=== PATIENT | female | born 1980 | race Caucasian/White ===

== ENCOUNTER 2018-08-22 18:59 | Outpatient (REF) | payer MEDICAID, SELFPAY ==
[2018-08-25 05:43] LABS: Codeine Negative ng/mL (Cutoff: 25); Dihydrocodeine Negative ng/mL (Cutoff: 25); Hydrocodone Negative ng/mL (Cutoff: 25); Hydromorphone Negative ng/mL (Cutoff: 25); Morphine Negative ng/mL (Cutoff: 25); Naloxone Negative ng/mL (Cutoff: 25); Norhydrocodone Negative ng/mL (Cutoff: 25); Noroxycodone Negative ng/mL (Cutoff: 25); Noroxymorphone Negative ng/mL (Cutoff: 25); Opiates Interpretation Negative.
[2018-08-27 01:23] LABS: 2-OH-Ethyl-Flurazepam Negative ng/mL (Cutoff: 100); 7-NH-Clonazepam Negative ng/mL (Cutoff: 100); 7-NH-Flunitrazepam Negative ng/mL (Cutoff: 50); Alpha OH-Alprazolam Negative ng/mL (Cutoff: 100); Alpha-OH-Triazolam Negative ng/mL (Cutoff: 100); Benzodiazepines Interpretation Negative.; Lorazepam Negative ng/mL (Cutoff: 100); Temazepam Negative ng/mL (Cutoff: 100)
== END 2018-08-22 19:19 ==
LOC: NCHCN 18:59
PROVIDERS: PCP Family Medicine; Visit Provider Family Medicine
DX: G89.29 Other chronic pain (principal); F11.20 Opioid dependence, uncomplicated
CPT/HCPCS: 80361; 80346

== ENCOUNTER 2018-10-31 17:28 | Emergency (ER) | payer MEDICAID, SELFPAY ==
[2018-10-31 17:33] VITALS: BP 138/92; PULSE 100; RESP 16; TEMP 36.5; O2SAT 99
--- NOTE | 2018-10-31 18:03 | DI.CT_ITS ---
SYMPTOM/DIAGNOSIS: TRAUMA NONCONTRAST HEAD CT: No priors. There is a normal castillo white matter differentiation. No intracranial hemorrhage, infarct, midline shift or mass effect is identified. The ventricles are intact. The basilar cisterns are patent. The calvarium is intact. The visualized paranasal sinuses are clear. The mastoid air cells are well pneumatized. IMPRESSION: No acute intracranial process. CERVICAL SPINE CT: Multiple contiguous axial images of the cervical spine were obtained. Sagittal and coronal reformatted images were evaluated on the [employer] work station. There is normal alignment of the cervical spine. No acute fractures or subluxations are seen. The odontoid is intact. The lateral masses are well aligned. There is no significant prevertebral soft tissue swelling. The lung apices are clear. IMPRESSION: No acute fracture or subluxation in the cervical spine.
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
--- NOTE | 2018-10-31 18:27 | NUR.NOTE ---
Nursing Note: This functional tester typewriters did not come in contact with patient until she was being wheeled over for xray into a wheelchair that stood and pivoted into. Patient was extremely uncooperative once over in xray requesting her c-collar be taken off threatening to throw it. Patient was not compliant, picking up her neck and twisting in while on the table. This functional tester typewriters fixed her c collar as it appeared to be partially taken off. Patient was uncooperative with the plan for trying to maintain c spine precautions during the process of moving patient off the ct table as well.
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
[2018-10-31 19:21] VITALS: BP 138/92; PULSE 100; RESP 16; TEMP 36.5; O2SAT 99
--- NOTE | 2018-11-01 09:13 | CMPROGNOTE_ITS ---
Care Management Progress Note 11/01-Nataliia GARCIA requested assistance with a PCP (Dr. Vicente) f/u as soon as possible for clearance of c-spine. Referral faxed to [facility] this am.
== END 2018-10-31 19:25 | disposition home or self-care (01) ==
LOC: ER 19:13
PROVIDERS: Emergency Provider Physician Assistant; PCP Family Medicine
DX: S00.83XA Contusion of other part of head, initial encounter (principal); S00.531A Contusion of lip, initial encounter; X58.XXXA Exposure to other specified factors, initial encounter; M54.2 Cervicalgia; R51 Headache; Z04.71 Encounter for examination and observation following alleged adult physical abuse
CPT/HCPCS: 99284; 70450; 72125

== ENCOUNTER 2019-02-19 19:59 | Outpatient (REF) | payer MEDICAID, SELFPAY ==
[2019-02-19 20:23] LABS: Abs Immature Grans 0.04 k/cumm (0.0-0.09); Absolute Basophil Count 0.04 k/cumm (0.0-0.2); Absolute Eosinophil Count 0.15 k/cumm (0.0-0.7); Absolute Lymphocyte Count 3.04 k/cumm (1.2-3.4); Absolute Monocyte Count 0.87 k/cumm (0.11-0.7); Absolute Neutrophil Count 5.65 k/cumm (1.2-6.7); Basophils % 0.4; Eosinophils % 1.5; HCT 40.5 % (36.0-46.0); HGB 13.3 g/dL (12.0-15.5); Immature Grans % 0.4; Lymphocytes % 31.1; Mean Corp. HGB Concentration 32.8 g/dL (32.0-36.0); Mean Corpuscular Hemoglobin 28.4 pg (27.0-33.0); Mean Corpuscular Volume 86.4 fL (80-95); Mean Platelet Volume 9.3 fL (8.0-11.0); Monocytes % 8.9; Neutrophils % 57.7; Platelet Count 344 x1000/uL (130-400); RBC 4.69 m/cumm (4.00-5.20); RBC Distribution Width 12.7 % (11.7-14.6); White Blood Cell Count 9.79 k/cumm (4.4-10.8)
[2019-02-19 20:32] LABS: ALT 34 U/L (12-78); AST 17 U/L (15-37); Albumin 3.7 g/dL (3.4-5.0); Alkaline Phosphatase 44 U/L (46-116); Anion Gap 13.1 mmol/L (3-11); BUN 13 mg/dL (7-18); Bilirubin, Total 0.2 mg/dL (0.2-1.0); CO2 20.9 mmol/L (21.0-32.0); CREATININE 0.99 mg/dL (0.55-1.02); Chloride 104 mmol/L (98-107); Glucose 109 mg/dL (70-100); Sodium 138 mmol/L (136-145); TSH 1.25 uIU/mL (0.358-3.74)
== END 2019-02-19 20:19 ==
LOC: NCHCN 19:59
PROVIDERS: PCP Family Medicine; Visit Provider Nurse Practitioner Psychiatric/Mental Health
DX: R30.0 Dysuria (principal); G93.2 Benign intracranial hypertension
CPT/HCPCS: 80053; 84443; 85025; 87086

== ENCOUNTER 2019-03-11 14:12 | Observation (INO) | payer MEDICAID, SELFPAY ==
[2019-03-11] VITALS (52 sets, daily range): BP systolic 116–185; BP diastolic 65–165; PULSE 106–149; RESP 13–49; TEMP 36.5–37.6; O2SAT 86–99
--- NOTE | 2019-03-11 14:23 | NUR.NOTE ---
Nursing Note:Patient currently being served the warrant, VSP is currently being patient as she takes the needed time to read threw the paperwork. ED director and caremanager are present in the lobby as well as the risk developer.
--- NOTE | 2019-03-11 14:43 | NUR.NOTE ---
Nursing Note: This literary writer has been present in patients room since intake into the ER she currently is not allowing vital signs to be taken. She is refusing the medical side of the exam, she keeps reading through the warrant paper work stating it is an emergency mental health exam. Patient is currently still dressed in her own clothing and still has her belongings.
--- NOTE | 2019-03-11 14:53 | PDOC.ERCMPRO ---
Care Management Progress Note Mirela has reportedly spent the day in the lobby of the [facility] Emergency Room while [facility] office support assistant awaited a warrant to treat as Mirela is presenting as delusional and is not voluntary at this time. Anticipate if treatment is recommended she will be involuntary. Recent pertinent PMH unavailable at this time. CM will respond to ED to assess Mirela in the event Mirela is medically cleared and [facility] screener deems she meets criteria for psychiatric stabilization CM will facilitate interdepartmental huddle with [facility] screener for safety planning considerations and meet with patient to review [facility] policy and safety plan, establish individual wishes for treatment and maintain patient rights. In the interim; please note safety plan below to guide patient care while awaiting further assessment in the ED. Safety plan has been established with patient, and care team, to adhere to patient goals, identify restrictions based on behavioral status, address nutrition, and determine allowed personal belongings, tools for hygiene and personal care. Determine level of activity including ambulation, level of supervision, visitors, and determine privileges based on behaviors and level of engagement by patient. SAFETY PLAN: 1. Will remain on suicide precautions. In Paper Clothes 2. Will remain in room under direct supervision of one-on-one staff at all times provided by [employer]; JAGDISH, HORSE IDENT[employer] mission worker. 3. May have paper cups, plates, finger foods as well as a metal spoon with which to eat meals. [facility] staff will be responsible for accounting of utensils after meals. 4. Follow [facility] Management of the Admitted Behavioral Health Patient policy. 5. Comfort bath system only. 6. No personal belongings 7. Visitors-No visitors at this time 8. Activities: Further observation required prior to introduction of manipulatives. 9. Escort to bathroom at RN discretion. 10. Phone: No phone contact at this time. 11. Due to assumed INVOLUNTARY status, patient will likely be unable to leave [facility], and will remain under the care of [facility] at [facility] while awaiting bed availability. [facility] and begin seeking placement. Please contact the Forensic Examiner Tree Killer ([phone]) and [facility] Barrel Line Operator ([phone]) for any needed changes in the Safety Plan. Safety plan has been provided to interdepartmental care team.
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
[2019-03-11 15:16] LABS: Abs Immature Grans 0.04 k/cumm (0.0-0.09); Absolute Basophil Count 0.04 k/cumm (0.0-0.2); Absolute Eosinophil Count 0.07 k/cumm (0.0-0.7); Absolute Lymphocyte Count 2.85 k/cumm (1.2-3.4); Basophils % 0.3; Eosinophils % 0.5; HCT 41.3 % (36.0-46.0); HGB 13.8 g/dL (12.0-15.5); Immature Grans % 0.3; Lymphocytes % 21.5; Mean Corp. HGB Concentration 33.4 g/dL (32.0-36.0); Mean Corpuscular Hemoglobin 28.6 pg (27.0-33.0); Mean Corpuscular Volume 85.7 fL (80-95); Neutrophils % 67.4; Platelet Count 353 x1000/uL (130-400); RBC 4.82 m/cumm (4.00-5.20); RBC Distribution Width 12.7 % (11.7-14.6); White Blood Cell Count 13.24 k/cumm (4.4-10.8)
[2019-03-11 15:20] LABS: Absolute Monocyte Count 1.32 k/cumm (0.11-0.7); Absolute Neutrophil Count 8.92 k/cumm (1.2-6.7)
[2019-03-11 15:34] LABS: ALT 40 U/L (12-78); AST 18 U/L (15-37); Albumin 3.8 g/dL (3.4-5.0); Alkaline Phosphatase 55 U/L (46-116); Anion Gap 15.1 mmol/L (3-11); BUN 9 mg/dL (7-18); Bilirubin, Total 0.4 mg/dL (0.2-1.0); CO2 23.9 mmol/L (21.0-32.0); CREATININE 0.72 mg/dL (0.55-1.02); Calcium 9.1 mg/dL (8.5-10.1); Chloride 102 mmol/L (98-107); Glucose 123 mg/dL (70-100); Sodium 141 mmol/L (136-145); TSH (W/Ref FT4) 1.08 uIU/mL (0.358-3.74); Total Protein 7.6 g/dL (6.4-8.2)
--- NOTE | 2019-03-11 15:39 | NUR.NOTE ---
Nursing Note: Patient reported to this film writer that she went for walk this afternoon which is causing her stuffy nose and productive cough due to the pollen. Patient reported to this film writer that her cough is producing greenish colored sputum and her nasal discharge is clear in color at this time. It has been noted that the patient has not left the ER waiting room all day today so her afternoon walk is a delusion.
[2019-03-11 15:42] LABS: Potassium 2.9 mmol/L (3.5-5.1)
--- NOTE | 2019-03-11 15:50 | NUR.NOTE ---
Nursing Note: EKG performed on patient, MD required to be present in the room as patient only follows the rules when provider is present. Patient initially refused to sit in a semi fowlers. She gets very defensive about any information this tag writer discloses to the provider.
[2019-03-11 15:54] LABS: Magnesium 1.5 mg/dL (1.8-2.4)
--- NOTE | 2019-03-11 16:01 | CMPROGNOTE_ITS ---
Care Management Progress Note Mirela has reportedly spent the day in the lobby of the [facility] Emergency Room while [facility] supportive employment case manager awaited a warrant to treat as Mirela is presenting as delusional and is not voluntary at this time. Anticipate if treatment is recommended she will be involuntary. Recent pertinent PMH unavailable at this time. CM will respond to ED to assess Mirela in the event Mirela is medically cleared and [facility] screener deems she meets criteria for psychiatric stabilization CM will facilitate interdepartmental huddle with [facility] screener for safety planning considerations and meet with patient to review [facility] policy and safety plan, establish individual wishes for treatment and maintain patient rights. In the interim; please note safety plan below to guide patient care while awaiting further assessment in the ED. Safety plan has been established with patient, and care team, to adhere to patient goals, identify restrictions based on behavioral status, address nutrition, and determine allowed personal belongings, tools for hygiene and personal care. Determine level of activity including ambulation, level of supervision, visitors, and determine privileges based on behaviors and level of engagement by patient. SAFETY PLAN: 1. Will remain on suicide precautions. In Paper Clothes 2. Will remain in room under direct supervision of one-on-one staff at all times provided by [employer]; JAGDISH, MANAGER VAN mortgage loan specialist. 3. May have paper cups, plates, finger foods as well as a metal spoon with which to eat meals. [facility] staff will be responsible for accounting of utensils after meals. 4. Follow [facility] Management of the Admitted Behavioral Health Patient policy. 5. Comfort bath system only. 6. No personal belongings 7. Visitors-No visitors at this time 8. Activities: Further observation required prior to introduction of manipulatives. 9. Escort to bathroom at RN discretion. 10. Phone: No phone contact at this time. 11. Due to assumed INVOLUNTARY status, patient will likely be unable to leave [facility], and will remain under the care of [facility] at [facility] while awaiting bed availability. [facility] and begin seeking placement. Please contact the Bread Racker Poly Operator ([phone]) and [facility] Crater And Packer ([phone]) for any needed changes in the Safety Plan. Safety plan has been provided to interdepartmental care team.
[2019-03-11 16:02] LABS: ETHANOL BLOOD < 3.0 mg/dL (<3); Salicylate < 2.8 mg/dL (2.8-20.0)
[2019-03-11 16:05] LABS: Acetaminophen < 2 ug/mL (10-30)
--- NOTE | 2019-03-11 16:16 | NUR.NOTE ---
Addendum entered by Kacie Uribe 03/11/19 17:27: Late entry due to being busy with caring for patient. Multiple deescalation techniques were used to help the ER staff avoid the need for restraints. Patient was initially sitting with legs over the side of the bed with arms crossed refusing all medical care. She kept shaking her head with her eyes closed. With lots of calm voices and encouragement patient agreed to cooperate. Original Note: Nursing Note: Patient moved from room 9 to room 1 for the ability to use a security monitor and medically clear a patient. Patient is currently refusing medical treatment. Multiple different faces including the facilities director credit risk, the provider caring for the patient.
[2019-03-11] MEDS: Normal Saline 1,000 ML 1000 ML IV (16:46)
[2019-03-11] MEDS: MAGNESIUM SULFATE 2 GM/50 ML BAG IVPB (16:46)
--- NOTE | 2019-03-11 17:13 | PDOC.MHCN ---
Date of service: 03/11/19 Time of Service: 17:13 Mental Health Crisis Note Presenting Issue How did you arrive at the ED and why did you come: Mirela was dropped off at the hospital at 7:15 am by an unknown male. She remained in the waiting area for several hours as she refused to come into the ER. [facility] contacts [facility] emergency services to request an evaluation. A warrant is subsequently obtained and [facility] Police escort Mirela into the ER. Precipitating Factors Mirela is delusional, believing that a man named Jaiden will be coming to pick her up in a helicopter. She also appears to be experiencing hallucinations, as evidenced by her carrying on a one-sided conversation. Suicidal ideation cannot be assessed as she refuses to answer questions asked of her. Disposition BEHAVIOR: Uncooperative. EYE CONTACT: Good. MOOD: Irritable. AFFECT: Guarded. APPETITE: Unknown. SLEEP(trouble falling/staying asleep: Unknown. Plan Once Mirela is medically stable, she will be reassessed by [facility]. For the time being, she is being held at [facility] on involuntary status. Signature Clinician's Name/Title: Yusra Lind BA, [facility] Manager Star
--- NOTE | 2019-03-11 17:20 | PDOC.MHCN_ITS ---
Date of service: 03/11/19 Time of Service: 17:13 Mental Health Crisis Note Presenting Issue How did you arrive at the ED and why did you come: Mirela was dropped off at the hospital at 7:15 am by an unknown male. She remained in the waiting area for several hours as she refused to come into the ER. [facility] contacts [facility] emergency services to request an evaluation. A warrant is subsequently obtained and [facility] Police escort Mirela into the ER. Precipitating Factors Mirela is delusional, believing that a man named Jaiden will be coming to pick her up in a helicopter. She also appears to be experiencing hallucinations, as evidenced by her carrying on a one-sided conversation. Suicidal ideation cannot be assessed as she refuses to answer questions asked of her. Disposition BEHAVIOR: Uncooperative. EYE CONTACT: Good. MOOD: Irritable. AFFECT: Guarded. APPETITE: Unknown. SLEEP(trouble falling/staying asleep: Unknown. Plan Once Mirela is medically stable, she will be reassessed by [facility]. For the time being, she is being held at [facility] on involuntary status. Signature Clinician's Name/Title: Yusra Lind BA, [facility] Vermin Exterminator
--- NOTE | 2019-03-11 18:13 | NUR.NOTE ---
Nursing Note: Patient provided with a meal tray of a meal that she ordered to her liking. While setting her up to eat she requested her Blood pressure cuff be removed and her SPO2 monitor be removed. was notified.
--- NOTE | 2019-03-11 18:53 | PDOC.ERCMPRO ---
Care Management Progress Note S/O: Mirela spent the day in the lobby of the [facility] Emergency Room while [facility] learning support assistant awaited a warrant to treat as Mirela is presenting as delusional and is not voluntary at this time. Warrant was served and the [facility] Troopers escorted her to the ED for medical evaluation and clearance. She has been talking to people who are not there and waiting for Jaiden to come pick her up. She has been a client of [facility] in the past but has not had any recent contact. She does know all of the medications she is on but has not been taking them as ordered. There is no one named Jaiden coming to pick her up. She did agree to medical management and allowed labs to be drawn and agreed to receive IV fluids. Does have a history of PTSD and, according to her, TBI. INVOLUNTARY FOR MEDICAL CLEARANCE AND PSYCHIATRIC EVALUATION [facility] 03/11/19 17:45 Sho Bellamy, RN; Uriel StaffordTape Stringer, Yusra [facility]; Ritu MATTHEWS- Safety plan has been established with patient, and care team, to adhere to patient goals, identify restrictions based on behavioral status, address nutrition, and determine allowed personal belongings, tools for hygiene and personal care. Determine level of activity including ambulation, level of supervision, visitors, and determine privileges based on behaviors and level of engagement by pt. 03/11/19 @ 1800 SAFETY PLAN: ED Room #1 JL 1. Will remain on suicide precautions and in paper clothes. May keep her leggings on. 2. Will remain in room under direct supervision of one-on-one staff at all times provided by [employer], JAGDISH, WIG SALES CONSULTANT recreation activities coordinator. 3. May have paper cups, plates, finger foods as well as a metal spoon with which to eat meals. [facility] staff will be responsible for accounting of utensils after meals. May have additional utensils at the direction of the RN. 4. Follow [facility] Management of the Admitted Behavioral Health Patient policy. 5. Comfort bath system only. 6. No personal belongings in the room 7. Visitors: No visitors at this time. 8. Activities: Further observation is required prior to introduction of manipulatives (books, coloring books, crayons) 9. No phone at this time. 10. Nursing Biomedical Manager to coordinate any decision for change in location to the M/S Unit based on staffing and bed availability. TV Privileges/Remote privileges if moved to the Unit 11. Due to INVOLUNTARY status, the patient may not leave the hospital and will remain under the care of [facility] and the Commissioner of Mental health at [facility] while awaiting bed availability. The [facility] livestock farmworker must be contacted to re-evaluate patient. Patient is currently involuntarily at [facility] and [facility] is seeking inpatient psychiatric admission when a bed becomes available. [facility] Frontline Computer System Validation Specialist will seek placement options when medically cleared. Please contact the Storage Battery Inspector And Tester Coal Trammer ([phone]) and [facility] Computer System Validation Specialist ([phone]) for any needed changes in the Safety Plan. Safety plan has been provided to interdepartmental care team including Clinical Coordinator, Nursing Biomedical Manager.
[2019-03-11] MEDS: POTASSIUM CHLORIDE 20 MEQ/100 ML BAG 50 MEQ IVPB (19:12)
[2019-03-11] MEDS: LORazepam 2 MG/ML VIAL IVP (19:15)
--- NOTE | 2019-03-11 19:22 | CMPROGNOTE_ITS ---
Care Management Progress Note S/O: Mirela spent the day in the lobby of the [facility] Emergency Room while [facility] application support developer awaited a warrant to treat as Mirela is presenting as delusional and is not voluntary at this time. Warrant was served and the [facility] Troopers escorted her to the ED for medical evaluation and clearance. She has been talki ng to people who are not there and waiting for Jaiden to come pick her up. She has been a client of [facility] in the past but has not had any recent contact. She does know all of the medications she is on but has not been taking them as ordered. There is no one named Jaiden coming to pick her up. She did agree to medical management and allowed labs to be drawn and agreed to receive IV fluids. Does have a history of PTSD and, according to her, TBI. INVOLUNTARY FOR MEDICAL CLEARANCE AND PSYCHIATRIC EVALUATION Huddle 03/11/19 17:45 Sho Bellamy, BYRON; Uriel StaffordPaleontological Helper, Yusra [facility]; Ritu MATTHEWS- Safety plan has been established with patient, and care team, to adhere to patient goals, identify restrictions based on behavioral status, address nutrition, and determine allowed personal belongings, tools for hygiene and personal care. Determine level of activity including ambulation, level of supervision, visitors, and determine privileges based on behaviors and level of engagement by pt. 03/11/19 @ 1800 SAFETY PLAN: ED Room #1 JL 1. Will remain on suicide precautions and in paper clothes. May keep her leggings on. 2. Will remain in room under direct supervision of one-on-one staff at all times provided by CPSO, JAGDISH, [employer] field education director. 3. May have paper cups, plates, finger foods as well as a metal spoon with which to eat meals. [facility] staff will be responsible for accounting of utensils after meals. May have additional utensils at the direction of the RN. 4. Follow [facility] Management of the Admitted Behavioral Health Patient policy. 5. Comfort bath system only. 6. No personal belongings in the room 7. Visitors: No visitors at this time. 8. Activities: Further observation is required prior to introduction of manipulatives (books, coloring books, crayons) 9. No phone at this time. 10. Nursing Washer Repairman to coordinate any decision for change in location to the M/S Unit based on staffing and bed availability. TV Privileges/Remote privileges if moved to the Unit 11. Due to INVOLUNTARY status, the patient may not leave the hospital and will remain under the care of [facility] and the Commissioner of Mental health at [facility] while awaiting bed availability. The [facility] bench worker binding must be contacted to re- evaluate patient. Patient is currently involuntarily at [facility] and [facility] is seeking inpatient p sychiatric admission when a bed becomes available. [facility] Frontline Fur Dyer will seek placement options when medically cleared. Please contact the Instrumentation And Controls Technician Diesel Bus Mechanic ([phone]) and [facility] Fur Dyer ([phone]) for any needed changes in the Safety Plan. Safety plan has been provided to interdepartmental care team including Clinical Coordinator, Nursing Washer Repairman.
[2019-03-11 19:30] LABS: Bilirubin Negative (Negative); Blood Negative (Negative); Clarity Clear; Glucose Negative (Negative); Ketones 40 mg/dL (Negative); Leukocyte Esterase Negative (Negative); Nitrite Negative (Negative); Specific Gravity 1.015 (1.005-1.025)
--- NOTE | 2019-03-11 19:40 | DI.COMBO_ITS ---
SYMPTOM/DIAGNOSIS: COUGH, CONFUSION PORTABLE AP CHEST: The image was obtained in a poor inspiratory effort. There is no definite infiltrate. There is no pleural effusion. The cardiovascular structures appear intact. SUMMARY: No evidence of acute cardiopulmonary disease. If there is other strong specific clinical question regarding the status of this patient, then a follow up PA and lateral examination is recommended. NONCONTRAST HEAD CT: A noncontrast enhanced examination was performed. There is no evidence of an intra/extra-axial hemorrhage. There is no evidence of a mass. The castillo white matter differentiation is maintained. The ventricles are normal. There is no skull fracture. The sinuses are unremarkable. There is no evidence of a mastoid effusion. The bony orbits are well maintained. The soft tissues are unremarkable. SUMMARY: No acute intracranial abnormality is demonstrated.
[2019-03-11 19:47] LABS: *AMPHETAMINES SCREEN URINE Negative (Negative); *BARBITURATES SCREEN URINE Negative (Negative); *BENZODIAZEPINES SCREEN URINE Negative (Negative); Cannabinoids THC Negative (Negative); Cocaine Screen,Urine Negative (Negative); METHADONE URINE SCREEN Negative (Negative); OPIATES URINE SCREEN Negative (Negative)
[2019-03-11 20:07] LABS: Tricyclic Antidepressants Negative (Negative)
--- NOTE | 2019-03-11 20:10 | DI.VRAD_ITS ---
EXAM: XR Chest, 1 View EXAM DATE/TIME: 03/11/2019 7:40 PM CLINICAL HISTORY: 38 years old, female; Signs and symptoms; Other: Cough TECHNIQUE: Imaging protocol: XR of the chest, 1 view. COMPARISON: CR CHEST 2 VIEWS PA,LAT 03/16/2016 11:07 AM FINDINGS: Lungs: Low lung volumes causes mild crowding of the bronchovascular structures, nevertheless there is mild bilateral hilar haziness and subtle bilateral perihilar streak-like opacities noted. Mild segmental bronchial wall thickening is appreciated as well. Slightly more pronounced air space opacification suggested in the left retrocardiac region. Pleural space: Unremarkable. No pleural effusion. No pneumothorax. Heart/Mediastinum: Cardiomediastinal silhouette is magnified due to technique. Bones/joints: No acute skeletal abnormality IMPRESSION: Findings predominantly suggest an acute viral illness versus reactive airways disease, however there is concern for possible developing airspace disease in the left retrocardiac region in which developing infectious (bacterial) pneumonia should be entertained in the appropriate clinical setting. Dictated and Authenticated by: Donovan Kirby MD. Ordering:CHRISTIANO Dillard MD
[2019-03-11] MEDS: DOXYCYCLINE 100 MG in Normal Saline 100 ML IVPB (20:32)
[2019-03-11] MEDS: cefTRIAXone 1 GM/50 ML BAG IVPB (20:32)
--- NOTE | 2019-03-11 20:51 | DI.VRAD_ITS ---
EXAM: CT Head Without Contrast EXAM DATE/TIME: 03/11/2019 8:01 PM CLINICAL HISTORY: 38 years old, female; Signs and symptoms; Altered mental status/memory loss; Confusion or disorientation TECHNIQUE: Imaging protocol: Axial computed tomography images of the head without contrast. Coronal and sagittal reformatted images were created and reviewed. Radiation optimization: All CT scans at this facility use at least one of these dose optimization techniques: automated exposure control; mA and/or kV adjustment per patient size (includes targeted exams where dose is matched to clinical indication); or iterative reconstruction. COMPARISON: No relevant prior studies available. FINDINGS: Brain: Normal. No hemorrhage. Unremarkable white matter. No mass effect. Ventricles: Normal. No ventriculomegaly. Bones/joints: Unremarkable. No acute fracture. Sinuses: Visualized sinuses are unremarkable. No fluid levels. Mastoid air cells: Visualized mastoid air cells are well aerated. No mastoid effusion. Orbits: Unremarkable. Soft tissues: Unremarkable. IMPRESSION: No acute intracranial abnormality. Dictated and Authenticated by: Donovan Kirby MD. Ordering:CHRISTIANO Dillard MD
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
[2019-03-11] MEDS: POTASSIUM CHLORIDE/0.9% NACL 1,000 ML 200 MEQ IV (23:01)
[2019-03-11 23:29] LABS: Lactate-non-spesis 0.7 mmol/l (0.6-1.4)
[2019-03-12 00:12] VITALS: BP 126/78; PULSE 99; RESP 16; TEMP 37; O2SAT 96
--- NOTE | 2019-03-12 01:20 | NUR.NOTE ---
At about 0000 this nurse went into the pt's room to give her Lamictal 100mg, Trazodone 100mg, Prazosin 2mg per MD order. Pt was awakened upon this nurses arrival. pt's VS were taken. pt fell back asleep after VS equipment was removed. this freelance writer awaken pt again and opened above medications in front of pt and explained what meds the MD prescribed and what they were for. pt stated that she could not take medications on an empty stomach and wanted a PB&J sandwhich, one was made. pt was sleeping upon arrival back into room. pt stated that she could not eat this sandwich because it was not made in front of her and she only ate white bread. this nurse brought the supplies to make the pt a new sandwich in pt's room. pt was awakened to see that a new sandwich as being made. pt fell asleep while sandwich was being made, even with this freelance writer announcing what I was doing. once more this nurse explained to the pt why the MD ordered these medication and the pt still refused to take them. an hour later another nurse tried again to administer the above medications to the pt. after awakening pt and opening the meds in front of her and explaining them she still refused. pt sleeping at this time with CPSO in the room. will continue to monitor.
[2019-03-12] MEDS: POTASSIUM CHLORIDE/0.9% NACL 1,000 ML 200 MEQ IV (04:00)
[2019-03-12 07:50] VITALS: BP 134/79; PULSE 125; RESP 18; TEMP 37.2; O2SAT 97
[2019-03-12] MEDS: acetaZOLAMIDE 250 MG TAB 500 MG PO ×2 (08:25→20:18)
[2019-03-12] MEDS: Omeprazole 20 MG CAPCR 40 MG PO (08:25)
[2019-03-12] MEDS: Celecoxib 200 MG CAP PO ×2 (08:26→20:17)
[2019-03-12] MEDS: buPROPion-CR 150 MG TABCR PO ×2 (08:26→20:17)
[2019-03-12] MEDS: lamoTRIgine 100 MG TAB 150 MG PO (08:28)
[2019-03-12] MEDS: Montelukast 10 MG TAB PO (08:31)
[2019-03-12] MEDS: Propranolol 40 MG TAB PO ×2 (08:31→20:18)
[2019-03-12] MEDS: Venlafaxine 150 MG CAPCR 300 MG PO (08:32)
[2019-03-12 10:15] VITALS: O2SAT 97
--- NOTE | 2019-03-12 13:40 | PDOC.MHCN ---
Date of service: 03/12/19 Time of Service: 13:40 Mental Health Crisis Note Presenting Issue How did you arrive at the ED and why did you come: Mirela remains at [facility] on involuntary status. She first came to the hospital yesterday after being dropped off by some unknown male in the waiting area. Precipitating Factors Mirela continues to be irritable. She refuses to engage in conversation but she does agree to go to [facility] voluntarily if they have a bed available. She continues to experience hallucinations and paranoia. Disposition BEHAVIOR: Uncooperative. EYE CONTACT: Good. MOOD: Irritable. AFFECT: Guarded and paranoid. APPETITE: Reported as good. SLEEP(trouble falling/staying asleep: Unknown. Plan [facility] accepts a referral. If they accept Mirela for admission, she will be walked off of the and will be transported to [facility]. A referral is also faxed to [facility] for review. Signature Clinician's Name/Title: Yusra Lind BA, [facility] Extension Edger
--- NOTE | 2019-03-12 13:46 | PDOC.MHCN_ITS ---
Date of service: 03/12/19 Time of Service: 13:40 Mental Health Crisis Note Presenting Issue How did you arrive at the ED and why did you come: Mirela remains at [facility] on involuntary status. She first came to the hospital yesterday after being dropped off by some unknown male in the waiting area. Precipitating Factors Mirela continues to be irritable. She refuses to engage in conversation but she does agree to go to [facility] voluntarily if they have a bed available. She continues to experience hallucinations and paranoia. Disposition BEHAVIOR: Uncooperative. EYE CONTACT: Good. MOOD: Irritable. AFFECT: Guarded and paranoid. APPETITE: Reported as good. SLEEP(trouble falling/staying asleep: Unknown. Plan [facility] accepts a referral. If they accept Mirela for admission, she will be walked off of the and will be transported to [facility]. A referral is also faxed to [facility] for review. Signature Clinician's Name/Title: Yusra Lind BA, [facility] Dimensional Engineer
--- NOTE | 2019-03-12 15:01 | W.PM.PROGNOT ---
Date of Service Date of service: 03/12/19 Time of Service: 15:02 Assessment and Plan (1) Acute psychosis: Current visit: Yes Status: Acute Per review of admission H&P it appears that patient's psychosis has been developing over the last 2 months, and has included paranoia, hallucinations, and potentially wayne as well - all exhibited currently. Primary issue appears very likely psychiatric in origin. Patient is not intoxicated, and UDS appears negative. She is not hypoxic, hypotensive, or experiencing any arrhythmia (sinus tachycardia in setting of agitation). CT of the Head has ruled out space occupying lesion or acute changes. EKG without ischemic changes. Sodium, Calcium, and TSH all appear normal. There is potential for infection (Pulmonary infiltrate), with read not confirmed by local radiology) and currently under treatment. There is also possibility for medication noncompliance as well, and according to admitting attending who has access to her records, patient has documentation of stimulant use over the last year, which would likely not show up on her Urine Drug Screen). Will continue with involuntary admission, 2nd certification being performed currently. Patient is awaiting placement into a psychiatric facility. Will continue with supportive care - she is also refusing new medications at this time to try to treat her symptoms. (2) Pneumonia: Current visit: Yes Status: Acute Potential infiltrate by Virtual Radiology read, as well as subjective cough and presence of mild leukocytosis. Repeat CBC and Procalcitonin ordered, but unfortunately the patient has refused further labwork. Will attempt empiric treatment - Ms. Lara has refused Azithromycin, Cefpodoxime, Doxycycline, and a number of other antibiotic options. Agreeing to Levofloxacin and also requesting prednisone. Check sputum culture. (3) Diabetes mellitus: Current visit: Yes Status: Chronic Continue to hold Metformin, and continue sliding scale coverage. (4) Elevated intracranial pressure: Current visit: Yes Status: Acute Continue Acetazolamide. Followed by Neurology chronically. Currently with evidence of hypokalemia and hypomagnesemia on Acetazolamide. Replete and recheck K+ if patient is amenable. (5) Chronic pain disorder: Current visit: Yes Status: Chronic Opiates reportedly weaned off, but patient is currently demanding he 'oxycodone'. Will continue with her home regimen of Celebrex. (6) Tachycardia: Current visit: Yes Status: Acute Potential pneumonia, but no evidence of hypoxia, fever, hypotension, Sepsis, or significant volume depletion. Patient is not anemic or hyperthyroid (normal TSH). She also does not have a history of underlying pulmonary disease. Unsure if patient has been exposed to stimulants as outpatient, other illicit drugs not seen on her UDS, or if this is related to her underlying agitation and anxiety. She may have been noncompliant with her BB therapy, but now resumed. EKG non-ischemic, and very low suspicion for PE. Will monitor, but doubt significant pathology. (7) Bipolar 1 disorder: Current visit: Yes Status: Acute Continue current home regiemn. (8) DVT prophylaxis: Current visit: Yes Status: Acute Currently ambulating and low risk for Venous Thromboembolism. Ensure SCDs. (9) Discharge planning issues: Current visit: Yes Status: Acute Currently being held nonvoluntary, with plans for transfer to inpatient psychiatric center. Subjective Interval history since last seen: 38 year old woman with history of bipolar disorder as well as PTSD, admitted from [facility] Emergency Department with a diagnosis of Acute Psychosis. Ms. Lara has a past medical history significant for Bipolar Disorder, PTSD, and prior TBI. She also suffers from chronic migraines and intracranial pressure elevation related to her Traumatic Brain Injury. She has been noted to have developed some paranoia and hallucinations over the past 2 months, per review of admission H&P and ED Records. She was essentially dropped off at the ED earlier on the day of admission by an unknown individual, with claims that the patient was 'psychotic'. She was assessed by mental health, and during routine work-up was noted to have a mild leukocytosis, mild tachycardia, hypokalemia, and potential presence of an infiltrate by CXR. Her urinalysis was negative for infection, Urine Drug screen negative, and with a normal CT of the head. She was also noted to be speaking to herself and to people or things that were not there. She was admitted under involuntary status with hopes of placement to a psychiatric facility. This morning the patient is agitated, uncooperative, and verbally abusive to staff, although cooperating with this physician. She has refused some medications, refused morning labs, is demanding that her IV be removed, and claiming that the bed linens and bath towels have given her an allergic reaction. She appears demanding and acutely manic and psychotic. Of note, she is also demanding her oral oxycodone, which was noted to be weaned off during this past winter. No other events reported. She remains afebrile. Exam Narrative Exam Narrative: General: Patient appears agitated, acutely , AAOX3, NAD Neck: Supple CV: Regular, nontachycardic, S1S2, No rubs, murmurs, or gallops. Pulmonary: Clear to auscultation bilaterally, no crackles, wheezing, or rhonchi Abdomen: + Bowel Sounds, soft, nontender, nondistended Vascular: No lower extremity Psych: Normal mood and affect. Objective Objective Clinical Data: Abnormal lab results 03/11/19 03/11/19 03/11/19 Range/Units 15:05 15:05 15:05 WBC 13.24 H (4.4-10.8) k/cumm Absolute Neutrophils 8.92 H (1.2-6.7) k/cumm Absolute Monocytes 1.32 H (0.11-0.7) k/cumm Potassium 2.9 L* (3.5-5.1) mmol/L Anion Gap 15.1 H (3-11) mmol/L Glucose 123 H (70-100) mg/dL Magnesium (1.8-2.4) mg/dL Urine Ketones (Negative) mg/dL Urine Urobilinogen (Up TO 0.2) EU/dL Salicylates < 2.8 L (2.8-20.0) mg/dL Acetaminophen < 2 L (10-30) ug/mL 03/11/19 03/11/19 Range/Units 15:30 19:25 WBC (4.4-10.8) k/cumm Absolute Neutrophils (1.2-6.7) k/cumm Absolute Monocytes (0.11-0.7) k/cumm Potassium (3.5-5.1) mmol/L Anion Gap (3-11) mmol/L Glucose (70-100) mg/dL Magnesium 1.5 L (1.8-2.4) mg/dL Urine Ketones 40 H (Negative) mg/dL Urine Urobilinogen 1.0 H (Up TO 0.2) EU/dL Salicylates (2.8-20.0) mg/dL Acetaminophen (10-30) ug/mL Vital Signs Temperature 37.2 C 03/12/19 07:50 Temperature Source Tympanic 03/12/19 07:50 Pulse 125 H 03/12/19 07:50 Pulse Rhythm Regular 03/12/19 00:12 Pulse 126 H 03/11/19 21:30 Respiratory Rate 18 03/12/19 07:50 Respiratory Effort Non-Labored 03/12/19 00:12 Respiratory Depth Normal 03/12/19 00:12 Respiratory Pattern Normal 03/12/19 00:12 Blood Pressure 134/79 03/12/19 07:50 Blood Pressure Mean 77 03/11/19 22:16 Blood Pressure Position Supine 03/11/19 22:05 Pulse Oximetry 97 03/12/19 10:15 Oxygen Delivery Method Room Air 03/12/19 10:15 Oxygen Flow Rate 0 03/12/19 10:15 Pain Level 0 03/12/19 00:12 Intake & Output 03/11/19 03/12/19 03/12/19 23:59 11:59 23:59 Intake Total 1300 / 1300 2030.000 / 2480.000 450 / 2480.000 Balance 1300 / 1300 2030.000 / 2480.000 450 / 2480.000 Weight 86.8 kg 89.1 kg Intake: IV 1300 / 1300 1910.000 / 1910.000 Oral 120 / 570 450 / 570 Other: Comment straight cath for urine specimen. pt got up to void. pt removed hat. pt removed hat from the toilet Voiding Methods Toilet Toilet Laboratory Results WBC 13.24 k/cumm (4.4-10.8) H 03/11/19 15:05 RBC 4.82 m/cumm (4.00-5.20) 03/11/19 15:05 Hgb 13.8 g/dL (12.0-15.5) 03/11/19 15:05 Hct 41.3 % (36.0-46.0) 03/11/19 15:05 MCV 85.7 fL (80-95) 03/11/19 15:05 MCH 28.6 pg (27.0-33.0) 03/11/19 15:05 MCHC 33.4 g/dL (32.0-36.0) 03/11/19 15:05 RDW 12.7 % (11.7-14.6) 03/11/19 15:05 Plt Count 353 x1000/uL (130-400) 03/11/19 15:05 MPV 10.0 fL (8.0-11.0) 03/11/19 15:05 Immature Gran % 0.3 03/11/19 15:05 Neutrophils % 67.4 03/11/19 15:05 Lymphocytes % 21.5 03/11/19 15:05 Monocytes % 10.0 03/11/19 15:05 Eosinophils % 0.5 03/11/19 15:05 Basophils % 0.3 03/11/19 15:05 Absolute Neutrophils 8.92 k/cumm (1.2-6.7) H 03/11/19 15:05 Absolute Lymphocytes 2.85 k/cumm (1.2-3.4) 03/11/19 15:05 Absolute Monocytes 1.32 k/cumm (0.11-0.7) H 03/11/19 15:05 Absolute Eosinophils 0.07 k/cumm (0.0-0.7) 03/11/19 15:05 Absolute Basophils 0.04 k/cumm (0.0-0.2) 03/11/19 15:05 Sodium 141 mmol/L (136-145) 03/11/19 15:05 Potassium 2.9 mmol/L (3.5-5.1) L* 03/11/19 15:05 Chloride 102 mmol/L (98-107) 03/11/19 15:05 Carbon Dioxide 23.9 mmol/L (21.0-32.0) 03/11/19 15:05 Anion Gap 15.1 mmol/L (3-11) H 03/11/19 15:05 BUN 9 mg/dL (7-18) 03/11/19 15:05 Creatinine 0.72 mg/dL (0.55-1.02) 03/11/19 15:05 Estimated GFR/1.73 m2 >= 60.00 (mL/min/1.73m2) 03/11/19 15:05 Glucose 123 mg/dL (70-100) H 03/11/19 15:05 Lactate 0.7 mmol/l (0.6-1.4) 03/11/19 23:25 Calcium 9.1 mg/dL (8.5-10.1) 03/11/19 15:05 Magnesium 1.5 mg/dL (1.8-2.4) L 03/11/19 15:30 Total Bilirubin 0.4 mg/dL (0.2-1.0) 03/11/19 15:05 AST 18 U/L (15-37) 03/11/19 15:05 ALT 40 U/L (12-78) 03/11/19 15:05 Alkaline Phosphatase 55 U/L (46-116) 03/11/19 15:05 Total Protein 7.6 g/dL (6.4-8.2) 03/11/19 15:05 Albumin 3.8 g/dL (3.4-5.0) 03/11/19 15:05 TSH 1.08 uIU/mL (0.358-3.74) 03/11/19 15:05 Beta HCG, Quant Cancelled 03/11/19 16:17 Urine Color Yellow (Yellow) 03/11/19 19:25 Urine Clarity Clear 03/11/19 19:25 Urine pH 6.0 (5-8) 03/11/19 19:25 Ur Specific [place] 1.015 (1.005-1.025) 03/11/19 19:25 Urine Protein Negative mg/dL (Negative) 03/11/19 19:25 Urine Ketones 40 mg/dL (Negative) H 03/11/19 19:25 Urine Blood Negative (Negative) 03/11/19 19:25 Urine Nitrite Negative (Negative) 03/11/19 19:25 Urine Bilirubin Negative (Negative) 03/11/19 19:25 Urine Urobilinogen 1.0 EU/dL (Up TO 0.2) H 03/11/19 19:25 Ur Leukocyte Esterase Negative (Negative) 03/11/19 19:25 Urine Glucose Negative mg/dL (Negative) 03/11/19 19:25 Salicylates < 2.8 mg/dL (2.8-20.0) L 03/11/19 15:05 Urine Opiates Screen Negative (Negative) 03/11/19 19:25 Urine Methadone Screen Negative (Negative) 03/11/19 19:25 Acetaminophen < 2 ug/mL (10-30) L 03/11/19 15:05 Ur Barbiturates Screen Negative (Negative) 03/11/19 19:25 Ur Tricyclics Screen Negative (Negative) 03/11/19 19:25 Ur Amphetamines Screen Negative (Negative) 03/11/19 19:25 U Benzodiazepines Scrn Negative (Negative) 03/11/19 19:25 Urine Cocaine Screen Negative (Negative) 03/11/19 19:25 Ur THC Screen Negative (Negative) 03/11/19 19:25 Ethyl Alcohol < 3.0 mg/dL (<3) 03/11/19 15:05
[2019-03-12] MEDS: predniSONE 20 MG TAB 40 MG PO (15:17)
--- NOTE | 2019-03-12 16:17 | PHARADMIT ---
Admission Pharmacy Clinical Review PNEUMONIA, PSYCHOTIC BEHAVIOR Code Status Full Code Current Weight 89.1 kg Renally Cleared and Narrow Therapeutic Index Meds CRCL ~71ML/MIN QTc Value / Action Taken 445 BP Control, Fever 134/79 AFEBRILE Electrolytes reviewed k AND MAG LOW REPLETED YESTERDAY BUT PT REFUSED LAB DRAW TODAY DVT Prophylaxis NO Opiate Usage / Scheduled Bowel Regimen Ordered Plt/SCr for Heparin / Enoxaparin 353 INR for Warfarin NA H/H stable, WBC/Bands 13.8/41.3 WBC 13.24 Antibiotic appropriateness ONE DOSE AZITHROMYCIN ORDERED PT REFUSED THEN STOPPED .LEVOFLOXACIN ORDERED Cultures and Sensitivities NA Surgical ABX d/c within 24 hr NA DM control / Insulin Dosing INSULIN ASPART Heart Failure (Check EF%) (FERNANDA's, B-Block, Diuretics) NA IV to PO Switch PO ABX Home Meds Reviewed Home Meds Not Ordered metformin 1,000 mg PO BID propranolol 40 mg PO BID ropinirole [Requip] 0.25 mg PO .QHS 10/31/18 trazodone 100 mg PO .QHS Comments
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
--- NOTE | 2019-03-12 18:05 | NUR.NOTE ---
Nursing Note: Pt received fully awake on stretcher on sitting position, refused to be touched. took morning prednisone with 2 leslee crackers and peanut butter, everything should be sealed. Unable to do physical assessments. complained of shoulder and headaches but no PRN pain med.When MD seen pt and made aware but no voiced complaints when MD was around. Pt did her own fingerstick was supervised by JAGDISH. Then complained of IID on Rt Ac drsg to be changed but when approached , pt stated not to touch it, Pt is very suspicious and paranoid of things she is getting if not sealed and be readable by her. sitter on the sight.
--- NOTE | 2019-03-12 19:05 | PDOC.CMPRO ---
- If Service Date Differs Date of service: 03/12/19 Time of Service: 19:05 Care Management Progress Note Mirela was evaluated by [facility]. Second certification was not approved per provider the patient does not meet requirements. Patient should work with [facility] for a safe discharge plan and follow up. Patient denies suicidal or homicidal ideation and states if she were to leave she would go to a friends home. CM contacted [facility] to meet with the patient. CM will fax referral to primary care and request T contact patient. Pt reports she has several appointments scheduled with her providers at [facility] over the next two weeks. She shares that her medications where recently adjusted as she had not been sleeping well. She states her provider increased her Prazosin to 4 mg to help her sleep. She states she has been more irritable and has been meeting with her provider regular to adjust her medications. P: [facility] will meet with Mirela and determine a safety plan with the patient and follow mental health services. Mirela would like her phone returned to her and her belongings. She wants to leave the hospital once she can contact a friend to pick her up. ARTEM reviewed the process with her including meeting with mental health and creating a safety plan with follow up prior to discharge.
--- NOTE | 2019-03-12 19:12 | CMPROGNOTE_ITS ---
- If Service Date Differs Date of service: 03/12/19 Time of Service: 19:05 Care Management Progress Note Mirela was evaluated by [facility]. Second certification was not approved per provider the patient does not meet requirements. Patient should work with [facility] for a safe discharge plan and follow up. Patient denies suicidal or homicidal ideation and states if she were to leave she would go to a friends home. CM contacted [facility] to meet with the patient. CM will fax referral to primary care and request T contact patient. Pt reports she has several appointments scheduled with her providers at [facility] over the next two weeks. She shares that her medications where recently adjusted as she had not been sleeping well. She states her provider increased her Prazosin to 4 mg to help her sleep. She states she has been more irritable and has been meeting with her provider regular to adjust her medications. P: [facility] will meet with Mirela and determine a safety plan with the patient and follow mental health services. Mirela would like her phone returned to her and her belongings. She wants to leave the hospital once she can contact a friend to pick her up. ARTEM reviewed the process with her including meeting with mental health and creating a safety plan with follow up prior to discharge.
[2019-03-12 19:55] VITALS: BP 155/77; PULSE 111; RESP 20; TEMP 36.4; O2SAT 96
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
[2019-03-12] MEDS: lamoTRIgine 100 MG TAB PO (21:39)
[2019-03-12 22:44] LABS: Procalcitonin < 0.1 ng/mL
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
== END 2019-03-12 22:45 | disposition home or self-care (01) ==
LOC: ER 21:19 → ICU 21:57 → MS 23:02
PROVIDERS: Student in an Organized Health Care Education/Training Program; Admitting Provider Family Medicine; Emergency Provider Emergency Medicine; PCP Family Medicine; Visit Provider Internal Medicine
DX: F23 Brief psychotic disorder (principal); Z75.1 Person awaiting admission to adequate facility elsewhere; J18.9 Pneumonia, unspecified organism; E11.9 Type 2 diabetes mellitus without complications; Z79.84 Long term (current) use of oral hypoglycemic drugs; G93.2 Benign intracranial hypertension; E87.6 Hypokalemia; E83.42 Hypomagnesemia; G89.29 Other chronic pain; R00.0 Tachycardia, unspecified; F31.9 Bipolar disorder, unspecified; Z91.120 Patient's intentional underdosing of medication regimen due to financial hardship; Z87.820 Personal history of traumatic brain injury; F43.10 Post-traumatic stress disorder, unspecified; G43.809 Other migraine, not intractable, without status migrainosus; E87.2 Acidosis; K21.9 Gastro-esophageal reflux disease without esophagitis; Z78.1 Physical restraint status
CPT/HCPCS: 36415; 51702; 80048; 80053; 80307; 84145; 93005; 96361; 96365; 96366; 96367; 96368; 96375; 99222; 99233; 99238; 99285; 70450; 71045; 80320; 80329; 81003; 83036; 83605; 83735; 84443; 84702; 85025; 93010; 99217; G0378; J0696; J2060; J3480; J7512

== ENCOUNTER 2020-12-21 19:29 | Outpatient (REF) | payer MEDICAID, SELFPAY ==
[2020-12-21 22:11] LABS: HCT 40.1 % (36.0-46.0); HGB 13.1 g/dL (11.2-15.7); MCHC 32.7 % (32.0-36.0); MCV 88.7 fL (80-95); MPV 10.2 fL (8.0-11.0); Platelet Count 416 10^3/uL (130-400); RBC 4.52 10^6/uL (3.93-5.22); RDW 12.3 % (11.7-14.6); RDW-SD 40.1 fL; WBC 14.19 10^3/uL (4.4-10.8)
[2020-12-21 22:16] LABS: ALT 49 U/L (14-59); AST 23 U/L (15-37); Albumin 3.7 g/dL (3.4-5.0); Alkaline Phosphatase 50 U/L (46-116); Anion Gap 11.3 mmol/L (3-11); BUN 21 mg/dL (7-18); Bilirubin, Total 0.3 mg/dL (0.2-1.0); CO2 25.7 mmol/L (21.0-32.0); CREATININE 0.8 mg/dL (0.55-1.02); Calcium 9.8 mg/dL (8.5-10.1); Chloride 103 mmol/L (98-107); Glucose 96 mg/dL (74-106); Magnesium 1.7 mg/dL (1.8-2.4); Sodium 140 mmol/L (136-145); TSH (W/Ref FT4) 1.43 uIU/mL (0.36-3.74); Total Protein 7.3 g/dL (6.4-8.2)
[2020-12-23 04:50] LABS: Vitamin D 25 Total 68.1 ng/ml (30-100)
== END 2020-12-21 19:30 | disposition home or self-care (01) ==
LOC: NCHCN 19:29
PROVIDERS: PCP Family Medicine; Visit Provider Family Medicine
DX: E11.9 Type 2 diabetes mellitus without complications (principal); Z86.2 Personal history of diseases of the blood and blood-forming organs and certain disorders involving the immune mechanism; E55.9 Vitamin D deficiency, unspecified; E83.42 Hypomagnesemia; I10 Essential (primary) hypertension
CPT/HCPCS: 80053; 82306; 85027; 83735; 84443

== ENCOUNTER 2022-02-03 19:06 | Outpatient (REF) | payer MEDICAID, SELFPAY ==
[2022-02-03 19:43] LABS: Anion Gap 9.5 mmol/L (3-11); BUN 15 mg/dL (7-18); CO2 24.5 mmol/L (21.0-32.0); Calcium 8.9 mg/dL (8.5-10.1); Chloride 107 mmol/L (98-107); Ferritin 99 ng/mL (8-252); Glucose 127 mg/dL (74-106); Magnesium 1.8 mg/dL (1.8-2.4); Potassium 4.6 mmol/L (3.5-5.1); Sodium 141 mmol/L (136-145)
[2022-02-03 19:59] LABS: Iron 76 ug/dL (50-170); Total Iron Binding Capacity 340 ug/dL (250-450); Transferrin Sat 22 % (15-50)
== END 2022-02-03 19:07 | disposition home or self-care (01) ==
LOC: NCHCN 19:06
PROVIDERS: PCP Family Medicine; Visit Provider Family Medicine
DX: E83.42 Hypomagnesemia (principal); Z86.2 Personal history of diseases of the blood and blood-forming organs and certain disorders involving the immune mechanism; I10 Essential (primary) hypertension; E11.9 Type 2 diabetes mellitus without complications
CPT/HCPCS: 80048; 82728; 83540; 83550; 83735

== ENCOUNTER → 2022-05-03 14:24 | Outpatient (CLI) | payer MEDICAID, SELFPAY ==
--- NOTE | 2022-05-03 | DI.RAD_ITS ---
Exam(s) XR LUMBAR SPINE COMPLETE EXAM: XR LUMBAR SPINE COMPLETE CLINICAL HISTORY: SPONDYLOSIS,LUMBAR WITH RADICULOPATHY-M47.26. TECHNIQUE: 2D digital imaging was performed. Five views. COMPARISON: CR LUMBAR SPINE COMPLETE from 04/21/2011 FINDINGS: There are 4 lumbar type vertebral bodies with sacralization of L5. Vertebral body heights are well m aintained. There are minimal endplate osteophytes. There are mild facet degenerative changes. No s coliosis, spondylolysis or spondylolisthesis. SI joints are unremarkable. The hip joints are well m aintained. IMPRESSION: Mild degenerative changes. DATA REPOSITORY: RADIATION DOSE DELIVERED:
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
--- OUTSIDE RECORDS SUMMARY | 2022-05-03 15:01 | XMS_ITS | Encounter Summary ---
:1980 Author Organization [facility] [place] [address] Care Team Providers Name Role Phone Harper Andrade CASSIA Primary Care Provider Reason for Visit High Dollar Medication (Routine) - Specialty Diagnoses / Procedures Referred By Contact Refer red To Contact Neurology Diagnoses Chronic migraine without aura without status migrainosus, not intractable Jill French, [facility] Neurology 3c Procedures Auth Request for Medication TC ONABOTULINUMTOXINA, 1 UNIT, INJECTION FINISH PHOTOGRAPHER [facility] [place] [address] [place] [address] Referral ID Status Reason Start Date Expiration Date Visits V isits Requested Authorized [id number] Consult, 07/20/2016 07/04/2019 13 13 Test & Treat Encounter Details Date Type Department Care Team Description 03/24/2019 Office Visit Neurology at [facility] Jair Perez, Chronic migraine [facility] without aura, with [facility] intractable migraine, [place], [place] Dr holley stated, with status [id number] [place] [address] migrainosus [phone] Social History Tobacco Use Types Packs/Day Years Used Date Never Smoker Smokeless Tobacco: Never Used Alcohol Use Standard Drinks/Week Comments No 0 (1 standard drink = 0.6 oz pure alcoho l) Sex Assigned at Date Recorded Not on file documented as of this encounter Last Filed Vital Signs Vital Sign Reading Time Taken Comments Blood Pressure 155/104 03/24/2019 10:35 AM EDT Pulse 120 03/24/2019 10:35 AM EDT Temperature - - Respiratory Rate - - Oxygen Saturation - - Inhaled Oxygen Concentration - - Weight - - Height - - Body Mass Index - - documented in this encounter Progress Notes Jair Perez MD - 03/24/2019 10:20 AM EDT BOTOX PREEMPT PROTOCOL AND FOLLOW THE PAIN PROTOCOL 03-24-19 Total headache days per month: 31 Total days headache free per month: 0 Severity of headaches: 2 Botox effective: Yes, dramatically reduced intensity and migraine associated sx MIDAS today: cold not fill this out due to the fact that she had an eye exam today and cannot see The risks, benefits and anticipated outcomes of the procedure, the risks and benefits of the alternatives to the procedure, and the roles and tasks of the personnel to be involved, were discussed with the patient. The patient has given written informed consent to the procedure and agrees to proceed. Yes, Informed consent in chart and reaffirmed verbally today. Jair Perez MD The reason follow the pain was used in this specific patient was to extend areas of injection to those locations most commonly associated with peak migraine pain in this particular patient (bilateral temporalis and occipitalis) This patient received both the PREEMPT protocol and the follow the pain protocol used in the regulatory trials and described by Dougie Thakkar, et al. Method of Injection of OnabotulinumtoxinA for Chronic Migraine: A Safe,Well-Tolerated, and Effective Treatment Paradigm Based on the PREEMPT Clinical Program. Headache 2010;50:4637-7673. A total of 195 units was used for this combination of PREEMPT plus Follow the Pain. UNIVERSAL PROTOCOL / SAFETY CHECKLIST Sign in Communication: 10.35 AM Time Out: Team Confirms the Correct Patient, Correct Procedure, Correct Site and Site Marking, Correct Position (if applicable), Prep and Dry Time (if applicable). Time: 10.40 AM Affirmation of Time Out: 10.45 AM Jair Perez MD Treatment # 14 Lot #:[id number] Exp: Jul 2021 Injection SItes Muscle Fixed Site/Fixed Dose L R Follow the pain # units Manager Staffing 10 Units divided in 2 sites Procerus 5 Units in 1 site Frontalis 20 Units divided in 4 sites Temporalis 40 Units divided in 8 sites 5 10 10U or <, @2 sites or < Occipitalis 30 Units divided in 6 sites 10 5 10U or <, @2 sites or < Cervical PSPs 20 Units divided in 4 sites Trapezius 30 Units divided in 6 sites Subtotals 155 Units plus 15 15 Total Units used:185 Total Units wasted:15 Patient did tolerate procedure. Jair Perez MD documented in this encounter Plan of Treatment Not on filedocumented as of this encounter Visit Diagnoses Diagnosis Chronic migraine without aura, with intr actable migraine, so stated, with status migrainosus documented in this encounter Care Teams Mobile Equipment Operator Relationship Specialty Start Date End Date Harper Andrade APRN PCP - General Family Medicine 12/17/18 12/22/20 [address] [place] [address] documented as of this encounter
--- OUTSIDE RECORDS SUMMARY | 2022-05-03 15:01 | XMS_ITS | Encounter Summary ---
:1980 Author Organization [facility] [place] [address] Care Team Providers Name Role Phone Harper Andrade Solange ANTONY Primary Care Provider Encounter Details Date Type Department Care Team Description 03/25/2019 Telephone Neurology at [facility] [place] [facility] [place] [address] Social History Tobacco Use Types Packs/Day Years Used Date Never Smoker Smokeless Tobacco: Never Used Alcohol Use Standard Drinks/Week Comments No 0 (1 standard drink = 0.6 oz pure alcoho l) Sex Assigned at Date Recorded Not on file documented as of this encounter Miscellaneous Notes Telephone Encounter - Qiana Bowens RN - 03/25/2019 3:06 PM EDT Primary H/A Provider: NONE Behavior contract sent to pt 03/25/19 - no procedure visits until establish care visit completed and behavior contract signed. 03/21/19 no show - establish care visit 12/16/18 same day cancellation (pt in court) 07/16/18 no show 04/16/18 same day cancellation (pt ill) 12/27/17 same day cancellation (transportation) 06/26/17 cancelled 06/25/17 less than 24 hour notice (transportation) 07/20/16 same day cancellation (ill) 06/15/16 no show 05/16/16 cancelled 05/15/16 less than 24 hours (patient overscheduled) 05/05/16 no show 04/20/16 same day cancellation (no reason given) 03/21/16 no show 10/12/15 same day cancellation (weather) 09/10/15 no show 01/05/15 no show documented in this encounter Plan of Treatment Not on filedocumented as of this encounter Visit Diagnoses Not on filedocumented in this encounter Care Teams Jumpbasting Collar Baster Relationship Specialty Start Date End Date Harper Andrade APRN PCP - General Family Medicine 12/17/18 12/22/20 [address] [place] [address] documented as of this encounter
--- OUTSIDE RECORDS SUMMARY | 2022-05-03 15:01 | XMS_ITS | Encounter Summary ---
:1980 Author Organization [facility] [place] [address] Care Team Providers Name Role Phone Harper Andrade CASSIA Primary Care Provider Reason for Visit Reason Onset Date Comments Other 10/17/2018 Encounter Details Date Type Department Care Team Description 10/17/2018 Telephone Neurology at [facility] Jeaneth Ozuna APRN [place] [address] [place] [address] [phone] (Wo rk) Social History Tobacco Use Types Packs/Day Years Used Date Never Smoker Smokeless Tobacco: Never Used Alcohol Use Standard Drinks/Week Comments No 0 (1 standard drink = 0.6 oz pure alcoho l) Sex Assigned at Date Recorded Not on file documented as of this encounter Miscellaneous Notes Telephone Encounter - Ying Bain RN - 10/31/2018 11:34 AM EST I called Mirela at a new phone number -[phone]. Voice mailbox has not been set up yet. I was unable to leave a message. Telephone Encounter - Lakshmi Liu RN - 10/17/2018 11:37 AM EST Reason for Call: Increase in pressure Patient Report: Patient states she has been feeling dizzy, lightheaded for the past 2 weeks. She hasalso had vomiting for the past 3 days. Patient is also complaining of increased pressure in her headfor the past 2 weeks. Patient states this feels similar to when her pressure was high in the past. Patient denies any visual changes. Any Additional Information to Relay: Recommended that patient schedule a follow up visit as she has not been seen in follow up for 2 years, she has had Botox only appointments. Will also check with for any further recommendations. Patient agreeable. Plan/Intervention/Follow Up - Report forwarded to for review and comment. Pt/caller aware they will be called back with input when available and to call back in the interim if additional questions or change arise before they hear back from this office. Pt/caller agreeable to this plan. Telephone Encounter - Zakia Saleh - 10/17/2018 11:19 AM EST Clinical [place] Message Caller: self If not Pt / Relation to pt: Call back Number:[phone] Best time to reach caller: any Reason for call: Medication Side effect/reaction, Medication side effect/reaction Name of Medication: botox When was medication started: has been taking for a long time, last dose was on 09/23 What are the side effects/reactions pt is calling to discuss: increased pressure in her head, especially behind her eyes Additional information or questions for the nurse: pt notes this started about a week and a half ago, and has been getting progressively worse Disposition of Call ?? Routine message sent to nurse documented in this encounter Plan of Treatment Not on filedocumented as of this encounter Visit Diagnoses Not on filedocumented in this encounter Care Teams Cell Reliner Relationship Specialty Start Date End Date Harper Andrade APRN PCP - General Family Medicine 12/17/18 12/22/20 [address] [place] [address] documented as of this encounter
--- OUTSIDE RECORDS SUMMARY | 2022-05-03 15:01 | XMS_ITS | Encounter Summary ---
:1980 Author Organization [facility] [place] [address] Care Team Providers Name Role Phone Harper Andrade VALVE FITTER Primary Care Provider Reason for Visit Reason Onset Date Comments Prior Authorization 02/11/2019 Zomig spray Encounter Details Date Type Department Care Team Description 02/11/2019 Telephone Neurology at [facility] Silke Pollack MD Prior Authorization [facility] (Zo colleen spray) [place] [address] NEUROLOGY DEPT [phone] [place] [id number] Social History Tobacco Use Types Packs/Day Years Used Date Never Smoker Smokeless Tobacco: Never Used Alcohol Use Standard Drinks/Week Comments No 0 (1 standard drink = 0.6 oz pure alcoho l) Sex Assigned at Date Recorded Not on file documented as of this encounter Miscellaneous Notes Telephone Encounter - Husam Alston MA - 02/11/2019 1:41 PM EDT Images from the original note were not included. Telephone Encounter - Husam Alston MA - 02/11/2019 10:53 AM EDT Images from the original note were not included. documented in this encounter Plan of Treatment Not on filedocumented as of this encounter Visit Diagnoses Not on filedocumented in this encounter Care Teams Unhairing Inspector Relationship Specialty Start Date End Date Harper Andrade APRN PCP - General Family Medicine 12/17/18 12/22/20 [address] [place] [address] documented as of this encounter
--- OUTSIDE RECORDS SUMMARY | 2022-05-03 15:01 | XMS_ITS | Encounter Summary ---
:1980 [place] [address] Care Team Providers Name Role Phone Harper Andrade APRN Primary Care Provider Reason for Visit Reason Comments Other diverse complaints see note Encounter Details Date Type Department Care Team Description 03/23/2019 - Emergency Emergency Department Uday Ryder MD [facility] [place] [address] Fatigue, unspecified type; 03/24/2019 Cecilio Mederos MD [facility] [place] [address] [place] [address] Social History Tobacco Use Types Packs/Day Years Used Date Never Smoker Smokeless Tobacco: Never Used Alcohol Use Standard Drinks/Week Comments No 0 (1 standard drink = 0.6 oz pure alcoho l) Sex Assigned at Date Recorded Not on file documented as of this encounter Last Filed Vital Signs Vital Sign Reading Time Taken Comments Blood Pressure 113/63 03/24/2019 4:30 AM EDT Pulse 112 03/24/2019 7:01 AM EDT Temperature 36.6 ??C (97.9 ??F) 03/24/2019 7:01 AM EDT Respiratory Rate 16 03/24/2019 7:01 AM EDT Oxygen Saturation 96% 03/24/2019 7:01 AM EDT Inhaled Oxygen Concentration - - Weight - - Height - - Body Mass Index - - documented in this encounter Discharge Instructions Discharge InstructionsEugene Zhu - 03/24/2019 5:39 AM EDT You were seen in the emergency department for feeling generally unwell. At this time, your evaluation is been grossly reassuring. Please follow-up with your PCP concerning today's visit to monitor yoursymptoms and update medical records. AttachmentsThe following attachments cannot be sent through Care Everywhere. Fatigue (Greenlandic)documented in this encounter Medications at Time of Discharge Medication Sig Dispensed Refills Start Date End Date acetaZOLAMIDE (DIAMOX) 500 Take 1 capsule by 60 capsule 1 mg Capsule, Sustained mouth 2 times ReleaseIndications: IIH daily. (idiopathic intracranial hypertension) ZOLMitriptan (ZOMIG) 5 mg With head between 12 each 3 12/2018 [place], knees, administer 1 Non-AerosolIndications: spray in 1 nostril. Migraine with aura and May repeat x1 after without status migrainosus, 2 hours if needed. not intractable NTE 10mg per day or 2 days per week. oxyCODONE (ROXICODONE) 10 Take 1 tablet by 0 /1 mg Tablet mouth every 6 hours as needed for Pain. For chronic knee pain. 112 tabs every 28 days. buPROPion (WELLBUTRIN SR OR Take 150 mg by 0 04/0 01/2018 ZYBAN) 150 mg Tablet mouth 2 times Sustained Release 12 hr daily. hydrOXYzine (VISTARIL) 25 Take 1 capsule by 60 capsule 11 mg CapsuleIndications: mouth 2 times Migraine with aura and daily. without status migrainosus, not intractable OnabotulinumtoxinA (BOTOX) Inject 155 Units as 0 200 unit Recon Soln directed Every 12 weeks. rOPINIRole (REQUIP) 0.25 mg Take 0.25 mg by 0 Tablet mouth nightly. propranolol (INDERAL) 60 mg Take 60 mg by mouth 0 Tablet 2 times daily. Naproxen Sodium 750 mg Tab, Take 1,500 mg by 0 Multiphasic Release 24 hr mouth as needed. traZODone (DESYREL) 100 mg Take 200 mg by 0 Tablet mouth nightly. lamoTRIgine (LAMICTAL) 100 Take 100 mg by 0 mg Tablet mouth every evening. lamoTRIgine (LAMICTAL) 150 Take 150 mg by 0 mg Tablet mouth every morning. prazosin (MINIPRESS) 2 mg Take 2 mg by mouth 0 Capsule nightly. celecoxib (CELEBREX) 200 mg Take 200 mg by 0 Capsule mouth 2 times daily. omeprazole (PRILOSEC) 40 mg Take 40 mg by mouth 0 Capsule, Delayed 2 times daily. Release(E.C.) Cholecalciferol, Vitamin Take 1 tablet by 0 D3, (VITAMIN D-3) 5,000 mouth daily. unit Tablet venlafaxine (EFFEXOR-XR) Take 300 mg by 0 150 mg Capsule, Sust. mouth daily. Release 24 hr metFORMIN (GLUCOPHAGE) 850 Take 850 mg by 0 mg Tablet mouth 2 times daily (with meals). montelukast (SINGULAIR) 10 Take 10 mg by mouth 0 mg tablet nightly. Echinacea 400 mg Cap Take 400 mg by 0 mouth 2 times daily. MULTIVITAMIN (DAILY VITAMIN Take 1 tablet by 0 ORAL) mouth daily. albuterol (PROVENTIL Inhale 2 puffs into 0 HFA;VENTOLIN HFA) 90 the lungs every 4 mcg/Actuation inhaler hours as needed. Use with spacer documented as of this encounter ED Notes Augustina Tan RN - 03/24/2019 6:59 AM EDT Pt refuses to sign for discharge, states can't read instructions. Gave pts glasses to her and offered to turn on lights, offered to read them to her but pt refused. Pt refuses to leave. Dr. Ryder aware. Augustina Tan RN - 03/24/2019 12:20 AM EDT Pt whispering to self repeatedly. Eugene Zhu - 03/23/2019 11:42 PM EDT Mirela Lara is an 38 y.o. female who presents to the ED with: Chief Complaint Patient presents with ??? Other diverse complaints see note HPI Mirela Lara is a 38 y.o. female with a PMH significant for chronically elevated intracranial pressure, chronic migraine, extensive history of head trauma, diabetes, Ulcerative colitis disease, who presents to the Emergency Department with multiple complaints. Patient states that she has chronic m igraine and her headache is worse than usual she is currently out of her Zomig nasal spray that she utilizes to treat her migraines. She also endorses some vision changes described as a milky vision across her field of view that she states is related to her diabetes. She has been fatigued, chilled over the last several days and feels that my metabolic markers are off. She denies any nausea, vomiting, abnormal numbness or tingling, difficulty breathing, shortness of breath, chest pain, palpitations. She states that she has not been eating well, has had sleep irregularities. She states that she feels generally unwell and has diffuse, unclear complaints. Review of Systems: 10 point review of systems negative except as noted in HPI. Patient Vitals for the past 8 hrs: BP Temp Temp src Pulse Resp SpO2 03/24/19 0701 -- 36.6 ??C (97.9 ??F) Oral (!) 112 16 96 % 03/24/19 0430 113/63 -- -- (!) 103 19 100 % 03/24/19 0400 122/74 -- -- (!) 103 20 97 % 03/24/19 0300 119/56 -- -- (!) 110 20 97 % 03/24/19 0200 (!) 144/92 -- -- (!) 109 11 98 % 03/24/19 0100 (!) 148/91 -- -- (!) 113 -- 96 % I have reviewed the vital signs, which demonstrates patient is hypertensive, tachycardic, afebrile, saturating well on room air. Physical Exam: Physical Exam Constitutional: She is oriented to person, place, and time. She appears well- developed and well-nourished. No distress. HENT: Head: Normocephalic and atraumatic. Right Ear: External ear normal. Left Ear: Tympanic membrane and external ear normal. Mouth/Throat: Oropharynx is clear and moist. Scar tissue and erythema noted on right tympanic membrane. Eyes: Pupils are equal, round, and reactive to light. Conjunctivae and EOM are normal. Right eye exhibits no discharge. Left eye exhibits no discharge. No scleral icterus. Mild ptosis of left eye noted, at baseline per patient. Extraocular movements to right decreased secondary to a visual field cuts on right side, at baseline per patient. Neck: Normal range of motion. Neck supple. No JVD present. No tracheal deviation present. No thyromegaly present. Cardiovascular: Normal rate, regular rhythm and normal heart sounds. Exam reveals no gallop and no friction rub. No murmur heard. Pulmonary/Chest: Effort normal and breath sounds normal. No respiratory distress. She has no wheezes. She has no rales. Poor air movement throughout. Abdominal: Soft. Bowel sounds are normal. She exhibits no distension. There is no tenderness. There is no guarding. Genitourinary: Genitourinary Comments: Negative CVA tenderness bilaterally. Musculoskeletal: She exhibits no edema or deformity. Neurological: She is alert and oriented to person, place, and time. No cranial nerve deficit. Cranial nerves II through XII intact, face symmetrical, tongue midline. Sensation light touch intactand symmetrical in upper and lower extremities bilaterally. 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 Skin: Skin is warm and dry. Capillary refill takes less than 2 seconds. She is not diaphoretic. Psychiatric: She has a normal mood and affect. ED Course: - Patient was evaluated and discussed with Dr. Ryder. - Medications, allergies and past medical history reviewed ED Course as of Mar 24 849 Mon Mar 24, 2019 0845 Within normal limits Glucose Lvl: 95 0845 mild hypokalemia Potassium: (!) 3.0 0845 Within normal limits TSH: 0.88 0845 Reassuring against pancreatitis Lipase: 50 0845 Mild transaminitis AST: (!) 45 0845 Within normal limits Total Bilirubin: 0.5 0845 Mild leukocytosis WBC: (!) 12.8 0845 Consistent with starvation ketosis BOHB: (!) 2.14 Medications sodium chloride 0.9% 1,000 mL IV bolus ( Intravenous Stopped 03/24/19 0500) potassium chloride (K-DUR/KLOR-CON) extended release tablet 40 mEq (40 mEq Oral Given 03/24/19 0540) lactated Ringers 1,000 mL IV bolus ( Intravenous Stopped 03/24/19 0646) . Assessment and Plan: MDM: 38 y.o. female who presents for feeling generally unwell. Physical examination was unremarkable. The patient did not have any new neurologic findings. She was noted to be consistently tachycardic however review of the patient's outpatient medical record indicates multiple office visits with heart rate consistently between 95 and 105. The patient was hemodynamically stable, afebrile, with no cough, congestion, difficulty breathing, oxygen requirement. As result, findings on chest x-ray were felt not to be consistent with no pneumonia as the patient does not have any clinical correlation with these findings. Additionally, no previous chest x-ray is available at this time for evaluation of baseline. The patient states that she has not been eating well, has not been sleeping well, and she does not have significant hyperglycemia acidosis, elevated lactate consistent with sepsis, diabetic ketoacidosis. Remainder of laboratory investigation was grossly reassuring. As result, after resting in the emergency department the patient was reevaluated. She was deemed stable for discharge home and will continue to follow-up both with neurology as well as her PCP. She does have a scheduled appointment with ophthalmology in clinic today and was discharged directly to ophthalmology clinic. Assessment:38 y.o. female with multiple complaints Return precautions were verbally discussed with the patient. The patient expressed understanding that they could come back to the ED at any time and agreed to the follow-up plan. Plan: - Discharge home - Follow up with PCP - Return precautions were discussed with the pt Eugene Zhu MD Resident 03/24/19 0851 Associated attestation - Prem Ryder MD - 03/24/2019 3:12 PM EDT ED ATTENDING ATTESTATION NOTE The patient was seen in conjunction with the resident physician. I have independently performed the guevara portions of the history and physical exam. I have personally reviewed nursing notes, vital signs,and diagnostic studies including labs, imaging studies and EKGs. I have discussed the details of the case with the resident and agree with the assessment and plan as described in the resident's note. Briefly, 38 y.o. female who presents with generally feeling unwell with not eating or drinking well.She has a reassuring physical exam. Labs notable for hypokalemia and an elevated BOHB likely from decreased PO intake. She was treated with IVF and supplemental potassium. Stable for discharge. documented in this encounter Miscellaneous Notes ED Triage - Isabela Rojas RN - 03/23/2019 10:59 PM EDT I'm dehydrated, malnourished, I think my metabloic panal is wrong and my chemicals are off, I've got a wicked headache and my intercranial pressure is increased, I've had an lot of head injuries. Arrives AA&OX4, no acute distress, tachycardic and hypertensive. documented in this encounter Plan of Treatment Not on filedocumented as of this encounter Procedures Procedure Name Priority Date/Time Associated Comments Diagnosis POCT GLUCOSE Routine 03/24/2019 2:25 Results for this AM EDT procedure are i n the results section. POCT GLUCOSE Routine 03/24/2019 1:01 Results for this AM EDT procedure are i n the results section. BLOOD GAS 2 VENOUS Routine 03/24/2019 12:40 Resul ts for this AM EDT procedure are i n the results section. EKG 12-LEAD STAT 03/24/2019 12:29 Results for this AM EDT procedure are i n the results section. XR CHEST PA AND LATERAL STAT 03/24/2019 12:11 Results for this AM EDT procedure are i n the results section. STOUT TUBE HOLD STAT 03/23/2019 11:59 Results f or this PM EDT procedure are i n the results section. HEMOGRAM STAT 03/23/2019 11:59 Results for this PM EDT procedure are i n the results section. DIFFERENTIAL, AUTOMATED STAT 03/23/2019 11:59 Results for this PM EDT procedure are i n the results section. GOLD TUBE HOLD STAT 03/23/2019 11:59 Results f or this PM EDT procedure are i n the results section. BETA HYDROXYBUTYRATE STAT 03/23/2019 11:59 Res ults for this PM EDT procedure are i n the results section. APTT STAT 03/23/2019 11:59 Results for this PM EDT procedure are i n the results section. PROTHROMBIN TIME STAT 03/23/2019 11:59 Results for this PM EDT procedure are i n the results section. CBC (WITH DIFF) STAT 03/23/2019 11:59 PM EDT TSH STAT 03/23/2019 11:59 Results for this PM EDT procedure are i n the results section. LIPASE STAT 03/23/2019 11:59 Results for this PM EDT procedure are i n the results section. HEPATIC FUNCTION PANEL STAT 03/23/2019 11:59 R esults for this PM EDT procedure are i n the results section. BASIC METABOLIC PANEL STAT 03/23/2019 11:59 Re sults for this (NON-FASTING) PM EDT procedure are in the results section. documented in this encounter Results POCT Glucose (03/24/2019 2:25 AM EDT) athologist Signature POC Glucose 87 65 - 199 [facility] Comment: Supplemental ranges: <140 mg/dL before meals <180 mg/dL all other times of the day Specimen Anatomical Collection Method Collection Time Receive d Time (Source) Location / / Volume Laterality Blood specimen 03/24/2019 2:25 AM 019 2:25 (specimen) EDT AM EDT Prem Ryder MD POINT OF CARE TEST ORDERABLE S Performing Organization Address City/Special Care Hospital/[place] [address] POCT Glucose (03/24/2019 1:01 AM EDT) P athologist Signature POC Glucose 81 65 - 199 [facility]dL [facility] Comment: Supplemental ranges: <140 mg/dL before meals <180 mg/dL all other times of the day Specimen Anatomical Collection Method Collection Time Receive d Time (Source) Location / / Volume Laterality Blood specimen 03/24/2019 1:01 AM 019 1:01 (specimen) EDT AM EDT Prem Ryder MD POINT OF CARE TEST ORDERABLE S Performing Organization Address City/State/[place] [address] (ABNORMAL) BLOOD GAS 2 VENOUS (03/24/2019 12:40 AM EDT) P athologist Signature pH Ottoniel 7.39 7.32 - [facility] 7.42 [facility] pCO2 [place] 41 41 - 51 [facility] pO2 [place] 40 25 - 40 [facility] HCO3 [place] 24.0 mmol/L [facility] BE Ottoniel -1.0 mmol/L [facility] Hgb Blood Gas 13.8 11.7 - [facility] 15.5 gm/dL [facility] O2HB [place] 72.9 % [facility] COHB [place]iel 0.4 % [facility] Comment: Nonsmokers: 0.5-1.5% COHB Smokers: Variable, but usually less than 10% Toxic: 20-30% COHB Lethal: Greater than 60% COHB METHB [place]toniel 0.3 <=1.5 % [facility] Na Whole Blood 140 135 - 145 mmol/L [facility] K Whole Blood 2.8 (Critical) 3.5 - 5.0 mmol/L [facility] Comment: Noted by survey instrument operator. Please note: Patients with WBC >100,000 may have falsely elevated Potassium levels. Contact the Clinical Chemistry L aboratory if there are any questions. ICa Whole Blood 1.23 1.15 - 1.33 mmol/L [facility] Comment: Note: ??Total bilirubin higher than 20 m g/dL may lead to falsely low ionized calcium. CL Whole Blood 99 98 - 107 mmol/L [facility] Gluc Whole Bld 91 65 - 199 mg/dL [facility] Comment: Diabetes: >=200 mg/dL plus symp toms Lactate WB 1.2 0.5 - 2.2 mmol/L [facility] BGas Source Venous [facility] Specimen Anatomical Collection Method Collection Time Receive d Time (Source) Location / / Volume Laterality Blood specimen 03/24/2019 12:40 9 (specimen) AM EDT 12:40 AM EDT Prem Ryder MD CHEMISTRY ORDERABLES Performing Organization Address City/State/[place] [address] EKG 12 Lead (03/24/2019 12:29 AM EDT) Component Value Ref Range Test Analysis Performed Pathologis t Method Time At Signature Ventricular rate 115 BPM MUSE SYSTEM Atrial Rate 115 BPM MUSE SYSTEM P-R Interval 142 ms MUSE SYSTEM QRS Duration 88 ms MUSE SYSTEM Q-T Interval 360 ms MUSE SYSTEM QTC Calculated 498 ms MUSE SYSTEM (Bezet) Calculated P Mcgrady 46 degrees MUSE SYSTEM Calculated R Mcgrady 18 degrees MUSE SYSTEM Calculated T Mcgrady 15 degrees MUSE SYSTEM INTERPRETATION Sinus tachycardia MUSE SY STEM Abnormal ECG No previous ECGs available Confirmed by MD Neyda, Antonio Kirkpatrick ([id number]) on 03/24/2019 8:08:2 1 AM Specimen Anatomical Collection Method Collection Time Receive d Time (Source) Location / / Volume Laterality 03/24/2019 12:29 03/24/2019 8:08 AM EDT AM EDT Prem Ryder MD ECG ORDERABLES Performing Organization Address City/State/ZIP Code Phon e Number MUSE SYSTEM XR Chest PA & Lateral (Generic) (03/24/2019 12:11 AM EDT) Anatomical Region Laterality Modality Chest N/A Digital Radiography Specimen (Source) Anatomical Location Collection Method / Collectio n Time Received Time / Laterality Volume Impressions 03/24/2019 1:25 AM EDT FINDINGS/IMPRESSION: Perihilar fullness and peribronchial thi ckening at the RIGHT hilar/infrahilar region may be infectious/inflammatory; a dditionally, there may be also a patchy opacity the medial RIGHT middle lobe med ially (as the RIGHT heart border not well delineated) concerning for pneumoni a which should be followed to resolution. No pneumothorax or pleural e ffusion seen. Nonenlarged cardiopericardial silhouette. Preliminary report signed by: Dheeraj stark at 03/24/2019 1:23 AM I have personally reviewed the image(s) and the residents interpretation and agree with the findings, Jose David Faye at 03/24/2019 1:25 AM Thank you for letting us participate in the care of this patient. For questions regarding this report, please contact e number below. ? Narrative 03/24/2019 1:25 AM EDT EXAMINATION: XR CHEST PA AND LATERAL (GENERIC) CLINICAL HISTORY: Fatigue, chills, poor air movement, concern for pneumonia. TECHNIQUE: Frontal and lateral views of the chest COMPARISON: None Procedure Note Jose David Faye MD - 03/24/2019 EXAMINATION: XR CHEST PA AND LATERAL (GE NERIC) CLINICAL HISTORY: Fatigue, chills, poor air movement, concern for pneumonia. TECHNIQUE: Frontal and lateral views of the chest COMPARISON: None IMPRESSION FINDINGS/IMPRESSION: Perihilar fullness and peribronchial thi ckening at the RIGHT hilar/infrahilar region may be infectious/inflammatory; a dditionally, there may be also a patchy opacity the medial RIGHT middle lobe med ially (as the RIGHT heart border not well delineated) concerning for pneumoni a which should be followed to resolution. No pneumothorax or pleural e ffusion seen. Nonenlarged cardiopericardial silhouette. Preliminary report signed by: Dheeraj stark at 03/24/2019 1:23 AM I have personally reviewed the image(s) and the residents interpretation and agree with the findings, Jose David Faye at 03/24/2019 1:25 AM Thank you for letting us participate in the care of this patient. For questions regarding this report, please contact e number below. Prem Ryder MD IMG DX ORDERABLES Stout Tube Hold (03/23/2019 11:59 PM EDT) P athologist Signature Stout Hold Sample in [facility] Specimen Anatomical Collection Method Collection Time Receive d Time (Source) Location / / Volume Laterality Blood specimen Venous Draw / 03/23/2019 11:59 03/24/20 19 (specimen) Unknown PM EDT 12:19 AM EDT Eugene Zhu MD CHEMISTRY ORDERABLES Performing Organization Address City/State/[place] [address] Gold Tube HOLD (03/23/2019 11:59 PM EDT) athologist Signature Gold Hold Sample in [facility] Specimen Anatomical Collection Method Collection Time Receive d Time (Source) Location / / Volume Laterality Blood specimen Venous Draw / 03/23/2019 11:59 03/24/20 19 (specimen) Unknown PM EDT 12:19 AM EDT Eugene Zhu MD CHEMISTRY ORDERABLES Performing Organization Address City/Special Care [facility]/[place] [address] (ABNORMAL) Differential, Automated (03/23/2019 11:59 PM EDT) [facility] gist Method Time Signature Neutrophils % 60.5 % [facility] Neutr Abs (ANC) 7.76 (H) 1.70 - [facility] 6.10 [facility] x10(3)/[facility]ORY Lymphocytes % 27.6 % [facility] Lymphocytes Abs 3.5 (H) 0.9 - 3.[address] [facility] x10(3)/[facility] LABORATORY Monocytes % 10.1 % [facility] Monocyte Abs 1.3 (H) 0.3 - 0.[address] [facility] x10(3)/[facility]ORY Eosinophils % 0.6 % [facility] Eosinophils Abs 0.1 0.0 - 0.[address] [facility] x10(3)/[facility]ORY Basophils % 0.6 % [facility] Basophils Abs 0.1 0.0 - 0.[address] [facility] x10(3)/[facility]ORY Immature Gran % 0.60 % [facility] Comment: Immature granulocytes(IG's)percentage an d absolute count will include metamyelocytes, myelocytes, and promyelo cytes. Blood smears from CBCs yielding IG's will be scanned manually for concor dance. If this scan disagrees with the automated IG or if promyelocytes are not ed, a manual differential will be performed. [place] Gran Abs 0.08 (H) 0.00 - 0.04 x10(3)/[facility] LABORATORY Specimen Anatomical Collection Method Collection Time Receive d Time (Source) Location / / Volume Laterality Blood specimen 03/23/2019 11:59 9 (specimen) PM EDT 12:18 AM EDT Resulting Agency Comment Spec In Lab Eugene Zhu MD HEMATOLOGY ORDERABLES Performing Organization Address City/State/[place] [address] (ABNORMAL) Hemogram (03/23/2019 11:59 PM EDT) Analysis Performed At Patho logist Time Signature WBC 12.8 (H) 4.0 - 9.[address] [facility] x10(3)/[facility]ATORY RBC 4.77 4.00 - [facility] 5.21 [facility] x10(6)/[facility]ATORY Hemoglobin 13.5 11.7 - [facility] 15.5 gm/dL [facility] Hematocrit 41.5 35.7 - [facility] 45.8 % [facility] MCV 87.0 82.6 - [facility] 94.4 [facility] MCH 28.3 27.1 - [facility] 32.0 pg [facility] MCHC 32.5 31.7 - [facility] 35.0 gm/dL [facility] Platelets 397 (H) 145 - [address] [facility] x10(3)/[facility] LABORATORY RDWSD 39.0 37.0 - [facility] ROB 46.0 [facility] RDWCV 12.4 11.5 - [facility] 14.1 % [facility] MPV 10.3 7.6 - 12.9 [facility] nRBC % Auto 0.0 % [facility] nRBC Abs Auto 0.000 0.000 - [facility] 0.000 [facility] x10(3)/[facility] LABORATORY Specimen Anatomical Collection Method Collection Time Receive d Time (Source) Location / / Volume Laterality Blood specimen 03/23/2019 11:59 9 (specimen) PM EDT 12:18 AM EDT Resulting Agency Comment Spec In Lab Eugene Zhu MD HEMATOLOGY ORDERABLES Performing Organization Address City/[facility]/ZIP Code Phon e Number [address] (ABNORMAL) Beta Hydroxybutyrate (03/23/2019 11:59 PM EDT) P athologist Signature BOHB 2.14 (H) 0.00 - 0.30 [facility] ROB mmol/L [facility] Comment: Reference range: ??0.00-0.30 mmo1/L, bas ed on an overnight fast. ??Children may be higher. Specimen Anatomical Collection Method Collection Time Receive d Time (Source) Location / / Volume Laterality Blood specimen 03/23/2019 11:59 9 (specimen) PM EDT 12:18 AM EDT Resulting Agency Comment Spec In Lab Prem Ryder MD CHEMISTRY ORDERABLES Performing Organization Address City/[facility]/[place] [address] TSH (03/23/2019 11:59 PM EDT) P athologist Signature TSH 0.88 0.27 - 4.20 HODA RIVAS mcIU/mL [facility] Specimen Anatomical Collection Method Collection Time Receive d Time (Source) Location / / Volume Laterality Blood specimen 03/23/2019 11:59 9 (specimen) PM EDT 12:18 AM EDT Resulting Agency Comment Spec In Lab rPem Ryder MD CHEMISTRY ORDERABLES Performing Organization Address City/State/[place] [address] APTT (03/23/2019 11:59 PM EDT) athologist Signature PTT 37 25 - 37 sec [facility] Comment: The PTT is NOT appropriate for heparin m onitoring. Use the Anti-Xa level for heparin monitoring (HEP UFH) or LMWH mon itoring (HEP LMW). A PTT less than 37 seconds generally indicates adequate hem ostasis. Specimen Anatomical Collection Method Collection Time Receive d Time (Source) Location / / Volume Laterality Blood specimen 03/23/2019 11:59 9 (specimen) PM EDT 12:18 AM EDT Resulting Agency Comment Spec In Lab Prem Ryder MD HEMATOLOGY ORDERABLES Performing Organization Address City/[facility] [place] [address] (ABNORMAL) Prothrombin Time (03/23/2019 11:59 PM EDT) athologist Signature PT 13.5 (H) 9.4 - 12.5 [facility] LABORATORY INR 1.2 [facility] Comment: An INR <2.0 indicates adequate procoagul ant activity for hemostasis in most patients without underlying bleeding dis orders, though the INR may not adequately reflect hemostatic capacity i n patients with liver disease and synthetic impairment. The recommended ta rget INR range for therapeutic anticoagulation is 2.0 ? 3.0 for most applications, though lower and higher ranges may be appropriate depending on c linical circumstances. Specimen Anatomical Collection Method Collection Time Receive d Time (Source) Location / / Volume Laterality Blood specimen 03/23/2019 11:59 9 (specimen) PM EDT 12:18 AM EDT Resulting Agency Comment Spec In Lab Prem Ryder MD HEMATOLOGY ORDERABLES Performing Organization Address City/[facility]/[place] [address] Lipase (03/23/2019 11:59 PM EDT) athologist Signature Lipase 50 0 - [address] [facility] unit/L [facility] Specimen Anatomical Collection Method Collection Time Receive d Time (Source) Location / / Volume Laterality Blood specimen 03/23/2019 11:59 9 (specimen) PM EDT 12:18 AM EDT Resulting Agency Comment Spec In Lab Prem Ryder MD CHEMISTRY ORDERABLES Performing Organization Address City/[facility]/[place]IP [place] [address] (ABNORMAL) Hepatic Function Panel (03/23/2019 11:59 PM EDT) athologist Signature Total Protein 7.1 6.1 - 8.0 [facility] ROB gm/dL [facility] Albumin 4.5 3.2 - 5.2 [facility] gm/dL [facility] AST 45 (H) 0 - 30 [facility] unit/L [facility] ALT 59 (H) 0 - 30 [facility] unit/L [facility] Alk Phos 54 40 - [address] [facility] unit/[facility] Total 0.5 0.2 - 1.3 [facility] Bilirubin mg/dL [facility] Bili, Direct 0.1 0.0 - 0.3 [facility] ROB mg/dL [facility] Specimen Anatomical Collection Method Collection Time Receive d Time (Source) Location / / Volume Laterality Blood specimen 03/23/2019 11:59 9 (specimen) PM EDT 12:18 AM EDT Resulting Agency Comment Spec In Lab Prem Ryder MD CHEMISTRY ORDERABLES Performing Organization Address City/[facility]/[place]IP [place] [address] (ABNORMAL) Basic Metabolic Panel (non-fasting) (03/23/2019 11:59 PM EDT) athologist Signature Glucose Lvl 95 65 - 199 [facility] Comment: Diabetes: >=200 mg/dL plus symp toms BUN 5 (L) 8 - 18 mg/dL [facility] Creatinine 0.96 0.70 - 1.20 mg/dL [facility] Sodium 138 135 - 145 mmol/L [facility] Potassium 3.0 (Critical) 3.5 - 5.0 mmol/L [facility] Comment: Results rechecked. Called by: DIANA, Read back by: Augustina tan, Date/Time:03/24/19 00:57. Please note: ??Patients with WBC >100,00 0 may have falsely elevated Potassium levels. ??For accurate Potassium quantif ication in these patients send serum separator tube (gold top) for subsequent determinations. ??Contact the Clinical Chemistry Laboratory if there are any qu estions. Chloride 101 98 - 107 mmol/L [facility] CO2 24 22 - 31 mmol/L [facility] Anion Gap 13 5 - 15 mmol/L [facility] Calcium 9.7 8.5 - 10.5 mg/dL [facility] Estimated GFR 74 >=60 mL/min/1.73 m?? [facility] Comment: The eGFR was calculated using the CKD-EP I equation. As with all creatinine based estimates of kidney function, eGFR values calculated with the CKD-EPI equation are not accurate in patients wi th acute kidney failure, extremes of body mass or the acutely ill. http://[employer]/Ingenynkf eGFR 86 >=60 mL/min/1.73 m?? [facility] Comment: The eGFR was calculated using the CKD-EP I equation. As with all creatinine based estimates of kidney function, eGFR values calculated with the CKD-EPI equation are not accurate in patients wi th acute kidney failure, extremes of body mass or the acutely ill. http://[employer]/DHnkf Specimen Anatomical Collection Method Collection Time Receive d Time (Source) Location / / Volume Laterality Blood specimen 03/23/2019 11:59 9 (specimen) PM EDT 12:18 AM EDT Resulting Agency Comment Spec In Lab Prem Ryder MD CHEMISTRY ORDERABLES Performing Organization Address City/State/[place] [address] documented in this encounter Visit Diagnoses Diagnosis Fatigue, unspecified type Malaise Other malaise and fatigue documented in this encounter Administered Medications Inactive Administered Medications - up to 3 most recent administrations Medication Order MAR Action Action Date Dose Rate Site lactated Ringers 1,000 mL IV bolus New Bag 03/24/2019 5:41 AM EDT Intravenous, ONCE, 1 dose, On Sun03/24/19 at 0456 potassium chloride (K-DUR/KLOR-CON) extended Given 07/2019 5:40 AM EDT 40 mEq release tablet 40 mEq 40 mEq, Oral, ONCE, 1 dose, On Sun03/24/19 at 0456, STAT sodium chloride 0.9% 1,000 mL IV bolus New Bag 03/24/2019 12:19 AM EDT 2000 mL/hr at 2,000 mL/hr, Intravenous, ONCE, 1 dose, On 03/23/19 at 2359 documented in this encounter Active and Recently Administered Medications Times are shown in EDT. Scheduled Medication Order 03/22/2019 03/23/2019 03/24/2019 lactated Ringers 1,000 mL IV bolus (COMPLETED) 0541 (New Bag - Provider: Augustina Tan RN)0646 (Stopped - Provider: Augustina Tan, RN) Intravenous, ONCE, 1 dose, Sun03/24/19 at 0456 potassium chloride (K-DUR/KLOR-CON) extended release tablet 40 mEq (COMPLETED) 0540 (Given - Provider: Augustina Tan, RN ) 40 mEq, Oral, ONCE, 1 dose, Sun03/24/19 at 0456, STAT sodium chloride 0.9% 1,000 mL IV bolus (COMPLETED) 0019 (New Bag - Provider: Augustina Tan RN)0500 (Stopped - Provider: Augustina Tan, RN) at 2,000 mL/hr, Intravenous, ONCE, 1 dose, 03/23/19 at 2359 documented in this encounter Care Teams Carpenter And Joiner Relationship Specialty Start Date End Date Harper Andrade APRN PCP - General Family Medicine 12/17/18 12/22/20 [address] [place], [place] [address] documented as of this encounter
--- OUTSIDE RECORDS SUMMARY | 2022-05-03 15:01 | XMS_ITS | Encounter Summary ---
:1980 Author Organization [facility] [place] [address] Care Team Providers Name Role Phone Neda Manzanares Primary Care Provider [phone] Reason for Visit Reason Onset Date Comments Other 07/18/2018 Encounter Details Date Type Department Care Team Description 07/18/2018 Telephone Neurology at [facility] Silke Pollack MD [facility] [place] [address] NEUROLOGY DEPT [phone] [place], [place] [address] Social History Tobacco Use Types Packs/Day Years Used Date Never Smoker Smokeless Tobacco: Never Used Alcohol Use Standard Drinks/Week Comments No 0 (1 standard drink = 0.6 oz pure alcoho l) Sex Assigned at Date Recorded Not on file documented as of this encounter Miscellaneous Notes Telephone Encounter - Qiana Bowens RN - 07/18/2018 11:37 AM EDT Patient seen in clinic for same day ONB Telephone Encounter - Qiana Bowens RN - 07/18/2018 8:23 AM EDT Met with patient and verified that she does not have any new or concerning symptoms. Migraine presenting as facial pressure. Patient it tender in the occipital region. Informed her that we did receive her message about the PA needed and Melaine, MA will work on that today. Explained to patient that we are not informed by the insurance company when PAs are expiring and find out by patient contact. Informed patient that Jeaneth Ozuna APRN will likely be able to see her to perform and ONB and that she should wait in the lobby until I have confirmation. Telephone Encounter - Erica Vanessa - 07/18/2018 8:06 AM EDT Clinical [place] Message Caller: Patient If not Pt / Relation to pt: Caller callback number: Patient is at the 3C waiting area and does not have a phone Best time to reach caller: anytime Reason for call:Headache/Migraine Is VIEIRA still present: YES Is this the worst headache of the pt life: Yes Did the headache start suddenly meaning was there something like a thunderclap followed immediatelyby intolerable pain: Yes When did the headache start: Is this the worst headache of the pt life: Yes Did the headache start suddenly meaning was there something like a thunderclap followed immediatelyby intolerable pain: No When did the headache start: Message/Additional information for the nurse: Is this the worst headache of the pt life: No Is the VIEIRA still present: Yes When did the headache start: A week and a half ago Message/Additional information for the nurse: Patient is waiting on Zomig P.A. She would like to have an ONB done today. Disposition of Call ?? [place] Message to nurse as VIEIRA is still present documented in this encounter Plan of Treatment Not on filedocumented as of this encounter Visit Diagnoses Not on filedocumented in this encounter Care Teams Cardroom Supervisor Relationship Specialty Start Date End Date Neda Manzanares PA PCP - General Orthopaedic Surgery 04/19/18 09/14/18 [address] [place] [address] documented as of this encounter
--- OUTSIDE RECORDS SUMMARY | 2022-05-03 15:01 | XMS_ITS | Encounter Summary ---
:1980 Author Organization [place] [address] Care Team Providers Name Role Phone Harper Andrade CASSIA Primary Care Provider Encounter Details Date Type Department Care Team Description 03/24/2019 Notes Only Care Management [facility] [place] [address] Social History Tobacco Use Types Packs/Day Years Used Date Never Smoker Smokeless Tobacco: Never Used Alcohol Use Standard Drinks/Week Comments No 0 (1 standard drink = 0.6 oz pure alcoho l) Sex Assigned at Date Recorded Not on file documented as of this encounter Progress Notes Anna Parker - 03/24/2019 3:40 PM EDT On Duty Emergency Fund (Transportation) Assessment Referral source to Care Management: Walk IN Scheduled or Unscheduled Appt: ER and scheduled appointments How did patient get to [facility] today: Friends brought her to ED last evening. Plan for return home: Pt stated she has tried to get rides from friends and has not been able to secure a ride. Insurance: [place] Medicaid. Assessment: Reviewed pt situation-pt stated she has no funds or options to get to [facility]. Plan: We called [facility] [phone]. They will call us back to provide the time they will be able to provide a ride. 5:00pm Main Entrance Private small car. Will pick her up-she will be sharing a ride. I advised the pt-she expressed understanding and appreciation. Staff: Estefani Parker [id number] documented in this encounter Plan of Treatment Not on filedocumented as of this encounter Visit Diagnoses Not on filedocumented in this encounter Care Teams Line Builder Relationship Specialty Start Date End Date Harper Andrade APRN PCP - General Family Medicine 12/17/18 12/22/20 [address] [place] [address] documented as of this encounter
--- OUTSIDE RECORDS SUMMARY | 2022-05-03 15:01 | XMS_ITS | Encounter Summary ---
:1980 Author Organization [facility] [place] [address] Care Team Providers Name Role Phone Harper Andrade APRN Primary Care Provider Reason for Visit Reason Onset Date Comments Medication Refill 01/22/2019 Encounter Details Date Type Department Care Team Description 01/22/2019 Refill Neurology at [facility] Jair Perez, IIH (idiopathic [facility] MD intracranial Drive [facility] hypertension) [place] [address] [place], [place] [address] (Wo rk) Social History Tobacco Use Types Packs/Day Years Used Date Never Smoker Smokeless Tobacco: Never Used Alcohol Use Standard Drinks/Week Comments No 0 (1 standard drink = 0.6 oz pure alcoho l) Sex Assigned at Date Recorded Not on file documented as of this encounter Plan of Treatment Not on filedocumented as of this encounter Visit Diagnoses Diagnosis IIH (idiopathic intracranial hypertensio n) Benign intracranial hypertension documented in this encounter Care Teams Water Resources Engineer Relationship Specialty Start Date End Date Harper Andrade, CASSIA PCP - General Family Medicine 12/17/18 12/22/20 [address] [place] [address] documented as of this encounter
--- OUTSIDE RECORDS SUMMARY | 2022-05-03 15:01 | XMS_ITS | Encounter Summary ---
:1980 Author Organization [facility] Address [facility] [place] [address] Care Team Providers Name Role Phone Unavailable Primary Care Provider Unavailable Reason for Visit Reason Onset Date Comments Medication Refill 10/17/2018 Encounter Details Date Type Department Care Team Description 10/17/2018 Refill Neurology at [facility] Silke Pollack MD Migraine with aura and [facility] status Drive DR migrainosus, [place] [address] NEUROLOGY DEPT intractable [phone] [place] [address] (Wo rk) Social History Tobacco Use Types Packs/Day Years Used Date Never Smoker Smokeless Tobacco: Never Used Alcohol Use Standard Drinks/Week Comments No 0 (1 standard drink = 0.6 oz pure alcoho l) Sex Assigned at Date Recorded Not on file documented as of this encounter Plan of Treatment Not on filedocumented as of this encounter Visit Diagnoses Diagnosis Migraine with aura and without status mi grainosus, not intractable Migraine with aura, without mention of i ntractable migraine without mention of status migrainosus documented in this encounter
--- OUTSIDE RECORDS SUMMARY | 2022-05-03 15:01 | XMS_ITS | Encounter Summary ---
:1980 Author Organization [facility] [place] [address] Care Team Providers Name Role Phone Neda Manzanares Primary Care Provider [phone] Reason for Visit Reason Onset Date Comments Prior Authorization 07/15/2018 Encounter Details Date Type Department Care Team Description 07/15/2018 Telephone [place] [facility] [place] Poll[place] [address] NEUROLOGY DEPT [place], [place] [address] (Wo rk) Social History Tobacco Use Types Packs/Day Years Used Date Never Smoker Smokeless Tobacco: Never Used Alcohol Use Standard Drinks/Week Comments No 0 (1 standard drink = 0.6 oz pure alcoho l) Sex Assigned at Date Recorded Not on file documented as of this encounter Miscellaneous Notes Telephone Encounter - Husam Alston MA - 07/29/2018 12:05 PM EDT Images from the original note were not included. Telephone Encounter - Husam Alston MA - 07/29/2018 9:36 AM EDT JOSE request sent to [place] Medicaid through [employer] Do: [id number] Telephone Encounter - Rosemarie Lock - 07/15/2018 3:09 PM EDT Caller: Mirela If not Pt / Relation to pt: Best time to reach caller: Anytime After 230 pm (if not red arrow message) - Informed caller that if the nurse does not call back by the end of the day they will be called tomorrow AM Best number to reach caller: [phone] Reason for call: Patient states that her Zolmitriptan (zomig) needs a prior authorization. documented in this encounter Plan of Treatment Not on filedocumented as of this encounter Visit Diagnoses Not on filedocumented in this encounter Care Teams Reed Polisher Relationship Specialty Start Date End Date Neda Manzanares PA PCP - General Orthopaedic Surgery 04/19/18 09/14/[address] [place] [address] documented as of this encounter
--- OUTSIDE RECORDS SUMMARY | 2022-05-03 15:01 | XMS_ITS | Encounter Summary ---
:1980 Author Organization [facility] [place] [address] Care Team Providers Name Role Phone Olivia Best MD Primary Care Provider Encounter Details Date Type Department Care Team Description 05/12/2021 Telephone Ophthalmology at [facility] C Tamiko Lozoya, [facility] [place] [address] [place] [address] [phone] (Wo rk) Social History Tobacco Use Types Packs/Day Years Used Date Never Smoker Smokeless Tobacco: Never Used Alcohol Use Standard Drinks/Week Comments No 0 (1 standard drink = 0.6 oz pure alcoho l) Sex Assigned at Date Recorded Not on file documented as of this encounter Miscellaneous Notes Telephone Encounter - Laverne Linares - 05/12/2021 11:04 AM EDT Called patient and explained again that we cannot give out glasses Rx. I asked if she went back to the place she had them made. She stated that [facility] bought out the optical shop. Ioffered to call [facility] to see if they would accept an Rx. She wanted to hold while I called. I placed patient on hold, called [facility], they put me on hold to find out. When they came back, they said they could not accept it. They did say she has an appt next week for her to come in. I thankedthem and went back to pt. I explained that they will not accept an Rx. She said Fine. I will just ask Duane to print it from his computer. I apologized and she hung up. Telephone Encounter - Dottie Childs - 05/12/2021 10:12 AM EDT Pt called asking for glasses RX, told her I can not give her an RX Pt was upset stating she broke her glasses & has no way to get to [facility] Told pt it is illegal for us to give out RX, offered to make appt, pt did not like the time I was trying to get her in for Sept with [facility], I asked if there was someone local that she could see, pt was upset & asked to speak with my boss, transferred to Laverne Helm voice mail. documented in this encounter Plan of Treatment Not on filedocumented as of this encounter Visit Diagnoses Not on filedocumented in this encounter Care Teams Assistant To The Vice President Relationship Specialty Start Date End Date Olivia Best MD PCP - General Family Medicine 12/23/20 [address] [place] [address] documented as of this encounter
--- OUTSIDE RECORDS SUMMARY | 2022-05-03 15:01 | XMS_ITS | Encounter Summary ---
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
--- OUTSIDE RECORDS SUMMARY | 2022-05-03 15:02 | XMS_ITS | Encounter Summary ---
:1980 Author Organization [facility] [place] [address] Care Team Providers Name Role Phone Lakshmi Vicente MD Primary Care Provider Encounter Details Date Type Department Care Team Description 02/11/2015 Hospital Encounter MRI at [facility] DR RADER Neck pain on right side; [facility], Harpal Helm MD [facility] [place] [address] Numbness and [place] [address] Social History Tobacco Use Types Packs/Day Years Used Date Never Smoker Smokeless Tobacco: Never Used Alcohol Use Standard Drinks/Week Comments No 0 (1 standard drink = 0.6 oz pure alcoho l) Sex Assigned at Date Recorded Not on file documented as of this encounter Medications at Time of Discharge Medication Sig Dispensed Refills Start Date End Date Cholecalciferol, Vitamin Take 1 tablet by 0 [...] 0 mouth 2 times daily. MULTIVITAMIN (DAILY Take 1 tablet by 0 VITAMIN ORAL) mouth daily. albuterol (PROVENTIL Inhale 2 puffs into 0 HFA;VENTOLIN HFA) 90 the lungs every 4 mcg/Actuation inhaler hours as needed. Use with spacer hydrOXYzine (ATARAX) 10 mg Take 1 tablet by 90 tablet 3 05/13/2015 TabletIndications: Chronic mouth 3 times daily migraine without aura as needed (for without status headaches). migrainosus, not intractable rizatriptan (MAXALT-GLASSWORKER) Take 10 mg by mouth 0 05/13/2015 10 mg Tablet, Rapid as needed for Dissolve Migraine. May repeat in 2 hours if needed documented as of this encounter Progress Notes Sylwia Adam RN - 02/08/2015 2:46 PM EDT VIR MRI PRE-SEDATION ASSESSMENT NOTE NAME: Mirela Lara AGE: 34 y.o. : 1980 Female [phone] (home) No relevant phone numbers on file. LAKSHMI VICENTE MD None Allergies Allergen Reactions ??? Latex Rash ??? Acetaminophen Other (See Comments) Vomit, rash, SOB ??? Gloves, Latex ??? Tessalon [Benzonatate] Other (See Comments) 'Impairs cognitive function and messes with my heart rate' ??? Topamax [Topiramate] cognitive dysfuntion ??? Tylenol [Benzocaine] Rash, vommitting Date/Time of call: February 08, 2015/2:46 PM/ PREVIOUS MRI SCAN? yes HEIGHT: 62 WEIGHT:249# SCHEDULED SCAN:MRI C Spinewo SUBJECTIVE:I am claustrophobic. I had IV sedation last time but I am willing to try the valium thistime. It worked for my knee. CAN YOU LAY FLAT?yes ASSESSMENT:Patient candidate for po sedation PLAN:Valium 5-10 mg per protocol. Guidelines for MRI Pre-Procedures Laboratory Studies:n/a 1. Creatinine studies (GFR level needed) within 90 days of scan ??? 70 yo or older if they are getting contrast ??? 50 years and older if they are diabetic and getting contrast ??? GFR Date of lab draw ( x ) You must have a drivers license examiner present when you check in. This patient has been informed that they require a drivers license examiner to drive them home after this procedure. In the absence of a drivers license examiner, IR will not be able to sedate for your scan. Pt verbalized understanding of these instructions during the pre-procedureeducation via phone. Yes Name of drivers license examiner:_Adam Phone uieyfg___[phone] Date/Procedure Med's given comments 12/29/14 MRI IV sedate Fentanyl 50 mcg IV, Versed 1 mg IV yes 02/04/15 MRI C Spine wo Cancelled per edh 02/11/15 MRI c-spine w/o Valium 10 m g po yes PT STATED TO AIRPORT CONTROL OPERATOR THAT THE SEDATION WAS EFFECTIVE FOR SCAN: Y N COMMENTS: documented in this encounter Plan of Treatment Not on filedocumented as of this encounter Procedures Procedure Name Priority Date/Time Associated Diagnosis Comme nts MRI CERVICAL SPINE Routine 02/11/2015 10:00 AM Neck pain on ri ght Results for this WO CONTRAST EDT side procedure are in Numbness and the results tingling of right section. thumb documented in this encounter Results MRI cervical spine WO contrast (02/11/2015 10:00 AM EDT) Anatomical Region Laterality Modality C-spine Magnetic Resonance Specimen (Source) Anatomical Collection Method Collection Time Re ceived Time Location / / Volume Laterality 02/11/2015 10:00 AM EDT Impressions 02/11/2015 12:06 PM EDT IMPRESSION: No significant abnormalities. Narrative 02/11/2015 12:06 PM EDT EXAMINATION: MR Cspine WO Jose CLINICAL HISTORY: neck pain with right u pper extremity numbness TECHNIQUE: Cervical spine MRI without co ntrast. Routine radiculopathy protocol. COMPARISON: MRI brain 12/29/2014. FINDINGS: Alignment is normal. The disc spaces and vertebral body heights are well-maintained. The cervical cord is of normal size and signal intensity. No significant neural foraminal narrowing. No aggressive marrow lesions. Procedure Note Brien Villanueva MD - 02/11/2015Formatti ng of this note might be different from the original. EXAMINATION: MR Cspine WO Jose CLINICAL HISTORY: neck pain with right u pper extremity numbness TECHNIQUE: Cervical spine MRI without co ntrast. Routine radiculopathy protocol. COMPARISON: MRI brain 12/29/2014. FINDINGS: Alignment is normal. The disc spaces and vertebral body heights are well-maintained. The cervical cord is of normal size and signal intensity. No significant neural foraminal narrowing. No aggressive marrow lesions. IMPRESSION IMPRESSION: No significant abnormalities. Harpal [place] MD IMG MRI ORDERABLES documented in this encounter Visit Diagnoses Diagnosis Neck pain on right side Cervicalgia Numbness and tingling of right thumb Disturbance of skin sensation documented in this encounter Administered Medications Inactive Administered Medications - up to 3 most recent administrations Medication Order MAR Action Action Date Dose Rate Site diaZEPam (VALIUM) tablet 5 mg Given 02/11/2015 9:27 AM EDT 5 mg 5 mg, Oral, EVERY 30 MIN PRN, 2 doses, Starting on Lena 02/11/15 at 0805, Until Lena 02/11/15 at 0927, Anxiety, Angio/IR (Day of Procedure), Routine Given 02/11/2015 8:55 AM EDT 5 mg documented in this encounter Care Teams Senior Storage Administrator Relationship Specialty Start Date End Date Lakshmi Vicente MD PCP - General 07/27/11 04/18/18 [address] [place] [address] documented as of this encounter
--- OUTSIDE RECORDS SUMMARY | 2022-05-03 15:02 | XMS_ITS | Encounter Summary ---
:1980 Author Organization [facility] [place] [address] Care Team Providers Name Role Phone Lakshmi Vicente MD Primary Care Provider Encounter Details Date Type Department Care Team Description 02/22/2016 Office Visit Neurology at [facility] Jill French Migraine with aura and witho ut status migrainosus, not intractable; [facility] CASSIA Bower Chronic migraine without aura without st atus migrainosus, [place] [address] [place] [address] [phone] (Wo rk) Social History Tobacco Use Types Packs/Day Years Used Date Never Smoker Smokeless Tobacco: Never Used Alcohol Use Standard Drinks/Week Comments No 0 (1 standard drink = 0.6 oz pure alcoho l) Sex Assigned at Date Recorded Not on file documented as of this encounter Last Filed Vital Signs Vital Sign Reading Time Taken Comments Blood Pressure 145/83 02/22/2016 10:20 AM EDT Pulse 100 02/22/2016 10:20 AM EDT Temperature - - Respiratory Rate - - Oxygen Saturation - - Inhaled Oxygen Concentration - - Weight 108.9 kg (240 lb) 02/22/2016 10:20 AM EDT Height 156.8 cm (5' 1.75) 02/22/2016 10:20 AM EDT Body Mass Index 44.25 02/22/2016 10:20 AM EDT documented in this encounter Procedure Notes Jill French APRN - 02/22/2016 10:21 AM EDTAssociated Order(s): NERVE BLOCK - OCCIPITAL Procedure(s): PRO INJECT TRIGGER POINT, 1 OR 2 Pre-Procedure Diagnose(s): Cervicogenic headache Procedure Note Procedure: Bilateral Greater Occipital Nerve Blocks and cervical trigger point injections Indication: Headache with occipital/cervical tenderness Consent: Indication, risks, benefits, and alternatives discussed with patient, including risk of bleeding, infection, permanent numbness, and medication reaction. Written consent signed by patient. Location: The greater occipital nerve was located by first palpating the mastoid and midline occipital ridge. The nerve was palpated at 2/3 the distance to the occipital ridge. It was coincident with maximal tenderness. Six tender trigger points were also palpated in the right cervical paraspinal muscle and trapezius. Medication: 50/50 mixture of 1% lidocaine and 0.25% bupivacaine Technique: The area was cleansed with 2 alcohol swabs while using clear gloves. Using a 3 cc syringeand a 25 guage 5/8 inch needle, 3 cc of the medication mixture was injected into multiple tissue planes in the area around each greater occipital nerve. An additional 3 cc of the medication mixture wasdivided between six trigger points and 0.5 cc injected into each site. Prior to each injection the plunger was drawn back to ensure that the needle was not in a blood vessel. The patient tolerated the procedure well. Complications: None Blood loss: <1 cc documented in this encounter Plan of Treatment Not on filedocumented as of this encounter Procedures Procedure Name Priority Date/Time Associated Diagnosis Comme nts NERVE BLOCK - Routine 02/22/2016 10:32 AM Chronic migraine Res ults for this OCCIPITAL EDT without aura without procedu re are in status migrainosus, the resu lts not intractable section. documented in this encounter Visit Diagnoses Diagnosis Migraine with aura and without status mi grainosus, not intractable Migraine with aura, without mention of i ntractable migraine without mention of status migrainosus Chronic migraine without aura without st atus migrainosus, not intractable Chronic migraine without aura, without m ention of intractable migraine without mention of status migrainosus documented in this encounter Administered Medications Inactive Administered Medications - up to 3 most recent administrations Medication Order MAR Action Action Date Dose Rate Site BUpivacaine (PF) (MARCAINE) 0.25 Given 02/22/2016 10:32 AM EDT 1 1.2 mg % (2.5 mg/mL) injection 11.2 mg 11.2 mg, Subcutaneous, ONCE, 1 dose, On Sun02/22/16 at 1100, Routine lidocaine (XYLOCAINE) 10 mg/mL (1 %) Given 02/22/2016 10:32 AM E DT 45 mg injection 45 mg 45 mg (4.5 mL), Subcutaneous, ONCE, 1 dose, On Sun02/22/16 at 1100, Routine documented in this encounter Care Teams Irrigation Technician Relationship Specialty Start Date End Date Lakshmi Vicente MD PCP - General 07/27/11 04/18/18 [address] [place] [address] documented as of this encounter
--- OUTSIDE RECORDS SUMMARY | 2022-05-03 15:02 | XMS_ITS | Encounter Summary ---
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 without status Drive [facility] [address], [place] [address] [place] [address] [phone] (Wo rk) Social History Tobacco Use Types Packs/Day Years Used Date Never Smoker Smokeless Tobacco: Never Used Alcohol Use Standard Drinks/Week Comments No 0 (1 standard drink = 0.6 oz pure alcoho l) Sex Assigned at Date Recorded Not on file documented as of this encounter Miscellaneous Notes Telephone Encounter - Qiana Bowens RN - 04/22/2018 4:46 PM EDT ----- Message from Lina Gallo CMA sent at 04/22/2018 3:53 PM EDT ----- Regarding: med refill Medication ZOLMitriptan (ZOMIG) 5 mg [place], Non-Aerosol [[id number]] ??ZOLMitriptan (ZOMIG) 5 mg [place], Non-Aerosol [[id number]] Order Details? Dose, Route, Frequency: As Directed Note to Pharmacy:?? 12 nasal sprays are a one month supply? Dispense Quantity: 12 eachRefills: 1Fills Remaining: --? Sig: With head between knees, administer 1 spray in 1 nostril. May repeat x1 after 2 hours if needed. NTE 10mg per day or 2 days per week.? Written Date: 02/11/18Expiration Date: --?? Start Date: 02/11/18End Date: --? Ordering Provider: Jill French APRNDEA #: [id number]: [id number]?? Authorizing Provider: Jill French APRNDEA #: [id number]: [id number]?? Ordering User: Jill French APRN? Diagnosis Association: Migraine with aura and without status migrainosus, not intractable (G43.109)?Original Order: ZOLMitriptan (ZOMIG) 5 mg [place], Non-Aerosol [[id number]]? Pharmacy: [facility] - [address] #: --?? Pharmacy Comments: --? Quantity Remaining: -- documented in this encounter Plan of Treatment Not on filedocumented as of this encounter Visit Diagnoses Diagnosis Migraine with aura and without status mi grainosus, not intractable Migraine with aura, without mention of i ntractable migraine without mention of status migrainosus documented in this encounter Care Teams Lead Loader Relationship Specialty Start Date End Date Neda Manzanares PA PCP - General Orthopaedic Surgery 04/19/18 09/14/18 [address] [place] [address] documented as of this encounter
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
--- OUTSIDE RECORDS SUMMARY | 2022-05-03 15:02 | XMS_ITS | Encounter Summary ---
:1980 Author Organization [facility] [place] [address] Care Team Providers Name Role Phone Laskhmi Vicente MD Primary Care Provider Encounter Details Date Type Department Care Team Description 10/13/2015 Office Visit Neurology at [facility] Ludmila Cornejo MD [facility] [place] [address] Chronic migraine [facility] Silke Pollack MD [facility] [place] [address] status migrainosus, [place], [place] not intractable [phone] Social History Tobacco Use Types Packs/Day Years Used Date Never Smoker Smokeless Tobacco: Never Used Alcohol Use Standard Drinks/Week Comments No 0 (1 standard drink = 0.6 oz pure alcoho l) Sex Assigned at Date Recorded Not on file documented as of this encounter Last Filed Vital Signs Vital Sign Reading Time Taken Comments Blood Pressure 126/82 10/13/2015 9:51 AM EST Pulse 89 10/13/2015 9:51 AM EST Temperature - - Respiratory Rate - - Oxygen Saturation - - Inhaled Oxygen Concentration - - Weight 109.3 kg (241 lb) 10/13/2015 9:51 AM EST Height 157.5 cm (5' 2) 10/13/2015 9:51 AM EST Body Mass Index 44.08 10/13/2015 9:51 AM EST documented in this encounter Procedure Notes Ludmila Cornejo MD - 10/13/2015 9:53 AM ESTProcedure(s): OCCIPITAL NERVE BLOCK, BILATERAL Pre-Procedure Diagnose(s): Chronic migraine without aura without [...] each side. Ludmila Cornejo MD Headache Fellow [facility] Neurology documented in this encounter Plan of [...] Dose Rate Site BUpivacaine (PF) (MARCAINE) 0.25 % Given 10/13/2015 9:54 AM EST 7.5 mg (2.5 mg/mL) injection 7.5 mg 7.5 mg, Subcutaneous, ONCE, 1 dose, On Sun10/13/15 at 1015, Routine lidocaine (XYLOCAINE) 10 mg/mL (1 %) injection Given 1 9:54 AM EST 30 mg 30 mg 30 mg, Subcutaneous, ONCE, 1 dose, On Sun10/13/15 at 1015, Routine documented in this encounter Care Teams [facility] Relationship Specialty Start Date End Date Lakshmi Vicente MD PCP - General 07/27/11 04/18/18 [address] [place] [address] documented as of this encounter
--- OUTSIDE RECORDS SUMMARY | 2022-05-03 15:02 | XMS_ITS | Encounter Summary ---
:1980 Author Organization [facility] [place] [address] Care Team Providers Name Role Phone Lakshmi Vicente MD Primary Care Provider Reason for Visit High Dollar Medication (Routine) - Specialty Diagnoses / Procedures Referred By Contact Refer red To Contact Neurology Diagnoses Chronic migraine without aura without status migrainosus, not intractable [facility] Procedures Auth Request for Medication TC ONABOTULINUMTOXINA, 1 UNIT, [place] [address] [place] [address] Referral ID Status Reason Start Date Expiration Date Visits V isits Requested Authorized [id number] Consult, 07/20/2016 07/04/2019 13 13 Test & Treat Encounter Details Date Type Department Care Team Description 01/18/2018 Office Visit Neurology at [facility] Jill French PATIENT NOT SEEN [facility], [place] [address] [place], [place] [address] (Wo rk) Social History Tobacco Use Types Packs/Day Years Used Date Never Smoker Smokeless Tobacco: Never Used Alcohol Use Standard Drinks/Week Comments No 0 (1 standard drink = 0.6 oz pure alcoho l) Sex Assigned at Date Recorded Not on file documented as of this encounter Progress Notes Jill French APRN - 01/18/2018 4:27 PM EDT This patient was not seen in this encounter. Mirela was 66 minutes late arriving to a 30 minute appt and was asked to reschedule. documented in this encounter Plan of Treatment Not on filedocumented as of this encounter Visit Diagnoses Diagnosis DH PATIENT NOT SEEN documented in this encounter Care Teams Sand Technician Relationship Specialty Start Date End Date Lakshmi Vicente MD PCP - General 07/27/11 04/18/18 [address] [place] [address] documented as of this encounter
--- OUTSIDE RECORDS SUMMARY | 2022-05-03 15:02 | XMS_ITS | Encounter Summary ---
:1980 Author Organization [facility] [address] Care Team Providers Name Role Phone Lakshmi Vicente MD Primary Care Provider Reason for Visit Reason Onset Date Comments Prior Authorization 10/18/2016 Zomig 5 mg NS Encounter Details Date Type Department Care Team Description 10/18/2016 Telephone Neurology at [facility] Jill French Prior Authorization [facility] G, DIRECTOR OF RETAIL ANALYTICS (Zomig 5 mg NS) [place] [address] [place] [address] [phone] (Wo rk) Social History Tobacco Use Types Packs/Day Years Used Date Never Smoker Smokeless Tobacco: Never Used Alcohol Use Standard Drinks/Week Comments No 0 (1 standard drink = 0.6 oz pure alcoho l) Sex Assigned at Date Recorded Not on file documented as of this encounter Miscellaneous Notes Telephone Encounter - Gladys Giraldo CMA - 10/30/2016 9:00 AM EST Called in the med record but phone # that I called the name that was left to leave a message was anthony Avalos Left my name and our phone number to call.this is my second attempt to call this patient Called the pharmacy to see if the patient picked up her medication and it was picked up on Oct 19. Telephone Encounter - Gladys Giraldo CMA - 10/19/2016 9:54 AM EST Images from the original note were not included. Called patient JUAN to call me back, the name on the message was not the patient, I left my name contact # and Dept and to call our office. Telephone Encounter - Gladys Giraldo CMA - 10/18/2016 1:16 PM EST Sent a fax to [place] Medicaid for PA Telephone Encounter - Gladys Giraldo CMA - 10/18/2016 8:46 AM EST Sent PA through cover my Med's for Zomig 5 mg NS documented in this encounter Plan of Treatment Not on filedocumented as of this encounter Visit Diagnoses Not on filedocumented in this encounter Care Teams Automotive Refinisher Relationship Specialty Start Date End Date Lakshmi Vicente MD PCP - General 07/27/11 04/18/18 [address] [place] [address] documented as of this encounter
--- OUTSIDE RECORDS SUMMARY | 2022-05-03 15:02 | XMS_ITS | Encounter Summary ---
:1980 Author Organization [facility] [place] [address] Care Team Providers Name Role Phone Lakshmi Vicente MD Primary Care Provider Reason for Visit Reason Comments Headache Consultation (Routine) - Closed Specialty Diagnoses / Procedures Referred By Contact Refer red To Contact Ophthalmology Diagnoses Chronic migraine without aura without status migrainosus, not intractable Elevated intracranial pressure Jill French [place], APRN Sivashakthi, MD [facility] D r [facility] [place] [address] OPHTHALMOLOGY DEPT [place] [phone] Phone: Fax: Referral ID Status Reason Start Date Expiration Date Visits V isits Requested Authorized [id number] Closed Consult, 05/05/2016 05/05/2017 1 1 Test & Treat Encounter Details Date Type Department Care Team Description 06/02/2016 Office Visit Ophthalmology at [facility] Sharan Sewell, Unspecified visual disturban ce (Primary Dx); [facility] MD [place] [address] CENTER [phone] OPHTHALMOLOGY DEPT [place], [place] [address] Social History Tobacco Use Types Packs/Day Years Used Date Never Smoker Smokeless Tobacco: Never Used Alcohol Use Standard Drinks/Week Comments No 0 (1 standard drink = 0.6 oz pure alcoho l) Sex Assigned at Date Recorded Not on file documented as of this encounter Progress Notes Peyton Sewell MD - 06/02/2016 3:00 PM EDT On examination today, Mirela Lara exhibited poor vision in the right eye from amblyopia, normal vision in the left. Normal color vision, with no evidence of a relative afferent pupillary defect that would suggest an underlying optic nerve dysfunction. Static visual tellez were unreliable but overall full with scattered dep pts. The optic nerves are healthy and pink with no edema. OCT normal documented in this encounter Plan of Treatment Not on filedocumented as of this encounter Procedures Procedure Name Priority Date/Time Associated Diagnosis Comme nts OCT OPTIC NERVE - Routine 06/02/2016 5:13 PM Visual field defe cts Results for this OU - BOTH EYES EDT procedure are in the results section. AUTOMATED VISUAL Routine 06/02/2016 5:13 PM Unspecified visual Results for this FIELD - EXTENDED - EDT disturbance procedure are in OU- BOTH EYES the results section. documented in this encounter Results OCT OPTIC [id number] EYES (06/02/2016 5:13 PM EDT) Anatomical Region Laterality Modality Other Specimen (Source) Anatomical Location Collection Method / Collectio n Time Received Time / Laterality Volume Narrative 06/02/2016 5:13 PM EDT Right Eye Quality was good. Findings include khushbu l observations. Temporal thickness was normal. Superior thickness was khushbu l. Nasal thickness was normal. Inferior thickness was normal. Left Eye Quality was good. Findings include khushbu l observations. Temporal thickness was normal. Superior thickness was khushbu l. Nasal thickness was normal. Inferior thickness was normal. Notes Normal RNFL OU Peyton Sewell MD OPHTHALMOLOGY SERVICES ORD ERABLES AUTOMATED VISUAL FIELD - EXTENDED - OU- BOTH EYES (06/02/2016 5:13 PM EDT) Anatomical Region Laterality Modality Other Specimen (Source) Anatomical Location Collection Method / Collectio n Time Received Time / Laterality Volume Narrative 06/02/2016 5:13 PM EDT Right Eye Threshold was 24-2. Strategy was MEGHANN. R eliability was poor. Findings include normal observations, non-specifi c defects. Left Eye Threshold was 24-2. Strategy was MEGHANN. R eliability was poor. Findings include normal observations, non-specifi c defects. Peyton Sewell MD OPHTHALMOLOGY SERVICES ORD ERABLES documented in this encounter Visit Diagnoses Diagnosis Unspecified visual disturbance - Primary Visual field defects Visual field defect, unspecified documented in this encounter Care Teams Manager Financial Systems Relationship Specialty Start Date End Date Lakshmi Vicente MD PCP - General 07/27/11 04/18/18 [address] [place] [address] documented as of this encounter
--- OUTSIDE RECORDS SUMMARY | 2022-05-03 15:02 | XMS_ITS | Encounter Summary ---
:1980 Author Organization [facility] [place] [address] Care Team Providers Name Role Phone Lakshmi Vicente MD Primary Care Provider Reason for Visit Reason Onset Date Comments Other 04/02/2015 Encounter Details Date Type Department Care Team Description 04/02/2015 Telephone Neurology at [facility] Soo Titus APRN Other [facility] [place] [address] NEUROLOGY DEPT. [phone] [place], [place] [address] (Wo rk) Social History Tobacco Use Types Packs/Day Years Used Date Never Smoker Smokeless Tobacco: Never Used Alcohol Use Standard Drinks/Week Comments No 0 (1 standard drink = 0.6 oz pure alcoho l) Sex Assigned at Date Recorded Not on file documented as of this encounter Miscellaneous Notes Telephone Encounter - Ranjana Wilkinson RN - 04/14/2015 3:45 PM EDT Left message on patient voicemail to inform her of the appointment. Also left my phone number for her to return my call with any questions. Telephone Encounter - Soo Titus APRN - 04/14/2015 3:32 PM EDT Tomorrow at 11a. ONB Telephone Encounter - Ranjana Wilkinson RN - 04/14/2015 2:29 PM EDT Spoke with patient today. She states that she has been having severe headaches, nausea, vomiting, blurry vision, pressure behid right eye and ear, distorted hearing in right ear. Patient states that these symptoms started to return near the end of February as her ONB was wearing off. She last had an ONB on01/26/15. She had an appointment 03/04/15 that she had to reschedule and she thought this had been done for 04/06/15 and realized last week that this was in fact made for 05/06/15. She states that she has been taking all of the medications available to her including Maxalt a couple times a week and Hyrdoxyzine 3 times per day every day and they are not touching the pain. She states that all of these symptoms are usually alleviated by ONB and she would like to be able tocome in for one as soon as possible. I did explain that the schedule is very full at this time, but that I would see if there was anything that could be done. Telephone Encounter - Ranjana Wilkinson RN - 04/05/2015 9:06 AM EDT Return call placed to patient to discuss her concerns. Left message on voicemail, await return call. Telephone Encounter - ConnerMillicent - 04/02/2015 4:43 PM EDT Patient is calling in to state that she is supposed to be scheduled for 04/06 NOT the 05/06 for ONB. Patient is stating that she cannot wait that long. [facility] does not have any openings prior to April so shewould like to speak with a nurse in regards to the headaches she is having and seeing if she can be seen sooner or if there is anything else that can be done Please call and advise. documented in this encounter Plan of Treatment Not on filedocumented as of this encounter Visit Diagnoses Not on filedocumented in this encounter Care Teams Human Factors Specialist Relationship Specialty Start Date End Date Lakshmi Vicente MD PCP - General 07/27/11 04/18/18 [address] [place] [address] documented as of this encounter
--- OUTSIDE RECORDS SUMMARY | 2022-05-03 15:02 | XMS_ITS | Encounter Summary ---
:1980 Author Organization [facility] [address] Care Team Providers Name Role Phone Lakshmi Vicente MD Primary Care Provider Reason for Visit Reason Onset Date Comments Prior Authorization 06/14/2015 Encounter Details Date Type Department Care Team Description 06/14/2015 Telephone Neurology at [facility] Shavon Weber, Prior Authorization [facility] [place] [address] Social History Tobacco Use Types Packs/Day Years Used Date Never Smoker Smokeless Tobacco: Never Used Alcohol Use Standard Drinks/Week Comments No 0 (1 standard drink = 0.6 oz pure alcoho l) Sex Assigned at Date Recorded Not on file documented as of this encounter Miscellaneous Notes Telephone Encounter - Shavon Weber LPN - 07/06/2015 2:19 PM EDT Medication: Zomig nasal spray Prior Authorization: Start Date:07/06/2015 End Date:01/04/2016 Health Plan: [place] Medicaid Phone: Fax: Authorizing Rep: Authorization Number (if applicable):[id number] Notified: Patient ( x ) Pharmacy ( ) Telephone Encounter - Shavon Weber LPN - 07/06/2015 11:25 AM EDT Zomig tablets denied.PA faxed for Zomig spray with office notes faxed to [place] [employer]. Telephone Encounter - Shavon Weber LPN - 06/15/2015 9:06 AM EDT Zomig tablets denied.Written appeal sent to [place] [employer]. Telephone Encounter - Shavon Weber LPN - 06/14/2015 1:59 PM EDT JOSE faxed to [place] medicaid for zomig tablets documented in this encounter Plan of Treatment Not on filedocumented as of this encounter Visit Diagnoses Not on filedocumented in this encounter Care Teams Music Ministries Director Relationship Specialty Start Date End Date Lakshmi Vicente MD PCP - General 07/27/11 04/18/18 [address] [place] [address] documented as of this encounter
--- OUTSIDE RECORDS SUMMARY | 2022-05-03 15:02 | XMS_ITS | Encounter Summary ---
:1980 Author Organization [facility] [place] [address] Care Team Providers Name Role Phone Lakshmi Vicente MD Primary Care Provider Reason for Referral High Dollar Medication (Routine) - Specialty Diagnoses / Procedures Referred By Contact Refer red To Contact Neurology Diagnoses Chronic migraine without aura without status migrainosus, not intractable Jill French [facility] 3c Procedures Auth Request for Medication TC ONABOTULINUMTOXINA, 1 UNIT, INJECTION RESIDENTIAL LIVING ASSISTANT [facility] [place] [address] [place] [address] Referral ID Status Reason Start Date Expiration Date Visits V isits Requested Authorized [id number] Consult, 07/20/2016 07/04/2019 13 13 Test & Treat Encounter Details Date Type Department Care Team Description 09/26/2016 Orders Only Neurology at [facility] Jill French Chronic migraine [facility] Sathish RESIDENTIAL LIVING ASSISTANT without aura without [facility] status migrainosus, [place], [place] Dr not intractable [phone] [place] [address] (Wo rk) Social History Tobacco Use Types [...] migrainosus documented in this encounter Care Teams Lollypop Machine Operator Relationship Specialty Start Date End Date Lakshmi Vicente MD PCP - General 07/27/11 04/18/18 [address] [place] [address] documented as of this encounter
--- OUTSIDE RECORDS SUMMARY | 2022-05-03 15:02 | XMS_ITS | Encounter Summary ---
:1980 Author Organization [facility] [place] [address] Care Team Providers Name Role Phone Lakshmi Vicente MD Primary Care Provider Encounter Details Date Type Department Care Team Description 01/24/2016 Office Visit Neurology at [facility] Ludmila Cornejo MD [facility] [place] [address] Chronic migraine [facility] Harpal Houston MD [facility] [place] [address] status migrainosus, [place], [place] not intractable [id number] Social History Tobacco Use Types Packs/Day Years Used Date Never Smoker Smokeless Tobacco: Never Used Alcohol Use Standard Drinks/Week Comments No 0 (1 standard drink = 0.6 oz pure alcoho l) Sex Assigned at Date Recorded Not on file documented as of this encounter Last Filed Vital Signs Vital Sign Reading Time Taken Comments Blood Pressure 150/97 01/24/2016 1:36 PM EDT Pulse 136 01/24/2016 1:36 PM EDT Temperature - - Respiratory Rate - - Oxygen Saturation - - Inhaled Oxygen Concentration - - Weight 108.9 kg (240 lb) 01/24/2016 1:36 PM EDT reporte d Height 156.8 cm (5' 1.75) 01/24/2016 1:36 PM EDT Body Mass Index 44.25 01/24/2016 1:36 PM EDT documented in this encounter Procedure Notes Ludmila Cornejo MD - 01/24/2016 2:36 PM EDTProcedure(s): NERVE BLOCK - OCCIPITAL; PRO CHEMODENERVATION FACIAL/TRIGEM/CERV MUSC MIGRAINE Pre-Procedure Diagnose(s): Chronic migraine without aura without status migrainosus, not intractable Occipital nerve block note After giving verbal consent, bilateral occipital nerve blocks were performed. The tender regions were identified during a time out. ???A time-out was conducted just before the start of the procedure toverify the correct patient and procedure, procedure location, and all relevant critical information.?? The skin was prepared with 70% isopropyl alcohol and Betadine. 3cc of local anesthetic (1.5 cc of1% lidocaine with 1.5 cc of 0.25% bupivacaine) was infiltrated around the greater occipital nerve on each side. Neurology Procedure note Date: 01/24/2016 Patient: Mirela Lara : 1980 Procedure: Botox [...] 1 injection of 5 U in right rn palliative muscle 1 injection of 5 U in left rn palliative muscle 2 injections of 5 U in [...] left trapezius muscle Total injections - 31; 200 units billed; total injection dose = 155 units; 45 units wasted. Sterile technique was employed. The patient tolerated the procedure well. Potential AE's were discussed at length so the patient knows what to monitor. 01/24/16: MIDAS is 25 with 90/90 headache days and an average pain level of 2/10. 11/08/15: MIDAS is 38 with 90/90 headache days and an average pain level of 2/10. Ludmila Cornejo MD Headache Fellow [facility] Neurology documented in this encounter Plan of [...] Site botulinum toxin type A (BOTOX) Given 01/24/2016 2:35 PM EDT 200 Units injection 200 Units 200 Units, Intramuscular, ONCE, 1 dose, On Sun01/24/16 at 1500, Routine BUpivacaine (PF) (MARCAINE) 0.25 % (2.5 Given 01/24/2016 2:36 PM EDT 7.5 mg mg/mL) injection 7.5 mg 7.5 mg, Subcutaneous, ONCE, 1 dose, On Sun01/24/16 at 1500, Routine lidocaine (XYLOCAINE) 10 mg/mL (1 %) injection Given 0 01/24/2016 2:36 PM EDT 30 mg 30 mg 30 mg, Subcutaneous, ONCE, 1 dose, On Sun01/24/16 at 1500, Routine documented in this encounter Care Teams Production Line Mechanic Relationship Specialty Start Date End Date Lakshmi Vicente MD PCP - General 07/27/11 04/18/18 [address] [place] [address] documented as of this encounter
--- OUTSIDE RECORDS SUMMARY | 2022-05-03 15:02 | XMS_ITS | Encounter Summary ---
:1980 Author Organization [facility] [place] [address] Care Team Providers Name Role Phone Lakshmi Vicente MD Primary Care Provider Reason for Referral Consultation (Routine) - Closed Specialty Diagnoses / Procedures Referred By Contact Refer red To Contact Ophthalmology Diagnoses Chronic migraine without aura without status migrainosus, not intractable Elevated intracranial pressure Jill French Kanag[place]am, APRN Sivashakthi, MD [facility] [place] [address] [place] [address] Phone: Fax: Referral ID Status Reason Start Date Expiration Date Visits V isits Requested Authorized [id number] Closed Consult, 05/05/2016 05/05/2017 1 1 Test & Treat Surgical (Routine) - Specialty Diagnoses / Procedures Referred By Contact Refer red To Contact Diagnoses Migraine with aura and without status migrainosus, not intractable Silke Pollack MD Procedures Lumbar Puncture [facility] [place] [address] Referral ID Status Reason Start Date Expiration Date Visits V isits Requested Authorized [id number] Consult, 05/05/2016 05/05/2017 1 1 Test & Treat Reason for Visit Reason Comments Procedure Encounter Details Date Type Department Care Team Description 05/05/2016 Procedure visit [place]rology at [facility] Silke Pollack, Migraine with aura and witho ut status migrainosus, not intractable; [facility] Chronic migraine without aura without st atus migrainosus, not intractable; [facility] Elevated intracranial pressu [place], [place] [address] NEUROLOGY DEPT [phone] [place], [place] [address] Social History Tobacco Use Types Packs/Day Years Used Date Never Smoker Smokeless Tobacco: Never Used Alcohol Use Standard Drinks/Week Comments No 0 (1 standard drink = 0.6 oz pure alcoho l) Sex Assigned at Date Recorded Not on file documented as of this encounter Last Filed Vital Signs Vital Sign Reading Time Taken Comments Blood Pressure 121/69 05/05/2016 9:32 AM EDT Pulse 88 05/05/2016 9:32 AM EDT Temperature - - Respiratory Rate - - Oxygen Saturation - - Inhaled Oxygen Concentration - - Weight 116.1 kg (256 lb) 05/05/2016 9:32 AM EDT Height 154.9 cm (5' 1) 05/05/2016 9:32 AM EDT Body Mass Index 48.37 05/05/2016 9:32 AM EDT documented in this encounter Progress Notes Jill French, SENIOR PRINCIPAL - 05/05/2016 9:30 AM EDT Cc: Follow up chronic headache Interval History: Mirela had an LP this morning in the headache clinic and was found to have OP of 30. ROS: Intractable daily headache No fever, chills, weakness No vision changes, does have a hx of corneal erosions OD No nasal congestions, sinus pain or pressure No chest pain, SOB, cough No abdominal pain, n/v. EXAM: A & O x 3, comfortable, NAD Not jaundiced, sedated, dysarthric, or ataxic Normal affect, mood, speech ASSESSMENT: Chronic daily headache New dx elevated intracranial pressure PLAN; MRV ordered Referred to Dr. K for ophthalmology exam and eval for papilledema Start Diamox SR 500 mg q a.m x 3 days then increase to BID. Follow up here in 10 days as scheduled. documented in this encounter Procedure Notes Silke Pollack MD - 05/05/2016 9:30 AM EDTAssociated Order(s): LUMBAR PUNCTURE Neurology Procedure Note Date: 05/05/2016 Patient: Mirela Lara : 1980 Procedure: lumbar puncture (diagnostic) Indications: Headache, close opening pressure Risk and benefits were explained to the patient and consent was obtained. Patient consented for the CSF banking study; [facility] # [id number] - 3cc of spinal fluid will be sent to the lab and stored for this purpose. Time out was preformed Past Medical History Diagnosis Date ??? Allergy ??? Anxiety ??? Asthma ??? Corneal erosion OD ??? Diabetes mellitus ??? GERD (gastroesophageal reflux disease) ??? Headache(784.0) ??? Hyperlipidemia ??? Migraine with aura and without status migrainosus, not intractable 05/13/2015 ??? Sacroiliac dysfunction 06/22/2011 ??? Skin disease ??? Trauma Current Outpatient Prescriptions Medication Sig Dispense Refill ??? rOPINIRole (REQUIP) 0.25 mg Tablet Take 0.25 mg by mouth nightly. ??? propranolol (INDERAL) 60 mg Tablet Take 60 mg by mouth 2 times daily. ??? Naproxen Sodium 750 mg Tab, Multiphasic Release 24 hr Take 1,500 mg by mouth as needed. ??? traZODone (DESYREL) 100 mg Tablet Take 200 mg by mouth nightly. ??? lamoTRIgine (LAMICTAL) 100 mg Tablet Take 100 mg by mouth every evening. ??? lamoTRIgine (LAMICTAL) 150 mg Tablet Take 150 mg by mouth every morning. ??? oxyCODONE (OXYCONTIN) 10 mg tablet,oral only,ext.rel.12 hr Take 10 mg by mouth every 6 hours as needed. ??? prazosin (MINIPRESS) 2 mg Capsule Take 2 mg by mouth nightly. ??? hydrOXYzine (VISTARIL) 25 mg Capsule Take 1 capsule by mouth 2 times daily as needed (headache).(Patient taking differently: Take 25 mg by mouth 2 times daily.) 60 capsule 12 ??? ZOLMitriptan (ZOMIG) 5 mg [place], Non-Aerosol 1 spray in one nostril. May repeat in 2 hours x 1 for a maximum of 2 sprays daily. Limit use to twice weekly. Prn migraine 6 mL PRN ??? celecoxib (CELEBREX) 200 mg Capsule Take 200 mg by mouth 2 times daily. ??? omeprazole (PRILOSEC) 40 mg Capsule, Delayed Release(E.C.) Take 40 mg by mouth 2 times daily. ??? Cholecalciferol, Vitamin D3, (VITAMIN D-3) 5,000 unit Tablet Take 1 tablet by mouth daily. ??? venlafaxine (EFFEXOR-XR) 150 mg Capsule, Sust. Release 24 hr Take 300 mg by mouth daily. ??? metFORMIN (GLUCOPHAGE) 850 mg Tablet Take [...] 4 hours as needed. Use with spacer No current facility-administered medications for this visit. Allergies Allergen Reactions ??? Acetaminophen Other (See Comments) Vomit, rash, SOB ??? Tylenol [Benzocaine] Shortness Of Breath Rash, vommitting ??? Gloves, Latex Rash ??? Tessalon [Benzonatate] Other (See Comments) 'Impairs cognitive function and messes with my heart rate' ??? Topamax [Topiramate] cognitive dysfuntion Patient was positioned on her left side in a position. The skin was prepped with ChloraPrep (2% chlorhexidine solution/70% isopropyl alcohol) and draped in sterile fashion. 5 cc lidocaine were used to numb the skin and insertion site. A 22-g 3.5 Sprotte spinal needle was inserted, using an intro ducer into the space between L4 and L5. One attempt was made, but the spinal needle was to short so we converted to a 20 gauge 6 inch Quincke spinal needle. CSF was obtained and the opening pressure was measured with the patient's legs straightened. Dr. Cruz preformed the procedure with my direct supervision and assistance. Opening pressure 30.0 cm H2O was obtained Closing pressure 12.2 cm H2O was obtained Clear CSF was obtained and sent for cell count, protein, glucose Patient was directed to go to 3 to have labs drawn. A total of 32 cc spinal fluid was removed. Patient tolerated the procedure well. There were no immediate complications observed. Patient was advised to avoid strenuous activity x 24 hrs and to advise staff if she developed a headache. Blood Loss <1cc Silke Pollack MD [facility] Neurology The patient was approached by Dr. Silke Pollack about participating in the CSF Biospecimen and Data Bank, a single institution study at [facility] with Drs. Foster Lynn and Tyler Fagan as lead investigators. After meeting inclusion and exclusion criteria, subjects will provide witnessed informed consent. All questions from the patient regarding this study have been answered. The consent form has [facility]-approval date of 05/28/2015. All study-related procedures were completed after signing the ICF. A copy of the ICF has been provided to the patient. The CSF sample was collected by Dr. Silke Pollack and properly stored and sent to the CSF banking Lab. documented in this encounter Plan of Treatment Scheduled Referrals Name Type Priority Associated Diagnoses Order S chedule Referral to Outpatient Routine Chronic migraine Ordered: Ophthalmology Referral without aura without 2015 status migrainosus, not intractable Elevated intracranial pressure documented as of this encounter Procedures Procedure Name Priority Date/Time Associated Diagnosis Comme nts LUMBAR PUNCTURE Routine 05/05/2016 10:42 AM Migraine with aura Results for this EDT and without status procedure are in migrainosus, not the results intractable section. 4 TOTAL TUBES SENT Routine 05/05/2016 10:15 AM Migraine with a ura CSF EDT and without status migrainosus, not intractable Chronic migraine without aura without status migrainosus, not intractable CSF CELL COUNT Routine 05/05/2016 10:15 AM Migraine with aura Results for this EDT and without status procedure are in migrainosus, not the results intractable section. Chronic migraine without aura without status migrainosus, not intractable CSF DESC 3 Routine 05/05/2016 10:15 AM Migraine with aura Re sults for this EDT and without status procedure are in migrainosus, not the results intractable section. Chronic migraine without aura without status migrainosus, not intractable CSF DESC 2 Routine 05/05/2016 10:15 AM Migraine with aura Re sults for this EDT and without status procedure are in migrainosus, not the results intractable section. Chronic migraine without aura without status migrainosus, not intractable CSF DESC 1 Routine 05/05/2016 10:15 AM Migraine with aura Re sults for this EDT and without status procedure are in migrainosus, not the results intractable section. Chronic migraine without aura without status migrainosus, not intractable PROTEIN LEVEL CSF Routine 05/05/2016 10:15 AM Migraine with au ra Results for this EDT and without status procedure are in migrainosus, not the results intractable section. Chronic migraine without aura without status migrainosus, not intractable GLUCOSE LEVEL CSF Routine 05/05/2016 10:15 AM Migraine with au ra Results for this EDT and without status procedure are in migrainosus, not the results intractable section. Chronic migraine without aura without status migrainosus, not intractable documented in this encounter Results Lumbar Puncture (05/05/2016 10:42 AM EDT) Narrative Silke Pollack MD - 05/05/2016 10:42 AM EDT Silke Pollack MD ? 05/05/2016 10:42 AM Neurology Procedure Note Date: 05/05/2016 Patient: Mirela Lara : ??1980 Procedure: lumbar puncture (diagnostic) Indications: Headache, close opening pre ssure Risk and benefits were explained to the patient and consent was obtained. Patient consented for the CSF banking [facility]; [facility] # [id number] - 3cc of spinal fluid will be sent to the lab and stored for this purpose. Time out was preformed Past Medical History Diagnosis Date ? ? Allergy ? Anxiety ? Asthma ? Corneal erosion ?OD ? ? Diabetes mellitus ? GERD (gastroesophageal reflux disease) ? Headache(784.0) ? Hyperlipidemia ? Migraine with aura and without status migrainosus, not intractable 05/13/2015 ? ? Sacroiliac dysfunction 06/22/2011 ? ? Skin disease ? Trauma ?? Current Outpatient Prescriptions Medication Sig Dispense Refill ? ? rOPINIRole (REQUIP) 0.25 mg Tablet Take 0.25 mg by mouth nightly. ? propranolol (INDERAL) 60 mg Tablet Take 60 mg by mouth 2 times daily. ? Naproxen Sodium 750 mg Tab, Multiphasic Release 24 hr Take 1,500 mg by mouth as needed. ? traZODone (DESYREL) 100 mg Tablet Take 200 mg by mouth nightly. ? lamoTRIgine (LAMICTAL) 100 mg Tablet Take 100 mg by mouth every evening. ? lamoTRIgine (LAMICTAL) 150 mg Tablet Take 150 mg by mouth every morning. ? oxyCODONE (OXYCONTIN) 10 mg tablet,oral only,ext.rel.12 hr Take 10 mg by mouth every 6 hours as needed. ? prazosin (MINIPRESS) 2 mg Capsule Take 2 mg by mouth nightly. ? hydrOXYzine (VISTARIL) 25 mg Capsule Take 1 capsule by mouth 2 times daily as needed (headache). (Patie nt taking differently: Take 25 mg by mouth 2 times daily.) 60 c apsule 12 ? ? ZOLMitriptan (ZOMIG) 5 mg [place], Non-Aerosol 1 spray in one nostril. ??May repeat in 2 hours x 1 for a maximum of 2 sprays daily. ??Limit use to twice weekly. Prn migraine 6 mL PRN ? ? celecoxib (CELEBREX) 200 mg Capsule Take 200 mg by mouth 2 times daily. ? omeprazole (PRILOSEC) 40 mg Capsule, Delayed Release(E.C.) Take 40 mg by mouth 2 times daily. ? Cholecalciferol, Vitamin D3, (VITAMIN D-3) 5,000 unit Tablet Take 1 tablet by mouth daily. ? venlafaxine (EFFEXOR-XR) 150 mg Capsule, Sust. Release 24 hr Take 300 mg by mouth daily. ? metFORMIN (GLUCOPHAGE) 850 mg Tablet Take 850 mg by mouth 2 times daily (with meals). ? montelukast (SINGULAIR) 10 mg tablet Take 10 mg by mouth nightly. ? Echinacea 400 mg Cap Take ??by mouth 2 times daily. ? MULTIVITAMIN (DAILY VITAMIN ORAL) Take ??by mouth daily. ? albuterol (PROVENTIL HFA;VENTOLIN HFA) 90 mcg/Actuation inhaler Inhale 2 puffs into the lungs every 4 ho urs as needed. Use with spacer ? No current facility-administered medicat ions for this visit. ?? Allergies Allergen Reactions ? ? Acetaminophen Other (See Comments) ??Vomit, rash, SOB ? ? Tylenol [Benzocaine] Shortness Of Breath ??Rash, vommitting ? ? Gloves, Latex Rash ? ? Tessalon [Benzonatate] Other (See Comments) ??'Impairs cognitive function and messe s with my heart rate' ? ? Topamax [Topiramate] ?cognitive dysfuntion Patient was positioned on her left side in a position. ??The skin was prepped with ChloraPrep (2% chl orhexidine solution/70% isopropyl alcohol) and draped in sterile fashion. ??5 cc lidocaine were used to numb the skin and insertion site. ??A 22-g 3.5 Sprotte spinal needle was inserted, usin g an introducer into the space between L4 and L5. ??One attempt w as made, but the spinal needle was to short so we converted to a 20 gauge 6 inch Quincke spinal needle. CSF was obtained and the opening pressure was measured with the patient's legs straigh maryse. Dr. Cruz preformed the procedure with my direct s upervision and assistance. Opening pressure ??30.0 cm H2O was obtai pam Closing pressure ??12.2 cm H2O was obtai pam Clear CSF was obtained and sent for cell count, protein, glucose Patient was directed to go to 3 to have labs drawn. A total of 32 cc spinal fluid was remove d. ??Patient tolerated the procedure well. ??There were no immediat e complications observed. ?? Patient was advised to avoid strenuous a ctivity x 24 hrs and to advise staff if she developed a headache . Blood Loss <1cc Silke Pollack MD [facility] Neurology The patient was approached by Dr. Nae Pollack about participating in the CSF Biospecimen and Data Bank, a single institution study at [facility] with Drs. Foster Lynn and Leona Fagan as lead investigators. After meeting inclusion and exclusion cr iteria, subjects will provide witnessed informed consent. All questions from the patient regarding this study have been a nswered. The consent form has [facility]-approval date of 05/28/2015. ?? All study-related procedures were comple iqra after signing the ICF. A copy of the ICF has been provided to the patient. The CSF sample was collected by Dr. Perla Pollack and properly stored and sent to the CSF banking Lab. Silke Pollack MD PROCEDURE/MINOR SURGICAL ORD ERABLES CSF Cell Count (05/05/2016 10:15 AM EDT) P athologist Signature Tube # Ct CSF 3 [facility] Nucleated CSF 0 0 - 5 /[facility] LABORATORY Comment: If Nucleated Cell Count equals zero, No Scan or Differential is performed. If Nucleated Cell Count equals 1-5, Smea r is scanned but no results are reported unless abnormalities are seen. If Nucleated Cell Count equals [address], Differential is reported. Nucleated Cell Count results are correla iqra with body fluid type and clinical condition. RBC CSF CT 3 /[facility] LABORATORY Specimen (Source) Anatomical Collection Method Collection Time Re ceived Time Location / / Volume Laterality Cerebrospinal fluid 05/05/2016 10:15 04/15 sample (specimen) AM EDT 10:35 AM E DT Resulting Agency Comment Spec In Lab Silke Pollack MD BODY FLUIDS AND STOOLS ORDER JEANE Performing Organization Address City/State/ZIP [place] [address] CSF DESC 3 (05/05/2016 10:15 AM EDT) Patholo gist Method Time Signature Tube Num CSF 3 [facility] #[address] [facility] Color CSF #3 Colorless Colorless [facility] Appear CSF #3 Clear Clear [facility] Tot Vol CSF #3 4.0 mL [facility] Specimen (Source) Anatomical Collection Method Collection Time Re ceived Time Location / / Volume Laterality Cerebrospinal fluid 05/05/2016 10:15 04/15 sample (specimen) AM EDT 10:35 AM E DT Resulting Agency Comment Spec In Lab Silke Pollack MD BODY FLUIDS AND STOOLS ORDER JEANE Performing Organization Address City/[facility]/ZIP Code Phon e Number [address] CSF DESC 2 (05/05/2016 10:15 AM EDT) [facility] gist Method Time Signature Tube Num CSF 2 [facility] Color CSF #2 Colorless Colorless [facility] Appear CSF #2 Clear Clear [facility] Tot Vol CSF #2 6.8 mL [facility] Specimen (Source) Anatomical Collection Method Collection Time Re ceived Time Location / / Volume Laterality Cerebrospinal fluid 05/05/2016 10:15 04/15 sample (specimen) AM EDT 10:35 AM E DT Resulting Agency Comment Spec In Lab Silke Pollack MD BODY FLUIDS AND STOOLS ORDER JEANE Performing Organization Address City/[facility]/ZIP Code Phon e Number [address] CSF DESC 1 (05/05/2016 10:15 AM EDT) [facility] gist Method Time Signature Tube Num CSF 1 [facility] Color CSF #1 Colorless Colorless [facility] Appear CSF #1 Clear Clear [facility] Tot Vol CSF #1 7.3 mL [facility] Specimen (Source) Anatomical Collection Method Collection Time Re ceived Time Location / / Volume Laterality Cerebrospinal fluid 05/05/2016 10:15 04/15 sample (specimen) AM EDT 10:35 AM E DT Resulting Agency Comment Spec In Lab Silke Pollack MD BODY FLUIDS AND STOOLS ORDER JEANE Performing Organization Address City/[facility]/ZIP Code Phon e Number [address] Protein Level CSF (05/05/2016 10:15 AM EDT) P athologist Signature T Protein, CSF 27 15 - 45 [facility] mg/dL [facility] Xanthochromia Neg [facility] Specimen (Source) Anatomical Collection Method Collection Time Re ceived Time Location / / Volume Laterality Cerebrospinal fluid 05/05/2016 10:15 04/15 sample (specimen) AM EDT 10:35 AM E DT Resulting Agency Comment Spec In Lab Silke Pollack MD BODY FLUIDS AND STOOLS ORDER JEANE Performing Organization Address [facility] Phon e Number [address] Glucose Level CSF (05/05/2016 10:15 AM EDT) P athologist Signature Glucose, CSF 61 mg/dL [facility] Comment: CSF at equilibrium equals appro ximately 60-80% of plasma glucose. Specimen (Source) Anatomical Collection Method Collection Time Re ceived Time Location / / Volume Laterality Cerebrospinal fluid 05/05/2016 10:15 04/15 sample (specimen) AM EDT 10:35 AM E DT Resulting Agency Comment Spec In Lab Silke Pollack MD BODY FLUIDS AND STOOLS ORDER JEANE Performing Organization Address City/[facility] [place] [address] documented in this encounter Visit Diagnoses Diagnosis Migraine with aura and without status mi grainosus, not intractable Migraine with aura, without mention of i ntractable migraine without mention of status migrainosus Chronic migraine without aura without st atus migrainosus, not intractable Chronic migraine without aura, without m ention of intractable migraine without mention of status migrainosus Elevated intracranial pressure Other symptoms involving nervous and mus culoskeletal systems documented in this encounter Care Teams Chemist Pharmaceutical Relationship Specialty Start Date End Date Lakshmi Vicente MD PCP - General 10/13/11 7/5/18 [address] [place] [address] documented as of this encounter
--- OUTSIDE RECORDS SUMMARY | 2022-05-03 15:02 | XMS_ITS | Encounter Summary ---
:1980 Author Organization [facility] [place] [address] Care Team Providers Name Role Phone Lakshmi Vicente MD Primary Care Provider Reason for Visit Reason Onset Date Comments Prior Authorization 02/28/2016 Encounter Details Date Type Department Care Team Description 02/28/2016 Telephone Neurology at [facility] Shavon Weber, Prior Authorization [facility] [place] [address] Social History Tobacco Use Types Packs/Day Years Used Date Never Smoker Smokeless Tobacco: Never Used Alcohol Use Standard Drinks/Week Comments No 0 (1 standard drink = 0.6 oz pure alcoho l) Sex Assigned at Date Recorded Not on file documented as of this encounter Miscellaneous Notes Telephone Encounter - Shavon Weber LPN - 03/03/2016 9:51 AM EDT Medication: Zomig nasal 10/13 Prior Authorization: Start Date:02/28/16 End Date:08/30/2016 Health Plan: [place] medicaid Phone: Fax: Authorizing Rep: Authorization Number (if applicable): [id number] Notified: Patient ( x ) Pharmacy ( ) Telephone Encounter - Shavon Weber LPN - 02/28/2016 4:31 PM EDT Raul faxed to [place] [employer] for mathieu clyde @ [phone] documented in this encounter Plan of Treatment Not on filedocumented as of this encounter Visit Diagnoses Not on filedocumented in this encounter Care Teams Snow Maker Relationship Specialty Start Date End Date Lakshmi Vicente MD PCP - General 07/27/11 04/18/18 [address] [place] [address] documented as of this encounter
--- OUTSIDE RECORDS SUMMARY | 2022-05-03 15:02 | XMS_ITS | Encounter Summary ---
:1980 Author Organization [facility] [place] [address] Care Team Providers Name Role Phone Lakshmi Vicente MD Primary Care Provider Reason for Visit Reason Comments Botox Injection High Dollar Medication (Routine) - Specialty Diagnoses / Procedures Referred By Contact Refer red To Contact Neurology Diagnoses Chronic migraine without aura without status migrainosus, not intractable Jill French, [facility] Procedures Auth Request for Medication TC ONABOTULINUMTOXINA, 1 UNIT, INJECTION DUST COLLECTOR TREATER [facility] [place] [address] [place] [address] Referral ID Status Reason Start Date Expiration Date Visits V isits Requested Authorized [id number] Consult, 07/20/2016 07/04/2019 13 13 Test & Treat Encounter Details Date Type Department Care Team Description 10/04/2017 Office Visit [place] [facility] [place]air Perez MD [facility] JOHNNY Andrade [id number] Chronic migraine [facility] Mikey Villarreal MD [facility] [place] [address] status migrainosus, [place] not intractable [phone] Social History Tobacco Use Types Packs/Day Years Used Date Never Smoker Smokeless Tobacco: Never Used Alcohol Use Standard Drinks/Week Comments No 0 (1 standard drink = 0.6 oz pure alcoho l) Sex Assigned at Date Recorded Not on file documented as of this encounter Last Filed Vital Signs Vital Sign Reading Time Taken Comments Blood Pressure 122/66 10/04/2017 11:37 AM EST Pulse 91 10/04/2017 11:37 AM EST Temperature - - Respiratory Rate - - Oxygen Saturation - - Inhaled Oxygen Concentration - - Weight 110.2 kg (243 lb) 10/04/2017 11:37 AM EST Height 157.5 cm (5' 2) 10/04/2017 11:37 AM EST reporte d Body Mass Index 44.45 10/04/2017 11:37 AM EST documented in this encounter Procedure Notes Mikey Villarreal MD - 10/04/2017 11:30 AM ESTProcedure(s): PRO CHEMODENERVATION FACIAL/TRIGEM/CERV MUSC MIGRAINE Neurology Procedure note Botox injections per PREEMPT protocol Date: 10/04/2017 Patient: Mirela Lara : 1980 Procedure: Botox injections (PREEMPT protocol) Indications: Chronic Intractable Migraine Date Procedure MIDAS 10/17/2016 botox Total 77. Days 90/90. Pain 12/2207/25/2016 botox Total 28. Days 90/90. Pain 11/2405/01/2016 botox Total 36. Days 90/90. Pain 11/2401/09/2017 botox Total 44. ??Days 90/90. ??Pain 310 04/05/2017 botox Total 49. ??Days 60/90. ??Pain 207/12/2017 botox Total 20, Days 20/90. Pain 3-01/2210/04/2017 botox Total 60, Days 80/90, Pain 12/22 Botox effective: Yes, states that headache exacerbations lately have been due to barometric pressurechanges. Lot #:[id number] Exp: 04/2020 The risks, benefits and anticipated outcomes of the procedure, the risks and benefits of the alternatives to the procedure, and the roles and tasks of the personnel to be involved, were discussed with the patient. The patient has given written/verbal informed consent to the procedure and agrees to proceed. The Correct Patient, Correct Procedure, Correct Site and Site Marking confirmed. Diluent: Normal Saline 0.9 % to create a dilution of 5 units per 0.1mL. Injections were administered with a 30 gauge, 1/2 needle. Injections administered as follows: Muscle Fixed Site/Fixed Dose L/R Store Cashier 10 Units divided in 2 sites 5/5 Procerus 5 Units in 1 site Frontalis 20 Units divided in 4 sites 10/10 Temporalis 40 Units divided in 8 sites 20/20 Occipitalis 30 Units divided in 6 sites 15/15 Cervical PSPs 20 Units divided in 4 sites 10/10 Trapezius 30 Units divided in 6 sites 15/15 Subtotals 155 Units Total units used/injected: 155. Total injection sites: 31. Total Units wasted: 45 The patient tolerated the procedure without any immediate complications. F/u in 12 weeks. Mikey Villarreal MD Headache Medicine Fellow [facility] Department of Neurology 10/04/2017 documented in this encounter Plan of Treatment [...] Site botulinum toxin type A (BOTOX) Given 10/04/2017 11:40 AM EST 155 Units injection 200 Units 200 Units, Intramuscular, ONCE, 1 dose, On Lena 10/04/17 at 1200, Routine documented in this encounter Care Teams Meat Cooler Relationship Specialty Start Date End Date Lakshmi Vicente MD PCP - General 07/27/11 04/18/18 [address] [place] [address] documented as of this encounter
--- OUTSIDE RECORDS SUMMARY | 2022-05-03 15:02 | XMS_ITS | Encounter Summary ---
:1980 Author Organization [place] [address] Care Team Providers Name Role Phone Lakshmi Vicente MD Primary Care Provider Reason for Visit High Dollar Medication (Routine) - Specialty Diagnoses / Procedures Referred By Contact Refer red To Contact Neurology Diagnoses Chronic migraine without aura without status migrainosus, not intractable Jill French, [facility] [place] Neurology 3c Procedures Auth Request for Medication TC ONABOTULINUMTOXINA, 1 UNIT, INJECTION PHYSICIAN INTERVENTIONAL CARDIOLOGIST [facility] [place] [address] [place] [address] Referral ID Status Reason Start Date Expiration Date Visits V isits Requested Authorized [id number] Consult, 07/20/2016 07/04/2019 13 13 Test & Treat Encounter Details Date Type Department Care Team Description 07/12/2017 Office Visit [place]rology [place] [facility] [place]air Perez MD [facility] JOHNNY [place]rade [id number] Chronic migraine [facility] Mikey Villarreal MD [facility] JOHNNY [place]rade [address] status migrainosus, [place], [place] not intractable [phone] Social History Tobacco Use Types Packs/Day Years Used Date Never Smoker Smokeless Tobacco: Never Used Alcohol Use Standard Drinks/Week Comments No 0 (1 standard drink = 0.6 oz pure alcoho l) Sex Assigned at Date Recorded Not on file documented as of this encounter Last Filed Vital Signs Vital Sign Reading Time Taken Comments Blood Pressure 111/77 07/12/2017 11:41 AM EDT Pulse 76 07/12/2017 11:41 AM EDT Temperature - - Respiratory Rate - - Oxygen Saturation - - Inhaled Oxygen Concentration - - Weight 113.4 kg (250 lb) 07/12/2017 11:41 AM EDT Height 157.5 cm (5' 2) 07/12/2017 11:41 AM EDT Body Mass Index 45.73 07/12/2017 11:41 AM EDT documented in this encounter Procedure Notes Mikey Villarreal MD - 07/12/2017 11:30 AM EDTProcedure(s): PRO CHEMODENERVATION FACIAL/TRIGEM/CERV MUSC MIGRAINE Neurology Procedure note Botox injections per PREEMPT protocol Date: 07/12/2017 Patient: Mirela Lara : 1980 Procedure: Botox injections (PREEMPT protocol) Indications: Chronic Intractable Migraine Consent: written consent obtained today Migraine Disability Assessment # of days in the past 3 months 1. Missed work / school because of VIEIRA 5 2. Productivity at work / school reduced by > half because of VIEIRA (do not count days from Q.1) 5 3. Did not do housework because of VIEIRA 5 4. Productivity in household work reduced by > half because of VIEIRA (do not count days from Q.3) 5 5. Missed family / social / leisure activities because of VIEIRA 0 Total 20 MIDAS grade (use total of Q1 to 5) I: 0-5, little to no disability II: 6-10, mild disability III: 11-20, moderate disability IV: 21+, severe disability A. # of days in the last 3 months with a VIEIRA (count each day if VIEIRA lasted > 1 day) 20 B. Average VIEIRA intensity (0-10) -01/22 Date Procedure MIDAS 10/17/2016 botox Total 77. Days 90/. Pain 12/2207/25/2016 botox Total 28. Days 90/90. Pain 11/2405/01/2016 botox Total 36. Days 90/90. Pain 11/2401/09/2017 botox Total 44. ??Days 90/90. ??Pain 12/2204/05/2017 botox Total 49. Days 60/90. Pain 11/2407/12/2017 botox Total 20, Days 20. Pain -01/22 Botox effective: Yes (extremely effective) Lot #:[id number] Exp: 01/2020 The risks, benefits and anticipated outcomes of [...] as follows: Muscle Fixed Site/Fixed Dose L/R Application Counselor 10 Units divided in 2 sites 5/5 [...] the procedure without any immediate complications. F/u for botoz already scheduled for 09/20/17 Mikey Villarreal MD Headache Medicine Fellow [facility] [place] of Neurology 07/12/2017 documented in this encounter Plan of Treatment Not on filedocumented as of this encounter Visit Diagnoses Diagnosis Chronic migraine without aura with statu s migrainosus, not intractable Chronic migraine without aura, without m ention of intractable migraine with status migrainosus documented in this encounter Administered Medications Inactive Administered Medications - up to 3 most recent administrations Medication Order MAR Action Action Date Dose Rate Site botulinum toxin type A (BOTOX) Given 07/12/2017 12:10 PM EDT 155 Units injection 200 Units 200 Units, Intramuscular, ONCE, 1 dose, On Lena 07/12/17 at 1230, Routine documented in this encounter Care Teams Assisted Living Home Director Relationship Specialty Start Date End Date Lakshmi Vicente MD PCP - General 07/27/11 04/18/18 [address] [place] [address] documented as of this encounter
--- OUTSIDE RECORDS SUMMARY | 2022-05-03 15:02 | XMS_ITS | Encounter Summary ---
:1980 Author Organization [facility] Address [facility] [place] [address] Care Team Providers Name Role Phone Neda Manzanares Primary Care Provider [phone] Reason for Visit Reason Onset Date Comments Medication Refill 07/12/2018 Encounter Details Date Type Department Care Team Description 07/12/2018 [place] [facility]ke Pollack MD IIH (idiopathic intracranial hypertensio n); [facility] Garett argentina with aura and without status migrainosus, not intractable [place] [address] NEUROLOGY DEPT [phone] [place] [id number] (Wo rk) Social History Tobacco Use Types [...] (idiopathic intracranial hypertensio n) Benign intracranial hypertension Migraine with aura and without status mi grainosus, not intractable Migraine with aura, without mention of i ntractable migraine without mention of status migrainosus documented in this encounter Care Teams Cyber Security Engineer Relationship Specialty Start Date End Date Neda Manzanares PA PCP - General Orthopaedic Surgery 04/19/18 09/14/18 [address] [place] [address] documented as of this encounter
--- OUTSIDE RECORDS SUMMARY | 2022-05-03 15:02 | XMS_ITS | Encounter Summary ---
:1980 Author Organization [facility] Address [facility] [place] [address] Care Team Providers Name Role Phone Lakshmi Vicente MD Primary Care Provider Reason for Visit Reason Onset Date Comments Medication Refill 02/11/2018 Encounter Details Date Type Department Care Team Description 02/11/2018 Refill Neurology at [facility] Jill French, Migraine with aura and [facility] RUNNER OUT without status Drive [facility] [address], [place] [address] [place], [place] [id number] [facility] [phone] (Wo rk) Social History Tobacco Use Types Packs/Day Years Used Date Never Smoker Smokeless Tobacco: Never Used Alcohol Use Standard Drinks/Week Comments No 0 (1 standard drink = 0.6 oz pure alcoho l) Sex Assigned at Date Recorded Not on file documented as of this encounter Miscellaneous Notes Telephone Encounter - Qiana Bowens RN - 02/11/2018 12:59 PM EDT ----- Message from Lina Gallo CMA sent at 02/11/2018 12:36 PM EDT ----- Regarding: med refills Medication ZOLMitriptan (ZOMIG) 5 mg [place], Non-Aerosol [[id number]] ??ZOLMitriptan (ZOMIG) 5 mg [place], Non-Aerosol [[id number]] Order Details? Dose, Route, Frequency: As Directed Note to Pharmacy:?? 12 nasal sprays are a one month supply? Dispense Quantity: 12 eachRefills: 11Fills Remaining: --? Si spray in one nostril. ??May repeat in 2 hours x 1 for a maximum of 2 sprays daily. ??Limit use to twice weekly. Prn migraine? Written Date: 10/17/16Expiration Date: --?? Start Date: 10/17/16End Date: --? Ordering Provider: Jill French APRNDEA #: [id number]: [id number]?? Authorizing Provider: Jill French APRNDEA #: [id number]: [id number]?? Ordering User: Jill French APRN? Diagnosis Association: Migraine with aura and without status migrainosus, not intractable (G43.109)?Original Order: ZOLMitriptan (ZOMIG) 5 mg [place], Non-Aerosol [[id number]]? Pharmacy: [facility] - [address] #: --?? Pharmacy Comments: --? Quantity Remaining: --Quantity Filled: --? documented in this encounter Plan of Treatment Not on filedocumented as of this encounter Visit Diagnoses Diagnosis Migraine with aura and without status mi grainosus, not intractable Migraine with aura, without mention of i ntractable migraine without mention of status migrainosus documented in this encounter Care Teams Tearer Relationship Specialty Start Date End Date Lakshmi Vicente MD PCP - General 07/27/11 04/18/18 [address] [place] [address] documented as of this encounter
--- OUTSIDE RECORDS SUMMARY | 2022-05-03 15:02 | XMS_ITS | Encounter Summary ---
:1980 Author Organization [facility] [place] [address] Care Team Providers Name Role Phone Lakshmi Vicente MD Primary Care Provider Encounter Details Date Type Department Care Team Description 02/04/2015 Hospital Encounter MRI at [facility], [place] [address] Social History Tobacco Use Types Packs/Day [...] without status headaches). migrainosus, not intractable rizatriptan (MAXALT-AUTO ADJUDICATION SPECIALIST) Take 10 mg by mouth 0 05/13/2015 10 mg Tablet, Rapid as needed for Dissolve Migraine. May repeat in 2 hours if needed documented as of this encounter Progress Notes Tita Whitfield RN - 02/02/2015 1:45 PM EDT VIR MRI PRE-SEDATION ASSESSMENT NOTE NAME: Mirela Lara AGE: 34 y.o. : 1980 Female [phone] (home) No relevant phone numbers on file. LAKSHMI VICENTE MD None Allergies Allergen Reactions ??? Latex Rash ??? Acetaminophen Other (See Comments) Vomit, rash, SOB ??? Gloves, Latex ??? Tessalon [Benzonatate] Other (See Comments) 'Impairs cognitive function and messes with my heart rate' ??? Topamax [Topiramate] cognitive dysfuntion ??? Tylenol [Benzocaine] Rash, vommitting Medications: Current Outpatient Prescriptions on File Prior to Encounter Medication Sig Dispense Refill ??? Cholecalciferol, Vitamin D3, (VITAMIN D-3) 5,000 unit Tablet Take 1 tablet by mouth daily. ??? propranolol (INDERAL LA) 120 mg Capsule,Sustained Action 24 hr Take 120 mg by mouth daily. ??? hydrOXYzine (ATARAX) 10 mg Tablet Take 1 tablet by mouth 3 times daily as needed (for headaches). 90 tablet 3 ??? venlafaxine (EFFEXOR-XR) 150 mg Capsule, Sust. Release 24 hr Take 300 mg by mouth daily. ??? lamoTRIgine (LAMICTAL) 150 mg Tablet Take 150 mg by mouth every morning. ??? lamoTRIgine (LAMICTAL) 100 mg Tablet Take 100 mg by mouth every evening. ??? metFORMIN (GLUCOPHAGE) 850 mg Tablet Take 850 mg by mouth 2 times daily (with meals). ??? rizatriptan (MAXALT-AUTO ADJUDICATION SPECIALIST) 10 mg Tablet, Rapid Dissolve Take 10 mg by mouth as needed for Migraine. May repeat in 2 hours if needed ??? montelukast (SINGULAIR) 10 mg tablet Take 10 mg by mouth nightly. ??? Echinacea 400 mg Cap Take by mouth 2 times daily. ??? MULTIVITAMIN (DAILY VITAMIN ORAL) Take by mouth daily. ??? albuterol (PROVENTIL HFA;VENTOLIN HFA) 90 mcg/Actuation inhaler Inhale 2 puffs into the lungs every 4 hours as needed. Use with spacer No current facility-administered medications on file prior to encounter. History: Patient Active Problem List Diagnosis Code ??? Sacroiliac dysfunction 724.6 ??? 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 Yes-IV sedate HEIGHT: 62 WEIGHT:249# SCHEDULED SCAN:MRI C Spinewo SUBJECTIVE: CAN YOU LAY FLAT? ASSESSMENT: PLAN: Guidelines for MRI Pre-Procedures Laboratory Studies: n/a 1. Creatinine studies (GFR level needed) within 90 days of scan ??? 70 yo or older if they are getting contrast ??? 50 years and older if they are diabetic and getting contrast ??? GFR Date of lab draw ( ) You must have a tour driver present when you check in. This patient has been informed that they require a tour driver to drive them home after this procedure. In the absence of a tour driver, IR will not be able to sedate for your scan. Pt verbalized understanding of these instructions during the pre-procedure ed ucation via phone. Yes Ballinger of tour driver: Phone number PRIOR SCAN DATE/S SEDATION TYPE SUCCESSFUL 02/04/15 MRI C Spinewo Cancelled per edh PT STATED TO GAMING HOST THAT THE SEDATION WAS EFFECTIVE FOR SCAN: Y N COMMENTS: documented in this encounter Plan of Treatment Not on filedocumented as of this encounter Visit Diagnoses Not on filedocumented in this encounter Care Teams Operator Catalyst Concentration Relationship Specialty Start Date End Date Lakshmi Vicente MD PCP - General 07/27/11 04/18/18 [address] [place] [address] documented as of this encounter
--- OUTSIDE RECORDS SUMMARY | 2022-05-03 15:02 | XMS_ITS | Encounter Summary ---
:1980 Author Organization [facility] [place] [address] Care Team Providers Name Role Phone Lakshmi Vicente MD Primary Care Provider Reason for Referral Consultation (Routine) - Closed Specialty Diagnoses / Procedures Referred By Contact Refer red To Contact Pain Management Diagnoses Migraine with aura and without status migrainosus, not intractable Chronic migraine without aura without status migrainosus, not intractable Jill French [facility] 3d [employer] [facility] [place] [address] [place] [address] Fax: Referral ID Status Reason Start Date Expiration Date Visits V isits Requested Authorized [id number] Closed Consult, 05/01/2016 05/01/2017 1 1 Test & Treat Reason for Visit High Dollar Medication (Routine) - Closed Specialty Diagnoses / Procedures Referred By Contact Refer red To Contact Neurology Diagnoses Chronic migraine without aura, not intractable, without status migrainosus . Harpal Houston MD Procedures CHEMODENERVATION, MEDICAL botox [facility] NEUROLOGY DEPT. [place], [place] [address] Phone: Fax: Referral ID Status Reason Start Date Expiration Date Visits V isits Requested Authorized [id number] Closed Evaluate and 10/13/2015 10/13/2016 4 4 Treat Encounter Details Date Type Department Care Team Description 05/01/2016 Office Visit Neurology at [facility] [place] [place] Jill French Migraine with aura and witho ut status migrainosus, not intractable; One [facility] CASSIA Bower Chronic migraine without aura without st atus migrainosus, [place] [address] [place] [address] [phone] (Wo rk) Social History Tobacco Use Types Packs/Day Years Used Date Never Smoker Smokeless Tobacco: Never Used Alcohol Use Standard Drinks/Week Comments No 0 (1 standard drink = 0.6 oz pure alcoho l) Sex Assigned at Date Recorded Not on file documented as of this encounter Last Filed Vital Signs Vital Sign Reading Time Taken Comments Blood Pressure 142/83 05/01/2016 10:47 AM EDT Pulse 96 05/01/2016 10:47 AM EDT Temperature - - Respiratory Rate - - Oxygen Saturation - - Inhaled Oxygen Concentration - - Weight 112.5 kg (248 lb) 05/01/2016 10:47 AM EDT Height 157.5 cm (5' 2) 05/01/2016 10:47 AM EDT Body Mass Index 45.36 05/01/2016 10:47 AM EDT documented in this encounter Procedure Notes Jill French APRN - 05/01/2016 10:40 AM EDTAssociated Order(s): CHEMODENERVATION, MEDICAL Pre-Procedure Diagnose(s): Chronic migraine without aura without status migrainosus, not intractable Neurology Procedure note Date: 05/01/2016 Patient: Mirela Lara : 1980 Procedure: Botox injections (PREEMPT and follow the pain protocols) Indications: chronic migraine Date Procedure MIDAS 05/01/2016 botox Total = 36 . Days = 90/90. Pain = 2/10 Risk and benefits were explained to the patient and consent was obtained. Time out was preformed OnabotulinumtoxinA was reconstituted with 0.9% NaCl to create a dilution of 5 units per 0.1mL. Each injection site was sterilized with 70% isopropyl alcohol. Injections were administered with a 30 gauge, 1/2 needle. Injections administered as follows and performed bilaterally with injections split equally except for procerus: 20 units divided between 4 sites in the frontalis muscle, 10 units divided between 2 sites in the flight line service attendant muscles, 5 units into 1 site in the procerus muscle, 40 units divided between 8 sites in the temporalis muscles, 30 units divided between 6 sites in the suboccipital region, 20 units divided between 4 sites in the cervical paraspinal musculature, and 30 units divided between 6 sites in the trapezii. 30 units were also divided between 6 sites in the bilateral trapezii in the follow the pain protocol. Total units used= 185. Total injection sites=37. Patient was injected with 185 units and 15 units were wasted/disgarded The patient tolerated the procedure without any immediate complications. Jill French APRN [facility] [place] [place] Headache Clinic documented in this encounter Plan of Treatment Scheduled Referrals Name Type Priority Associated Diagnoses Order S chedule Referral to Pain Outpatient Referral Routine Migraine with aur a Ordered: Clinic and without status 6 migrainosus, not intractable Chronic migraine without aura without status migrainosus, not intractable documented as of this encounter Procedures Procedure Name Priority Date/Time Associated Diagnosis Comme nts CHEMODENERVATION, Routine 05/01/2016 11:19 AM Res ults for this MEDICAL EDT procedure are i n the results section. documented in this encounter Results Sedimentation rate (05/05/2016 11:10 AM EDT) P athologist Signature Sed Rate 10 0 - 20 [facility] mm/hr [facility] Specimen Anatomical Collection Method Collection Time Receive d Time (Source) Location / / Volume Laterality Blood specimen 05/05/2016 11:10 6 (specimen) AM EDT 11:35 AM EDT Resulting Agency Comment Spec In Lab Silke Pollack MD HEMATOLOGY ORDERABLES Performing Organization Address City/State/Z[place] [address] (ABNORMAL) Comprehensive metabolic panel (non-fasting) (05/05/2016 11:10 AM EDT) P athologist Signature Glucose Lvl 108 65 - 199 [facility] mg/dL [facility] Comment: Diabetes: >=200 mg/dL plus symp toms BUN 12 8 - 18 mg/dL [facility] Creatinine 0.78 0.70 - 1.20 mg/dL [facility] Comment: Please note that the pediatric reference intervals supplied above were not validated at [facility] [place] [place]. Results from pediatri c patients should be interpreted in conjunction to the patient's age, height and muscle mass. Sodium 137 135 - 145 mmol/L [facility] Potassium 4.3 3.5 - 5.0 mmol/L [facility] Comment: Please note: ??Patients with WBC >100,00 0 may have falsely elevated Potassium levels. ??For accurate Potassium quantif ication in these patients send serum separator tube (gold top) for subsequent determinations. ??Contact the Clinical Chemistry Laboratory if there are any qu estions. Chloride 98 98 - 107 mmol/L [facility] CO2 21 (L) 22 - 31 mmol/L [facility] Anion Gap 18 (H) 5 - 15 mmol/L [facility] Calcium 8.7 8.5 - 10.5 mg/dL [facility] Total Protein 6.9 6.1 - 8.0 gm/dL [facility] Albumin 4.2 3.2 - 5.2 gm/dL [facility] AST 15 0 - 30 unit/L [facility] ALT 22 0 - 30 unit/L [facility] Alk Phos 48 40 - 104 unit/L [facility] Total Bilirubin <0.2 (L) 0.2 - 1.3 mg/dL [facility] Bili, Direct <0.1 0.0 - 0.3 mg/dL [facility] Estimated GFR >60 >=60 [facility] Comment: This estimated GFR (eGFR) value was calc ulated using the MDRD equation which has been validated on patients between t he ages of 18 and 70. The MDRD should not be used to assess kidney function in patients < 18 years of age or in patients with extremes of body mass, or in patients with acute kidney failure. This value should be multiplied by 1.2 f or patients. For further information please copy and past e the following links into your internet browser. [email or web address] [email or web address] Specimen Anatomical Collection Method Collection Time Receive d Time (Source) Location / / Volume Laterality Blood specimen 05/05/2016 11:10 6 (specimen) AM EDT 11:35 AM EDT Resulting Agency Comment Spec In Lab Silke Pollack MD CHEMISTRY ORDERABLES Performing Organization Address [facility] Phon e Number [address] Protein Level CSF (05/05/2016 10:15 AM EDT) P athologist Signature T Protein, CSF 27 15 - 45 [facility] mg[facility] Xanthochromia Neg [facility] Specimen (Source) Anatomical Collection Method Collection Time Re ceived Time Location / / Volume Laterality Cerebrospinal fluid 05/05/2016 10:15 04/15 sample (specimen) AM EDT 10:35 AM E DT Resulting Agency Comment Spec In Lab Silke Pollack MD BODY FLUIDS AND STOOLS ORDER JEANE Performing Organization Address [facility] Phon e Number [address] Glucose Level CSF (05/05/2016 10:15 AM EDT) P athologist Signature Glucose, CSF 61 mg/dL [facility] Comment: CSF at equilibrium [...] Organization Address City/State/[place] [address] Chemodenervation, medical (05/01/2016 11:19 AM EDT) Narrative Jill French APRN - 05/01/2016 1 1:19 AM EDT Jill French APRN ? 05/01/2016 11:19 AM Neurology Procedure note Date: 05/01/2016 Patient: Mirela Lara : ??1980 Procedure: Botox injections (PREEMPT and follow the pain protocols) Indications: chronic migraine Date ??Procedure ?? MIDAS 05/01/2016 botox Total = 36 . ??Days = 9 0. ??Pain = 2/10 Risk and benefits were explained to the patient and consent was obtained. Time out was preformed OnabotulinumtoxinA was reconstituted wit h 0.9% NaCl to create a dilution of 5 units per 0.1mL. Each injection site was sterilized with 70% isopropyl alcohol. Injections were administered with a 30 g auge, 1/2 needle. Injections administered as follows and p erformed bilaterally with injections split equally except for proc erus: 20 units divided between 4 sites in the frontalis muscle, 10 units divided between 2 sites in the flight line service attendant muscles, 5 uni ts into 1 site in the procerus muscle, 40 units divided betwee n 8 sites in the temporalis muscles, 30 units divided bet ween 6 sites in the suboccipital region, 20 units divided be tween 4 sites in the cervical paraspinal musculature, and 30 units divided between 6 sites in the trapezii. ??30 units were a lso divided between 6 sites in the bilateral trapezii in the f ollow the pain protocol. Total units used= 185. Total injection sites=37. Patient was injected with 185 units and 15 units were wasted/disgarded The patient tolerated the procedure with out any immediate complications. Jill French APRN [facility] [place] [place] Headache Clinic Silke Pollack MD PROCEDURE/MINOR SURGICAL ORD ERABLES documented in this encounter Visit [...] Site botulinum toxin type A (BOTOX) Given 05/01/2016 11:10 AM EDT 200 Units injection 200 Units 200 Units, Intramuscular, ONCE, 1 dose, On 05/01/16 at 1130, Routine documented in this encounter Care Teams Community Case Manager Relationship Specialty Start Date End Date Lakshmi Vicente MD PCP - General 07/27/11 04/18/18 [address] [place] [address] documented as of this encounter
--- OUTSIDE RECORDS SUMMARY | 2022-05-03 15:02 | XMS_ITS | Encounter Summary ---
:1980 Author Organization [facility] [place] [address] Care Team Providers Name Role Phone Lakshmi Vicente MD Primary Care Provider Reason for Visit High Dollar Medication (Routine) - Specialty Diagnoses / Procedures Referred By Contact Refer red To Contact Neurology Diagnoses Chronic migraine without aura without status migrainosus, not intractable Jill French, [facility] Neurology 3c Procedures Auth Request for Medication TC ONABOTULINUMTOXINA, 1 UNIT, INJECTION OTTER TRAWLER [place] [facility] [place] [address] [place] [address] Referral ID Status Reason Start Date Expiration Date Visits V isits Requested Authorized [id number] Consult, 07/20/2016 07/04/2019 13 13 Test & Treat Encounter Details Date Type Department Care Team Description 01/24/2018 Office Visit Neurology at [facility] [place] Loren Russ, Chronic migraine [facility] without aura without Drive [facility] status migrainosus, [place], [place] not intractable [id number] NEUROLOGY DEPT [phone] [place], [place] [address] Social History Tobacco Use Types Packs/Day Years Used Date Never Smoker Smokeless Tobacco: Never Used Alcohol Use Standard Drinks/Week Comments No 0 (1 standard drink = 0.6 oz pure alcoho l) Sex Assigned at Date Recorded Not on file documented as of this encounter Last Filed Vital Signs Vital Sign Reading Time Taken Comments Blood Pressure 130/86 01/24/2018 10:50 AM EDT Pulse 126 01/24/2018 10:50 AM EDT Temperature - - Respiratory Rate - - Oxygen Saturation - - Inhaled Oxygen Concentration - - Weight - - Height - - Body Mass Index - - documented in this encounter Procedure Notes Loren Russ PA - 01/24/2018 11:00 AM EDTAssociated Order(s): CHEMODENERVATION, MEDICAL Procedure: Botox injections (PREEMPT protocol) Indications: Chronic Migraine MIDAS: 51 VIEIRA days: Avg intensity: 2-1010 Risk and benefits were explained to the patient and verbal consent was obtained (written consent documented on 10/12/17). Time out was preformed OnabotulinumtoxinA was reconstituted with 0.9% NaCl to create a dilution of 5 units per 0.1mL. Each injection site was sterilized with 70% isopropyl alcohol. Injections were administered with a 30 gauge, 1/2 needle. Each injection site was sterilized with 70% isopropyl alcohol. Botox injections on this patient as follows: 1 injection of 5 U in procerus 1 injection of 5 U in right polisher and buffer muscle 1 injection of 5 U in left polisher and buffer muscle 2 injections of 5 U in [...] of 5 U in left trapezius muscle ?? Total injection sites: 31. Total units used: 155 u Total units discarded: 45 u LOT# [id number] EXP: 06/2020 The patient tolerated the procedure without any immediate complications. Loren Russ PA-C Dept. Of Neurology [facility] or [phone](MS nurse contact number) documented in this encounter Plan of Treatment Not on filedocumented as of this encounter Procedures Procedure Name Priority Date/Time Associated Diagnosis Comme nts CHEMODENERVATION, Routine 01/24/2018 11:22 AM Res ults for this MEDICAL EDT procedure are i n the results section. documented in this encounter Results Chemodenervation, medical (01/24/2018 11:22 AM EDT) Narrative Loren Russ PA - 01/24/2018 11:22 A M EDT Loren Russ PA ? 01/24/2018 11:22 AM Procedure: Botox injections (PREEMPT pro tocol) Indications: Chronic Migraine MIDAS: 51 VIEIRA days: 100/90 Avg intensity: 2-10/10 Risk and benefits were explained to the patient and verbal consent was obtained (written consent do cumented on 10/12/17). Time out was preformed OnabotulinumtoxinA was reconstituted wit h 0.9% NaCl to create a dilution of 5 units per 0.1mL. Each injection site was sterilized with 70% isopropyl alcohol. Injections were administered with a 30 g auge, 1/2 needle. Each injection site was sterilized with 70% isopropyl alcohol. Botox injections on this patient as foll ows: 1 injection of 5 U in procerus 1 injection of 5 U in right polisher and buffer m uscle 1 injection of 5 U in left polisher and buffer mu scle 2 injections of 5 U in right frontalis m uscle 2 injections of 5 U in left frontalis mu scle 4 injections of 5 U in right temporalis muscle 4 injections of 5 U in left temporalis m uscle 3 injections of 5 U in right occipitalis muscle 3 injections of 5 U in left occipitalis muscle 2 injections of 5 U in right paraspinal muscles 2 injections of 5 U in left paraspinal m uscles 3 injections of 5 U in right trapeziuss muscle 3 injections of 5 U in left trapezius mu scle ?? Total injection sites: 31. Total units used: 155 u Total units discarded: 45 u LOT# [id number] EXP: 06/2020 The patient tolerated the procedure with out any immediate complications. Loren Russ PA-C Dept. Of Neurology [facility] or [phone](MS zion mcneill contact number) Foster Lynn MD PROCEDURE/MINOR SURGICAL ORD ERABLES documented in this encounter Visit Diagnoses Diagnosis Chronic migraine without aura without st atus migrainosus, not intractable Chronic migraine without aura, without m ention of intractable migraine without mention of status migrainosus documented in this encounter Administered Medications Inactive Administered Medications - up to 3 most recent administrations Medication Order MAR Action Action Date Dose Rate Site botulinum toxin type A (BOTOX) Given 01/24/2018 11:21 AM EDT 155 Units injection 200 Units 200 Units, Intramuscular, ONCE, 1 dose, On Lena 01/24/18 at 1130, Routine documented in this encounter Care Teams Financial Systems Manager Relationship Specialty Start Date End Date Lakshmi Vciente MD PCP - General 07/27/11 04/18/18 [address] [place] [address] documented as of this encounter
--- OUTSIDE RECORDS SUMMARY | 2022-05-03 15:02 | XMS_ITS | Encounter Summary ---
:1980 Author Organization [facility] [place] [address] Care Team Providers Name Role Phone Lakshmi Vicente MD Primary Care Provider Encounter Details Date Type Department Care Team Description 09/14/2015 Office Visit [place] [facility] [place] Harpal [place] MD [facility] [place] [address] Chronic migraine [facility] Ludmila Cornejo MD [facility] [place] [address] status migrainosus, [place], [place] not intractable [phone] Social History Tobacco Use Types Packs/Day Years Used Date Never Smoker Smokeless Tobacco: Never Used Alcohol Use Standard Drinks/Week Comments No 0 (1 standard drink = 0.6 oz pure alcoho l) Sex Assigned at Date Recorded Not on file documented as of this encounter Last Filed Vital Signs Vital Sign Reading Time Taken Comments Blood Pressure 108/81 09/14/2015 11:41 AM EST Pulse 89 09/14/2015 11:41 AM EST Temperature - - Respiratory Rate - - Oxygen Saturation - - Inhaled Oxygen Concentration - - Weight 109.3 kg (241 lb) 09/14/2015 11:41 AM EST Height 157.5 cm (5' 2) 09/14/2015 11:41 AM EST Body Mass Index 44.08 09/14/2015 11:41 AM EST documented in this encounter Procedure Notes Ludmila Cornejo MD - 09/14/2015 11:37 AM ESTProcedure(s): OCCIPITAL NERVE BLOCK, BILATERAL Pre-Procedure [...] each side. Ludmila Cornejo MD Headache Fellow [facility] [place] documented in this encounter Plan of [...] Rate Site BUpivacaine (PF) (MARCAINE) 0.25 Given 09/14/2015 11:40 AM EST 7 .5 mg % (2.5 mg/mL) injection 7.5 mg 7.5 mg, Subcutaneous, ONCE, 1 dose, On Sun09/14/15 at 1200, Routine lidocaine (XYLOCAINE) 10 mg/mL (1 %) Given 09/14/2015 11:[address] 30 mg injection 30 mg 30 mg, Subcutaneous, ONCE, 1 dose, On Sun09/14/15 at 1200, Routine documented in this encounter Care Teams Insulation Helper Relationship Specialty Start Date End Date Lakshmi Vicente MD PCP - General 07/27/11 04/18/18 [address] [place] [address] documented as of this encounter
--- OUTSIDE RECORDS SUMMARY | 2022-05-03 15:02 | XMS_ITS | Encounter Summary ---
:1980 Author Organization [facility] [place] [address] Care Team Providers Name Role Phone Lakshmi Vicente MD Primary Care Provider Reason for Visit High Dollar Medication (Routine) - Specialty Diagnoses / Procedures Referred By Contact Refer red To Contact Neurology Diagnoses Chronic migraine without aura without status migrainosus, not intractable Jill French, [facility] Procedures Auth Request for Medication TC ONABOTULINUMTOXINA, 1 UNIT, INJECTION MIGRATORY GAME BIRD BIOLOGIST [facility] [place] [address] [place] [address] Referral ID Status Reason Start Date Expiration Date Visits V isits Requested Authorized [id number] Consult, 07/20/2016 07/04/2019 13 13 Test & Treat Encounter Details Date Type Department Care Team Description 01/09/2017 Office Visit Neurology at [facility] Jill French Chronic migraine without aur a without status migrainosus, not intractable; [facility] CASSIA Bower Migraine with aura and without status mi grainosus, not intractable; [facility] [place] [address] [place] [address] [phone] (Wo rk) Social History Tobacco Use Types Packs/Day Years Used Date Never Smoker Smokeless Tobacco: Never Used Alcohol Use Standard Drinks/Week Comments No 0 (1 standard drink = 0.6 oz pure alcoho l) Sex Assigned at Date Recorded Not on file documented as of this encounter Last Filed Vital Signs Vital Sign Reading Time Taken Comments Blood Pressure 120/66 01/09/2017 1:42 PM EDT Pulse 90 01/09/2017 1:42 PM EDT Temperature - - Respiratory Rate - - Oxygen Saturation - - Inhaled Oxygen Concentration - - Weight 113.9 kg (251 lb) 01/09/2017 1:42 PM EDT Height 156.2 cm (5' 1.5) 01/09/2017 1:42 PM EDT report ed Body Mass Index 46.66 01/09/2017 1:42 PM EDT documented in this encounter Procedure Notes Jill French APRN - 01/09/2017 2:00 PM EDTAssociated Order(s): CHEMODENERVATION, MEDICAL Pre-Procedure Diagnose(s): Intractable chronic migraine without aura and without status migrainosus;Trapezius muscle spasm Neurology Procedure note ? Date: 01/09/2017 Patient: Mirela Lara : 1980 ? Procedure: Botox injections (PREEMPT and follow the pain protocols) ? Indications: chronic migraine, and trapezius muscle spasm ? Date Procedure MIDAS 10/17/2016 botox Total 77. Days 90/90. Pain 12/2207/25/2016 botox Total 28. Days 90/90. Pain 11/2405/01/2016 botox Total 36. Days 90/90. Pain 11/2401/09/2017 botox Total 44. Days 90/90. Pain 12/22 ?Botox treatments have helped a lot with VIEIRA severity: She is spending only 4-5 days/90 in bed with severe migraine now, as opposed to 40/90 days in bed prior to botox start. ?? Risk and benefits were explained to the patient and consent was obtained. Time out was preformed ? OnabotulinumtoxinA was reconstituted with 0.9% NaCl to create a dilution of 5 units per 0.1mL. ? Each injection site was sterilized with 70% isopropyl alcohol. ? Injections were administered with a 30 gauge, 1/2 needle. Injections administered as follows and performed bilaterally with injections split equally except for procerus: 20 units divided between 4 sites in the frontalis muscle, 10 units divided between 2 sites in the window caser muscles, 5 units into 1 site in the procerus muscle, 40 units divided between 8 sites in the temporalis muscles, 30 units divided between 6 sites in the suboccipital region, 20 units divided between 4 sites in the cervical paraspinal musculature, and 30 units divided between 6 sites in the trapezii. An additional 20 u was divided between four tender sites with palpable muscle spasm in the bilateral trapezii in the follow the pain protocol. Note: follow the pain injections supported by Foster Constantino MD, et al in Method of Injection of OnobotulinumtoxinA for Chronic Migraine: A Safe, Well- tolerated, and Effective Treatment Paradigm Based on PReempt Clinical Program. Headache: The Journal of Head and Face Pain. Vol 50, Issue 9. Pp 3019-3608. Chronic migraine (CM) is a prevalent and disabling neurological disorder. Few prophylactic treatments for CM have been investigated. OnabotulinumtoxinA, which inhibits the release of nociceptive mediators, such as glutamate, substance P, and calcitonin gene-related peptide, has been evaluatedin randomized, placebo- controlled studies for the preventive treatment of a variety of headache disor ders, including CM. These studies have yielded insight into appropriate patient selection, injectionsites, dosages, and technique. Initial approaches used a set of fixed sites for the pericranial injections. However, the treatment approach evolved to include other sites that corresponded to the location of pain and tenderness in the individual patient in addition to the fixed sites. The Phase III REsearch Evaluating Migraine Prophylaxis Therapy (PREEMPT) injection paradigm uses both fixed and azlipb-thn-zmrh sites, with additional specific fmiefy-hjw-dqtj sites considered depending on individual symptoms. The PREEMPT paradigm for injecting onabotulinumtoxinA has been shown to be safe, well-tolerated, and effective in well-designed, controlled clinical trials and is the evidence-based approach recommended to optimize clinical outcomes for patients with CM. ? Total units used= 175. Total injection sites=35. ? Patient was injected with 175 units and 25 units were wasted/disgarded ? The patient tolerated the procedure without any immediate complications. ? Jill French APRN [facility] documented in this encounter Plan of Treatment Not on filedocumented as of this encounter Procedures Procedure Name Priority Date/Time Associated Diagnosis Comme nts CHEMODENERVATION, Routine 01/09/2017 2:46 PM Resu lts for this MEDICAL EDT procedure are i n the results section. documented in this encounter Results Chemodenervation, medical (01/09/2017 2:46 PM EDT) Narrative Jill French APRN - 01/09/2017 2 :46 PM EDT Jill French APRN ? 01/09/2017 ??2:46 PM Neurology Procedure note ? Date: 01/09/2017 Patient: Mirela Lara : 1980 ? Procedure: Botox injections (PREEMPT and follow the pain protocols) ? Indications: chronic migraine, and trape zius muscle spasm ? Date Procedure ??MIDAS 10/17/2016 botox Total 77. Days 90/90. P ain 307/25/2016 botox Total 28. Days 90/90. P ain 11/2405/01/2016 botox Total 36. Days 90/90. P ain 11/2401/09/2017 botox Total 44. ??Days 90/90. ??Pain 12/22 ?Botox treatments have helped a lot wit h VIEIRA severity: ??She is spending only 4-5 days/90 in bed with se jimmy migraine now, as opposed to 40/90 days in bed prior to lorena tox start. ?? Risk and benefits were explained to the patient and consent was obtained. Time out was preformed ? OnabotulinumtoxinA was reconstituted wit h 0.9% NaCl to create a dilution of 5 units per 0.1mL. ? Each injection site was sterilized with 70% isopropyl alcohol. ? Injections were administered with a 30 g auge, 1/2 needle. Injections administered as follows and p erformed bilaterally with injections split equally except for proc erus: 20 units divided between 4 sites in the frontalis muscle, 10 units divided between 2 sites in the window caser muscles, 5 uni ts into 1 site in the procerus muscle, 40 units divided betwee n 8 sites in the temporalis muscles, 30 units divided bet ween 6 sites in the suboccipital region, 20 units divided be tween 4 sites in the cervical paraspinal musculature, and 30 units divided between 6 sites in the trapezii. An additional 20 u was divided between four tender sites with palpable muscle s pasm in the bilateral trapezii in the follow the pain protocol . Note: follow the pain injections suppo rted by Foster Constantino MD, et al in Method of Injection of Onob otulinumtoxinA for Chronic Migraine: A Safe, Well-tolerated , and Effective Treatment Paradigm Based on PReempt Clinical Progr am. Headache: The Journal of Head and Face Pain. Vol 50, Issue 9. Pp 5662-9561. Chronic migraine (CM) is a prevalent and disabli ng neurological disorder. Few prophylactic treatments for CM have been investigated. OnabotulinumtoxinA, which inhibits the r elease of nociceptive mediators, such as glutamate, substance P, and calcitonin gene-related peptide, has been evaluated in randomized, placebo-controlled studies for the preve ntive treatment of a variety of headache disorders, including CM. These studies have yielded insight into appropriate patient selection, injection sites, dosages, and technique. Initial a pproaches used a set of fixed sites for the pericranial injectio ns. However, the treatment approach evolved to include ot her sites that corresponded to the location of pain and tenderness in the individual patient in addition to the fi xed sites. The Phase III REsearch Evaluating Migraine Prophylaxis Therapy (PREEMPT) injection paradigm uses both fixed and f dtjak-ojq-dfhi sites, with additional specific tdjrxb-vhz-zsmc sites considered depending on individual symptoms. The [place] EEMPT paradigm for injecting onabotulinumtoxinA has been sh own to be safe, well-tolerated, and effective in well-de signed, controlled clinical trials and is the evidence-base d approach recommended to optimize clinical outcomes for patients with CM. ? Total units used= 175. Total injection sites=35. ? Patient was injected with 175 units and 25 units were wasted/disgarded ? The patient tolerated the procedure with out any immediate complications. ? Jill French APRN [facility] Head[facility] Silke Pollack MD PROCEDURE/MINOR SURGICAL ORD ERABLES documented in this encounter Visit Diagnoses Diagnosis Chronic migraine without aura without st atus migrainosus, not intractable Chronic migraine without aura, without m ention of intractable migraine without mention of status migrainosus Migraine with aura and without status mi grainosus, not intractable Migraine with aura, without mention of i ntractable migraine without mention of status migrainosus Trapezius muscle spasm Spasm of muscle documented in this encounter Administered Medications Inactive Administered Medications - up to 3 most recent administrations Medication Order MAR Action Action Date Dose Rate Site botulinum toxin type A (BOTOX) Given 01/09/2017 2:41 PM EDT 175 Units injection 175 Units 175 Units, Intramuscular, ONCE, 1 dose, On Sun01/09/17 at 1500, Routine documented in this encounter Care Teams Cop Breaker Relationship Specialty Start Date End Date Lakshmi Vicente MD PCP - General 07/27/11 04/18/18 [address] [place] [address] documented as of this encounter
--- OUTSIDE RECORDS SUMMARY | 2022-05-03 15:02 | XMS_ITS | Encounter Summary ---
:1980 Author Organization [facility] [place] [address] Care Team Providers Name Role Phone Lakshmi Vicente MD Primary Care Provider Reason for Visit Reason Onset Date Comments Other 12/05/2017 Encounter Details Date Type Department Care Team Description 12/05/2017 Telephone [place]rology [place] [facility] [place]ke Pollack MD [facility] [place] [address] NEUROLOGY DEPT [phone] [place], [place] [address] (Wo rk) Social History Tobacco Use Types Packs/Day Years Used Date Never Smoker Smokeless Tobacco: Never Used Alcohol Use Standard Drinks/Week Comments No 0 (1 standard drink = 0.6 oz pure alcoho l) Sex Assigned at Date Recorded Not on file documented as of this encounter Miscellaneous Notes Telephone Encounter - Qiana Bowens RN - 12/05/2017 10:32 AM EST Rx changed and sent to pharmacy with instructions to delete the 30-day supply Rx and refills Telephone Encounter - Bhavana Victor - 12/05/2017 9:48 AM EST Caller: Erick If not Pt / Relation to pt: pharmacist Best time to reach caller: anytime 8-5:30 Before 2:30pm - Informed caller that nurse will call back by the end of the day Best number to reach caller: [phone] Reason for call: Erick called stating that the patient's insurance is requesting a prescription for90 days of the acetazolamide. She is asking for a new prescription with a 90 day supply requested. Please send new prescription to [facility]'s pharmacy documented in this encounter Plan of Treatment Not on filedocumented as of this encounter Visit Diagnoses Diagnosis IIH (idiopathic intracranial hypertensio n) Benign intracranial hypertension documented in this encounter Care Teams Tour Narrator Relationship Specialty Start Date End Date Lakshmi Vicente MD PCP - General 07/27/11 04/18/18 [address] [place] [address] documented as of this encounter
--- OUTSIDE RECORDS SUMMARY | 2022-05-03 15:02 | XMS_ITS | Encounter Summary ---
:1980 Author Organization [facility] [place] [address] Care Team Providers Name Role Phone Lakshmi Vicente MD Primary Care Provider Encounter Details Date Type Department Care Team Description 11/08/2015 Office Visit Neurology at [facility] Ludmila Cornejo MD [facility] [place] [address] Chronic migraine [facility] Harpal Houston MD [facility] [place] [address] status migrainosus, [place], [place] not intractable [address] Social History Tobacco Use Types Packs/Day Years Used Date Never Smoker Smokeless Tobacco: Never Used Alcohol Use Standard Drinks/Week Comments No 0 (1 standard drink = 0.6 oz pure alcoho l) Sex Assigned at Date Recorded Not on file documented as of this encounter Last Filed Vital Signs Vital Sign Reading Time Taken Comments Blood Pressure 126/76 11/08/2015 10:50 AM EST Pulse 81 11/08/2015 10:50 AM EST Temperature - - Respiratory Rate - - Oxygen Saturation - - Inhaled Oxygen Concentration - - Weight 110.7 kg (244 lb) 11/08/2015 10:50 AM EST Height 154.9 cm (5' 1) 11/08/2015 10:50 AM EST Body Mass Index 46.1 11/08/2015 10:50 AM EST documented in this encounter Procedure Notes Ludmila Cornejo MD - 11/08/2015 11:49 AM ESTProcedure(s): PRO CHEMODENERVATION FACIAL/TRIGEM/CERV MUSC MIGRAINE; NERVE BLOCK - OCCIPITAL Pre-Procedure Diagnose(s): Chronic migraine without aura without status migrainosus, not intractable Neurology Procedure note Date: 11/08/2015 Patient: Mirela Lara : 1980 Procedure: Botox [...] 1 injection of 5 U in right uptwist spinner muscle 1 injection of 5 U in left uptwist spinner muscle 2 injections of 5 U in [...] muscle Total injections - 31; 200 units billed: total injection dose = 155 U, 45 units wasted Sterile technique was employed. The patient tolerated the procedure well. Potential AE's were discussed at length so the patient knows what to monitor. MIDAS is 39 with 90/90 headache days and an average pain level of 2/10. BILATERAL OCCIPITAL nerve block procedure note: After giving verbal consent, bilateral occipital nerve [...] each side. Ludmila Cornejo MD Headache Fellow [facility] Neurology documented in this encounter Plan of [...] Site botulinum toxin type A (BOTOX) Given 11/08/2015 11:48 AM EST 200 Units injection 200 Units 200 Units, Intramuscular, ONCE, 1 dose, On Sun11/08/15 at 1215, Routine BUpivacaine (PF) (MARCAINE) 0.25 % (2.5 Given 11/08/2015 11:48 A M EST 7.5 mg mg/mL) injection 7.5 mg 7.5 mg, Subcutaneous, ONCE, 1 dose, On Sun11/08/15 at 1215, Routine lidocaine (XYLOCAINE) 10 mg/mL (1 %) Given 11/08/2015 11:[address] 30 mg injection 30 mg 30 mg, Subcutaneous, ONCE, 1 dose, On Sun11/08/15 at 1215, Routine documented in this encounter Care Teams Director Data Processing Relationship Specialty Start Date End Date Lakshmi Vicente MD PCP - General 07/27/11 04/18/18 [address] [place] [address] documented as of this encounter
--- OUTSIDE RECORDS SUMMARY | 2022-05-03 15:02 | XMS_ITS | Encounter Summary ---
:1980 Author Organization [facility] [place] [address] Care Team Providers Name Role Phone Lakshmi Vicente MD Primary Care Provider Encounter Details Date Type Department Care Team Description 05/30/2016 Telephone General Surgery at [facility] [place] [address] Social History Tobacco Use Types Packs/Day Years Used Date Never Smoker Smokeless Tobacco: Never Used Alcohol Use Standard Drinks/Week Comments No 0 (1 standard drink = 0.6 oz pure alcoho l) Sex Assigned at Date Recorded Not on file documented as of this encounter Miscellaneous Notes Telephone Encounter - Blank Fletcher - 05/30/2016 10:08 AM EDT Spoke with Mirela to see if she is still interested in Bariatric surgery. She said that she is notsure because there is a lot going on health-kir[place] for her. She said she really needs to have bariatric surgery, but her cranial pressure is lee high. Since she is seen here at [facility] [place] I will let the APRNknow to see how this will effect her potential bariatric surgery. I told mirela that I would be intouch. documented in this encounter Plan of Treatment Not on filedocumented as of this encounter Visit Diagnoses Not on filedocumented in this encounter Care Teams Edger Operator Relationship Specialty Start Date End Date Lakshmi Vicente MD PCP - General 07/27/11 04/18/18 [address] [place] [address] documented as of this encounter
--- OUTSIDE RECORDS SUMMARY | 2022-05-03 15:02 | XMS_ITS | Encounter Summary ---
:1980 Author Organization [facility] [place] [address] Care Team Providers Name Role Phone Lakshmi Vicnete MD Primary Care Provider Reason for Visit Reason Onset Date Comments Other 03/21/2016 ? ONB appointment to day Encounter Details Date Type Department Care Team Description 03/21/2016 Telephone [place]rology at [facility] [place] Jill French, Other (? ONB [facility] [employer] GAUGER appointment today ) [place] [address] [place], [place] [address] (Wo rk) Social History Tobacco Use Types Packs/Day Years Used Date Never Smoker Smokeless Tobacco: Never Used Alcohol Use Standard Drinks/Week Comments No 0 (1 standard drink = 0.6 oz pure alcoho l) Sex Assigned at Date Recorded Not on file documented as of this encounter Miscellaneous Notes Telephone Encounter - Qiana Bowens RN - 03/21/2016 1:06 PM EDT Called patient and offered her ONB at 11:40 on 03/30/16. She would like this appointment. Sent message to Luke to add her to schedule. Telephone Encounter - Jill French APRN - 03/21/2016 12:36 PM EDT 11:40 on th03/30/16 Telephone Encounter - Qiana Bowens RN - 03/21/2016 11:07 AM EDT Called patient back and she states she does not have a fever. She is not on antibiotics. She is taking prednisone, Nasonex, and Flovent. She has viral pneumonia and does not feel well. She wonders if she can come in some time next week for ONBs if she stays home from her appointment today. Jill has an appointment available on Sunday but her work schedule is not flexible on Mondays or Wednesdays. She states her schedule is wide-open any other day next week. I let her know I would have to check with Jill to see if she can see her for a procedure only ONB next week. Telephone Encounter - Luke Kyle - 03/21/2016 10:53 AM EDT Patient calling to see if it is still ok for her to come in for ONB's. Patient states that she is just getting over having Pneumonia, and is still taking steroids for this. Please call back within 15 minutes, in order for patient to make it to appointment today. documented in this encounter Plan of Treatment Not on filedocumented as of this encounter Visit Diagnoses Not on filedocumented in this encounter Care Teams Capsule Filling Machine Operator Relationship Specialty Start Date End Date Lakshmi Vicente MD PCP - General 07/27/11 04/18/18 [address] [place] [address] documented as of this encounter
--- OUTSIDE RECORDS SUMMARY | 2022-05-03 15:02 | XMS_ITS | Encounter Summary ---
:1980 Author Organization [facility] [place] [address] Care Team Providers Name Role Phone Lakshmi Vicente MD Primary Care Provider Reason for Visit Reason Comments Left Knee Pain Encounter Details Date Type Department Care Team Description 10/07/2015 Office Visit Orthopaedics at [facility] Jeremy Rosado Primary osteoarthritis [facility] MD Sandhya of left knee ([address] [facility] [place] [address] [facility] [phone] [place] [address] Social History Tobacco Use Types Packs/Day Years Used Date Never Smoker Smokeless Tobacco: Never Used Alcohol Use Standard Drinks/Week Comments No 0 (1 standard drink = 0.6 oz pure alcoho l) Sex Assigned at Date Recorded Not on file documented as of this encounter Last Filed Vital Signs Vital Sign Reading Time Taken Comments Blood Pressure 123/83 10/07/2015 10:41 AM EST Pulse 94 10/07/2015 10:41 AM EST Temperature - - Respiratory Rate - - Oxygen Saturation - - Inhaled Oxygen Concentration - - Weight 112.8 kg (248 lb 11.2 10/07/2015 10:41 AM fully clothed oz) EST Height 157.5 cm (5' 2) 10/07/2015 10:41 AM verbal EST Body Mass Index 45.49 10/07/2015 10:41 AM EST documented in this encounter Progress Notes Jeremy Rosado MD - 10/17/2015 7:57 PM EST I saw and evaluated the patient. I was integral in formulating the plan as outlined. JEREMY ROSADO MD Prem Deutsch MD - 10/07/2015 12:00 PM EST ORTHOPEDIC SURGERY CONSULT NOTE Mirela Lara is a 34-year-old female, who presents to us in consultation today at the request of Dr. Crespo. ATTENDING. Jeremy Rosado MD HISTORY OF PRESENT ILLNESS: Ms. Lara is a 34-year-old female who comes in complaining of left knee pain. She states that in the past she has had x-rays demonstrating osteoarthritis, she has had knee arthroscopy on both her right and left knees reporting that she had excellent pain relief on the right side, but continues to have left knee pain. She has had an MRI demonstrating osteoarthritis, and has been told that she needs to have a total knee replacement. She reports having swelling, popping, and instability in her knee. The pain is mostly aching, throbbing, and burning. She has pain at rest as well as pain that wakes her up from sleeping. The pain is worse while walking and while moving her knee, and she often has to use crutches at the end of a long day. She has tried cortisone injections in the summer and received Orthovisc about three to four weeks ago, which provided a little help. Of note, she states that Dr. Crespo has recommended total knee arthroplasty, but she is not a candidate to undergo this procedure until she loses weight. She has been working with the gastric bypass center here at [facility] and is planning to have a gastric bypass done. She denies fevers, chills, shortness of breath, chest pain, nausea and vomiting. Past medical and surgical history were reviewed and updated in eD-H. ALLERGIES: PER ED-H. SOCIAL HISTORY: She lives in [facility]. She has never smoked and she does not use any drugs. She uses rare alcohol. 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 Her fiancee works with her as well. OBJECTIVE: In general, she is a well-appearing obese female, in no acute distress. She is awake, alert, and appropriately answering question. Cardiovascular: Regular rate and rhythm checked peripherally. Pulmonary: Breathing comfortably on room air. Left lower extremity, she has anterior as well as lateral portal incisions that are well-healed without evidence of dehiscence, erythema, or any drainage. There is no knee effusion. She has pain throughout her left knee on the medial, lateral, and posterior aspects that are all tender to palpation. She has pain with knee flexion and extension. She is able to straight leg to 0 degrees of extension and able to flex her knee up to 110 degrees of flexion. Her knee is stable to anterior and posterior forces as well as varus and valgus forces. Distally, she has full strength with ankle dorsiflexion and plantarflexion, EHL and FHL. Sensation is intact in the superficial peroneal nerve, deep peroneal nerve, tibial nerve, saphenous, and sural nerves. She has 2+ dorsalis pedis pulse and her toes are warm and well perfused. IMAGING: We have plain radiographs from 2014, which do demonstrate mild osteoarthritis, which is worse on the right knee as opposed to the left knee. Most of the disease is on the medial compartment. We also have an MRI demonstrating osteoarthritis in the left knee. ASSESSMENT AND PLAN: Ms. Lraa is a 34-year-old female presenting to us for a second opinion of her left knee pain. She has been working with non-surgical options at this point in time. We agree that she is not a surgical candidate given her BMI of over 40. She does have diabetes and reports that her hemoglobin A1c is 5.2. Given her young age, we would not recommend total knee arthroplasty for her, also because she is severely overweight. We encouraged her to continue working with the weight loss in order to lower her weight, which we ultimately feel would decrease the amount of strain that is on her knee and feel she would get some pain relief from that. We also encouraged her to continue to be as active as possible and continue with conservative measures. We provided her a prescription with a medial offloading brace. She can follow up on a p.r.n. basis and we are happy to see her if any additional issues or questions arise. We also offered joint injections as it would be appropriate for her, however, she can also follow up with Dr. Crespo if she prefers to do that. This patient was seen and plan formulated with Dr. Rosado. PREM DEUTSCH MD PGY2 Orthopaedic Surgery Resident documented in this encounter Plan of Treatment Not on filedocumented as of this encounter Visit Diagnoses Diagnosis Primary osteoarthritis of left knee - Pr imary Primary localized osteoarthrosis, lower leg documented in this encounter Care Teams Financial Services Intern Relationship Specialty Start Date End Date Lakshmi Vicente MD PCP - General 07/27/11 04/18/18 [address] [place] [address] documented as of this encounter
--- OUTSIDE RECORDS SUMMARY | 2022-05-03 15:02 | XMS_ITS | Encounter Summary ---
:1980 Author Organization [facility] [place] [address] Care Team Providers Name Role Phone Lakshmi Vicente MD Primary Care Provider Encounter Details Date Type Department Care Team Description 05/05/2016 Office Visit Neurology at [facility] Jill French Elevated intracranial pressu re; [facility] CASSIA Bower Migraine with aura and without status mi grainosus, not intractable; [facility] Chronic migraine without aur a without status migrainosus, [place] [address] [place] [address] [phone] Social History Tobacco Use Types Packs/Day Years Used Date Never Smoker Smokeless Tobacco: Never Used Alcohol Use Standard Drinks/Week Comments No 0 (1 standard drink = 0.6 oz pure alcoho l) Sex Assigned at Date Recorded Not on file documented as of this encounter Progress Notes Jill French APRN - 05/05/2016 10:40 AM EDT ?? Progress Notes Jill French APRN (Nurse Practitioner) ? Neurology Cc: Follow up chronic headache ?? Interval History: Mirela had an LP this morning in the headache clinic and was found to have OP of 30. ?? ROS: Intractable daily headache No fever, chills, weakness No vision changes, does have a hx of corneal erosions OD No nasal congestions, sinus pain or pressure No chest pain, SOB, cough No abdominal pain, n/v. ?? EXAM: A & O x 3, comfortable, NAD Not jaundiced, sedated, dysarthric, or ataxic Normal affect, mood, speech ?? ASSESSMENT: Chronic daily headache New dx elevated intracranial pressure ?? PLAN; MRV ordered Referred to Dr. Narvaez for ophthalmology exam and eval for papilledema Start Diamox SR 500 mg q a.m x 3 days then increase to BID. Follow up here in 10 days as scheduled. documented in this encounter Miscellaneous Notes Addendum Note - Ramon Park - 05/05/2016 10:58 AM EDT Addended by: RAMON PARK on: 05/05/2016 10:58 AM Modules accepted: Orders documented in this encounter Plan of Treatment Not on filedocumented as of this encounter Procedures Procedure Name Priority Date/Time Associated Comments Diagnosis HEMOGRAM Routine 05/05/2016 11:10 Migraine with aura Resul ts for this AM EDT and without status procedure are in migrainosus, not the results intractable section. Chronic migraine without aura without status migrainosus, not intractable DIFFERENTIAL, Routine 05/05/2016 11:10 Migraine with aura Resu lts for this AUTOMATED AM EDT and without status procedure are in migrainosus, not the results intractable section. Chronic migraine without aura without status migrainosus, not intractable SEDIMENTATION RATE Routine 05/05/2016 11:10 Migraine with aura Results for this AM EDT and without status procedure are in migrainosus, not the results intractable section. Chronic migraine without aura without status migrainosus, not intractable CBC (WITH DIFF) Routine 05/05/2016 11:10 Migraine with aura AM EDT and without status migrainosus, not intractable Chronic migraine without aura without status migrainosus, not intractable COMPREHENSIVE Routine 05/05/2016 11:10 Migraine with aura Resu lts for this METABOLIC PANEL AM EDT and without status proced ure are in (NON-FASTING) migrainosus, not the result s intractable section. Chronic migraine without aura without status migrainosus, not intractable documented in this encounter Results Differential, Automated (05/05/2016 11:10 AM EDT) athologist Signature Neutrophils % 57.4 % [facility] Neutr Abs (ANC) 5.32 1.50 - [facility] 6.30 [facility] x10(3)/[facility] LABORATORY Lymphocytes % 31.8 % [facility] Lymphocytes Abs 3.0 1.0 - 3.6 [facility] x10(3)/[facility] LABORATORY Monocytes % 8.2 % [facility] Monocyte Abs 0.8 0.2 - 1.0 [facility] x10(3)/[facility] LABORATORY Eosinophils % 1.8 % [facility] Eosinophils Abs 0.2 0.0 - 0.5 [facility] x10(3)/[facility] LABORATORY Basophils % 0.5 % [facility] Basophils Abs 0.0 0.0 - 0.2 [facility] x10(3)/[facility] LABORATORY Immature Gran % 0.30 % [facility] Comment: Immature granulocytes(IG's)percentage an d absolute count will include metamyelocytes, myelocytes, and promyelo cytes. Blood smears from CBCs yielding IG's will be scanned manually for concor dance. If this scan disagrees with the automated IG or if promyelocytes are not ed, a manual differential will be performed. [place] Gran Abs 0.03 0.00 - 0.05 x10(3)/[facility] Specimen Anatomical Collection Method Collection Time Receive d Time (Source) Location / / Volume Laterality Blood specimen 05/05/2016 11:10 6 (specimen) AM EDT 11:35 AM EDT Resulting Agency Comment Spec In Lab Silke Pollack MD HEMATOLOGY ORDERABLES Performing Organization Address City/State/[place] [address] Hemogram (05/05/2016 11:10 AM EDT) athologist Signature WBC 9.3 4.0 - 10.0 [facility] x10(3)/[facility] LABORATORY RBC 4.29 3.93 - 5.22 [facility] x10(6)/[facility] LABORATORY Hemoglobin 12.1 11.2 - 15.7 [facility] Hematocrit 36.3 34.0 - 45.0 [facility] MCV 84.6 79.0 - 94.0 [facility] LABORATORY MCH 28.2 26.6 - 32.2 [facility] MCHC 33.3 32.0 - 36.5 [facility] gm/dL [facility] Platelets 266 145 - 370 [facility] x10(3)/[facility] LABORATORY RDWSD 40.0 35.0 - 46.0 [facility] LABORATORY RDWCV 13.2 10.9 - 14.4 [facility] MPV 9.8 9.0 - 12.0 [facility] LABORATORY Specimen Anatomical Collection Method Collection Time Receive d Time (Source) Location / / Volume Laterality Blood specimen 05/05/2016 11:10 6 (specimen) AM EDT 11:35 AM EDT Resulting Agency Comment Spec In Lab Silke Pollack MD HEMATOLOGY ORDERABLES Performing Organization Address City/State/[place] [address] Sedimentation rate (05/05/2016 11:10 AM EDT) P athologist Signature Sed Rate 10 0 - 20 [facility] mm/hr [facility] Specimen Anatomical Collection Method Collection Time Receive d Time (Source) Location / / Volume Laterality Blood specimen 05/05/2016 11:10 6 (specimen) AM EDT 11:35 AM EDT Resulting Agency Comment Spec In Lab Silke Pollack MD HEMATOLOGY ORDERABLES Performing Organization Address City/State/[place] [address] (ABNORMAL) Comprehensive metabolic panel (non-fasting) (05/05/2016 11:10 AM EDT) athologist Signature Glucose Lvl 108 65 - 199 [facility] mg/dL [facility] Comment: Diabetes: >=200 mg/dL plus symp toms BUN 12 8 - 18 mg/dL [facility] Creatinine 0.78 0.70 - 1.20 mg/dL [facility] Comment: Please note that the pediatric reference intervals supplied above were not validated at [facility]. Results from pediatri c patients should be interpreted in conjunction to the patient's age, height and muscle mass. Sodium 137 135 - 145 mmol/L [facility] Potassium 4.3 3.5 - 5.0 mmol/L [facility] Comment: Please note: ??Patients with WBC >100,00 0 may have falsely elevated Potassium levels. ??For accurate Potassium quantif ication in these patients send serum separator tube (gold top) for subsequent determinations. ??Contact the Clinical Chemistry Laboratory if there are any qu estions. Chloride 98 98 - 107 mmol/L [facility] CO2 21 (L) 22 - 31 mmol/L [facility] Anion Gap 18 (H) 5 - 15 mmol/L [facility] Calcium 8.7 8.5 - 10.5 mg/dL [facility] Total Protein 6.9 6.1 - 8.0 gm/dL [facility] Albumin 4.2 3.2 - 5.2 gm/dL [facility] AST 15 0 - 30 unit/L [facility] ALT 22 0 - 30 unit/L [facility] Alk Phos 48 40 - 104 unit/L [facility] Total Bilirubin <0.2 (L) 0.2 - 1.3 mg/dL [facility] Bili, Direct <0.1 0.0 - 0.3 mg/dL [facility] Estimated GFR >60 >=60 [facility] Comment: This estimated GFR (eGFR) [...] the following links into your internet browser. [email or web address] Specimen Anatomical Collection Method Collection Time Receive d Time (Source) Location / / Volume Laterality Blood specimen 05/05/2016 11:10 6 (specimen) AM EDT 11:35 AM EDT Resulting Agency Comment Spec In Lab Silke Pollack MD CHEMISTRY ORDERABLES Performing Organization Address City/State/[place] [address] documented in this encounter Visit Diagnoses Diagnosis Elevated intracranial pressure Other symptoms involving nervous and mus culoskeletal systems Migraine with aura and without status mi grainosus, not intractable Migraine with aura, without mention of i ntractable migraine without mention of status migrainosus Chronic migraine without aura without st atus migrainosus, not intractable Chronic migraine without aura, without m ention of intractable migraine without mention of status migrainosus documented in this encounter Care Teams Artisan Plasterer Relationship Specialty Start Date End Date Lakshmi Vicente MD PCP - General 07/27/11 04/18/18 [address] [place] [address] documented as of this encounter
--- OUTSIDE RECORDS SUMMARY | 2022-05-03 15:02 | XMS_ITS | Encounter Summary ---
:1980 Author Organization [facility] [place] [address] Care Team Providers Name Role Phone Lakshmi Vicente MD Primary Care Provider Reason for Visit Reason Onset Date Comments Prior Authorization 05/14/2017 zolmatriptan Encounter Details Date Type Department Care Team Description 05/14/2017 Telephone Neurology at [facility] Jill French Prior Authorization [facility] G, KINDERGARTEN TUTOR (zolmatriptan) [place] [address] [place] [address] [phone] (Wo rk) Social History Tobacco Use Types Packs/Day Years Used Date Never Smoker Smokeless Tobacco: Never Used Alcohol Use Standard Drinks/Week Comments No 0 (1 standard drink = 0.6 oz pure alcoho l) Sex Assigned at Date Recorded Not on file documented as of this encounter Miscellaneous Notes Telephone Encounter - Gladys Giraldo CMA - 05/15/2017 8:07 AM EDT Images from the original note were not included. Called patient she is aware of approval Telephone Encounter - Gladys Giraldo CMA - 05/14/2017 11:39 AM EDT PA for Zolmitriptan #12 for 30 days pa sent Via fax to [place] medicaid documented in this encounter Plan of Treatment Not on filedocumented as of this encounter Visit Diagnoses Not on filedocumented in this encounter Care Teams Financial Officer Relationship Specialty Start Date End Date Lakshmi Vicente MD PCP - General 07/27/11 04/18/18 [address] [place] [address] documented as of this encounter
--- OUTSIDE RECORDS SUMMARY | 2022-05-03 15:02 | XMS_ITS | Encounter Summary ---
:1980 Author Organization [facility] Address [facility] [place] [address] Care Team Providers Name Role Phone Lakshmi Vicente MD Primary Care Provider Encounter Details Date Type Department Care Team Description 07/13/2015 Follow-Up Neurology at [facility] Silke Pollack MD Chronic migraine [facility] wit hout aura without Drive DR status [place], [place] [address] NEUROLOGY DEPT intractable [phone] [place] [phone] (Wo rk) Social History Tobacco Use Types Packs/Day Years Used Date Never Smoker Smokeless Tobacco: Never Used Alcohol Use Standard Drinks/Week Comments No 0 (1 standard drink = 0.6 oz pure alcoho l) Sex Assigned at Date Recorded Not on file documented as of this encounter Last Filed Vital Signs Vital Sign Reading Time Taken Comments Blood Pressure 133/74 07/13/2015 9:27 AM EDT Pulse 84 07/13/2015 9:27 AM EDT Temperature - - Respiratory Rate - - Oxygen Saturation - - Inhaled Oxygen Concentration - - Weight 109.8 kg (242 lb) 07/13/2015 9:27 AM EDT Height 157.5 cm (5' 2) 07/13/2015 9:27 AM EDT Body Mass Index 44.26 07/13/2015 9:27 AM EDT documented in this encounter Procedure Notes Ludmila Cornejo MD - 07/13/2015 9:52 AM EDTProcedure(s): NERVE BLOCK - OCCIPITAL Pre-Procedure [...] each side. Ludmila Cornejo MD Headache Fellow [facility] Neurology documented in this [...] Site BUpivacaine (PF) (MARCAINE) 0.25 % Given 07/13/2015 9:53 AM EDT 7.5 mg (2.5 mg/mL) injection 7.5 mg 7.5 mg, Subcutaneous, ONCE, 1 dose, On Sun07/13/15 at 1015, Routine lidocaine (XYLOCAINE) 10 mg/mL (1 %) injection Given 0 07/13/2015 9:53 AM EDT 30 mg 30 mg 30 mg, Subcutaneous, ONCE, 1 dose, On Sun07/13/15 at 1015, Routine documented in this encounter Care Teams Fuel Attendant Relationship Specialty Start Date End Date Lakshmi Vicente MD PCP - General 07/27/11 04/18/18 [address] [place] [address] documented as of this encounter
--- OUTSIDE RECORDS SUMMARY | 2022-05-03 15:02 | XMS_ITS | Encounter Summary ---
:1980 Author Organization [facility] Address [facility] [place] [address] Care Team Providers Name Role Phone Lakshmi Vicente MD Primary Care Provider Reason for Visit Reason Onset Date Comments Prior Authorization 07/14/2015 BOTOX APPROVED 08/04-11/09/15 Encounter Details Date Type Department Care Team Description 07/14/2015 Telephone [place] [facility] Ludmila Cornejo MD Prior Authorization [facility] ([address]HUL TOX APPROVED Drive DR 08/04/15-11/09/15) [place] [address] NEUROLOGY DEPT [phone] [place], [place] [address] Social History Tobacco Use Types Packs/Day Years Used Date Never Smoker Smokeless Tobacco: Never Used Alcohol Use Standard Drinks/Week Comments No 0 (1 standard drink = 0.6 oz pure alcoho l) Sex Assigned at Date Recorded Not on file documented as of this encounter Miscellaneous Notes Telephone Encounter - Rhonda Castro - 08/10/2015 10:47 AM EDT BOTOX APPROVED 08/04/15-11/09/15 PA #: [id number] 200 UNITS EVERY 3 MONTHS, FOR ONE YEAR, TO EQUAL 4 DOSES. 800 UNITS. Telephone Encounter - Rhonda Castro - 08/02/2015 11:24 AM EDT INSURANCE ASKING FORE MORE INFO. FAXED. Telephone Encounter - Rhonda Castro - 07/14/2015 12:17 PM EDT PA FOR BOTOX FAXED TO [place] [employer]. documented in this encounter Plan of Treatment Not on filedocumented as of this encounter Visit Diagnoses Not on filedocumented in this encounter Care Teams Hplc Chemist Relationship Specialty Start Date End Date Lakshmi Vicente MD PCP - General 07/27/11 04/18/18 [address] [place] [address] documented as of this encounter
--- OUTSIDE RECORDS SUMMARY | 2022-05-03 15:02 | XMS_ITS | Encounter Summary ---
:1980 Author Organization [facility] [place] [address] Care Team Providers Name Role Phone Lakshmi Vicente MD Primary Care Provider Reason for Visit High Dollar Medication (Routine) - Specialty Diagnoses / Procedures Referred By Contact Refer red To Contact Neurology Diagnoses Chronic migraine without aura without status migrainosus, not intractable Jill French, [facility] [place] [facility] 3c Procedures Auth Request for Medication TC ONABOTULINUMTOXINA, 1 UNIT, INJECTION TOOTH GRINDER [facility] [place] [address] [place] [address] Referral ID Status Reason Start Date Expiration Date Visits V isits Requested Authorized [id number] Consult, 07/20/2016 07/04/2019 13 13 Test & Treat Encounter Details Date Type Department Care Team Description 04/18/2018 Office Visit Neurology at [facility] Loren Russ, Chronic migraine [facility] PA without aura without Drive [facility] status migrainosus, [place], [place] not intractable [id number] NEUROLOGY DEPT [phone] [place], [place] [address] Social History Tobacco Use Types Packs/Day Years Used Date Never Smoker Smokeless Tobacco: Never Used Alcohol Use Standard Drinks/Week Comments No 0 (1 standard drink = 0.6 oz pure alcoho l) Sex Assigned at Date Recorded Not on file documented as of this encounter Last Filed Vital Signs Vital Sign Reading Time Taken Comments Blood Pressure 119/72 04/18/2018 12:24 PM EDT Pulse 79 04/18/2018 12:24 PM EDT Temperature - - Respiratory Rate - - Oxygen Saturation - - Inhaled Oxygen Concentration - - Weight - - Height - - Body Mass Index - - documented in this encounter Procedure Notes Loren Russ PA - 04/18/2018 12:30 PM EDTAssociated Order(s): CHEMODENERVATION, MEDICAL Procedure: Botox injections (PREEMPT protocol) Indications: Chronic Migraine MIDAS: 28 VIEIRA days: Avg intensity: 2/10 Risk and benefits were explained to [...] 1 injection of 5 U in right word processing specialist muscle 1 injection of 5 U in left word processing specialist muscle 2 injections of 5 U in [...] u Total units discarded: 45 u LOT# [id number] EXP: 10/2020 The patient tolerated the procedure without any immediate complications. Loren Russ PA-C Dept. Of Neurology [facility] or [phone](MS nurse contact number) documented in this encounter Plan of Treatment Not on filedocumented as of this encounter Procedures Procedure Name Priority Date/Time Associated Diagnosis Comme nts CHEMODENERVATION, Routine 04/18/2018 12:51 PM Chronic migraine Results for this MEDICAL EDT without aura without procedu re are in status migrainosus, the resu lts not intractable section. documented in this encounter Results Chemodenervation, medical (04/18/2018 12:51 PM EDT) Narrative Loren Russ PA - 04/18/2018 12:51 P M EDT Loren Russ PA ? 04/18/2018 12:51 PM Procedure: Botox injections (PREEMPT pro tocol) Indications: Chronic Migraine MIDAS: 28 VIEIRA days: 85/90 Avg intensity: 2/10 Risk and benefits were explained to [...] 1 injection of 5 U in right word processing specialist m uscle 1 injection of 5 U in left word processing specialist mu scle 2 injections of 5 U [...] u Total units discarded: 45 u LOT# [id number] EXP: 10/2020 The patient tolerated the procedure with out any immediate complications. Loren Russ PA-C Dept. Of Neurology [facility] or [phone](MS zion mcneill contact number) [place] Lynn MD [...] Site botulinum toxin type A (BOTOX) Given 04/18/2018 12:47 PM EDT 155 Units injection 200 Units 200 Units, Intramuscular, ONCE, 1 dose, On Lena 04/18/18 at 1300, Routine documented in this encounter Care Teams Tax Services Intern Relationship Specialty Start Date End Date Lakshmi Vicente MD PCP - General 07/27/11 04/18/18 [address] [place] [address] documented as of this encounter
--- OUTSIDE RECORDS SUMMARY | 2022-05-03 15:02 | XMS_ITS | Encounter Summary ---
:1980 Author Organization [facility] [place] [address] Care Team Providers Name Role Phone Lakshmi Vicente MD Primary Care Provider Encounter Details Date Type Department Care Team Description 12/07/2015 Office Visit Neurology at [facility] Ludmila Cornejo MD [facility] [place] [address] Chronic migraine [facility] Harpal Houston MD [facility] [place] [address] status migrainosus, [place], [place] not intractable [phone] Social History Tobacco Use Types Packs/Day Years Used Date Never Smoker Smokeless Tobacco: Never Used Alcohol Use Standard Drinks/Week Comments No 0 (1 standard drink = 0.6 oz pure alcoho l) Sex Assigned at Date Recorded Not on file documented as of this encounter Last Filed Vital Signs Vital Sign Reading Time Taken Comments Blood Pressure 118/83 12/07/2015 1:36 PM EST Pulse 102 12/07/2015 1:36 PM EST Temperature - - Respiratory Rate - - Oxygen Saturation - - Inhaled Oxygen Concentration - - Weight 109.8 kg (242 lb) 12/07/2015 1:36 PM EST Height 157.5 cm (5' 2) 12/07/2015 1:36 PM EST Body Mass Index 44.26 12/07/2015 1:36 PM EST documented in this encounter Procedure Notes Ludmila Cornejo MD - 12/07/2015 2:11 PM ESTProcedure(s): NERVE BLOCK - OCCIPITAL Pre-Procedure Diagnose(s): Chronic [...] each side. Ludmila Cornejo MD Headache Fellow [facility] Neurology documented in this encounter Plan of [...] Site BUpivacaine (PF) (MARCAINE) 0.25 % Given 12/07/2015 2:13 PM EST 7.5 mg (2.5 mg/mL) injection 7.5 mg 7.5 mg, Subcutaneous, ONCE, 1 dose, On Sun12/07/15 at 1430, Routine lidocaine (XYLOCAINE) 10 mg/mL (1 %) injection Given 0 12/07/2015 2:13 PM EST 30 mg 30 mg 30 mg, Subcutaneous, ONCE, 1 dose, On Sun12/07/15 at 1430, Routine documented in this encounter Care Teams Toll Settlement Clerk Relationship Specialty Start Date End Date Lakshmi Vicente MD PCP - General 07/27/11 04/18/18 [address] [place] [address] documented as of this encounter
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
--- OUTSIDE RECORDS SUMMARY | 2022-05-03 15:02 | XMS_ITS | Encounter Summary ---
:1980 Author Organization [facility] [place] [address] Care Team Providers Name Role Phone Lakshmi Vicente MD Primary Care Provider Encounter Details Date Type Department Care Team Description 05/31/2016 Telephone General Surgery at [facility] [address] Social History Tobacco Use Types Packs/Day Years Used Date Never Smoker Smokeless Tobacco: Never Used Alcohol Use Standard Drinks/Week Comments No 0 (1 standard drink = 0.6 oz pure alcoho l) Sex Assigned at Date Recorded Not on file documented as of this encounter Miscellaneous Notes Telephone Encounter - Blank Fletcher - 05/31/2016 11:09 AM EDT LMOM for Mirela to give me a call back and register for another introductory meeting. Dottie Bower APRN says that she is still a candidate for bariatric surgery despite her current health issues. Mirela will be asked to come to another introductory meeting because it has been almost a year since she came to one and we have not received any documentation in the mail at this point. documented in this encounter Plan of Treatment Not on filedocumented as of this encounter Visit Diagnoses Not on filedocumented in this encounter Care Teams Electric Trucker Relationship Specialty Start Date End Date Lakshmi Vicente MD PCP - General 07/27/11 04/18/18 [address] [place] [address] documented as of this encounter
--- OUTSIDE RECORDS SUMMARY | 2022-05-03 15:02 | XMS_ITS | Encounter Summary ---
:1980 Author Organization [facility] [place] [address] Care Team Providers Name Role Phone Lakshmi Vicente MD Primary Care Provider Reason for Visit Reason Onset Date Comments Prior Authorization 11/26/2017 Encounter Details Date Type Department Care Team Description 11/26/2017 Telephone Neurology at [facility] Jill French, Prior Authorization [facility] [place] [address] [place] [address] [phone] (Wo rk) Social History Tobacco Use Types Packs/Day Years Used Date Never Smoker Smokeless Tobacco: Never Used Alcohol Use Standard Drinks/Week Comments No 0 (1 standard drink = 0.6 oz pure alcoho l) Sex Assigned at Date Recorded Not on file documented as of this encounter Miscellaneous Notes Telephone Encounter - Gladys Giraldo CMA - 12/04/2017 9:19 AM EST Images from the original note were not included. Called the patient LMOAM that ZOMIG has been approved if she calls please advise her of the approval Telephone Encounter - Gladys Giraldo CMA - 12/03/2017 2:45 PM EST Prior Authorization started on Zomig Nasal [place] , 5 MG, #12 for 30 days, Sent and faxed to [place] medicaid Telephone Encounter - Gladys Giraldo CMA - 11/29/2017 8:36 AM EST PA needed for Zomig Nasal spray 5 mg # 12 for 30 days documented in this encounter Plan of Treatment Not on filedocumented as of this encounter Visit Diagnoses Not on filedocumented in this encounter Care Teams District Agent Relationship Specialty Start Date End Date Lakshmi Vicente MD PCP - General 07/27/11 04/18/18 [address] [place] [address] documented as of this encounter
--- OUTSIDE RECORDS SUMMARY | 2022-05-03 15:02 | XMS_ITS | Encounter Summary ---
:1980 Author Organization [facility] [place] [address] Care Team Providers Name Role Phone Lakshmi Vicente MD Primary Care Provider Encounter Details Date Type Department Care Team Description 01/03/2016 Office Visit [place] [facility] Ludmila Cornejo MD [facility] [place] [address] Chronic migraine [facility] Silke Pollack MD [facility] [place] [address] status migrainosus, [place], [place] not intractable [phone] Social History Tobacco Use Types Packs/Day Years Used Date Never Smoker Smokeless Tobacco: Never Used Alcohol Use Standard Drinks/Week Comments No 0 (1 standard drink = 0.6 oz pure alcoho l) Sex Assigned at Date Recorded Not on file documented as of this encounter Last Filed Vital Signs Vital Sign Reading Time Taken Comments Blood Pressure 120/72 01/03/2016 1:47 PM EDT Pulse 80 01/03/2016 1:47 PM EDT Temperature - - Respiratory Rate - - Oxygen Saturation - - Inhaled Oxygen Concentration - - Weight 109.8 kg (242 lb) 01/03/2016 1:47 PM EDT Height 157.5 cm (5' 2) 01/03/2016 1:47 PM EDT Body Mass Index 44.26 01/03/2016 1:47 PM EDT documented in this encounter Procedure Notes Ludmila Cornejo MD - 01/03/2016 2:42 PM EDTProcedure(s): NERVE BLOCK - OCCIPITAL Pre-Procedure [...] Ludmila Cornejo MD Headache Fellow [facility] Neurology documented in this encounter Plan of [...] Site BUpivacaine (PF) (MARCAINE) 0.25 % Given 01/03/2016 2:42 PM EDT 7.5 mg (2.5 mg/mL) injection 7.5 mg 7.5 mg, Subcutaneous, ONCE, 1 dose, On Sun01/03/16 at 1500, Routine lidocaine (XYLOCAINE) 10 mg/mL (1 %) injection Given 0 01/03/2016 2:42 PM EDT 30 mg 30 mg 30 mg, Subcutaneous, ONCE, 1 dose, On Sun01/03/16 at 1500, Routine documented in this encounter Care Teams Outside Contractor Sales Relationship Specialty Start Date End Date Lakshmi Vicente MD PCP - General 07/27/11 04/18/18 [address] [place] [address] documented as of this encounter
--- OUTSIDE RECORDS SUMMARY | 2022-05-03 15:03 | XMS_ITS | Encounter Summary ---
:1980 Author Organization [facility] [place] [address] Care Team Providers Name Role Phone Lakshmi Vicente MD Primary Care Provider Encounter Details Date Type Department Care Team Description 07/29/2013 Abstract Ophthalmology at [facility] C Jani Taylor MD [facility] [place] [address] OPHTHALMOLOGY DEPT. [phone] [place], [place] [address] (Wo rk) Social History Tobacco Use Types Packs/Day Years Used Date Never Smoker Alcohol Use Standard Drinks/Week Comments No 0 (1 standard drink = 0.6 oz pure alcoho l) Sex Assigned at Date Recorded Not on file documented as of this encounter Plan of Treatment Not on filedocumented as of this encounter Visit Diagnoses Not on filedocumented in this encounter Care Teams Cotton Weigher Relationship Specialty Start Date End Date Lakshmi Vicente MD PCP - General 07/27/11 04/18/18 [address] [place] [address] documented as of this encounter
--- OUTSIDE RECORDS SUMMARY | 2022-05-03 15:03 | XMS_ITS | Encounter Summary ---
:1980 [place] [address] Care Team Providers Name Role Phone Lakshmi Vicente MD Primary Care Provider Encounter Details Date Type Department Care Team Description 07/17/2011 Abstract [facility] Ritu Lovett, [place] [facility] [place] [address] PAIN MEDICINE [phone] [place] [address] (Wo rk) Social History Tobacco Use Types Packs/Day Years Used Date Never Smoker Sex Assigned at Date Recorded Not on file documented as of this encounter Plan of Treatment Not on filedocumented as of this encounter Visit Diagnoses Not on filedocumented in this encounter Care Teams Trailer Sections Assembler Relationship Specialty Start Date End Date Lakshmi Vicente MD PCP - General 07/27/11 04/18/18 [address] [place] [address] documented as of this encounter
--- OUTSIDE RECORDS SUMMARY | 2022-05-03 15:03 | XMS_ITS | Encounter Summary ---
:1980 Author Organization [facility] [place] [address] Care Team Providers Name Role Phone Lakshmi Vicente MD Primary Care Provider Reason for Visit Reason Comments Follow-up s/p Anterior stromal punctur e OD - done 08/01/2013 Encounter Details Date Type Department Care Team Description 08/08/2013 Follow-Up Ophthalmology at [facility] C Jani Taylor, Recurrent corneal [facility] Hugo herrmann MD erosion (Primary Dx) [place] [address] [facility] [phone] DR OPHTHALMOLOGY DEPT. [place], [place] [address] Social History Tobacco Use Types Packs/Day Years Used Date Never Smoker Alcohol Use Standard Drinks/Week Comments No 0 (1 standard drink = 0.6 oz pure alcoho l) Sex Assigned at Date Recorded Not on file documented as of this encounter Progress Notes Jani Taylor MD - 08/08/2013 10:53 AM EDT Assessment/Plan: Mirela Lara is a 32 y.o. female with the following ophthalmic issues: 1. 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
--- OUTSIDE RECORDS SUMMARY | 2022-05-03 15:03 | XMS_ITS | Encounter Summary ---
:1980 Author Organization [facility] [place] [address] Care Team Providers Name Role Phone Lakshmi Vicente MD Primary Care Provider Encounter Details Date Type Department Care Team Description 01/26/2015 Orders Only [place] [facility] [place] [address] Social History Tobacco Use Types Packs/Day [...] on filedocumented in this encounter Care Teams Frame Sample And Pattern Supervisor Relationship Specialty Start Date End Date Lakshmi Vicente MD PCP - General 07/27/11 04/18/18 [address] [place] [address] documented as of this encounter
--- OUTSIDE RECORDS SUMMARY | 2022-05-03 15:03 | XMS_ITS | Encounter Summary ---
:1980 Author Organization [facility] [place] [address] Care Team Providers Name Role Phone Lakshmi Vicente MD Primary Care Provider Encounter Details Date Type Department Care Team Description 03/19/2014 Hospital Encounter Radiology Library at [facility], [place] [address] Social History Tobacco Use Types Packs/Day Years Used Date Never Smoker Alcohol Use Standard Drinks/Week Comments No 0 (1 standard drink = 0.6 oz pure alcoho l) Sex Assigned at Date Recorded Not on file documented as of this encounter Medications at Time of Discharge Medication Sig Dispensed Refills Start Date End Date montelukast (SINGULAIR) 10 Take 10 mg by mouth 0 mg tablet nightly. Echinacea 400 mg Cap Take 400 mg by 0 mouth 2 times daily. MULTIVITAMIN (DAILY Take 1 tablet by 0 VITAMIN ORAL) mouth daily. albuterol (PROVENTIL Inhale 2 puffs into 0 HFA;VENTOLIN HFA) 90 the lungs every 4 mcg/Actuation inhaler hours as needed. Use with spacer fluticasone (FLOVENT) 220 Inhale 2 puffs into 0 01/26/2015 mcg/Actuation inhaler the lungs 2 times daily. propranolol (INDERAL) 40 Take 40 mg by mouth 0 01/26/2015 mg tablet 3 times daily. ibuprofen (ADVIL;MOTRIN) Take 800 mg by 0 01/26/2015 800 mg tablet mouth every 6 hours as needed. documented as of this encounter Plan of Treatment Not on filedocumented as of this encounter Procedures Procedure Name Priority Date/Time Associated Diagnosis Comme nts FILM LIBRARY Routine 03/19/2014 12:00 AM Pain Results for this STORAGE ONLY DX EDT procedure ar e in KNEE the results section. documented in this encounter Results Film Library- Storage only DX Knee (03/19/2014 12:00 AM EDT) Specimen (Source) Anatomical Location Collection Method / Collectio n Time Received Time / Laterality Volume Narrative SHANNON - 10/01/2015 5:09 PM EST See PACS for result report. Dr Lara [facility] FILM LIBRARY ORDERABLES Performing Organization Address City/State/ZIP Code Phon e Number [place], [place] documented in this encounter Visit Diagnoses Diagnosis Pain Generalized pain documented in this encounter Care Teams Electrical Assemblies Supervisor Relationship Specialty Start Date End Date Lakshmi Vicente MD PCP - General 07/27/11 04/18/18 [address] [place] [address] documented as of this encounter
--- OUTSIDE RECORDS SUMMARY | 2022-05-03 15:03 | XMS_ITS | Encounter Summary ---
:1980 Author Organization [facility] [place] [address] Care Team Providers Name Role Phone Lakshmi Vicente MD Primary Care Provider Encounter Details Date Type Department Care Team Description 12/07/2014 Orders Only [place] [facility] [place] [address] Social History Tobacco Use Types Packs/Day [...] on filedocumented in this encounter Care Teams Quality Compliance Consultant Relationship Specialty Start Date End Date Lakshmi Vicente MD PCP - General 07/27/11 04/18/18 [address] [place] [address] documented as of this encounter
--- OUTSIDE RECORDS SUMMARY | 2022-05-03 15:03 | XMS_ITS | Encounter Summary ---
:1980 Author Organization [facility] [place] [address] Care Team Providers Name Role Phone [place] Sylwia Sathish ANTONY Primary Care Provider Reason for Referral Physical Therapy (Routine) - Closed Specialty Diagnoses / Procedures Referred By Contact Refer red To Contact Physical Therapy Diagnoses Sacroiliac dysfunction Ritu Lovett APRN [facility] [place] [address] [place] [address] Phone: Referral ID Status Reason Start Date Expiration Date Visits V isits Requested Authorized [id number] Closed Evaluate and 06/22/2011 12/19/2011 1 1 Treat Consultation (Routine) - Closed by system - unspecified Specialty Diagnoses / Procedures Referred By Contact Refer red To Contact Pain Management Diagnoses Sacroiliac dysfunction [place] [address] Referral ID Status Reason Start Expiration Visits Visits Date Date Requested Authorized [id number] Closed by Consult 06/22/2011 12/19/2011 1 1 system - Only unspecified Reason for Visit Reason Comments Low Back Pain With Radicular Pain down right leg;weakn ess Mid Back Pain Encounter Details Date Type Department Care Team Description 06/22/2011 Office Visit [facility] at Ritu Lovett, Sacroil iac dysfunction Romy ANTONY (Primary Dx) [facility] [address] [place], [place] PAIN MEDICINE [address] [place] [address] [phone] Social History Tobacco Use Types Packs/Day Years Used Date Never Smoker Sex Assigned at Date Recorded Not on file documented as of this encounter Last Filed Vital Signs Vital Sign Reading Time Taken Comments Blood Pressure - - Pulse - - Temperature - - Respiratory Rate - - Oxygen Saturation - - Inhaled Oxygen Concentration - - Weight 87 kg (191 lb 11.2 oz) 06/22/2011 9:40 AM EDT Height 154.9 cm (5' 1) 06/22/2011 9:40 AM EDT Body Mass Index 36.22 06/22/2011 9:40 AM EDT documented in this encounter Progress Notes Ritu Lovett APRN - 06/22/2011 10:23 AM EDT Subjective: Mirela is a pleasant 30-year-old female seen at the request of Sylwia Espana for right-sided low back pain. She reports is having this pain since 2004 when she was with one of her children. She has some physical therapy which was massage based, without any improvement. For the last 2 years her pain has increased. She's tried the therapy, weight loss, and exercises without much improvement. She describes her pain as 4-5 on a scale of 10 without any radiation into her legs. She has no numbness, tingling, weakness. She does report a sensation of catching in her back which is alleviated by moving her right leg around. Nothing makes her symptoms better, activity or too much risk make it worse. She doesn't sleep well but this is not related to her pain. She occasionally will catch her toes. She walks daily and goes on long walks several times a week. Review of systems is negative for GI, , constitutional symptoms and any other health problems. With the exception of IBS symptoms, headache, shortness of breath related to asthma, and depression without suicidality for which she'sbeen treated. Medications and allergies were updated. Objective: Patient is a 30-year-old female with a stated height of 5 feet 2 inches and stated .7 pounds. Her shoulders and knees appear level to inspection, her right hip appears higher than her left. She is tender in the right buttock and SI joint. She can walk with a nonantalgic gait, toe walk and heel walk without difficulty. Lumbar range of motion is good. She is normals strength sensation and reflexes in the lower extremities. She has positive SI joint dysfunction tests both Fabere maneuver and shear testing. She has no Bella, clonus, and Babinski with downgoing toes and easily palpable distal pulses. There is a report stating that she has a scoliosis concave left however no imaging care. There is also report of a right hip x-ray which was normal but no imaging. The patient is instructed to bring these images on the discs to her pain clinic appointment and to her followup appointment so that we reviewed with her. Assessment: SI joint dysfunction Plan: She will bring her imaging to her pain clinic appointment where we will trial an SI joint injection on the right. She's instructed in the risks and benefits and I've answered all her questions about the injection. I will followup with her 2 weeks after that appointment we will also coordinate a p hysical therapy appointment with her sons appointment or with her followup appointment. I've answered all her questions all review her imaging her next appointment. Greater than 50% of this 45 minute visit was spent in [id number] discussion of present symptoms and future plan of care. documented in this encounter Plan of Treatment Scheduled Referrals Name Type Priority Associated Diagnoses Order S chedule REFERRAL TO PAIN Outpatient Referral Routine Sacroiliac Orde red: CLINIC dysfunction 06/22/2011 REFERRAL TO Outpatient Referral Routine Sacroiliac Ordered: PHYSICAL THERAPY dysfunction 06/22/2011 documented as of this encounter Visit Diagnoses Diagnosis Sacroiliac dysfunction - Primary Disorders of sacrum documented in this encounter Care Teams Heading Maker Relationship Specialty Start Date End Date Sylwia Espana APRN PCP - General 09/06/10 07/26/11 [address] [place] [address] documented as of this encounter
--- OUTSIDE RECORDS SUMMARY | 2022-05-03 15:03 | XMS_ITS | Encounter Summary ---
:1980 [place] [address] Care Team Providers Name Role Phone Sylwia Espana CASSIA Primary Care Provider Encounter Details Date Type Department Care Team Description 07/07/2011 Orders Only Pain Management at Slime Hopkins DO [facility] [place] [address] PAIN CLINIC [phone] [place] [address] (Wo rk) Social History Tobacco Use Types Packs/Day Years Used Date Never Smoker Sex Assigned at Date Recorded Not on file documented as of this encounter Plan of Treatment Not on filedocumented as of this encounter Procedures Procedure Name Priority Date/Time Associated Diagnosis Comme nts FILM LIBRARY Routine 07/07/2011 11:15 AM Results for this STORAGE ONLY PAIN EDT procedure are in CLINIC C ARM the results section. documented in this encounter Results FILM LIBRARY-STORAGE ONLY PAIN CLINIC C-ARM (07/07/2011 11:15 AM EDT) Specimen (Source) Anatomical Collection Method Collection Time Re ceived Time Location / / Volume Laterality 07/07/2011 11:15 AM EDT Narrative RAD - 02/19/2014 12:11 PM EDT This is a non-reportable exam. Procedure Note Alvin Pelaez - 02/19/2014Formatting of t his note might be different from the original. This is a non-reportable exam. Slime A Rosado DO IMG FILM LIBRARY ORDERABLES Performing Organization Address City/State/ZIP Code [facility] e Number DH RAD RAD [address] [address] documented in this encounter Visit Diagnoses Not on filedocumented in this encounter Care Teams Dairy Nutrition Consultant Relationship Specialty Start Date End Date Sylwia Espana APRN PCP - General 09/06/10 07/26/11 [address] [place] [address] documented as of this encounter
--- OUTSIDE RECORDS SUMMARY | 2022-05-03 15:03 | XMS_ITS | Encounter Summary ---
:1980 Author Organization [facility] [place] [address] Care Team Providers Name Role Phone Lakshmi Vicente MD Primary Care Provider Encounter Details Date Type Department Care Team Description 12/07/2014 Office Visit Neurology at [facility] [place] Foster Lynn, Chronic migraine [facility] MD without aura, with [facility] intractable migraine, [place], [place] DR leydi shabazz, without [phone] NEUR[address] DEPT[address] mention of status [phone] [place], [place] [address] migrainosus Social History Tobacco Use Types Packs/Day Years Used Date Never Smoker Smokeless Tobacco: Never Used Alcohol Use Standard Drinks/Week Comments No 0 (1 standard drink = 0.6 oz pure alcoho l) Sex Assigned at Date Recorded Not on file documented as of this encounter Last Filed Vital Signs Vital Sign Reading Time Taken Comments Blood Pressure 137/86 12/07/2014 9:32 AM EST Pulse 100 12/07/2014 9:32 AM EST Temperature - - Respiratory Rate - - Oxygen Saturation - - Inhaled Oxygen Concentration - - Weight 112.2 kg (247 lb 6.4 oz) 12/07/2014 9:32 AM EST Height 154.9 cm (5' 1) 12/07/2014 9:32 AM EST Body Mass Index 46.75 12/07/2014 9:32 AM EST documented in this encounter Progress Notes Foster Lynn MD - 12/07/2014 10:26 AM EST [id number] 50 minutes Lakshmi Vicente Dear , Thank you for asking [facility] Neurology to see your patient, Mirela Lara, a 34 y.o. mother of two. She was seen today in Urgent Clinic where general neurology patients are seen for urgent care. She came to the appointment accompanied by her . The patient has had severe headaches for many years worsening in the past 4 years. She describes the headaches as occurring almost every day, and frequently being so severe that she needs to lie down and she gets nauseated. There are no worrisome symptoms or signs in this patient suggesting mass or other neurologically worrisome process. Many medications have been tried, and she is currently on: Lamictal, Rizatriptan, Propranolo, and Effexor. PMH-positive for severe obesity (BMI of 46.8), diabetes, sacro-iliac pain managed by pain management here at [facility]. A screening exam was negative for a focal deficit. However, I could not see sharp disc margins on her fundoscopic. Impression- migraine headache with possible medication overuse headache as well as possible idiopathic intracranial hypertension. No evidence of more malignant cause like brain tumor, chronic meningitis, etc. Plan- remain on current management for time being. We made an appointment for the patient in headache clinic in two months. Thank you for referring this very nice lady to [facility]. Sincerely, MD Ventura Bahena Professor of Neurology Department of Neurology [facility] [place] [address] At least 35 minutes of this 50 minute face to face visit were spent in discussion of the topics outlined in the note above including diagnosis, therapy, and management issues. documented in this encounter Plan of Treatment Not on filedocumented as of this encounter Results MRI brain WO contrast (12/29/2014 10:20 AM EDT) Anatomical Region Laterality Modality Head Magnetic Resonance Specimen (Source) Anatomical Collection Method Collection Time Re ceived Time Location / / Volume Laterality 12/29/2014 10:20 AM EDT Impressions 12/29/2014 11:14 AM EDT IMPRESSION: No intracranial pathology. This report was reviewed by Woody Rubio MD at 12/29/2014 11:09 AM Film and interpretation reviewed by the attending Narrative 12/29/2014 11:14 AM EDT EXAMINATION: MR Brain without Contrast CLINICAL HISTORY: chronic headaches- sev ere- TECHNIQUE: MRI of the brain was performe d without the use of intravenous contrast COMPARISON: None FINDINGS: The ventricles are normal in size and co ntour. No areas of acute diffusion restriction. There are prominent perivas cular spaces in the bilateral basal ganglia. No mass, mass effect, or midlin e shift. Normal appearance of the castillo-white differentiation. Normal appea alex of the midline structures, posterior fossa, and the craniocervical junction. No aggressive bone marrow process is identified. The paranasal sin uses are well aerated. Procedure Note Woody Hitchcock MD - 12/29/2014Formatt ing of this note might be different from the original. EXAMINATION: MR Brain without Contrast CLINICAL HISTORY: chronic headaches- sev ere- TECHNIQUE: MRI of the brain was performe d without the use of intravenous contrast COMPARISON: None FINDINGS: The ventricles are normal in size and co ntour. No areas of acute diffusion restriction. There are prominent perivas cular spaces in the bilateral basal ganglia. No mass, mass effect, or midlin e shift. Normal appearance of the castillo-white differentiation. Normal appea alex of the midline structures, posterior fossa, and the craniocervical junction. No aggressive bone marrow process is identified. The paranasal sin uses are well aerated. IMPRESSION IMPRESSION: No intracranial pathology. This report was reviewed by Woody Rubio MD at 12/29/2014 11:09 AM Film and interpretation reviewed by the attending Foster Lynn MD IMG MRI ORDERABLES documented in this encounter Visit Diagnoses Diagnosis Chronic migraine without aura, with intr actable migraine, so stated, without mention of status migrainosus Chronic migraine without aura, with intr actable migraine, so stated, without mention of status migrainosus documented in this encounter Care Teams Forensic Analyst Relationship Specialty Start Date End Date Lakshmi Vicente MD PCP - General 07/27/11 04/18/18 [address] [place] [address] documented as of this encounter
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
--- OUTSIDE RECORDS SUMMARY | 2022-05-03 15:03 | XMS_ITS | Encounter Summary ---
:1980 Author Organization [facility] Address [facility] [place] [address] Care Team Providers Name Role Phone Lakshmi Vicente MD Primary Care Provider Reason for Visit Reason Onset Date Comments Eye Problem 07/01/2013 pt to have recurrent corneal erosion, sent from dr kelly office. Patient did not show for 06/23/13 appt, lft message to call to set up [facility] er appt [place] Encounter Details Date Type Department Care Team Description 07/01/2013 Telephone Ophthalmology at [facility] Jani Ribera, Eye Problem (pt to [facility] Hugo [place]rmann [place] [address] [facility] erosion, sent from [phone] DR kelly office. OPHTHALMOLOGY Patient did no t show DEPT. for 06/23/13 appt, lft [place], [place] [address] message to call to set [phone] up another appt israel) (Work) Social History Tobacco Use Types Packs/Day Years Used Date Never Smoker Sex Assigned at Date Recorded Not on file documented as of this encounter Plan of Treatment Not on filedocumented as of this encounter Visit Diagnoses Not on filedocumented in this encounter Care Teams Grapple Operator Relationship Specialty Start Date End Date Lakshmi Vicente MD PCP - General 07/27/11 04/18/18 [address] [place], [place] [id number] documented as of this encounter
== END ==
PROVIDERS: PCP Family Medicine; Visit Provider Family Medicine
DX: M47.26 Other spondylosis with radiculopathy, lumbar region (principal); Z87.828 Personal history of other (healed) physical injury and trauma
CPT/HCPCS: 72110

== ENCOUNTER 2023-06-07 17:45 | Outpatient (REF) | payer MEDICAID, SELFPAY ==
--- NOTE | 2023-06-07 17:15 | PAPFT_PTH ---
PATIENT: Mirela Lara LOC: [facility]#:[id number] AGE/SX: 42/F ROOM: RE06/07/[address]: Woody Ryan : 1980 BED: DIS: 06/07/2023 SPEC #: [id number] RECD: 06/07/23 18:17 STATUS: CUCA REQ #: [id number] DEANDRA: 06/07/23 17:[address]: Woody Ryan DEPT: [facility] Cytology RECD BY: Deb Pollack ENTERED: 06/07/23 18:17 SP TYPE: PAPFT OTHR DR: Lakshmi Vicente V Tissues: 1 - CX/ENDOCX FOR PAP SMEARS Procedures: PAP THIN PREP/UVM Screening HPV DNA PROBE Comments: [id number]
[2023-06-07 19:04] LABS: HCT 41.5 % (36.0-46.0); HGB 13.6 g/dL (11.2-15.7); MCH 28.2 pg (27.0-33.0); MCHC 32.8 % (32.0-36.0); MCV 86 fL (80-95); MPV 9.7 fL (8.0-11.0); Platelet Count 417 10^3/uL (130-400); RBC 4.82 10^6/uL (3.93-5.22); RDW 12.3 % (11.7-14.6); RDW-SD 38.7 fL; WBC 10.72 10^3/uL (4.4-10.8)
[2023-06-07 19:14] LABS: ALT 22 U/L (14-59); AST 13 U/L (15-37); Albumin 3.4 g/dL (3.4-5.0); Alkaline Phosphatase 63 U/L (46-116); BUN 20 mg/dL (7-18); Bilirubin, Total 0.3 mg/dL (0.2-1.0); CREATININE 1.1 mg/dL (0.55-1.02); Calcium 8.7 mg/dL (8.5-10.1); Calculated LDL 159 mg/dL (<100); Chloride 102 mmol/L (98-107); Cholesterol 231 mg/dL (<200); Estimated GFR 63.94 (mL/min/1.73m2); Glucose 111 mg/dL (74-106); HDL Cholesterol 43 mg/dL (40-60); Magnesium 1.7 mg/dL (1.8-2.4); Sodium 137 mmol/L (136-145); Total Protein 7.2 g/dL (6.4-8.2); Triglyceride 145 mg/dL (<150)
[2023-06-07 19:15] LABS: Iron 50 ug/dL (50-170); Total Iron Binding Capacity 390 ug/dL (250-450); Transferrin Sat 13 % (15-50)
[2023-06-07 19:34] LABS: Vitamin D 25 Total 50.9 ng/mL (30-100)
[2023-06-07 19:40] LABS: Hemoglobin A1C 5.4 % (<5.7)
[2023-06-11 10:42] LABS: Hepatitis C Ab w Rflx HCV PCR Negative (Negative)
== END 2023-06-07 17:46 | disposition home or self-care (01) ==
LOC: NCHCN 17:45
PROVIDERS: PCP Family Medicine; Visit Provider Family Medicine
DX: Z12.4 Encounter for screening for malignant neoplasm of cervix (principal); Z00.00 Encounter for general adult medical examination without abnormal findings; E83.42 Hypomagnesemia; E11.9 Type 2 diabetes mellitus without complications; Z86.2 Personal history of diseases of the blood and blood-forming organs and certain disorders involving the immune mechanism
CPT/HCPCS: 80053; 80061; 82306; 85027; 86803; 88142; 83036; 83540; 83550; 83735; 87624

== ENCOUNTER 2024-06-09 12:53 | Emergency (ER) | payer MEDICAID, SELFPAY ==
[2024-06-09 12:56] VITALS: BP 161/120; PULSE 85; RESP 15; TEMP 37.1; O2SAT 98
[2024-06-09 13:43] LABS: Abs Immature Grans 0.08 10^3/uL (0.0-0.06); Absolute Lymphocyte Count 2.76 10^3/uL (1.2-3.4); Absolute Monocyte Count 1.55 10^3/uL (0.1-0.8); Basophils % 0.6 %; Eosinophils % 0.6 %; HCT 41.3 % (36.0-46.0); HGB 13.6 g/dL (11.2-15.7); Immature Grans % 0.5 %; Lymphocytes % 17.1 %; MCH 28.5 pg (27.0-33.0); MCHC 32.9 % (32.0-36.0); MCV 87 fL (80-95); MPV 9.2 fL (8.0-11.0); Monocytes % 9.6 %; Neutrophils % 71.6 %; Platelet Count 363 10^3/uL (130-400); RBC 4.77 10^6/uL (3.93-5.22); RDW 12.6 % (11.7-14.6); RDW-SD 39.9 fL; WBC 16.16 10^3/uL (4.4-10.8)
[2024-06-09 13:44] LABS: Absolute Neutrophil Count 11.57 10^3/uL (1.2-6.7)
[2024-06-09 14:00] LABS: ALT 17 U/L (14-59); AST 10 U/L (15-37); Albumin 3.5 g/dL (3.4-5.0); Alkaline Phosphatase 62 U/L (46-116); Anion Gap 7.8 mmol/L (3-11); BUN 12 mg/dL (7-18); Bilirubin, Total 0.46 mg/dL (0.2-1.0); CO2 27.2 mmol/L (21.0-32.0); CREATININE 0.9 mg/dL (0.55-1.02); Calcium 9.2 mg/dL (8.5-10.1); Chloride 100 mmol/L (98-107); Estimated GFR 80.84 (mL/min/1.73m2); Glucose 113 mg/dL (74-106); Sodium 135 mmol/L (136-145)
[2024-06-09 14:02] LABS: Diff Comment Diff Reviewed; RBC Morphology Normal
--- OUTSIDE RECORDS SUMMARY | 2024-06-09 14:05 | XMS_ITS | Encounter Summary ---
Author Organization [facility] [place] [address] Care Team Providers Care Heel Sprayer Name Role Phone Olivia Best MD Primary Care Provider [phone] Encounter Details Date Type Department Care Team (Late st Contact Info) Description 05/12/2021 Telephone Ophthalmology at [facility] [place] [phone] Tamiko Lozoya, [facility] [place] [address] Social History Tobacco Use Types Packs/Day Years Used Date Smoking Tobacco: Never Smokeless Tobacco: Never Alcohol Use Standard Drinks/Week Comments No 0 (1 standard drink = 0.6 oz pur e alcohol) Sex and Gender Information Value Date Recorded Sex Assigned at Not on file Gender Identity Not on file Sexual Orientation Not on file documented as of this encounter Miscellaneous Notes * Telephone Encounter - Laverne Linares - 05/12/2021 11:04 AM EDT Called patient and explained again that we cannot give out glasses Rx. I asked if she went back to the place she had them made. She stated that [facility] bought out the optical shop.I offered to call Beckiejasen to see if they would accept an Rx. She wanted to hold while I called. I placed patient on hold, called [facility], they put me on hold to find out. When they came back, they said they could not accept it. They did say she has an appt next week for her to come in. I thanked them and went back to pt. I explained that they will not accept an Rx. She said Fine.I will just ask Duane to print it from his computer. I apologized and she hung up. * Telephone Encounter - Dottie Childs - 05/12/2021 10:12 AM EDT Pt called asking for glasses RX, told her I can not give her an RX Pt was upset stating she broke her glasses & has no way to get to [facility] Told pt it is illegal for us to give out RX, offered to make appt, pt did not like the timeI was trying to get her in for Sept with [facility], I asked if there was someone local that she could see,pt was upset & asked to speak with my boss, transferred to Laverne Helm voice mail. documented in this encounter Plan of Treatment Not on file documented as of this encounter Visit Diagnoses Not on filedocumented in this encounter Care Teams Heel Sprayer Relationship Specialty Start Date End Date Olivia Best MD [address] [place] [address] PCP - General Family Medicine 12/23/20 documented as of this encounter
--- OUTSIDE RECORDS SUMMARY | 2024-06-09 14:05 | XMS_ITS | Encounter Summary ---
Author Organization [facility] [place] [address] Care Team Providers Care Habitat Management Coordinator Name Role Phone Unavailable Primary Care Provider Unavailabl e Reason for Visit * High Dollar Medication (Routine) - Specialty Diagnoses / Procedures Referred By Contac t Referred To Contact Neurology Diagnoses Chronic migraine without aura without status migrainosus, not intractable Procedures Auth Request for Medication TC ONABOTULINUMTOXINA, 1 UNIT, INJECTION Jill French APRN [facility] [place] [address] [facility] [address] [place] [address] Referral ID Status Reason Start Date Expiration Date V isits Requested Visits Authorized [id number] Consult, Test & Treat 07/20/2016 07/04/2019 13 13 Encounter Details Date Type Department Care Team (Late st Contact Info) Description 09/23/2018 3:30 PM EST [place] [address] Jair Perez MD [facility] [place] [address] Chronic migraine without aura, with intractable migraine, so stated, with status migrainosus (Primary Dx) Social History Tobacco Use Types Packs/Day Years [...] Sign Reading Time Taken Comments Blood Pressure 135/74 09/23/2018 3:24 PM EST Pulse 95 09/23/2018 3:24 PM EST Temperature - - Respiratory Rate - - Oxygen Saturation - - Inhaled Oxygen Concentration - - Weight 103 kg (227 lb) 09/23/2018 3:24 PM EST Height 156.2 cm (5' 1.5) 09/23/2018 3:24 PM EST reported Body Mass Index 42.2 09/23/2018 3:24 PM EST documented in this encounter Progress Notes * Jair Perez MD - 09/23/2018 3:30 PM EST BOTOX PREEMPT PROTOCOL 09-23-18 Total headache days per month: 31 Total days headache free per month: 0 Severity of headaches: 04/23 Botox effective: Yes, she was going to the ER at least weekly, she was bedridden 4 days per week, now has a bad VIEIRA every 2 weeks and is functional. MIDAS today: 42 The risks, benefits and anticipated outcomes of the procedure, the risks and benefits of the alternatives to the procedure, and the roles and tasks of the personnel to be involved, were discussed with the patient. The patient has given written informed consent to the procedure and agrees to proceed. Yes, Informed consent in chart and reaffirmed verbally today. Jair Perez MD UNIVERSAL PROTOCOL / SAFETY CHECKLIST Procedure to be performed: Botox for Chronic Intractable Migraine Sign in Communication: 3.40 PM Time Out: Team Confirms the Correct Patient, Correct Procedure, Correct Site and Site Marking, Correct Position (if applicable), Prep and Dry Time (if applicable). Time: 3.45 Pm Affirmation of Time Out: 3.50 PM Sign Out Discussion: Jair Perez MD Treatment # 12 Lot #:[id number] Exp: Jan 2021 Dilution: 1:4 Diluent: Normal Saline Indication: Chronic Intractable Migraine without status migrainosus Injection SItes Muscle Fixed Site/Fixed Dose Astronomy Professor 10 Units divided in 2 sites Procerus 5 Units in 1 site Frontalis 20 Units divided in 4 sites Temporalis 40 Units divided in 8 sites Occipitalis 30 Units divided in 6 sites Cervical PSPs 20 Units divided in 4 sites Trapezius 30 Units divided in 6 sites Subtotals 155 Units Total Units used: 155 Total Units wasted: 45 Patient did tolerate the procedure. Jair Perez MD documented in this encounter Plan of Treatment Not on file documented as of this encounter Visit Diagnoses Diagnosis Chronic migraine without aura, with intractable migraine, so stated, with status migrainosus- Primary documented in this encounter Administered Medications Inactive Administered Medications - up to 3 most recent administrations Medication Order MAR Action Action Date Dose Rate Site botulinum toxin type A (BOTOX) injection 200 Units 200 Units, Intramuscular, ONCE, 1 dose, On Sun09/23/18 at 1600, Routine Given 09/23/2018 3:39 PM EST 155 Units 20-Other (document in comment section) documented in this encounter
--- OUTSIDE RECORDS SUMMARY | 2024-06-09 14:05 | XMS_ITS | Encounter Summary ---
Author Organization [facility] Address [facility] [place] [address] Care Team Providers Care Church Musician Name Role Phone RigobertoHarper calderón Solange ANTONY Primary Care Provider [phone] Reason for Visit * Reason Comments Botox Injection Migraine * High Dollar Medication (Routine) - Specialty Diagnoses / Procedures Referred By Keisha singh Referred To Contact Neurology Diagnoses Chronic migraine without aura without status migrainosus, not intractable Procedures Auth Request for Medication TC ONABOTULINUMTOXINA, 1 UNIT, INJECTION Jill French APRN [facility] [place] [address] [place] [address] [facility] [address] [place] [address] Referral ID Status Reason Start Date Expiration Date V isits Requested Visits Authorized [id number] Consult, Test & Treat 07/20/2016 07/04/2019 13 13 Encounter Details Date Type Department Care Team (Late st Contact Info) Description 12/17/2018 2:40 PM EST [place] [address] Silke Pollack MD [facility] [address] [place] [address] Chronic migraine without aura, with intractable migraine, so stated, with status migrainosus Social History Tobacco Use Types Packs/Day [...] Sign Reading Time Taken Comments Blood Pressure 153/107 12/17/2018 2:51 PM EST Pulse 109 12/17/2018 2:51 PM EST Temperature - - Respiratory Rate - - Oxygen Saturation - - Inhaled Oxygen Concentration - - Weight - - Height - - Body Mass Index - - documented in this encounter Procedure Notes * Silke Pollack MD - 12/17/2018 2:40 PM ESTAssociated Order(s): CHEMODENERVATION, MEDICAL Neurology Procedure note Date: 12/17/2018 Patient: Mirela Lara : 1980 Procedure: Botox injections (PREEMPT protocol) - q 12 weeks Indications: Chronic Migraine Date Procedure MIDAS 12/17/2018 Botox - 185 units 27, 60/90 VIEIRA days, 1-2/10 VIEIRA intensity Risk and benefits were explained to the patient. Written consent was obtained - 12/17/2018 The patient is not or planning on getting in the next 4 months, she is not nursing, has no known allergy to albumin. Control: hysterectomy Time out was preformed OnabotulinumtoxinA was reconstituted [...] units divided between 2 sites in the marketing senior recruiter muscles, 5 units into 1 site in the procerus muscle, 40 units divided between 8 sites in the temporalis muscles, 30 units divided between 6 sites in the occipital region, 20 units divided between 4 sites in the cervicalparaspinal musculature, and 30 units divided between 6 sites in the trapezii. Additional 30 units was administered over 6 sites per the follow the pain portion of the PREEMPT protocol 15 units over 3 sites in the right temporalis muscle 15 units over 3 sites in the right occipitalis muscle Total units used= 185. Total injection sites=37. Patient was injected with 185 units and 15 units were wasted/disgarded The patient tolerated the procedure without any immediate complications. References: Roger Ramon, et al. (2010). OnabotulinumtoxinA for treatment of chronic migraine: results from the double-blind, randomized, placebo-controlled phase of the PREEMPT 1 trial. Cephalalgia 30(7): 793-803. Yanet Constantino, et al. (2010). Method of injection of onabotulinumtoxinA for chronic migraine: a safe, well-tolerated, and effective treatment paradigm based on the PREEMPT clinical program. Headache 50(9): 2957-9058. Salome Jensen, et al. (2010). OnabotulinumtoxinA for treatment of chronic migraine: results from the double-blind, randomized, placebo-controlled phase of the PREEMPT 2 trial. Cephalalgia 30(7): 804-814. Silke Pollack MD [facility] Neurology Migraine Disability Assessment # of days in the past 3 months 1. Missed work / school because of VIEIRA 10 2. Productivity at work / school reduced by > half because of VIEIRA (do not count days from Q.1) 10 3. Did not do housework because of VIEIRA 2 4. Productivity in household work reduced by > half because of VIEIRA (do not count days from Q.3) 5 5. Missed family / social / leisure activities because of VIEIRA 0 Total 27 MIDAS grade (use total of Q1 to 5) I: 0-5, little to no disability II: 6-10, mild disability III: 11-20, moderate disability IV: 21+, severe disability A. # of days in the last 3 months with a VIEIRA (count each day if VIEIRA lasted > 1 day) 60 B. Average VIEIRA intensity (0-10) 1-2 documented in this encounter Plan of Treatment Not on file documented as of this encounter Procedures Procedure Name Priority Date/Time Associated Diagnosis Comments CHEMODENERVATION, MEDICAL Routine 12/17/2018 2:40 PM EST documented in this encounter Results * Chemodenervation, medical (12/17/2018 2:40 PM EST) Narrative Silke Pollack MD - 12/17/2018 2:40 PM EST Silke Pollack MD ? 12/17/2018 ??4:26 PM Neurology Procedure note Date: 12/17/2018 Patient: Mirela Lara : ??1980 Procedure: Botox injections (PREEMPT protocol) - q 12 weeks Indications: Chronic Migraine Date ??Procedure ?? MIDAS 12/17/2018 ??Botox - 185 units ?? 27, 60/90 VIEIRA days, 1-2/10 VIEIRA intensity Risk and benefits were explained to the patient. Written consent was obtained - 12/17/2018 The patient is not or planning on getting in the next 4 months, she is not nursing, has no known allergy to albumin. Control: hysterectomy Time out was preformed OnabotulinumtoxinA was reconstituted [...] units divided between 2 sites in the marketing senior recruiter muscles, 5 units into 1 site in the procerus muscle, 40 units divided between 8 sites in the temporalis muscles, 30 units divided between 6 sites in the occipital region, 20 units divided between 4 sites in the cervical paraspinal musculature, and 30 units divided between 6 sites in the trapezii. Additional 30 units was administered over 6 sites per the follow the pain portion of the PREEMPT protocol 15 units over 3 sites in the right temporalis muscle 15 units over 3 sites in the right occipitalis muscle Total units used= 185. Total injection sites=37. Patient was injected with 185 units and 15 units were wasted/disgarded The patient tolerated the procedure without any immediate complications. References: Roger Ramon, et al. (2010). OnabotulinumtoxinA for treatment of chronic migraine: results from the double-blind, randomized, placebo-controlled phase of the PREEMPT 1 trial. Cephalalgia 30(7): 793-803. Yanet Constantino, et al. (2010). Method of injection of onabotulinumtoxinA for chronic migraine: a safe, well-tolerated, and effective treatment paradigm based on the PREEMPT clinical program. Headache 50(9): 2254-9856. Salome Jensen, et al. (2010). OnabotulinumtoxinA for treatment of chronic migraine: results from the double-blind, randomized, placebo-controlled phase of the PREEMPT 2 trial. Cephalalgia 30(7): 804-814. Silke Pollack MD [facility] Neurology Migraine Disability Assessment # of days in the past 3 months 1. Missed work / school because of VIEIRA 10 2. Productivity at work / school reduced by > half because of VIEIRA (do not count days from Q.1) 10 3. Did not do housework because of VIEIRA 2 4. Productivity in household work reduced by > half because of VIEIRA (do not count days from Q.3) 5 5. Missed family / social / leisure activities because of VIEIRA 0 Total 27 MIDAS grade (use total of Q1 to 5) I: 0-5, little to no disability II: 6-10, mild disability III: 11-20, moderate disability IV: 21+, severe disability A. # of days in the last 3 months with a VIEIRA (count each day if VIEIRA lasted > 1 day) 60 B. Average VIEIRA intensity (0-10) 1-2 Silke Pollack MD PROCEDURE/MINOR SURG ICAL ORDERABLES documented in this encounter Visit Diagnoses Diagnosis Chronic migraine without aura, with intractable migraine, so stated, with status migrainosus documented in this encounter Administered Medications Inactive Administered Medications - up to 3 most recent administrations Medication Order MAR Action Action Date Dose Rate Site botulinum toxin type A 200 unit injection 200 Units, Intramuscular, ONCE, On Sun12/17/18 at 1530, 1 dose Given 12/17/2018 4:22 PM EST 185 Units documented in this encounter Care Teams Church Musician Relationship Specialty Start Date End Date Harper Andrade APRN PCP - General Family Medicine 12/17/18 12/22/20 documented as of this encounter
--- OUTSIDE RECORDS SUMMARY | 2024-06-09 14:05 | XMS_ITS | Referral Summary ---
Author Organization [facility] Address [address] [place] [address] Care Team Providers Care Septic Tank Setter Name Role Phone Unavailable Primary Care Provider Unavailabl e Social History Tobacco Use Types Packs/Day Years Used Date Smoking Tobacco: Never Assessed Sex and Gender Information Value Date Recorded Sex Assigned at Not on file Gender Identity Not on file Sexual Orientation Not on file Plan of Treatment Not on file Procedures Procedure Name Priority Date/Time Associated Diagnosis Comments HEPATITIS C AB W REFLEX TO HCV RNA BY PCR Routine 06/07/2023 17:00 EDT from Last 3 Months or Most Recently Relevant to Health Maintenance Results * HEPATITIS C AB W REFLEX TO HCV RNA BY PCR (06/07/2023 17:00 EDT) Hep C Antibody Negative Negative 06/11/2023 10:36 EDT [facility] Blood VENOUS BLOOD / Unknown 06/07/2023 17:00 EDT 06/08/2023 18:03 EDT Provider Outr Resulting Lab CHEMISTRY & BLOOD GAS ORDERABLES [facility] [address] [place] [address] from Last 3 Months or Most Recently Relevant to Health Maintenance
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
--- OUTSIDE RECORDS SUMMARY | 2024-06-09 14:05 | XMS_ITS | Encounter Summary ---
Author Organization [facility] [place] [address] Care Team Providers Care Director Software Development Name Role Phone Unavailable Primary Care Provider Unavailabl e Reason for Visit * Reason Onset Date Comments Medication Refill 09/18/2018 Encounter Details Date Type Department Care Team (Late st Contact Info) Description 09/18/2018 [place] [address] Jeaneth Ozuna, MOLECULAR GENETIC PATHOLOGIST [facility] [place] [address] Migraine with aura and without status migrainosus, not intractable Social History Tobacco Use Types Packs/Day Years [...] Diagnosis Migraine with aura and without status migrainosus, not intractable Migraine with aura, without mention of intractable migraine without mention of status migrainosus documented in this encounter
--- OUTSIDE RECORDS SUMMARY | 2024-06-09 14:05 | XMS_ITS | Encounter Summary ---
Author Organization [facility] Address [address] [place] [address] Care Team Providers Care Sketch Artist Name Role Phone Unavailable Primary Care Provider Unavailabl e Encounter Details Date Type Department Care Team (Late st Contact Info) Description 06/08/2023 Lab Requisition [facility] Pathology & Laboratory Medicine - [facility] [address] [place] [address] Woody Ryan MD [address] [place], [place] [id number] Encounter for other general examination Social History Tobacco Use Types Packs/Day Years Used Date Smoking Tobacco: Never Assessed Sex and Gender Information Value Date Recorded Sex Assigned at Not on file Gender Identity Not on file Sexual Orientation Not on file documented as of this encounter Plan of Treatment Not on file documented as of this encounter Procedures Procedure Name Priority Date/Time Associated Diagnosis Comments PAP TEST Today 06/07/2023 17:15 EDT Encounter for other general examination HPV DNA DETECTION WITH GENOTYPING, PCR Today 06/07/2023 17:15 EDT Encounter for other general examination documented in this encounter Results * HUMAN PAPILLOMAVIRUS (HPV) DETECTION-HIGH RISK TYPES (06/07/2023 17:15 EDT) HPV other High Risk types, PCR Negative Negative 06/14/2023 15:05 EDT [facility] Comment:No E6 or E7 mRNA is detected from HPV types 16,18,31,33,35,39,45,51,52,56,58,59,66, and 68 by aeronautical engineering professor mediated amplification. Pap Test CERVIX UTERI STRUCTURE / Unknown 06/07/2023 17:15 EDT 06/13/2023 12:45 EDT Woody Ryan MD MICROBIOLOGY - GENER AL ORDERABLES Performing Organization Address City/[facility]/ZIP Co de Phone Number [facility] [address] [place] [address] * PAP TEST (06/07/2023 17:15 EDT) Specimens A. Cervix and/or Endocervix , ThinPrep Imaging System with Manual Evaluation 06/14/2023 15:05 EDT [facility] Specimen Adequacy Satisfactory for Evaluation - transformation zone component present 06/14/2023 15:05 EDT [facility] General Categorization Negative for intraepithelial lesion or malignancy 06/14/2023 15:05 T [facility] Attestation . 06/14/2023 15:05 [id number] at 1505 Clinical History See below 06/14/20 15:05 T [facility] HPV The result for the Human Papillomavirus (HPV) Detection-High Risk Types is Negative. No E6 or E7 mRNA is detected from HPV types 16,18,31,33,35,39 ,45,51,52,56,58,5 9,66, and 68 by aeronautical engineering professor mediated amplification.Brianna ting was performed on specimen [id number] and was resulted on 06/14/2023 1505 EDT by BEATRIZ, LAB INSTRUMENT RESULTS IN 06/14/2023 15:05 EDT [facility] Performing Lab [facility] 06/14/2023 15:05 EDT [facility] Scanned Images 06/14/2023 15:05 EDT [facility] Pap Test CERVIX UTERI STRUCTURE / Unknown 06/07/2023 17:15 EDT 06/08/2023 11:37 EDT Woody Ryan MD PATHOLOGY ORDERABLES Performing Organization Address City/[facility]/ZIP Co de Phone Number [facility] [address] [place] [address] documented in this encounter Visit Diagnoses Diagnosis Encounter for other general examination documented in this encounter
--- OUTSIDE RECORDS SUMMARY | 2024-06-09 14:05 | XMS_ITS | Encounter Summary ---
Author Organization [facility] [place] [address] Care Team Providers Care Coke Wheeler Name Role Phone Harper Andrade APRN Primary Care Provider [phone] Reason for Visit * Reason Comments Other diverse complaints s ee note Encounter Details Date Type Department Care Team (Late st Contact Info) Description 03/23/2019 11:02 PM EDT - 03/24/2019 9:49 AM EDT [place] [address] Prem Ryder MD [facility] [place] [address] Cecilio Clifton MD [facility] [place] [address] Fatigue, unspecified type; Malaise Discharge Disposition: Home Social History Tobacco Use Types Packs/Day Years [...] 36.6 ??C (97.9 ??F) 03/24/2019 7:01 AM ED T Respiratory Rate 16 03/24/2019 7:01 AM EDT Oxygen Saturation 96% 03/24/2019 7:01 AM EDT Inhaled Oxygen Concentration - - Weight - - Height - - Body Mass Index - - documented in this encounter Discharge Instructions * Discharge Instructions* Eugene Zhu - 03/24/2019 5:39 AM EDT You were seen in the emergency department for feeling generally unwell. At this time, your evaluation is been grossly reassuring. Please follow-up with your PCP concerning today's visit to monitor your symptoms and update medical records. * Attachments The following attachments cannot be sent through Care Everywhere. * Fatigue (Divehi) documented in this encounter Medications at Time of Discharge Medication Sig Dispensed Refills Start Date End Date acetaZOLAMIDE (DIAMOX) 500 mg Capsule, Sustained ReleaseIndications:IIH (idiopathic intracranial hypertension) Take 1 capsule by mouth 2 times daily. 60 capsule 1 01/22/2019 ZOLMitriptan (ZOMIG) 5 mg Shoshone, Non-AerosolIndications: Migraine with aura and without status migrainosus, not intractable With head between knees, administer 1 spray in 1 nostril. May repeat x1 after 2 hours if needed. NTE 10mg per day or 2 days per week. 12 each 3 10/17/2018 oxyCODONE (ROXICODONE) 10 mg Tablet Take 1 tablet by mouth every 6 hours as needed for Pain. For chronic knee pain. 112 tabs every 28 days. 0 01/22/2018 buPROPion (WELLBUTRIN SR OR ZYBAN) 150 mg Tablet Sustained Release 12 hr Take 150 mg by mouth 2 times daily. 01/16/2018 hydrOXYzine (VISTARIL) 25 mg CapsuleIndications:Migr bhavin with aura and without status migrainosus, not intractable Take 1 capsule by mouth 2 times daily. 60 capsule 11 12/05/2017 OnabotulinumtoxinA (BOTOX) 200 unit Recon Soln Inject 155 Units as directed Every 12 weeks. rOPINIRole (REQUIP) 0.25 mg Tablet Take 0.25 mg by mouth nightly. propranolol (INDERAL) 60 mg Tablet Take 60 mg by mouth 2 times daily. Naproxen Sodium 750 mg Tab, Multiphasic Release 24 hr Take 1,500 mg by mouth as needed. traZODone (DESYREL) 100 mg Tablet Take 200 mg by mouth nightly. lamoTRIgine (LAMICTAL) 100 mg Tablet Take 100 mg by mouth every evening. lamoTRIgine (LAMICTAL) 150 mg Tablet Take 150 mg by mouth every morning. prazosin (MINIPRESS) 2 mg Capsule Take 2 mg by mouth nightly. celecoxib (CELEBREX) 200 mg Capsule Take 200 mg by mouth 2 times daily. omeprazole (PRILOSEC) 40 mg Capsule, Delayed Release(E.C.) Take 40 mg by mouth 2 times daily. Cholecalciferol, Vitamin D3, (VITAMIN D-3) 5,000 unit Tablet Take 1 tablet by mouth daily. venlafaxine (EFFEXOR-XR) 150 mg Capsule, Sust. Release 24 hr Take 300 mg by mouth daily. metFORMIN (GLUCOPHAGE) 850 mg Tablet Take 850 mg by mouth 2 times daily (with meals). montelukast (SINGULAIR) 10 mg tablet Take 10 mg by mouth nightly. Echinacea 400 mg Cap Take 400 mg by mouth 2 times daily. MULTIVITAMIN (DAILY VITAMIN ORAL) Take 1 tablet by mouth daily. albuterol (PROVENTIL HFA;VENTOLIN HFA) 90 mcg/Actuation inhaler Inhale 2 puffs into the lungs every 4 hours as needed. Use with spacer documented as of this encounter ED Notes * Augustina Tan RN - 03/24/2019 6:59 AM EDT Pt refuses to sign for discharge, states can't read instructions. Gave pts glasses to her and offered to turn on lights, offered to read them to her but pt refused. Pt refuses to leave. Dr. Ryder aware. * Augustina Tan RN - 03/24/2019 12:20 AM EDT Pt whispering to self repeatedly. * Eugene Zhu - 03/23/2019 11:42 PM EDT [...] complaints. Patient states that she has chronic migraine and her headache is worse than usual [...] signs, which demonstrates patient is hypertensive, tachycardic, afebrile,saturating well on room air. Physical Exam: Physical [...] exhibits no distension. There is no tenderness. Thereis no guarding. Genitourinary: Genitourinary Comments: Negative CVA tenderness bilaterally. Musculoskeletal: She exhibits no edema or deformity. Neurological: She is alert and oriented to person, place, and time. No cranial nerve deficit. Cranial nerves II through XII intact, face symmetrical, tongue midline. Sensation light touch intact and symmetrical in upper and lower extremities bilaterally. Strength 5 out of 5 in accounting officer strength, biceps, triceps, ankle flexion extension. Skin: [...] the patient does not have any clinical correlationwith these findings. Additionally, no previous chest x-ray is available at this time for evaluationof baseline. The patient states that she has [...] the resident physician. I have independently performed thekey portions of the history and physical exam. I have personally reviewed nursing notes, vital signs, and diagnostic studies including labs, imaging studies and EKGs. I have discussed the details of the case with the resident and agree with the assessment and plan as described in the resident's note. Briefly, 38 y.o. female who presents with generally feeling unwell with not eating or drinking well. She has a reassuring physical exam. Labs notable for hypokalemia and an elevated BOHB likely from decreased PO intake. She was treated with IVF and supplemental potassium. Stable for discharge. documented in this encounter Miscellaneous Notes * ED Triage - Isabela Rojas RN - [...] Procedure Name Priority Date/Time Associated Diagnosis Comments POCT GLUCOSE Routine 03/24/2019 2:25 AM EDT POCT GLUCOSE Routine 03/24/2019 1:01 AM EDT BLOOD GAS VENOUS POC Routine 03/24/2019 12:40 AM EDT EKG 12-LEAD STAT 03/24/2019 12:29 AM EDT XR CHEST PA AND LATERAL STAT 03/24/20 19 12:11 AM EDT STOUT TUBE HOLD STAT 03/23/2019 11:59 PM EDT HEMOGRAM STAT 03/23/2019 11:59 PM EDT DIFFERENTIAL, AUTOMATED STAT 03/23/20 19 11:59 PM EDT GOLD TUBE HOLD STAT 03/23/2019 11:59 PM EDT BETA HYDROXYBUTYRATE STAT 03/23/2019 11:59 PM EDT APTT STAT 03/23/2019 11:59 PM EDT PROTHROMBIN TIME STAT 03/23/2019 11:5 9 PM EDT CBC (WITH DIFF) STAT 03/23/2019 11:59 PM EDT TSH STAT 03/23/2019 11:59 PM EDT LIPASE STAT 03/23/2019 11:59 PM EDT HEPATIC FUNCTION PANEL STAT 9 11:59 PM EDT BASIC METABOLIC PANEL STAT 03/23/2019 11:59 PM EDT documented in this encounter Results * POCT Glucose (03/24/2019 2:25 AM EDT) Glucose, POC 87 65 - 199 mg/dL [facility] Comment: Supplemental ranges: <140 mg/dL before meals <180 mg/dL all other times of the day Blood specimen (specimen) 03/24/2019 2:25 AM EDT 03/24/2019 2:25 AM EDT Prem Ryder MD POINT OF CARE TEST ORDERABLES Performing Organization Address City/State/[facility] Co de Phone Number [facility] [place] [address] * POCT Glucose (03/24/2019 1:01 AM EDT) Glucose, POC 81 65 - 199 mg/dL [facility] Comment: Supplemental ranges: <140 mg/dL before meals <180 mg/dL all other times of the day Blood specimen (specimen) 03/24/2019 1:01 AM EDT 03/24/2019 1:01 AM EDT Prem Ryder MD POINT OF CARE TEST ORDERABLES [facility] [place] [address] * (ABNORMAL) BLOOD GAS 2 VENOUS (03/24/2019 12:40 AM EDT) pH, Venous 7.39 7.32 - 7.42 [facility] PCO2, Venous 41 41 - 51 mmHg [facility] PO2, Venous 40 25 - 40 mmHg [facility] Bicarbonate, Venous 24.0 mmol/L [facility] Base Excess, Venous -1.0 mmol/L [facility] Hgb Blood Gas 13.8 11.7 - 15.5 gm/dL [facility] Oxyhemoglobin, Venous 72.9 % [facility] Carboxyhemoglob in, Venous 0.4 % [facility] Comment: Nonsmokers: 0.5-1.5% COHB Smokers: Variable, but usually less than 10% Toxic: 20-30% COHB Lethal: Greater than 60% COHB Methemoglobin, Venous 0.3 <=1.5 % [facility] Na Whole Blood 140 135 - 145 mmol/L [facility] K Whole Blood 2.8(Critic al) 3.5 - 5.0 mmol/L [facility] Comment: Noted by instrument assembly supervisor. Please note: Patients with WBC >100,000 may have falsely elevated Potassium levels. Contact the Clinical Chemistry Laboratory if there are any questions. ICa Whole Blood 1.23 1.15 - 1.33 mmol/L [facility] Comment: Note: ??Total bilirubin higher than 20 mg/dL may lead to falsely low ionized calcium. CL Whole Blood 99 98 - 107 mmol/L [facility] Gluc Whole Bld 91 65 - 199 mg/dL [facility] Comment:Diabetes: >=200 mg/d L plus symptoms Lactate WB 1.2 0.5 - 2.2 mmol/L [facility] Blood Gas Source Venous [facility] Blood specimen (specimen) 03/24/2019 12:40 AM EDT 03/24/2019 12:40 AM EDT Prem Ryder MD POINT OF CARE TEST ORDERABLES Performing Organization Address City/[facility]/ZIP Co de Phone Number [facility] [place] [address] * EKG 12 Lead (03/24/2019 12:29 AM EDT) Ventricular rate 115 BPM MUSE SYSTEM Atrial Rate 115 BPM MUSE SYSTEM P-R Interval 142 ms MUSE SYSTEM QRS Duration 88 ms MUSE SYSTEM Q-T Interval 360 ms MUSE SYSTEM QTC Calculated (Bezet) 498 ms MUSE SYSTEM Calculated P [place] 46 degrees MUSE SYSTEM Calculated R [place] 18 degrees MUSE SYSTEM Calculated T [place] 15 degrees MUSE SYSTEM INTERPRETATION Sinus tachycardia Abnormal ECG No previous ECGs available Confirmed by MD Neyda, Antonio Kirkpatrick ([id number]) on 03/24/2019 8:08:21 AM MUSE SYSTEM 03/24/2019 12:2 9 AM EDT 03/24/2019 8:08 AM EDT Prem Ryder MD ECG ORDERABLES Performing Organization Address City/[facility]/ZIP Co de Phone Number MUSE SYSTEM * XR Chest PA & Lateral (Generic) (03/24/2019 12:11 AM EDT) Anatomical Region Laterality Modality Chest N/A Digital Radiogra phy Impressions 03/24/2019 1:25 AM EDT FINDINGS/IMPRESSION: Perihilar fullness and peribronchial thickening at the RIGHT hilar/infrahilar region may be infectious/inflammatory; additionally, there may be also a patchy opacity the medial RIGHT middle lobe medially (as the RIGHT heart border not well delineated) concerning for pneumonia which should be followed to resolution. No pneumothorax or pleural effusion seen. Nonenlarged cardiopericardial silhouette. Preliminary report signed by: Dheeraj Cisneros at 03/24/2019 1:23 AM I have personally reviewed the image(s) and the residents interpretation and agree with the findings, Jose David Faye at 03/24/2019 1:25 AM Thank you for letting us participate in the care of this patient. For questions regarding this report, please contact the number below. ? Electronically signed by: Jose David Faye [facility] ([phone]), at 03/24/2019 1:25 AM Narrative 03/24/2019 1:25 AM EDT EXAMINATION: XR CHEST PA AND LATERAL (GENERIC) CLINICAL HISTORY: Fatigue, chills, poor air movement, concern for pneumonia. TECHNIQUE: Frontal and lateral views of the chest COMPARISON: None Procedure Note Jose David Faye MD - 03/24/2019 EXAMINATION: XR CHEST PA AND LATERAL (GENERIC) CLINICAL HISTORY: Fatigue, chills, poor air movement, concern forpneumonia. TECHNIQUE: Frontal and lateral views of the chest COMPARISON: None IMPRESSION FINDINGS/IMPRESSION: Perihilar fullness and peribronchial thickening at the RIGHThilar/infrahilar region may be infectious/inflammatory; additionally, there may be also apatchy opacity the medial RIGHT middle lobe medially (as the RIGHT heart bordernot well delineated) concerning for pneumonia which should be followed to resolution. No pneumothorax or pleural effusion seen. Nonenlarged cardiopericardial silhouette. Preliminary report signed by: Dheeraj Cisneros at 03/24/2019 1:23 AM I have personally reviewed the image(s) and the residents interpretationand agree with the findings, Jose David Faye at 03/24/2019 1:25 AM Thank you for letting us participate in the care of this patient. Forquestions regarding this report, please contact the number below. Electronically signed by: Jose David Faye [facility]([phone]), at 03/24/2019 1:25 AM Prem Ryder MD IMG DX ORDERABLES * Stout Tube Hold (03/23/2019 11:59 PM EDT) Stout Hold Sample in lab. [facility] Blood specimen (specimen) Venous Draw / Unknown 03/23/2019 11:59 PM EDT 03/24/2019 12:19 AM EDT Eugene Zhu MD CHEMISTRY ORDERABLES [facility] [place] [address] * Gold Tube HOLD (03/23/2019 11:59 PM EDT) [facility] Gold Hold Sample in lab. [facility] Blood specimen (specimen) Venous Draw / Unknown 03/23/2019 11:59 PM EDT 03/24/2019 12:19 AM EDT Eugene Zhu MD CHEMISTRY ORDERABLES [facility] [place] [address] * (ABNORMAL) Differential, Automated (03/23/2019 11:59 PM EDT) Neutrophil % 60.5 % [facility] Neutrophil Absolute 7.76(H) 1.70 - 6.10 x10(3)/mc L [facility] Lymph % 27.6 % [facility] Lymphocytes Abs 3.5(H) 0.9 - 3.2 x10(3)/mc L [facility] Monocyte % 10.1 % [facility] Monocyte Abs 1.3(H) 0.3 - 0.9 x10(3)/mc L [facility] Eos % 0.6 % [facility] Eosinophils Abs 0.1 0.0 - 0.4 x10(3)/mc L [facility] Basophil % 0.6 % [facility] Baso Absolute 0.1 0.0 - 0.1 x10(3)/ L [facility] Immature Gran % 0.60 % [facility] Comment: Immature granulocytes(IG's)percentage and absolute count will include metamyelocytes, myelocytes, and promyelocytes. Blood smears from CBCs yielding IG's will be scanned manually for concordance. If this scan disagrees with the automated IG or if promyelocytes are noted, a manual differential will be performed. Immature Gran Absolute 0.08(H) 0.00 - 0.04 x10(3)/ L [facility] Blood specimen (specimen) 03/23/2019 11:59 PM EDT 03/24/2019 12:18 AM EDT Narrative Resulting Agency Comment Spec In Lab Eugene Zhu MD HEMATOLOGY ORDERABLE S Performing Organization Address City/State/[facility] Co de Phone Number [facility] [place] [address] * (ABNORMAL) Hemogram (03/23/2019 11:59 PM EDT) White Blood Cell 12.8(H) 4.0 - 9.5 x10(3)/ L [facility] Red Blood Cell 4.77 4.00 - 5.21 x10(6)/[facility] Hemoglobin 13.5 11.7 - 15.5 gm/dL [facility] Hematocrit 41.5 35.7 - 45.8 % [facility] Mean Cell Volume 87.0 82.6 - 94.4 fL [facility] Mean Cell Hemoglobin 28.3 27.1 - 32.0 pg [facility] Mean Cell Hemoglobin Concentration 32.5 31.7 - 35.0 gm/dL [facility] Platelet 397(H) 145 - 357 x10(3)/ L [facility] RDW Standard Deviation 39.0 37.0 - 46.0 fL [facility] RDW coefficient of variation 12.4 11.5 - 14.1 % [facility] Mean Platelet Volume 10.3 7.6 - 12.9 fL [facility] NRBC% auto 0.0 % [facility] NRBC Absolute 0.000 0.000 - 0.000 x10(3)/mc L [facility] Blood specimen (specimen) 03/23/2019 11:59 PM EDT 03/24/2019 12:18 AM EDT Narrative Resulting Agency Comment Spec In Lab Eugene Zhu MD HEMATOLOGY ORDERABLE S Performing Organization Address [facility] de Phone Number [facility] [place] [address] * (ABNORMAL) Beta Hydroxybutyrate (03/23/2019 11:59 PM EDT) Beta-hydroxybu turate 2.14(H) 0.00 - 0.30 mmol/L [facility] Comment: Reference range: ??0.00-0.30 mmo1/L, based on an overnight fast. ??Children may be higher. Blood specimen (specimen) 03/23/2019 11:59 PM EDT 03/24/2019 12:18 AM EDT Narrative Resulting Agency Comment Spec In Lab Prem Ryder MD CHEMISTRY ORDERABL ES Performing Organization Address [facility] Co de Phone Number [facility] [place] [address] * TSH (03/23/2019 11:59 PM EDT) Thyroid Stimulating Hormone 0.88 0.27 - 4.20 mcIU/mL [facility] Blood specimen (specimen) 03/23/2019 11:59 PM EDT 03/24/2019 12:18 AM EDT Narrative Resulting Agency Comment Spec In Lab Prem Ryder MD CHEMISTRY ORDERABL ES Performing Organization Address [facility] Co de Phone Number [facility] [place] [address] * APTT (03/23/2019 11:59 PM EDT) Partial Thromboplastin Time 37 25 - 37 sec [facility] Comment: The PTT is NOT appropriate for heparin monitoring. Use the Anti-Xa level for heparin monitoring (HEP UFH) or LMWH monitoring (HEP LMW). A PTT less than 37 seconds generally indicates adequate hemostasis. Blood specimen (specimen) 03/23/2019 11:59 PM EDT 03/24/2019 12:18 AM EDT Narrative Resulting Agency Comment Spec In Lab Prem Ryder MD HEMATOLOGY ORDERAB LES Performing Organization Address [facility] Co de Phone Number [facility] [place] [address] * (ABNORMAL) Prothrombin Time (03/23/2019 11:59 PM EDT) Prothrombin Time 13.5(H) 9.4 - 12.5 sec [facility] International Normalization Ratio 1.2 [facility] Comment: An INR <2.0 indicates adequate procoagulant activity for hemostasis in most patients without underlying bleeding disorders, though the INR may not adequately reflect hemostatic capacity in patients with liver disease and synthetic impairment. The recommended target INR range for therapeutic anticoagulation is 2.0 ? 3.0 for most applications, though lower and higher ranges may be appropriate depending on clinical circumstances. Blood specimen (specimen) 03/23/2019 11:59 PM EDT 03/24/2019 12:18 AM EDT Narrative Resulting Agency Comment Spec In Lab Prem Ryder MD HEMATOLOGY ORDERAB LES Performing Organization Address [facility] Co de Phone Number [facility] [place] [address] * Lipase (03/23/2019 11:59 PM EDT) Lipase 50 0 - 60 unit/L [facility] Blood specimen (specimen) 03/23/2019 11:59 PM EDT 03/24/2019 12:18 AM EDT Narrative Resulting Agency Comment Spec In Lab Prem Ryder MD CHEMISTRY ORDERABL ES Performing Organization Address [facility] de Phone Number [facility] [place] [address] * (ABNORMAL) Hepatic Function Panel (03/23/2019 11:59 PM EDT) [facility] Protein, Total 7.1 6.1 - 8.0 gm/dL [facility] Albumin 4.5 3.2 - 5.2 gm/dL [facility] Aspartate Aminotransferase 45(H) 0 - 30 unit/L [facility] Alanine Aminotransferase 59(H) 0 - 30 unit/L [facility] Alkaline Phosphatase 54 40 - 104 unit/L [facility] Bilirubin, Total 0.5 0.2 - 1.3 mg/dL [facility] Bilirubin, Direct 0.1 0.0 - 0.3 mg/dL [facility] Blood specimen (specimen) 03/23/2019 11:59 PM EDT 03/24/2019 12:18 AM EDT Narrative Resulting Agency Comment Spec In Lab Prem Ryder MD CHEMISTRY ORDERABL ES Performing Organization Address [facility] Co de Phone Number [facility] [place] [address] * (ABNORMAL) Basic Metabolic Panel (non-fasting) (03/23/2019 11:59 PM EDT) [facility] Glucose 95 65 - 199 mg/dL [facility] Comment:Diabetes: >=200 mg/d L plus symptoms Blood Urea Nitrogen 5(L) 8 - 18 mg/dL [facility] Creatinine 0.96 0.70 - 1.20 mg/dL [facility] Sodium 138 135 - 145 mmol/L [facility] Potassium 3.0(Criti sesar) 3.5 - 5.0 mmol/L [facility] Comment: Results rechecked. Called by: DIANA, Read back by: Augustina tan, Date/Time:03/24/19 00:57. Please note: ??Patients with WBC >100,000 may have falsely elevated Potassium levels. ??For accurate Potassium quantification in these patients send serum separator tube (gold top) for subsequent determinations. ??Contact the Clinical Chemistry Laboratory if there are any questions. Chloride 101 98 - 107 mmol/L [facility] Carbon Dioxide 24 22 - 31 mmol/L [facility] Anion Gap 13 5 - 15 mmol/L [facility] Calcium 9.7 8.5 - 10.5 mg/dL [facility] Est Glomerular Filtration Rate 74 >=60 mL/min/1. 73 m?? [facility] Comment: The eGFR was calculated using the CKD-EPI equation. As with all creatinine based estimates of kidney function, eGFR values calculated with the CKD-EPI equation are not accurate in patients with acute kidney failure, extremes of body mass or the acutely ill. http://[employer]/[facility] – TULSAnkf eGFR 86 >=60 mL/min/1. 73 m?? [facility] Comment: The eGFR was calculated using the CKD-EPI equation. As with all creatinine based estimates of kidney function, eGFR values calculated with the CKD-EPI equation are not accurate in patients with acute kidney failure, extremes of body mass or the acutely ill. [email or web address]/DHnkf Blood specimen (specimen) 03/23/2019 11:59 PM EDT 03/24/2019 12:18 AM EDT Narrative Resulting Agency Comment Spec In Lab Prem Ryder MD CHEMISTRY ORDERABL ES [facility] [place] [address] documented in this encounter Visit Diagnoses Diagnosis Fatigue, unspecified type Malaise Other malaise and fatigue documented in this encounter Administered Medications Inactive Administered Medications - up to 3 most recent administrations Medication Order MAR Action Action Date Dose Rate Site lactated Ringers 1,000 mL IV bolus Intravenous, ONCE, 1 dose, On Sun03/24/19 at 0456 New Bag 03/24/2019 5:41 AM EDT potassium chloride (K-DUR/KLOR-CON) extended release tablet 40 mEq 40 mEq, Oral, ONCE, 1 dose, On Sun03/24/19 at 0456, STAT Given 03/24/2019 5:40 AM EDT 40 mEq sodium chloride 0.9% 1,000 mL IV bolus at 2,000 mL/hr, Intravenous, ONCE, 1 dose, On 03/23/19 at 2359 New Bag 03/24/2019 12:19 AM EDT 2000 mL/hr documented in this encounter Active and Recently Administered Medications Times are shown in EDT. Scheduled Medication Order 03/22/2019 03/23/2019 03/24/2019 lactated Ringers 1,000 mL IV bolus (COMPLETED) Intravenous, ONCE, 1 dose, On Sun03/24/19 at 0456 0541 (New Bag - Prov ider: Augustina Tan RN)[id number] (Stopped - Provider: Augustina Tan RN) potassium chloride (K-DUR/KLOR-CON) extended release tablet 40 mEq (COMPLETED) 40 mEq, Oral, ONCE, 1 dose, On Sun03/24/19 at 0456, STAT 0540 (Given - Provid er: Augustina Tan RN) sodium chloride 0.9% 1,000 mL IV bolus (COMPLETED) at 2,000 mL/hr, Intravenous, ONCE, 1 dose, On 03/23/19 at 2359 0019 (New Bag - Prov ider: Augustina Tan RN)0500 (Stopped - Provider: Augustina Tan RN) documented in this encounter Care Teams Coke Wheeler Relationship Specialty Start Date End Date Harper Andrade APRN PCP - General Family Medicine 12/17/18 12/22/20 documented as of this encounter
--- OUTSIDE RECORDS SUMMARY | 2024-06-09 14:05 | XMS_ITS | Encounter Summary ---
Author Organization [facility] [place] [address] Care Team Providers Care Senior Ux Designer Name Role Phone Harper Andrade APPLICATION SUPPORT ENGINEER Primary Care Provider [phone] Reason for Visit * Reason Onset Date Comments Other 10/17/2018 Encounter Details Date Type Department Care Team (Late st Contact Info) Description 10/17/2018 [place] [address] Jeaneth Ozuna, APPLICATION SUPPORT ENGINEER [facility] [place] [address] Other Social History Tobacco Use Types Packs/Day Years [...] encounter Miscellaneous Notes * Telephone Encounter - Ying Bain RN - 10/31/2018 11:34 AM EST I called Mirela at a new phone number -[phone]. Voice mailbox has not been set up yet. I wasunable to leave a message. * Telephone Encounter - Lakshmi Liu RN - 10/17/2018 11:37 AM EST Reason for Call: Increase in pressure Patient Report: Patient states she has been feeling dizzy, lightheaded for the past 2 weeks. She has also had vomiting for the past 3 days. Patient is also complaining of increased pressure in her head for the past 2 weeks. Patient states this feels similar to when her pressure was high in the past. Patient denies any visual changes. Any Additional Information to Relay: Recommended that patient schedule a follow up visit as she hasnot been seen in follow up for 2 years, she has had Botox only appointments. Will also check with for any further recommendations. Patient agreeable. Plan/Intervention/Follow Up - Report forwarded to for review and comment. Pt/caller awarethey will be called back with input when available and to call back in the interim if additional questions or change arise before they hear back from this office. Pt/caller agreeable to this plan. * Telephone Encounter - Zakia Saleh - 10/17/2018 11:19 AM EST Clinical Tray Delivery Aide Message Caller: self If not Pt / Relation to pt: Call back Number:[phone] Best time to reach caller: any Reason [...] on filedocumented in this encounter Care Teams Senior Ux Designer Relationship Specialty Start Date End Date Harper Andrade APRN PCP - General Family Medicine 12/17/18 12/22/20 documented as of this encounter
--- OUTSIDE RECORDS SUMMARY | 2024-06-09 14:05 | XMS_ITS | Encounter Summary ---
Author Organization [facility] Address [facility] [place] [address] Care Team Providers Care Auto Body Repair Technician Name Role Phone Unavailable Primary Care Provider Unavailabl e Reason for Visit * Reason Onset Date Comments Medication Refill 10/17/2018 Encounter Details Date Type Department Care Team (Late st Contact Info) Description 10/17/2018 [place] [address] Silke Pollack MD [facility] [place] [address] Migraine with aura and without status migrainosus, [...]
--- OUTSIDE RECORDS SUMMARY | 2024-06-09 14:05 | XMS_ITS | Encounter Summary ---
Author Organization [facility] [place] [address] Care Team Providers Care Ward Supervisor Name Role Phone Harper Andrade CONTINUOUS MINING MACHINE COAL MINER Primary Care Provider [phone] Reason for Visit * Reason Onset Date Comments Prior Authorization 02/11/2019 Zomig spray Encounter Details Date Type Department Care Team (Late st Contact Info) Description 02/11/2019 [place] [address] Silke Pollack MD [facility] [place] [address] Prior Authorization (Zomig spray) Social History Tobacco Use Types Packs/Day Years [...] encounter Miscellaneous Notes * Telephone Encounter - Husam Alston - 02/11/2019 1:41 PM EDT Images from the original note were not included. * Telephone Encounter - Husam Alston - 02/11/2019 10:53 AM EDT Images from the original note were not included. documented in this encounter Plan of Treatment Not on file documented as of this encounter Visit Diagnoses Not on filedocumented in this encounter Care Teams Ward Supervisor Relationship Specialty Start Date End Date Harper Andrade APRN PCP - General Family Medicine 12/17/18 12/22/20 documented as of this encounter
--- OUTSIDE RECORDS SUMMARY | 2024-06-09 14:05 | XMS_ITS | Clinical Summary ---
Author Organization [facility] Address [facility] [place] [address] Care Team Providers Care Advertising Teacher Name Role Phone Olivia Best MD Primary Care Provider [phone] Allergies Active Allergy Reactions Criticality Noted Date Comments Acetaminophen Other (See Comments) High Vomit, rash, SOB Gloves, Latex Rash Benzonatate Other (See Comments) 12/28/2014 'Impairs cognitive function and messes with my heart rate' Topiramate 08/01/2013 cognitive dysfuntion Benzocaine Shortness Of Breath High 08/01/2013 Rash, vommitting Medications Medication Sig Dispensed Refills Start Date End Date Status montelukast (SINGULAIR) 10 mg tablet Take 10 mg by mouth nightly. Active Echinacea 400 mg Cap Take 400 mg by mouth 2 times daily. Active MULTIVITAMIN (DAILY VITAMIN ORAL) Take 1 tablet by mouth daily. Active albuterol (PROVENTIL HFA;VENTOLIN HFA) 90 mcg/Actuation inhaler Inhale 2 puffs into the lungs every 4 hours as needed. Use with spacer Active venlafaxine (EFFEXOR-XR) 150 mg Capsule, Sust. Release 24 hr Take 300 mg by mouth daily. Active metFORMIN (GLUCOPHAGE) 850 mg Tablet Take 850 mg by mouth 2 times daily (with meals). Active Cholecalciferol, Vitamin D3, (VITAMIN D-3) 5,000 unit Tablet Take 1 tablet by mouth daily. Active omeprazole (PRILOSEC) 40 mg Capsule, Delayed Release(E.C.) Take 40 mg by mouth 2 times daily. Active celecoxib (CELEBREX) 200 mg Capsule Take 200 mg by mouth 2 times daily. Active lamoTRIgine (LAMICTAL) 100 mg Tablet Take 100 mg by mouth every evening. Active lamoTRIgine (LAMICTAL) 150 mg Tablet Take 150 mg by mouth every morning. Active prazosin (MINIPRESS) 2 mg Capsule Take 2 mg by mouth nightly. Active rOPINIRole (REQUIP) 0.25 mg Tablet Take 0.25 mg by mouth nightly. Active propranolol (INDERAL) 60 mg Tablet Take 60 mg by mouth 2 times daily. Active Naproxen Sodium 750 mg Tab, Multiphasic Release 24 hr Take 1,500 mg by mouth as needed. Active traZODone (DESYREL) 100 mg Tablet Take 200 mg by mouth nightly. Active OnabotulinumtoxinA (BOTOX) 200 unit Recon Soln Inject 155 Units as directed Every 12 weeks. Active hydrOXYzine (VISTARIL) 25 mg CapsuleIndications:M igraine with aura and without status migrainosus, not intractable Take 1 capsule by mouth 2 times daily. 60 capsule 11 12/05/2017 Active oxyCODONE (ROXICODONE) 10 mg Tablet Take 1 tablet by mouth every 6 hours as needed for Pain. For chronic knee pain. 112 tabs every 28 days. 0 01/22/2018 Active buPROPion (WELLBUTRIN SR OR ZYBAN) 150 mg Tablet Sustained Release 12 hr Take 150 mg by mouth 2 times daily. 01/16/2018 Active ZOLMitriptan (ZOMIG) 5 mg Stem, Non-AerosolIndicatio ns:Migraine with aura and without status migrainosus, not intractable With head between knees, administer 1 spray in 1 nostril. May repeat x1 after 2 hours if needed. NTE 10mg per day or 2 days per week. 12 each 3 10/17/2018 Active acetaZOLAMIDE (DIAMOX) 500 mg Capsule, Sustained ReleaseIndications:I IH (idiopathic intracranial hypertension) Take 1 capsule by mouth 2 times daily. 60 capsule 1 01/22/2019 Active Active Problems Patient Care Coordination No te Formatting of this note is d ifferent from the original. Primary H/A Provider: NONE Behavior contract sent to pt 03/25/19 - no procedure visits until establish care visit completed and behavior contract signed. 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 06/22/2011 Overview (07/14/2012): right Family History Medical History Relation Comments Strabismus Brother Cancer Father Migraines Mother Multiple Sclerosis Mother Glaucoma Neg Hx Macular Degeneration Neg Hx Relation Status Comments Brother Father Mother Social History Tobacco Use Types Packs/Day Years Used Date Smoking Tobacco: Never Smokeless Tobacco: Never Alcohol Use Standard Drinks/Week Comments No 0 (1 standard drink = 0.6 oz pur e alcohol) Sex and Gender Information Value Date Recorded Sex Assigned at Not on file Gender Identity Not on file Sexual Orientation Not on file Last Filed Vital Signs Vital Sign Reading Time Taken Comments Blood Pressure 155/104 03/24/2019 10:35 AM EDT Pulse 120 03/24/2019 10:35 AM EDT Temperature 36.6 ??C (97.9 ??F) 03/24/2019 7:01 AM ED T Respiratory Rate 16 03/24/2019 7:01 AM EDT Oxygen Saturation 96% 03/24/2019 7:01 AM EDT Inhaled Oxygen Concentration - - Weight 103 kg (227 lb) 09/23/2018 3:24 PM EST Height 156.2 cm (5' 1.5) 09/23/2018 3:24 PM EST reported Body Mass Index 42.2 09/23/2018 3:24 PM EST Plan of Treatment Health Maintenance Due Date Last Done Comments HIV screen 1997 Hepatitis C Screening 1997 Hepatitis B vaccine (0-59 yrs) (1) 1998 Tdap adult 1998 Tetanus vaccine 1998 HPV test 2009 PAP Smear 2009 Breast Cancer Share Decision Needed 2019 Breast Cancer screening 2019 Covid-19 Vaccine ( - 2022-2 4 season) 2023 Influenza (Flu) vaccine (1 o f 1 - Influenza standard series) 06/15/2024 Diabetes Screening (HgbA1C o r Glucose) Discontinued 03/23/2019, 05/05/2016, 01/26/2015 Procedures Procedure Name Priority Date/Time Associated Diagnosis Comments BASIC METABOLIC PANEL STAT 03/23/2019 11:59 PM EDT from Last 3 Months or Most Recently Relevant to Health Maintenance Results * (ABNORMAL) Basic Metabolic Panel (non-fasting) (03/23/2019 11:59 PM EDT) Glucose 95 65 - 199 mg/dL [facility] Comment:Diabetes: >=200 mg/d L plus symptoms Blood Urea Nitrogen 5(L) 8 - 18 mg/dL [facility] Creatinine 0.96 0.70 - 1.20 mg/dL [facility] Sodium 138 135 - 145 mmol/L [facility] Potassium 3.0(Criti sesar) 3.5 - 5.0 mmol/L [facility] Comment: Results rechecked. Called by: DIANA, Read back by: Augustina tan, Date/Time:03/24/19 00:57. Please note: ??Patients with WBC >100,000 may have falsely elevated Potassium levels. ??For accurate Potassium quantification in these patients send serum separator tube (gold top) for subsequent determinations. ??Contact the Clinical Chemistry Laboratory if there are any questions. Chloride 101 98 - 107 mmol/L [facility] Carbon Dioxide 24 22 - 31 mmol/L [facility] Anion Gap 13 5 - 15 mmol/L [facility] Calcium 9.7 8.5 - 10.5 mg/dL [facility] Est Glomerular Filtration Rate 74 >=60 mL/min/1. 73 m?? [facility] Comment: The eGFR was calculated using the CKD-EPI equation. As with all creatinine based estimates of kidney function, eGFR values calculated with the CKD-EPI equation are not accurate in patients with acute kidney failure, extremes of body mass or the acutely ill. [email or web address] eGFR 86 >=60 mL/min/1. 73 m?? [facility] Comment: The eGFR was calculated using the CKD-EPI equation. As with all creatinine based estimates of kidney function, eGFR values calculated with the CKD-EPI equation are not accurate in patients with acute kidney failure, extremes of body mass or the acutely ill. [email or web address] Blood specimen (specimen) 03/23/2019 11:59 PM EDT 03/24/2019 12:18 AM EDT Narrative Resulting Agency Comment Spec In Lab Prem Ryder MD CHEMISTRY ORDERABL ES [facility] [place] [phone] from Last 3 Months or Most Recently Relevant to Health Maintenance Care Teams Advertising Teacher Relationship Specialty Start Date End Date Olivia Best MD [address] [place] [address] PCP - General Family Medicine 12/23/20
--- OUTSIDE RECORDS SUMMARY | 2024-06-09 14:05 | XMS_ITS | Encounter Summary ---
Author Organization [facility] [place] [address] Care Team Providers Care Icu Registered Nurse Name Role Phone Harper Andrade APRN Primary Care Provider [phone] Reason for Visit * Reason Onset Date Comments Medication Refill 01/22/2019 Encounter Details Date Type Department Care Team (Late st Contact Info) Description 01/22/2019 Refill Neurology at [facility] [place] [address] Jair Perez MD [facility] [place] [address] IIH (idiopathic intracranial hypertension) Social History Tobacco Use Types Packs/Day Years [...] encounter Visit Diagnoses Diagnosis IIH (idiopathic intracranial hypertension) Benign intracranial hypertension documented in this encounter Care Teams Icu Registered Nurse Relationship Specialty Start Date End Date Harper Andrade APRN PCP - General Family Medicine 12/17/18 12/22/20 documented as of this encounter
--- OUTSIDE RECORDS SUMMARY | 2024-06-09 14:05 | XMS_ITS | Clinical Summary ---
Author Organization [facility] Address [address] [place] [address] Care Team Providers Care Automobile Dealer Name Role Phone Unavailable Primary Care Provider Unavailabl e Social History Tobacco Use Types Packs/Day Years Used Date Smoking Tobacco: Never Assessed Sex and Gender Information Value Date Recorded Sex Assigned at Not on file Gender Identity Not on file Sexual Orientation Not on file Plan of Treatment Health Maintenance Due Date Last Done Comments Hepatitis B Vaccine (1 of 3 - 19+ 3-dose series) 11/19 COVID-19 Vaccine (2022- season) 2023 Hepatitis C Screen Completed 06/07/2023 Procedures Procedure Name Priority Date/Time Associated Diagnosis Comments HEPATITIS C AB W REFLEX TO HCV RNA BY PCR Routine 06/07/2023 17:00 EDT from Last 3 Months or Most Recently Relevant to Health Maintenance Results * HEPATITIS C AB W REFLEX TO HCV RNA BY PCR (06/07/2023 17:00 EDT) Hep C Antibody Negative Negative 06/11/2023 10:36 EDT [facility] Blood VENOUS BLOOD / Unknown 06/07/2023 17:00 EDT 06/08/2023 18:03 EDT Provider Outr Resulting Lab CHEMISTRY & BLOOD GAS ORDERABLES [facility] [address] [place] [address] from Last 3 Months or Most Recently Relevant to Health Maintenance
--- OUTSIDE RECORDS SUMMARY | 2024-06-09 14:05 | XMS_ITS | Encounter Summary ---
Author Organization [facility] [place] [address] Care Team Providers Care Insole Rasper Name Role Phone Olivia Best MD Primary Care Provider [phone] Reason for Referral * Consultation (Routine) - Closed Specialty Diagnoses / Procedures Referred By Keisha singh Referred To Contact Dermatology Diagnoses Oculocutaneous albinism Woody Ryan MD [address] [place] [address] [facility] [address] [place] [address] Referral ID Status Reason Start Date Expiration Date V isits Requested Visits Authorized [id number] Closed Consult, Test & Treat PCP Updated and/or Approved 05/11/2022 05/11/2023 6 6 Encounter Details Date Type Department Care Team (Latest Contact Info) Description 05/11/2022 Transcribe Orders eDH Incoming Referrals [phone] Woody Ryan MD [address] [place] [address] Oculocutaneous albinism Social History Tobacco Use Types Packs/Day Years Used Date Smoking Tobacco: Never Smokeless Tobacco: Never Alcohol Use Standard Drinks/Week Comments No 0 (1 standard drink = 0.6 oz pur e alcohol) Sex and Gender Information Value Date Recorded Sex Assigned at Not on file Gender Identity Not on file Sexual Orientation Not on file documented as of this encounter Plan of Treatment Scheduled Referrals Name Type Priority Associated Diagnoses Order Schedule Referral to Dermatology Outpatient Referral Routine Oculocutaneous albinism Ordered: 05/11/2022 documented as of this encounter Visit Diagnoses Diagnosis 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
--- OUTSIDE RECORDS SUMMARY | 2024-06-09 14:05 | XMS_ITS | Encounter Summary ---
[place] [address] Care Team Providers Care Senior Accounting Specialist Name Role Phone Harper Andrade Solange ANTONY Primary Care Provider [phone] Encounter Details Date Type Department Care Team (Late st Contact Info) Description 03/25/2019 Tele[place] [address] None None Social History Tobacco Use Types Packs/Day Years [...] encounter Miscellaneous Notes * Telephone Encounter - Qiana Bowens RN - 03/25/2019 3:06 PM EDT Primary H/A Provider: NONE Behavior contract sent to pt 03/25/19 - no procedure visits until establish care visit completed andbehavior contract signed. 03/21/19 no show - establish [...] filedocumented in this encounter Care Teams Senior Accounting Specialist Relationship Specialty Start Date End Date Harper Andrade APRN PCP - General Family Medicine 12/17/18 12/22/20 documented as of this encounter
--- OUTSIDE RECORDS SUMMARY | 2024-06-09 14:05 | XMS_ITS | Encounter Summary ---
Author Organization [facility] Address [address] [place] [address] Care Team Providers Care Beauty Operator Name Role Phone Unavailable Primary Care Provider Unavailabl e Encounter Details Date Type Department Care Team (Late st Contact Info) Description 06/08/2023 Lab Requisition [facility] Pathology & Laboratory Medicine - [facility] [address] [place] [address] Outr Resulting Lab, Provider Social History Tobacco Use Types Packs/Day Years [...] RNA BY PCR Routine 06/07/2023 17:00 EDT documented in this encounter Results * HEPATITIS C AB W REFLEX TO HCV RNA BY PCR (06/07/2023 17:00 EDT) Hep C Antibody Negative Negative 06/11/2023 10:36 EDT [facility] Blood VENOUS BLOOD / Unknown 06/07/2023 17:00 EDT 06/08/2023 18:03 EDT Provider Outr Resulting Lab CHEMISTRY & BLOOD GAS ORDERABLES [facility] [address] [place] [address] documented in this encounter Visit Diagnoses Not on filedocumented in this encounter
--- OUTSIDE RECORDS SUMMARY | 2024-06-09 14:05 | XMS_ITS | Encounter Summary ---
Author Organization [facility] Address [facility] [place] [address] Care Team Providers Care Copier Field Service Technician Name Role Phone RigobertoHarper calderón CASSIA Primary Care Provider [phone] Encounter Details Date Type Department Care Team (Late st Contact Info) Description 03/24/2019 Notes Only Care Management [facility] [place] [address] Anna Parker Social History Tobacco Use Types Packs/Day Years Used Date Smoking Tobacco: Never Smokeless Tobacco: Never Alcohol Use Standard Drinks/Week Comments No 0 (1 standard drink = 0.6 oz pur e alcohol) Sex and Gender Information Value Date Recorded Sex Assigned at Not on file Gender Identity Not on file Sexual Orientation Not on file documented as of this encounter Progress Notes * Anna Parker - 03/24/2019 3:40 PM EDT On Duty Emergency Fund (Transportation) Assessment Referral source to Care Management: Walk IN Scheduled or Unscheduled Appt: ER and scheduled appointments How did patient get to [facility] today: Friends brought her to ED last evening. Plan for return home: Pt stated she has tried to get rides from friends and has not been able to secure a ride. Insurance: [place] Medicaid. Assessment: Reviewed pt situation-pt stated she has no funds or options to get to . -[place]. Plan: We called [facility] [phone]. They will call us back to provide the time they will be able to provide a ride. 5:00pm Main Entrance Private small car. Will pick her up-she will be sharing a ride. I advised the pt-she expressed understanding and appreciation. Staff: Estefani Parker [id number] documented in this encounter Plan of Treatment Not on file documented as of this encounter Visit Diagnoses Not on filedocumented in this encounter Care Teams Copier Field Service Technician Relationship Specialty Start Date End Date Harper Andrade, CASSIA PCP - General Family Medicine 12/17/18 12/22/20 documented as of this encounter
--- OUTSIDE RECORDS SUMMARY | 2024-06-09 14:05 | XMS_ITS | Encounter Summary ---
Author Organization [facility] Address [facility] [place] [address] Care Team Providers Care Associate Juvenile Court Judge Name Role Phone RigobertoHarper calderón Solange ANTONY Primary Care Provider [phone] Reason for Visit * High Dollar Medication (Routine) - Specialty Diagnoses / Procedures Referred By Keisha singh Referred To Contact Neurology Diagnoses Chronic migraine without aura without status migrainosus, not intractable Procedures Auth Request for Medication TC ONABOTULINUMTOXINA, 1 UNIT, INJECTION Jill French [place] [address] [facility] [address] [place] [address] Referral ID Status Reason Start Date Expiration Date V isits Requested Visits Authorized [id number] Consult, Test & Treat 07/20/2016 07/04/2019 13 13 Encounter Details Date Type Department Care Team (Late st Contact Info) Description 03/24/2019 10:20 AM EDT Office [place] [address] Jair Perez [place] [address] Chronic migraine without aura, with intractable [...] - documented in this encounter Progress Notes * Jair Perez MD - 03/24/2019 10:20 AM [...] peak migraine pain in this particular patient (bilateraltemporalis and occipitalis) This patient received both the PREEMPT protocol and the follow the pain protocol used in the regulatory trials and described by Dougie A, et al. Method of Injection of OnabotulinumtoxinA for Chronic Migraine: A Safe,Well-Tolerated, and Effective Treatment Paradigm Based on the PREEMPT Clinical Program. Headache 2010;50:4821-2107. A total of 195 units was used [...] Jair Perez MD Treatment # 14 Lot #:[id number] Exp: Jul 2021 Injection SItes Muscle Fixed Site/Fixed Dose L R Follow the pain # units Family Preservation Caseworker 10 Units divided in 2 sites Procerus [...] migrainosus documented in this encounter Care Teams Associate Juvenile Court Judge Relationship Specialty Start Date End Date Harper Andrade, JOB DEVELOPMENT SPECIALIST PCP - General Family Medicine 12/17/18 12/22/20 documented as of this encounter
--- OUTSIDE RECORDS SUMMARY | 2024-06-09 14:06 | XMS_ITS | Encounter Summary ---
Author Organization [facility] Address [facility] [place] [address] Care Team Providers Care Content Editor Name Role Phone Lakshmi Vicente MD Primary Care Provider [phone] Reason for Visit * Reason Comments Botox Injection * High Dollar Medication (Routine) - Specialty Diagnoses / Procedures Referred By Keisha singh Referred To Contact Neurology Diagnoses Chronic migraine without aura without status migrainosus, not intractable Procedures Auth Request for Medication TC ONABOTULINUMTOXINA, 1 UNIT, INJECTION Jill French APRN [facility] [place] [address] [facility] Neurology [address] [place] [address] Referral ID Status Reason Start Date Expiration Date V isits Requested Visits Authorized [id number] Consult, Test & Treat 07/20/2016 07/04/2019 13 13 Encounter Details Date Type Department Care Team (Late st Contact Info) Description 10/04/2017 11:30 AM EST Office [place] [address] Jair Perez MD [facility] [place] [address] Mikey Villarreal MD [facility] [place] [address] Chronic migraine without aura without status migrainosus, not intractable Social History [...] cm (5' 2) 10/04/2017 11:37 AM EST reported Body Mass Index 44.45 10/04/2017 11:37 AM EST documented in this encounter Procedure Notes * Mikey Villarreal MD - 10/04/2017 11:30 AM [...] ??Days 90/90. ??Pain 12/2204/05/2017 botox Total 49. ??Days 60/90. ??Pain 11/2407/12/2017 botox Total 20, Days 20/90. Pain -01/2210/04/2017 botox Total 60, Days 80/90, Pain 12/22 Botox effective: Yes, states that headache exacerbations lately have been due to barometric pressure changes. Lot #:[id number] Exp: 04/2020 The risks, benefits and anticipated [...] as follows: Muscle Fixed Site/Fixed Dose L/R Vascular Ultrasound Technologist 10 Units divided in 2 sites 5/5 [...] weeks. Mikey Villarreal MD Headache Medicine Fellow [facility] Department of Neurology 10/04/2017 documented in this encounter Plan of Treatment Not on file documented as of this encounter Visit Diagnoses Diagnosis Chronic migraine without aura without status migrainosus, not intractable Chronic migraine without aura, without mention of intractable migraine without mention of status migrainosus documented in this encounter Administered Medications Inactive Administered Medications - up to 3 most recent administrations Medication Order MAR Action Action Date Dose Rate Site botulinum toxin type A (BOTOX) injection 200 Units 200 Units, Intramuscular, ONCE, 1 dose, On Lena 10/04/17 at 1200, Routine Given 10/04/2017 11:40 AM EST 155 Units documented in this encounter Care Teams Content Editor Relationship Specialty Start Date End Date Lakshmi Vicente MD [address] [place] [address] PCP - General 07/27/11 04/18/18 documented as of this encounter
--- OUTSIDE RECORDS SUMMARY | 2024-06-09 14:06 | XMS_ITS | Encounter Summary ---
Author Organization [facility] [place] [address] Care Team Providers Care Machine Ii Engraver Name Role Phone Lakshmi Vicente MD Primary Care Provider [phone] Reason for Visit * Reason Onset Date Comments Medication Refill 02/11/2018 Encounter Details Date Type Department Care Team (Late st Contact Info) Description 02/11/2018 Refill Neurology at [facility] [place] [address] Jill French, CASSIA [facility] [place] [address] Migraine with aura and without status migrainosus, [...] med refills Medication ZOLMitriptan (ZOMIG) 5 mg [place], Non-Aerosol [[id number]] ??ZOLMitriptan (ZOMIG) 5 mg [place], Non-Aerosol [[id number]] Order Details? Dose, Route, Frequency: As Directed [...] --? Ordering Provider: Jill French APRNDEA #: [id number]: [id number]?? Authorizing Provider: Jill French APRNDEA #: [id number]: [id number]?? Ordering User: Jill French APRN? Diagnosis Association: Migraine with aura and without status migrainosus, not intractable (G43.109)?Original Order: ZOLMitriptan (ZOMIG) 5 mg [place], Non-Aerosol [[id number]]? Pharmacy: [facility] [address] #: --?? Pharmacy Comments: --? Quantity Remaining: --Quantity Filled: --? documented in this encounter Plan of Treatment Not on file documented as of this encounter Visit Diagnoses Diagnosis Migraine with aura and without status migrainosus, not intractable Migraine with aura, without mention of intractable migraine without mention of status migrainosus documented in this encounter Care Teams Machine Ii Engraver Relationship Specialty Start Date End Date Lakshmi Vicente MD [address] [place] [address] PCP - General 07/27/11 04/18/18 documented as of this encounter
--- OUTSIDE RECORDS SUMMARY | 2024-06-09 14:06 | XMS_ITS | Encounter Summary ---
Author Organization [facility] [place] [address] Care Team Providers Care Sprinkling System Irrigator Name Role Phone Lakshmi Vicente MD Primary Care Provider [phone] Reason for Visit * High Dollar Medication (Routine) - Specialty Diagnoses / Procedures Referred By Keisha singh Referred To Contact Neurology Diagnoses Chronic migraine without aura without status migrainosus, not intractable Procedures Auth Request for Medication TC ONABOTULINUMTOXINA, 1 UNIT, INJECTION Jill French APRN [facility] [place] [address] [facility] Neurology [address] [place] [address] Referral ID Status Reason Start Date Expiration Date V isits Requested Visits Authorized [id number] Consult, Test & Treat 07/20/2016 07/04/2019 13 13 Encounter Details Date Type Department Care Team (Late st Contact Info) Description 10/17/2016 11:00 AM EST Office [place] [address] Jill French [facility] [place] [address] Chronic migraine without aura without status migrainosus, not intractable; Migraine with aura and without status migrainosus, [...] Sign Reading Time Taken Comments Blood Pressure 109/71 10/17/2016 10:12 AM EST Pulse 91 10/17/2016 10:12 AM EST Temperature - - Respiratory Rate - - Oxygen Saturation - - Inhaled Oxygen Concentration - - Weight - - Height - - Body Mass Index - - documented in this encounter Progress Notes * Jill French, V BLOCK SAW OPERATOR - 10/17/2016 11:00 AM EST CC: Follow up chronic migraine, chronic daily headache and IIH. Here today for botox. ?? Interval History: Mirela started diamox after her 05/05/2016 LP showed an OP of 30, and is now taking diamox 500 mg SR BID. She tells me that her headaches have significantly improved on diamox, still daily but the severity is greatly decreased to 3/10. She does sometimes have some trouble running out of medications - she was out of diamox for a week because the pharmacy had to order it, and has had trouble with medications needing prior authorization. She is currently getting 11 zomig nasal sprays per month, but not sure she can refill d/t needing new authorization from insurance. Had neuro-ophth exam 06/02/[address] Sewell, which showed no papilledema. ?? ROS: Intractable daily headache, improved in intensity No fever, chills, weakness No vision changes, does have a hx of corneal erosions OD No nasal congestions, sinus pain or pressure No chest pain, SOB, cough No abdominal pain, n/v. + body aches, joint pain, knee pain, takes celebrex BID ? EXAM: A & O x 3, comfortable, NAD Not jaundiced, sedated, dysarthric, or ataxic Normal affect, mood, speech ? ASSESSMENT: Chronic daily headache Intractable chronic migraine IIH ?? PLAN: botox today, see procedure note Refilled hydroxyzine and zomig Call here if any concerns, otherwise follow up here in 12 weeks for botox. ?? More than 10 minutes of this 15 minute visit were spent face to face counseling the patient and making a therapeutic plan, with additional time spent performing the procedure. documented in this encounter Procedure Notes * Jill French APRN - 10/17/2016 11:00 AM ESTAssociated Order(s): CHEMODENERVATION, MEDICAL Pre-Procedure Diagnose(s): Intractable chronic migraine without aura and without status migrainosus Neurology Procedure note ?? Date: 10/17/2016 Patient: Mirela Lara : 1980 ?? Procedure: Botox injections (PREEMPT protocol) ?? Indications: chronic migraine ? Date Procedure MIDAS 10/17/2016 botox Total 77. Days 90/90. Pain 12/2207/25/2016 botox Total 28. Days 90/90. Pain 11/2405/01/2016 botox Total 36. Days 90/90. Pain 11/24 ? Risk and benefits were explained to the patient and consent was obtained. Time out was preformed ?? OnabotulinumtoxinA was reconstituted with 0.9% NaCl to create a dilution of 5 units per 0.1mL. ?? Each injection site was sterilized with 70% isopropyl alcohol. ?? Injections were administered with a 30 gauge, 1/2 needle. Injections administered as follows and performed bilaterally with injections split equally except for procerus: 20 units divided between 4 sites in the frontalis muscle, 10 units divided between 2 sites in the maintenance worker swimming pool muscles, 5 units into 1 site in the procerus muscle, 40 units divided between 8 sites in the temporalis muscles, 30 units divided between 6 sites in the suboccipital region, 20 units divided between 4 sites in the cervical paraspinal musculature, and 30 units divided between 6 sites in the trapezii. ?? Total units used= 155. Total injection sites=31. ?? Patient was injected with 155 units and 45 units were wasted/disgarded ?? The patient tolerated the procedure without any immediate complications. ? Jill French APRN [facility] Headache Clinic documented in this encounter Plan of Treatment Not on file documented as of this encounter Procedures Procedure Name Priority Date/Time Associated Diagnosis Comments CHEMODENERVATION, MEDICAL Routine 10/17/2016 11:22 AM EST documented in this encounter Results * Chemodenervation, medical (10/17/2016 11:22 AM EST) Narrative Jill French APRN - 10/17/2016 11:22 AM EST Jill French APRN ? 10/17/2016 11:22 AM Neurology Procedure note ?? Date: 10/17/2016 Patient: Mirela Lara : 1980 ?? Procedure: Botox injections (PREEMPT protocol) ?? Indications: chronic migraine ? Date Procedure ??MIDAS 10/17/2016 botox Total 77. ??Days 90/90. ??Pain 12/2207/25/2016 botox Total 28. Days 90/90. Pain 11/2405/01/2016 botox Total 36. Days 90/90. Pain 11/24 ? Risk and benefits were explained to the patient and consent was obtained. Time out was preformed ?? OnabotulinumtoxinA was reconstituted with 0.9% NaCl to create a dilution of 5 units per 0.1mL. ?? Each injection site was sterilized with 70% isopropyl alcohol. ?? Injections were administered with a 30 gauge, 1/2 needle. Injections administered as follows and performed bilaterally with injections split equally except for procerus: 20 units divided between 4 sites in the frontalis muscle, 10 units divided between 2 sites in the maintenance worker swimming pool muscles, 5 units into 1 site in the procerus muscle, 40 units divided between 8 sites in the temporalis muscles, 30 units divided between 6 sites in the suboccipital region, 20 units divided between 4 sites in the cervical paraspinal musculature, and 30 units divided between 6 sites in the trapezii. ?? Total units used= 155. Total injection sites=31. ?? Patient was injected with 155 units and 45 units were wasted/disgarded ?? The patient tolerated the procedure without any immediate complications. ? Jill French APRN [facility] Headache Clinic Silke Pollack MD PROCEDURE/MINOR SURG ICAL ORDERABLES documented in this encounter Visit Diagnoses Diagnosis Chronic migraine without aura without status migrainosus, not intractable Chronic migraine without aura, without mention of intractable migraine without mention of status migrainosus Migraine with aura and without status migrainosus, not intractable Migraine with aura, without mention of intractable migraine without mention of status migrainosus documented in this encounter Administered Medications Inactive Administered Medications - up to 3 most recent administrations Medication Order MAR Action Action Date Dose Rate Site botulinum toxin type A (BOTOX) injection 200 Units 200 Units, Intramuscular, ONCE, 1 dose, On Sun10/17/16 at 1130, Routine Given 10/17/2016 11:14 AM EST 155 Units documented in this encounter Care Teams Sprinkling System Irrigator Relationship Specialty Start Date End Date Lakshmi Vicente MD [address] [place] [address] PCP - General 07/27/11 04/18/18 documented as of this encounter
--- OUTSIDE RECORDS SUMMARY | 2024-06-09 14:06 | XMS_ITS | Encounter Summary ---
Author Organization [facility] [address] Care Team Providers Care Php Mysql Developer Name Role Phone Lakshmi Vicente MD Primary Care Provider Reason for Referral * High Dollar Medication (Routine) - Specialty Diagnoses / Procedures Referred By Keisha singh Referred To Contact Neurology Diagnoses Chronic migraine without aura without status migrainosus, not intractable Procedures Auth Request for Medication TC ONABOTULINUMTOXINA, 1 UNIT, INJECTION Jill French APRN [facility] [place] [address] [facility] [address] [place] [id number] Referral ID Status Reason Start Date Expiration Date V isits Requested Visits Authorized [id number] Consult, Test & Treat 07/20/2016 07/04/2019 13 13 Encounter Details Date Type Department Care Team (Late st Contact Info) Description 09/26/2016 [place] [address] Jill French GUM COOK [facility] [place] [address] Chronic migraine without aura without status migrainosus, [...] migrainosus documented in this encounter Care Teams Php Mysql Developer Relationship Specialty Start Date End Date Lakshmi Vicente MD [address] [place] [address] PCP - General 07/27/11 04/18/18 documented as of this encounter
--- OUTSIDE RECORDS SUMMARY | 2024-06-09 14:06 | XMS_ITS | Encounter Summary ---
Author Organization [facility] [place] [address] Care Team Providers Care Hand Brush Filler Name Role Phone Lakshmi Vicente MD Primary Care Provider [phone] Reason for Visit * Reason Onset Date Comments Medication Refill 12/05/2017 Encounter Details Date Type Department Care Team (Late st Contact Info) Description 12/05/2017 Refill Neurology at [facility] [place] [address] Jill French [place] [facility] [place] [address] Migraine with aura and without status migrainosus, not intractable; IIH (idiopathic intracranial hypertension) Social History Tobacco [...] intractable migraine without mention of status migrainosus IIH (idiopathic intracranial hypertension) Benign intracranial hypertension documented in this encounter Care Teams Hand Brush Filler Relationship Specialty Start Date End Date Lakshmi Vicente MD [address] [place] [address] PCP - General 07/27/11 04/18/18 documented as of this encounter
--- OUTSIDE RECORDS SUMMARY | 2024-06-09 14:06 | XMS_ITS | Encounter Summary ---
Author Organization [facility] [place] [address] Care Team Providers Care Circular Distributor Name Role Phone Lakshmi Vicente MD Primary Care Provider [phone] Reason for Visit * High Dollar Medication (Routine) - Specialty Diagnoses / Procedures Referred By Keisha singh Referred To Contact Neurology Diagnoses Chronic migraine without aura without status migrainosus, not intractable Procedures Auth Request for Medication TC ONABOTULINUMTOXINA, 1 UNIT, INJECTION Jill French APRN [facility] [place] [address] [facility] [address] [place] [address] Referral ID Status Reason Start Date Expiration Date V isits Requested Visits Authorized [id number] Consult, Test & Treat 07/20/2016 07/04/2019 13 13 Encounter Details Date Type Department Care Team (Late st Contact Info) Description 01/18/2018 3:00 PM EDT Office [place] [address] Jill French [facility] [place] [address] PATIENT NOT SEEN Social History Tobacco Use Types Packs/Day Years Used Date Smoking Tobacco: Never Smokeless Tobacco: Never Alcohol Use Standard Drinks/Week Comments No 0 (1 standard drink = 0.6 oz pur e alcohol) Sex and Gender Information Value Date Recorded Sex Assigned at Not on file Gender Identity Not on file Sexual Orientation Not on file documented as of this encounter Progress Notes * Jill French APRN - 01/18/2018 4:27 PM EDT This patient was not seen in this encounter. Mirela was 66 minutes late arriving to a 30 minute appt and was asked to reschedule. documented in this encounter Plan of Treatment Not on file documented as of this encounter Visit Diagnoses Diagnosis DH PATIENT NOT SEEN documented in this encounter Care Teams Circular Distributor Relationship Specialty Start Date End Date Lakshmi Vicente MD [address] [place] [address] PCP - General 07/27/11 04/18/18 documented as of this encounter
--- OUTSIDE RECORDS SUMMARY | 2024-06-09 14:06 | XMS_ITS | Encounter Summary ---
Author Organization [facility] [place] [address] Care Team Providers Care Banking Center Manager Name Role Phone Lakshmi Vicente MD Primary Care Provider [phone] Encounter Details Date Type Department Care Team (Late st Contact Info) Description 12/07/2015 2:00 PM EST [place] [address] Ludmila Cornejo MD [facility] [place] [address] Harpal Houston MD [facility] [place] [address] Chronic migraine without aura without status migrainosus, [...] documented in this encounter Procedure Notes * Ludmila Cornejo MD - 12/07/2015 2:11 PM [...] Betadine. 3cc of local anesthetic (1.5 cc of 1% lidocaine with 1.5 cc of 0.25% bupivacaine) was infiltrated around the greater occipital nerve on each side. Ludmila Cornejo MD Headache Fellow [facility] Neu[facility] documented in this encounter Plan of [...] Rate Site BUpivacaine (PF) (MARCAINE) 0.25 % (2.5 mg/mL) injection 7.5 mg 7.5 mg, Subcutaneous, ONCE, 1 dose, On Sun12/07/15 at 1430, Routine Given 12/07/2015 2:13 PM EST 7.5 mg lidocaine (XYLOCAINE) 10 mg/mL (1 %) injection 30 mg 30 mg, Subcutaneous, ONCE, 1 dose, On Sun12/07/15 at 1430, Routine Given 12/07/2015 2:13 PM EST 30 mg documented in this encounter Care Teams Banking Center Manager Relationship Specialty Start Date End Date Lakshmi Vicente MD [address] [place] [address] PCP - General 07/27/11 04/18/18 documented as of this encounter
--- OUTSIDE RECORDS SUMMARY | 2024-06-09 14:06 | XMS_ITS | Encounter Summary ---
Author Organization [facility] [place] [address] Care Team Providers Care Bisque Grader Name Role Phone Lakshmi Vicente MD Primary Care Provider [phone] Encounter Details Date Type Department Care Team (Late st Contact Info) Description 01/03/2016 2:00 PM EDT Office [place] [address] Ludmila Cornejo MD [facility] [place] [address] Silke Pollack MD [facility] [place] [address] Chronic migraine without aura without status migrainosus, [...] EDT documented in this encounter Procedure Notes * Ludmila Cornejo MD - 01/03/2016 2:42 PM [...] each side. Ludmila Cornejo MD Headache Fellow [facility] Neurology documented in this encounter Plan of [...] 1 dose, On Sun01/03/16 at 1500, Routine Given 01/03/2016 2:42 PM EDT 7.5 mg lidocaine (XYLOCAINE) 10 mg/mL (1 %) injection 30 mg 30 mg, Subcutaneous, ONCE, 1 dose, On Sun01/03/16 at 1500, Routine Given 01/03/2016 2:42 PM EDT 30 mg documented in this encounter Care Teams Bisque Grader Relationship Specialty Start Date End Date Lakshmi Vicente MD [address] [place] [address] PCP - General 07/27/11 04/18/18 documented as of this encounter
--- OUTSIDE RECORDS SUMMARY | 2024-06-09 14:06 | XMS_ITS | Encounter Summary ---
Author Organization [facility] [place] [address] Care Team Providers Care Solution Design And Analysis Manager Name Role Phone Neda Manzanares Primary Care Provider + Encounter Details Date Type Department Care Team (Late st Contact Info) Description 07/18/2018 9:00 AM EDT Office [place] [address] Jeaneth Ozuna APRN [facility] [place] [address] Chronic migraine without aura with status migrainosus, not intractable Social History Tobacco Use Types Packs/Day Years Used Date Smoking Tobacco: Never Smokeless Tobacco: Never Alcohol Use Standard Drinks/Week Comments No 0 (1 standard drink = 0.6 oz pur e alcohol) Sex and Gender Information Value Date Recorded Sex Assigned at Not on file Gender Identity Not on file Sexual Orientation Not on file documented as of this encounter Procedure Notes * Jeaneth Ozuna APRN - 07/18/2018 9:00 AM EDTAssociated Order(s): NERVE BLOCK - OCCIPITAL Procedure Note Procedure: Bilateral Greater Occipital Nerve Blocks Indication: Headache with occipital/cervical tenderness Cervicogenic Headache Status migraine Consent: Indication, risks, benefits, and alternatives discussed with patient, including risk of bleeding, infection, permanent numbness, and medication reaction. Written consent signed by patient - 07/18/18 Location: The greater occipital nerve was located by first palpating the mastoid and midline occipital ridge. The nerve was palpated at 2/3 the distance to the occipital ridge. It was coincident withmaximal tenderness Medication: 50/50 mixture of 1% lidocaine and 0.25% bupivacaine Technique: The area was cleansed with 2 alcohol swabs while using clear gloves. Using a 3 cc syringe and a 30 guage 1/2 inch needle, 3 cc of the medication mixture was injected into multiple tissue planes in the area around each greater occipital nerve. Prior to each injection the plunger was drawnback to ensure that the needle was not in a blood vessel. The patient tolerated the procedure well. Complications: None Blood loss: <1 cc FELIX Garcia APRN [facility] documented in this encounter Plan of Treatment Not on file documented as of this encounter Procedures Procedure Name Priority Date/Time Associated Diagnosis Comments NERVE BLOCK - OCCIPITAL Routine 07/18/2018 9:16 AM EDT Chronic migraine without aura with status migrainosus, not intractable documented in this encounter Results * NERVE BLOCK - OCCIPITAL (07/18/2018 9:16 AM EDT) Narrative Jeaneth Ozuna APRN - 07/18/2018 9:16 AM EDT Jeaneth Ozuna APRN ? 07/18/2018 ??9:16 AM Procedure Note Procedure: Bilateral Greater Occipital Nerve Blocks Indication: Headache with occipital/cervical tenderness ??Cervicogenic Headache ??Status migraine Consent: Indication, risks, benefits, and alternatives discussed with patient, including risk of bleeding, infection, permanent numbness, and medication reaction. ?? Written consent signed by patient - 07/18/18 Location: The greater occipital nerve was located by first palpating the mastoid and midline occipital ridge. ??The nerve was palpated at 2/3 the distance to the occipital ridge. ??It was coincident with maximal tenderness Medication: 50/50 mixture of 1% lidocaine and 0.25% bupivacaine Technique: The area was cleansed with 2 alcohol swabs while using clear gloves. ??Using a 3 cc syringe and a 30 guage 1/2 ??inch needle, 3 cc of the medication mixture was injected into multiple tissue planes in the area around each greater occipital nerve. ?? Prior to each injection the plunger was drawn back to ensure that the needle was not in a blood vessel. ??The patient tolerated the procedure well. Complications: None Blood loss: <1 cc Jeaneth Ozuna, GI PHYSICIAN-BC, DESIGNER WRITER [facility] Jeaneth Ozuna DESIGNER WRITER NEUROLOGY ORDERABL ES documented in this encounter Visit Diagnoses Diagnosis Chronic migraine without aura with status migrainosus, not intractable Chronic migraine without aura, without mention of intractable migraine with status migrainosus documented in this encounter Administered Medications Inactive Administered Medications - up to 3 most recent administrations Medication Order MAR Action Action Date Dose Rate Site BUpivacaine (PF) (MARCAINE) 0.25 % (2.5 mg/mL) injection 7.5 mg 7.5 mg, Subcutaneous, ONCE, 1 dose, On Lena 07/18/18 at 0930, Routine Given 07/18/2018 9:14 AM EDT 7.5 mg lidocaine (PF) (XYLOCAINE) 10 mg/mL (1 %) injection 30 mg 30 mg, Subcutaneous, ONCE, 1 dose, On Lena 07/18/18 at 0930, Routine Given 07/18/2018 9:14 AM EDT 30 mg documented in this encounter Care Teams Solution Design And Analysis Manager Relationship Specialty Start Date End Date Neda Mnazanares PA [address] [place] [id number] PCP - General Orthopaedic Surgery 04/19/18 09/14/18 documented as of this encounter
--- OUTSIDE RECORDS SUMMARY | 2024-06-09 14:06 | XMS_ITS | Encounter Summary ---
Author Organization [facility] Address [facility] [place] [address] Care Team Providers Care Structural Design Engineer Name Role Phone Lakshmi Vicente MD Primary Care Provider [phone] Reason for Visit * Reason Onset Date Comments Appointment 10/01/2015 Encounter Details Date Type Department Care Team (Late st Contact Info) Description 10/01/2015 Telephone [place] [address] Jeremy Rosado MD [facility] [place] [address] Appointment Social History Tobacco Use Types Packs/Day Years [...] encounter Miscellaneous Notes * Telephone Encounter - Dottie Mckeon - 10/01/2015 3:01 PM EST Spoke with states Mirela images were taken at [facility]. Will request report/images aresent. documented in this encounter Plan of Treatment Not on file documented as of this encounter Visit Diagnoses Not on filedocumented in this encounter Care Teams Structural Design Engineer Relationship Specialty Start Date End Date Lakshmi Vicente MD [address] [place] [address] PCP - General 07/27/11 04/18/18 documented as of this encounter
--- OUTSIDE RECORDS SUMMARY | 2024-06-09 14:06 | XMS_ITS | Encounter Summary ---
Author Organization [facility] [place] [address] Care Team Providers Care Silver Miner Name Role Phone Lakshmi Vicente MD Primary Care Provider [phone] Encounter Details Date Type Department Care Team (Late st Contact Info) Description 08/10/2015 4:00 PM EDT [place] [address] Harpal Houston MD [facility] [place] [address] Ludmila Cornejo MD [facility] [place] [address] Chronic migraine without aura without status migrainosus, [...] EDT documented in this encounter Progress Notes * Ludmila Cornejo MD - 08/10/2015 5:41 PM [...] for b/l ONB. She states since last visit she has had a total of 10 headache free days within the month which is an improvement for her. Shereports 2-3 severe headaches that were not responsive to any of her meds and the other days were mild headaches which responded to zolmitriptan. She is anxious to trying Botox today as it was approved and she is otherwise without complaints. She states the presentation of her headaches has remainedthe same. Her headaches are right frontal and [...] mouth 2 times daily as needed (headache). (Patient taking differently: Take 25 mg by mouth 2 times daily.) 60 capsule 12 ??? ZOLMitriptan (ZOMIG) 5 mg [place], Non-Aerosol 1 spray in one nostril. May [...] mg by mouth 2 times daily. 3 tabletsbid, ends 07/15 ??? [DISCONTINUED] ZOLMitriptan (ZOMIG) 5 [...] Botox administration. Ludmila Cornejo MD Headache Fellow [facility] [place] documented in this encounter Procedure Notes * Ludmila Cornejo MD - 08/10/2015 4:23 PM EDTProcedure(s): OCCIPITAL NERVE BLOCK BILATERAL, MSPAIN; PRO CHEMODENERVATION FACIAL/TRIGEM/CERV MUSCMIGRAINE Pre-Procedure Diagnose(s): Chronic migraine without aura without [...] 1 injection of 5 U in right tack cleaner muscle 1 injection of 5 U in left tack cleaner muscle 2 injections of 5 U in [...] each side. Ludmila Cornejo MD Headache Fellow [facility] [place] documented in this encounter Plan of [...] 1 dose, On Sun08/10/15 at 1645, Routine Given 08/10/2015 4:22 PM EDT 200 Units BUpivacaine (PF) (MARCAINE) 0.25 % (2.5 mg/mL) injection 7.5 mg 7.5 mg, Subcutaneous, ONCE, 1 dose, On Sun08/10/15 at 1645, Routine Given 08/10/2015 4:23 PM EDT 7.5 mg lidocaine (XYLOCAINE) 10 mg/mL (1 %) injection 30 mg 30 mg, Subcutaneous, ONCE, 1 dose, On Sun08/10/15 at 1645, Routine Given 08/10/2015 4:23 PM EDT 30 mg documented in this encounter Care Teams Silver Miner Relationship Specialty Start Date End Date Lakshmi Vicente MD [address] [place] [address] PCP - General 07/27/11 04/18/18 documented as of this encounter
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
--- OUTSIDE RECORDS SUMMARY | 2024-06-09 14:06 | XMS_ITS | Encounter Summary ---
Author Organization [facility] [place] [address] Care Team Providers Care Baggagemaster Name Role Phone Neda Manzanares Primary Care Provider + Reason for Visit * Reason Onset Date Comments Medication Refill 07/12/2018 Encounter Details Date Type Department Care Team (Late st Contact Info) Description 07/12/2018 [place] [address] Silke Pollack MD [facility] [place] [address] IIH (idiopathic intracranial hypertension); Migraine with aura and without status migrainosus, [...] IIH (idiopathic intracranial hypertension) Benign intracranial hypertension Migraine with aura and without status migrainosus, not intractable Migraine with aura, without mention of intractable migraine without mention of status migrainosus documented in this encounter Care Teams Baggagemaster Relationship Specialty Start Date End Date Neda Manzanares PA [address] [place] [address] PCP - General Orthopaedic Surgery 04/19/18 09/14/18 documented as of this encounter
--- OUTSIDE RECORDS SUMMARY | 2024-06-09 14:06 | XMS_ITS | Encounter Summary ---
[place] [address] Care Team Providers Care Home School Coordinator Name Role Phone Lakshmi Vicente MD Primary Care Provider [phone] Reason for Visit * Reason Onset Date Comments Prior Authorization 06/14/2015 Encounter Details Date Type Department Care Team (Late st Contact Info) Description 06/14/2015 [place] [id number] Shavon Weber LPN Prior Authorization Social History Tobacco Use Types Packs/Day Years [...] encounter Miscellaneous Notes * Telephone Encounter - Shavon Weber LPN - 07/06/2015 2:19 PM EDT Medication: Zomig nasal spray Prior Authorization: Start Date:07/06/2015 End Date:01/04/2016 Health Plan: [place] Medicaid Phone: Fax: Authorizing Rep: Authorization Number (if applicable):[id number] Notified: Patient ( x ) Pharmacy ( ) * Telephone Encounter - Shavon Weber LPN - 07/06/2015 11:25 AM EDT Zomig tablets denied.JOSE faxed for Zomig spray with office notes faxed to [place] [employer]. * Telephone Encounter - Shavon Weber LPN - 06/15/2015 9:06 AM EDT Zomig tablets denied.Written appeal sent to [place] [employer]. * Telephone Encounter - Shavon Weber LPN - 06/14/2015 1:59 PM EDT JOSE faxed to [place] medicaid for zomig tablets documented in this encounter Plan of Treatment Not on file documented as of this encounter Visit Diagnoses Not on filedocumented in this encounter Care Teams Home School Coordinator Relationship Specialty Start Date End Date Lakshmi Vicente MD [address] [place] [address] PCP - General 07/27/11 04/18/18 documented as of this encounter
--- OUTSIDE RECORDS SUMMARY | 2024-06-09 14:06 | XMS_ITS | Encounter Summary ---
Author Organization [facility] [place] [address] Care Team Providers Care Hand Stripper Name Role Phone Neda Manzanares Primary Care Provider + Reason for Visit * Reason Onset Date Comments Other 07/18/2018 Encounter Details Date Type Department Care Team (Late st Contact Info) Description 07/18/2018 [place] [address] Silke Pollack MD [facility] [place] [address] Other Social History Tobacco Use Types Packs/Day [...] seen in clinic for same day ONB * Telephone Encounter - Qiana Bowens RN - 07/18/2018 8:23 AM EDT Met with patient and verified that she does not have any new or concerning symptoms. Migraine presenting as facial pressure. Patient it tender in the occipital region. Informed her that we did receive her message about the PA needed and MERRILL Weiner will work on that today. Explained to patient that we are not informed by the insurance company when PAs are expiring and find out by patient contact. Informed patient that Jeaneth Ozuna APRN will likely be able to see her to perform and ONB and that she should wait in the lobby until I have confirmation. * Telephone Encounter - Erica Vanessa - 07/18/2018 8:06 AM EDT Clinical [place] Message Caller: Patient If not Pt / Relation to pt: Caller callback number: Patient is at the waiting area and does not have a [...] on filedocumented in this encounter Care Teams Hand Stripper Relationship Specialty Start Date End Date Neda Manzanares PA [address] [place] [address] PCP - General Orthopaedic Surgery 04/19/18 09/14/18 documented as of this encounter
--- OUTSIDE RECORDS SUMMARY | 2024-06-09 14:06 | XMS_ITS | Encounter Summary ---
Author Organization [facility] Address [facility] [place] [address] Care Team Providers Care Firer Boiler Name Role Phone Lakshmi Vicente MD Primary Care Provider [phone] Encounter Details Date Type Department Care Team (Late st Contact Info) Description 10/11/2015 Telephone [place] [address] Mirela Massey, RD [facility] [place] [address] Social History Tobacco Use Types Packs/Day Years [...] encounter Miscellaneous Notes * Telephone Encounter - Mirela Massey, RD - 10/11/2015 12:03 PM EST I called Mirela today to see if she is still interested in pursuing [place] [facility] She came to the introductory meeting on 06/18/2015. To date she has only submitted her insurance worksheet. Mirela states she is still interested in bariatric surgery but cannot fill out our online formas she is legally blind. Plan: Mirela is going to come in October 19 at 11AM and Jennifer Shepherd is going to help her fill out the form. documented in this encounter Plan of Treatment Not on file documented as of this encounter Visit Diagnoses Not on filedocumented in this encounter Care Teams Firer Boiler Relationship Specialty Start Date End Date Lakshmi Vicente MD [address] [place] [address] PCP - General 07/27/11 04/18/18 documented as of this encounter
--- OUTSIDE RECORDS SUMMARY | 2024-06-09 14:06 | XMS_ITS | Encounter Summary ---
Author Organization [facility] Address [facility] [place] [address] Care Team Providers Care Keno Clerk Name Role Phone Lakshmi Vicente MD Primary Care Provider [phone] Reason for Visit * Reason Onset Date Comments Other 12/05/2017 Encounter Details Date Type Department Care Team (Late st Contact Info) Description 12/05/2017 [place] [address] Silke Pollack MD [facility] [place] [address] Other Social History Tobacco Use Types Packs/Day [...] delete the 30-day supply Rx and refills * Telephone Encounter - Bhavana Victor - 12/05/2017 9:48 AM EST Caller: Erick If not Pt / Relation to pt: pharmacist Best time to reach caller: anytime 8-5:30 Before 2:30pm - Informed caller that nurse will call back by the end of the day Best number to reach caller: [phone] Reason for call: Erick called stating that the patient's insurance is requesting a prescription for 90 days of the acetazolamide. She is asking for a new prescription with a 90 day supply requested. Please send new prescription to [facility]'s pharmacy documented in this encounter Plan of Treatment Not on file documented as of this encounter Visit Diagnoses Diagnosis IIH (idiopathic intracranial hypertension) Benign intracranial hypertension documented in this encounter Care Teams Keno Clerk Relationship Specialty Start Date End Date Lakshmi Vicente MD [address] [place] [address] PCP - General 07/27/11 04/18/18 documented as of this encounter
--- OUTSIDE RECORDS SUMMARY | 2024-06-09 14:06 | XMS_ITS | Encounter Summary ---
Author Organization [facility] [place] [address] Care Team Providers Care Track Machine Operator Repairer Name Role Phone Lakshmi Vicente MD Primary Care Provider [phone] Reason for Visit * Reason Comments Allergic Reaction Encounter Details Date Type Department Care Team (Late st Contact Info) Description 04/30/2015 2:24 PM EDT - 04/30/2015 7:14 PM EDT [place] [address] Devika Andino MD [facility] [place] [address] Allergic reaction, initial encounter Discharge Disposition: Home Social History Tobacco Use [...] Sign Reading Time Taken Comments Blood Pressure 132/84 04/30/2015 7:13 PM EDT Pulse 97 04/30/2015 7:13 PM EDT Temperature 37.1 ??C (98.8 ??F) 04/30/2015 2:44 PM ED T Respiratory Rate 16 04/30/2015 7:13 PM EDT Oxygen Saturation 99% 04/30/2015 7:13 PM EDT Inhaled Oxygen Concentration - - Weight - - Height - - Body Mass Index - - documented in this encounter Discharge Instructions * Discharge Instructions* Carlos Laughlin MD - 04/30/2015 7:02 PM EDT You should follow up with allergy clinic and your primary care provider within the next week. You should also take your EpiPen with you at all times and use it if you are having hives, difficulty breathing, or other concerns for severe allergic reaction. Please return to the emergency department with any emergently concerning symptoms. About your Diabetes You should follow up with your doctor to discuss your diabetes care and your Hemoglobin-A1C. Patients with diabetes benefit from having their blood sugar values kept in a well-controlled range. The Hemoglobin-A1C test can check your overall control and may be able to direct the care of your diabetes. Review of our records indicates that you have not had a Hemoglobin-A1C result in our system in the last nine months. You should follow up with your doctor to discuss obtaining this test. * Attachments The following attachments cannot be sent through Care Everywhere. * ALLERGIC REACTION (GHANAIAN) documented in this encounter Medications at Time of Discharge Medication Sig Dispensed Refills Start Date End Date celecoxib (CELEBREX) 200 mg Capsule Take 200 [...] 4 hours as needed. Use with spacer hydrOXYzine (ATARAX) 10 mg TabletIndications:Chroni c migraine without aura without status migrainosus, not intractable Take 1 tablet by mouth 3 times daily as needed (for headaches). 90 tablet 3 01/26/2015 05/13/2015 rizatriptan (MAXALT-NERVE SPECIALIST) 10 mg Tablet, Rapid Dissolve Take 10 mg by mouth as needed for Migraine. May repeat in 2 hours if needed 05/13/2015 documented as of this encounter ED Notes * Floyd Truong RN - 04/30/2015 6:51 PM EDT Care resumed at this time by primary RN post trauma care. PT is resting comfortably in room in NAD at this time. Nursing to continue to monitor. PT has call light within reach. * Floyd Truong RN - 04/30/2015 3:10 PM EDT Primary RN pulled into trauma bay for critical PT. Care assumed by nurse discharge planner * Carlos Laughlin MD - 04/30/2015 3:02 PM EDT Chief Complaint Patient presents with ??? Allergic Reaction HPI Comments: This is a 34-year-old female with a history of anaphylaxis to bee stings and a history of needing intubation for bacterial infections around her throat, who presents to the emergency department with chief complaint of throat fullness. She has not had any change of voice or difficulty speaking. She has been able to move air. She is uncertain what the bacterial infections were around her throat that caused her to need to be intubated previously. She does not have any rash, nausea,vomiting, or lightheadedness. She had allergy shots around 11:00 and started noticing her symptoms around an hour and a half later. Allergies Allergen Reactions ??? Latex Rash ??? Acetaminophen Other (See Comments) Vomit, rash, SOB ??? Gloves, Latex ??? Tessalon [Benzonatate] Other (See Comments) 'Impairs cognitive function and messes with my heart rate' ??? Topamax [Topiramate] cognitive dysfuntion ??? Tylenol [Benzocaine] Rash, vommitting Review of Systems Constitutional: Negative for fever and chills. HENT: Positive for sore throat and trouble swallowing. Negative for congestion, facial swelling, hearing loss, rhinorrhea and voice change. Eyes: Negative for visual disturbance. Respiratory: Negative for cough, shortness of breath, wheezing and stridor. Cardiovascular: Negative for chest pain. Gastrointestinal: Negative for nausea, vomiting, abdominal pain and diarrhea. Genitourinary: Negative for dysuria and difficulty urinating. Musculoskeletal: Negative for myalgias, arthralgias, neck pain and neck stiffness. Skin: Negative for rash and wound. Neurological: Negative for headaches. Psychiatric/Behavioral: Negative for confusion. Physical Exam Constitutional: She appears well-developed and well-nourished. No distress. HENT: Head: Normocephalic. Mouth/Throat: Oropharynx is clear and moist. No oropharyngeal exudate. No change in voice. No stridor. No visible swelling of mouth, tongue, or throat. Eyes: Conjunctivae are normal. Neck: Normal range of motion. Cardiovascular: Normal rate, regular rhythm and normal heart sounds. No murmur heard. Pulmonary/Chest: Effort normal and breath sounds normal. No stridor. No respiratory distress. She has no wheezes. She has no rales. Abdominal: Soft. She exhibits no distension. There is no tenderness. There is no rebound and no guarding. Lymphadenopathy: She has no cervical adenopathy. Neurological: She is alert. Skin: Skin is warm and dry. No rash noted. She is not diaphoretic. Psychiatric: She has a normal mood and affect. Nursing note and vitals reviewed. Procedures MDM ED Course: I treated the patient with 50 mg of IV Benadryl and 125 of Solu-Medrol. She was monitored and observed in the emergency department for several hours, and had resolution of her symptoms. She did not require any further treatment. I did obtain some basic labs, which showed a mild leukocytosis. It appears that this patient had an allergic reaction to the shots that she had earlier today at the allergy clinic. It is not certain that this is the case, however. Certainly, anxiety could cause similar symptoms, but the timing is more in line with an allergic reaction. I also considered a retropharyngeal or peritonsillar abscess, the physical exam was not consistent with this, she had no hoarseness of voice, her symptoms resolved, and ultimately was determined that a CT would not be appropriate at this time. Assessment/plan: 34-year-old female with likely allergic reaction following allergy shots earlier today. She was discharged home with an EpiPen in her possession in case it was needed. She will follow up with the allergy clinic and her PCP. She will return with any emergent concerns. She verbalized understanding and agreed to this plan. Carlos Laughlin MD Resident 04/30/15 2233 Associated attestation - Devika Andino MD - 05/03/2015 4:35 AM EDT ED ATTENDING ATTESTATION NOTE The patient was seen in conjunction with Dr. Laughlin, the resident physician. I have independently performed the guevara portions of the history and physical exam. I have reviewed the nursing notes, vitalsigns, and all diagnostic studies personally including labs, imaging studies and EKGs. I have discussed the details of the case with the resident and agree with the assessment and plan as described in the resident note above unless noted otherwise below. * Floyd Truong RN - 04/30/2015 2:35 PM EDT PT brought to room 20 S difficulty. IV inserted and PT connected to monitor. Pt is awake, alert andoriented x 3. Skin color is pink warm and dry. Respirations are regular. Breath sounds are clear and equal bilaterally. Pt is on the nurse monitoring showing a NSR. PT given call light and advised on its use. Nursing to continue to monitor. documented in this encounter Miscellaneous Notes * ED Triage - Deb Monroy RN - 04/30/2015 2:49 PM EDT Patient presents stating she feels as though she is having an allergic reaction. She had allergy shots at 1100 today and began to feel symptoms 30 minutes after the shots. She states she has been intubated twice before related to a bacterial infection. She is able to speak and manage her secretions. documented in this encounter Plan of Treatment Not on file documented as of this encounter Procedures Procedure Name Priority Date/Time Associated Diagnosis Comments HEMOGRAM STAT 04/30/2015 3:30 PM EDT DIFFERENTIAL, AUTOMATED STAT 04/30/2015 3:30 PM EDT GOLD TUBE HOLD STAT 04/30/2015 3:30 PM EDT BLUE TUBE HOLD STAT 04/30/2015 3:30 PM EDT GREEN TUBE HOLD STAT 04/30/2015 3:30 PM EDT CBC (WITH DIFF) STAT 04/30/2015 3:30 PM EDT documented in this encounter Results * Green Tube HOLD (04/30/2015 3:30 PM EDT) Green Hold Sample in lab. MARISA DA SILVA Blood specimen (specimen) Venous Draw / Unknown 04/30/2015 3:30 PM EDT 04/30/2015 3:40 PM EDT Devika Andino MD CHEMISTRY ORDERABLE S Performing Organization Address [facility] de Phone Number MARISA DA SILVA * Gold Tube HOLD (04/30/2015 3:30 PM EDT) Gold Hold Sample in lab. MARISA ABDALLAIUM Blood specimen (specimen) Venous Draw / Unknown 04/30/2015 3:30 PM EDT 04/30/2015 3:40 PM EDT Devika Andino MD CHEMISTRY ORDERABLE S MARISA ABDALLAIUM * Blue Tube HOLD (04/30/2015 3:30 PM EDT) Blue Hold Sample in lab. MARISA ABDALLAIUM Blood specimen (specimen) Venous Draw / Unknown 04/30/2015 3:30 PM EDT 04/30/2015 3:41 PM EDT Devika Andino MD HEMATOLOGY ORDERABL ES CERNER MILLENNIUM * (ABNORMAL) Differential, Automated (04/30/2015 3:30 PM EDT) Neutrophil % 73.9 % CERNER MILLENNIUM Neutrophil Absolute 10.29(H) 1.50 - 6.30 x10(3)/mc L CERNER MILLENNIUM Lymph % 15.3 % CERNER MILLENNIUM Lymphocytes Abs 2.1 1.0 - 3.6 x10(3)/mc L CERNER MILLENNIUM Monocyte % 8.3 % CERNER MILLENNIUM Monocyte Abs 1.2(H) 0.2 - 1.0 x10(3)/mc L CERNER MILLENNIUM Eos % 2.1 % CERNER MILLENNIUM Eosinophils Abs 0.3 0.0 - 0.5 x10(3)/mc L CERNER MILLENNIUM Basophil % 0.3 % CERNER MILLENNIUM Baso Absolute 0.0 0.0 - 0.2 x10(3)/mc L CERNER MILLENNIUM Immature Gran % 0.10 % CERN ER MILLENNIUM Comment: Immature granulocytes(IG's)percentage and absolute count will include metamyelocytes, myelocytes, and promyelocytes. Blood smears from CBCs yielding IG's will be scanned manually for concordance. If this scan disagrees with the automated IG or if promyelocytes are noted, a manual differential will be performed. Immature Gran Absolute 0.02 0.00 - 0.05 x10(3)/mc L CERNER MILLENNIUM Blood specimen (specimen) 04/30/2015 3:30 PM EDT 04/30/2015 3:40 PM EDT Narrative Resulting Agency Comment Spec In Lab Devika Andino MD HEMATOLOGY ORDERABL ES CERNER MILLENNIUM * (ABNORMAL) Hemogram (04/30/2015 3:30 PM EDT) White Blood Cell 13.9(H) 4.0 - 10.0 x10(3)/mc L CERNER MILLENNIUM Red Blood Cell 4.20 3.93 - 5.22 x10(6)/mc L CERNER MILLENNIUM Hemoglobin 12.2 11.2 - 15.7 gm/dL CERNER MILLENNIUM Hematocrit 35.8 34.0 - 45.0 % CERNER MILLENNIUM Mean Cell Volume 85.2 79.0 - 94.0 fL CERNER MILLENNIUM Mean Cell Hemoglobin 29.0 26.6 - 32.2 pg CERNER MILLENNIUM Mean Cell Hemoglobin Concentration 34.1 32.0 - 36.5 gm/dL CERNER MILLENNIUM Platelet 270 145 - 370 x10(3)/mc L CERNER MILLENNIUM RDW Standard Deviation 39.1 35.0 - 46.0 fL CERNER MILLENNIUM RDW coefficient of variation 12.7 10.9 - 14.4 % CERNER MILLENNIUM Mean Platelet Volume 9.8 9.0 - 12.0 fL CERNER MILLENNIUM Blood specimen (specimen) 04/30/2015 3:30 PM EDT 04/30/2015 3:40 PM EDT Narrative Resulting Agency Comment Spec In Lab Devika Andino MD HEMATOLOGY ORDERABL ES MARISA DA SILVA documented in this encounter Visit Diagnoses Diagnosis Allergic reaction, initial encounter documented in this encounter Administered Medications Inactive Administered Medications - up to 3 most recent administrations Medication Order MAR Action Action Date Dose Rate Site diphenhydrAMINE (BENADRYL) injection 50 mg 50 mg, Intravenous, ONCE, 1 dose, On Sun04/30/15 at 1506, STAT Given 04/30/2015 3:26 PM EDT 50 mg methylPREDNISolone sodium succinate (PF) (solu-MEDROL) injection 125 mg 125 mg, Intravenous, ONCE, 1 dose, On Sun04/30/15 at 1506 Given 04/30/2015 3:26 PM EDT 125 mg documented in this encounter Active and Recently Administered Medications Times are shown in EDT. Scheduled Medication Order 04/28/2015 04/29/2015 04/30/2015 diphenhydrAMINE (BENADRYL) injection 50 mg (COMPLETED) 50 mg, Intravenous, ONCE, 1 dose, On Sun04/30/15 at 1506, STAT 1526 (Given - Provid er: lFoyd Truong RN) methylPREDNISolone sodium succinate (PF) (solu-MEDROL) injection 125 mg (COMPLETED) 125 mg, Intravenous, ONCE, 1 dose, On Sun04/30/15 at 1506 1526 (Given - Provid er: Floyd Truong RN) documented in this encounter Care Teams Track Machine Operator Repairer Relationship Specialty Start Date End Date Lakshmi Vicente MD [address] [place] [address] PCP - General 07/27/11 04/18/18 documented as of this encounter
--- OUTSIDE RECORDS SUMMARY | 2024-06-09 14:06 | XMS_ITS | Encounter Summary ---
Author Organization [facility] [place] [address] Care Team Providers Care Teacher Adult Education Name Role Phone Lakshmi Vicente MD Primary Care Provider [phone] Encounter Details Date Type Department Care Team (Late st Contact Info) Description 03/30/2016 11:40 AM EDT Office Visit Neurology at [facility] [place] [place] [address] Jill French PERFUMER [facility] [place] [address] Chronic migraine without aura without status migrainosus, [...] Sign Reading Time Taken Comments Blood Pressure 124/70 03/30/2016 11:54 AM EDT Pulse 92 03/30/2016 11:54 AM EDT Temperature - - Respiratory Rate - - Oxygen Saturation - - Inhaled Oxygen Concentration - - Weight - - Height - - Body Mass Index - - documented in this encounter Procedure Notes * Jill French APRN - 03/30/2016 1:18 PM EDTAssociated Order(s): NERVE BLOCK - OCCIPITAL; TRIGGER POINT INJECTION - 3 OR 4 MUSCLES Pre-Procedure Diagnose(s): Cervicogenic headache Procedure Note Procedure: Bilateral Greater Occipital Nerve Blocks and Trigger Point injections Indication: Headache with occipital/cervical tenderness Consent: Indication, risks, benefits, and alternatives discussed with patient, including risk of bleeding, infection, permanent numbness, and medication reaction. Written consent signed by patient. Location: The greater occipital nerve was located by first palpating the mastoid and midline occipital ridge. The nerve was palpated at 2/3 the distance to the occipital ridge. It was coincident withmaximal tenderness. Six tender trigger points were also identified in the bilateral trapezii and cervical paraspinal musculature. Medication: 50/50 mixture of 1% lidocaine and 0.25% bupivacaine Technique: The area was cleansed with 2 alcohol swabs while using clear gloves. Using a 3 cc syringe and a 25 guage 5/8 inch needle, 3 cc of the medication mixture was injected into multiple tissue planes in the area around each greater occipital nerve. An additional 3 cc of the medication mixture was divided between six trigger points and 0.5 cc injected into each site after wiping the area withETOH swab. Prior to each injection the plunger was drawn back to ensure that the needle was not in a blood vessel. The patient tolerated the procedure well. Complications: None Blood loss: <1 cc documented in this encounter Plan of Treatment Not on file documented as of this encounter Procedures Procedure Name Priority Date/Time Associated Diagnosis Comments TRIGGER POINT INJECTION - 3 OR 4 MUSCLES Routine 03/30/2016 1:20 PM EDT Chronic migraine without aura without status migrainosus, not intractable Migraine with aura and without status migrainosus, not intractable NERVE BLOCK - OCCIPITAL Routine 03/30/2016 1:20 PM EDT Chronic migraine without aura without status migrainosus, not intractable Migraine with aura and without status migrainosus, not intractable documented in this encounter Results * Trigger Point INjection - 3 or 4 Muscles (03/30/2016 1:20 PM EDT) Narrative Jill French APRN - 03/30/2016 1:20 PM EDT Jill French APRN ? 03/30/2016 ??1:20 PM Procedure Note Procedure: Bilateral Greater Occipital Nerve Blocks and Trigger Point injections Indication: Headache with occipital/cervical tenderness Consent: [...] occipital ridge. ??It was coincident with maximal tenderness. ??Six tender trigger points were also identified in the bilateral trapezii and cervical paraspinal musculature. Medication: 50/50 mixture of 1% lidocaine and 0.25% bupivacaine Technique: The area was cleansed with 2 alcohol swabs while using clear gloves. ??Using a 3 cc syringe and a 25 guage 5/8 inch needle, 3 cc of the medication mixture was injected into multiple tissue planes in the area around each greater occipital nerve. ?? An additional 3 cc of the medication mixture was divided between six trigger points and 0.5 cc injected into each site after wiping the area with ETOH swab. ??Prior to each injection the plunger was drawn back to ensure that the needle was not in a blood vessel. ??The patient tolerated the procedure well. Complications: None Blood loss: <1 cc Silke Pollack MD NEUROLOGY ORDERABLES * NERVE BLOCK - OCCIPITAL (03/30/2016 1:20 PM EDT) Narrative Jill French APRN - 03/30/2016 1:20 PM EDT Jill French APRN ? 03/30/2016 ??1:20 PM Procedure Note Procedure: Bilateral Greater Occipital Nerve Blocks and Trigger Point injections Indication: Headache with occipital/cervical tenderness Consent: [...] occipital ridge. ??It was coincident with maximal tenderness. ??Six tender trigger points were also identified in the bilateral trapezii and cervical paraspinal musculature. Medication: 50/50 mixture of 1% lidocaine and 0.25% bupivacaine Technique: The area was cleansed with 2 alcohol swabs while using clear gloves. ??Using a 3 cc syringe and a 25 guage 5/8 inch needle, 3 cc of the medication mixture was injected into multiple tissue planes in the area around each greater occipital nerve. ?? An additional 3 cc of the medication mixture was divided between six trigger points and 0.5 cc injected into each site after wiping the area with ETOH swab. ??Prior to each injection the plunger was drawn back to ensure that the needle was not in a blood vessel. ??The patient tolerated the procedure well. Complications: None Blood loss: <1 cc Silke Pollack MD NEUROLOGY ORDERABLES documented in this encounter Visit Diagnoses [...] (PF) (MARCAINE) 0.25 % (2.5 mg/mL) injection 11.2 mg 11.2 mg, Subcutaneous, ONCE, 1 dose, On Lena 03/30/16 at 1345, Routine Given 03/30/2016 1:17 PM EDT 11.2 mg lidocaine (XYLOCAINE) 10 mg/mL (1 %) injection 45 mg 45 mg (4.5 mL), Subcutaneous, ONCE, 1 dose, On Lena 03/30/16 at 1345, Routine Given 03/30/2016 1:17 PM EDT 45 mg documented in this encounter Care Teams Teacher Adult Education Relationship Specialty Start Date End Date Lakshmi Vicente MD [address] [place] [address] PCP - General 07/27/11 04/18/18 documented as of this encounter
--- OUTSIDE RECORDS SUMMARY | 2024-06-09 14:06 | XMS_ITS | Encounter Summary ---
Author Organization [facility] [place] [address] Care Team Providers Care Director Of Medicare Name Role Phone Lakshmi Vicente MD Primary Care Provider [phone] Reason for Visit * High Dollar Medication (Routine) - Specialty Diagnoses / Procedures Referred By Keisha singh Referred To Contact Neurology Diagnoses Chronic migraine without aura without status migrainosus, not intractable Procedures Auth Request for Medication TC ONABOTULINUMTOXINA, 1 UNIT, INJECTION Jill French APRN [facility] [place] [address] [facility] [address] [place] [address] Referral ID Status Reason Start Date Expiration Date V isits Requested Visits Authorized [id number] Consult, Test & Treat 07/20/2016 07/04/2019 13 13 Encounter Details Date Type Department Care Team (Late st Contact Info) Description 04/18/2018 12:30 PM EDT [place] [address] Loren Russ PA [facility] [place] [address] Chronic migraine without aura without status [...] documented in this encounter Procedure Notes * Loren Russ PA - 04/18/2018 12:30 PM [...] 1 injection of 5 U in right roller mill tender muscle 1 injection of 5 U in left roller mill tender muscle 2 injections of 5 U in [...] u Total units discarded: 45 u LOT# [id number] EXP: 10/2020 The patient tolerated the procedure without any immediate complications. Loren Russ PA-C Dept. Of Neurology [facility] or [phone](MS nurse contact number) documented in this encounter Plan of Treatment Not on file documented as of this encounter Procedures Procedure Name Priority Date/Time Associated Diagnosis Comments CHEMODENERVATION, MEDICAL Routine 04/18/2018 12:51 PM EDT Chronic migraine without aura without status migrainosus, not intractable documented in this encounter Results * Chemodenervation, medical (04/18/2018 12:51 PM EDT) Narrative Loren Russ PA - 04/18/2018 12:51 PM EDT Loren Russ PA ? 04/18/2018 12:51 PM Procedure: Botox injections (PREEMPT protocol) Indications: Chronic Migraine MIDAS: 28 VIEIRA days: / Avg intensity: 2/10 Risk and benefits were [...] 1 injection of 5 U in right roller mill tender muscle 1 injection of 5 U in left roller mill tender muscle 2 injections of 5 U in [...] u Total units discarded: 45 u LOT# [id number] EXP: 10/2020 The patient tolerated the procedure without any immediate complications. Loren Russ PA-C Dept. Of Neurology [facility] or [phone](MS nurse contact number) Foster Lynn MD PROCEDURE/MINOR SURG ICAL ORDERABLES documented in [...] dose, On Lena 04/18/18 at 1300, Routine Given 04/18/2018 12:47 PM EDT 155 Units documented in this encounter Care Teams Director Of Medicare Relationship Specialty Start Date End Date Lakshmi Vicente MD [address] [place] [address] PCP - General 07/27/11 04/18/18 documented as of this encounter
--- OUTSIDE RECORDS SUMMARY | 2024-06-09 14:06 | XMS_ITS | Encounter Summary ---
[facility] Organization [facility] [place] [address] Care Team Providers Care Supervisory Cbp Officer Name Role Phone Lakshmi Vicente MD Primary Care Provider [phone] Reason for Visit * High Dollar Medication (Routine) - Specialty Diagnoses / Procedures Referred By Keisha singh Referred To Contact Neurology Diagnoses Chronic migraine without aura without status migrainosus, not intractable Procedures Auth Request for Medication TC ONABOTULINUMTOXINA, 1 UNIT, INJECTION Jill French APRN [facility] [place] [id number] [facility] [address] [place] [address] Referral ID Status Reason Start Date Expiration Date V isits Requested Visits Authorized [id number] Consult, Test & Treat 07/20/2016 07/04/2019 13 13 Encounter Details Date Type Department Care Team (Late st Contact Info) Description 04/05/2017 1:30 PM EDT Office [place] [address] Jill French [facility] [place] [id number] Chronic migraine without aura without status migrainosus, [...] Sign Reading Time Taken Comments Blood Pressure 120/70 04/05/2017 1:16 PM EDT Pulse 87 04/05/2017 1:16 PM EDT Temperature - - Respiratory Rate - - Oxygen Saturation - - Inhaled Oxygen Concentration - - Weight 109.8 kg (242 lb) 04/05/2017 1:16 PM EDT reported Height 157.5 cm (5' 2) 04/05/2017 1:16 PM EDT r eported Body Mass Index 44.26 04/05/2017 1:16 PM EDT documented in this encounter Procedure Notes * Jill French, CASSIA - 04/05/2017 1:30 PM EDTAssociated Order(s): CHEMODENERVATION, MEDICAL Pre-Procedure Diagnose(s): Chronic migraine without aura without status migrainosus, not intractable Neurology Procedure note ? Date: 04/05/2017 Patient: Mirela Lara : 1980 ? Procedure: Botox injections (PREEMPT and follow the pain protocols) ? Indications: chronic migraine, and trapezius muscle spasm ? Date Procedure MIDAS 10/17/2016 botox Total 77. Days 90/90. Pain 12/2207/25/2016 botox Total 28. Days 90/90. Pain 11/2405/01/2016 botox Total 36. Days 90/90. Pain 11/2401/09/2017 botox Total 44. Days 90/90. Pain 12/2204/05/2017 botox Total 49. Days 60/90. Pain 11/24 ?Botox treatments have helped a lot with VIEIRA severity and are now helping with headache frequency. ?? Risk and benefits were explained to the patient and consent was obtained. Time out was performed ? OnabotulinumtoxinA was reconstituted with 0.9% NaCl [...] units divided between 2 sites in the clerical adviser muscles, 5 units into 1 site in the procerus muscle, 40 units divided between 8 sites in the temporalis muscles, 30 units divided between 6 sites in the suboccipital region, 20 units divided between 4 sites in the cervical paraspinal musculature, and 30 units divided between 6 sites in the trapezii. An additional 20 uwas divided between four tender sites with palpable muscle spasm in the bilateral trapezii in the fo llow the pain protocol. ?? Note: follow the pain injections supported by Foster Constantino MD, et al in Method of Injection of OnobotulinumtoxinA for Chronic Migraine: A Safe, Well- tolerated, and Effective Treatment ParadigmBased on PReempt Clinical Program. Headache: The Journal of Head and Face Pain. Vol 50, Issue 9. [id number]. Chronic migraine (CM) is a prevalent and disabling neurological disorder. Few prophylactic treatments for CM have been investigated. OnabotulinumtoxinA, which inhibits the release of nociceptive mediators, such as glutamate, substance P, and calcitonin gene-related peptide, has been evaluated in randomized, placebo- controlled studies for the preventive treatment of a variety of headache disorders, including CM. These studies have yielded insight into appropriate patient selection, injection sites, dosages, and technique. Initial approaches used a set of fixed sites for the pericranial injections. However, the treatment approach evolved to include other sites that corresponded tothe location of pain and tenderness in the individual patient in addition to the fixed sites. The [facility] III REsearch Evaluating Migraine Prophylaxis Therapy (PREEMPT) injection paradigm uses both fixed and tdnfch-pdx-cagf sites, with additional specific olokol-ubx-aodb sites considered depending onindividual symptoms. The PREEMPT paradigm for injecting onabotulinumtoxinA has been shown to be safe, well- tolerated, and effective in well-designed, controlled clinical trials and is the evidence-based approach recommended to optimize clinical outcomes for patients with CM. ? Total units used= 175. Total injection sites=35. ? Patient was injected with 175 units and 25 units were wasted/disgarded ? The patient tolerated the procedure without any immediate complications. ? Jill French APRN [facility] documented in this encounter Plan of Treatment Not on file documented as of this encounter Procedures Procedure Name Priority Date/Time Associated Diagnosis Comments CHEMODENERVATION, MEDICAL Routine 04/05/2017 1:38 PM EDT documented in this encounter Results * Chemodenervation, medical (04/05/2017 1:38 PM EDT) Narrative Jill French APRN - 04/05/2017 1:38 PM EDT Jill French APRN ? 04/05/2017 ??1:38 PM Neurology Procedure note ? Date: 04/05/2017 Patient: Mirela Lara : 1980 ? Procedure: Botox injections (PREEMPT and follow the pain protocols) ? Indications: chronic migraine, and trapezius muscle spasm ? Date Procedure ??MIDAS 10/17/2016 botox Total 77. Days 90/90. Pain 12/2207/25/2016 botox Total 28. Days 90/90. Pain 11/2405/01/2016 botox Total 36. Days 90/90. Pain 11/2401/09/2017 botox Total 44. ??Days 90/90. ??Pain 12/2204/05/2017 botox Total 49. ??Days 60/90. ??Pain 11/24 ?Botox treatments have helped a lot with VIEIRA severity and are now helping with headache frequency. ?? Risk and benefits were explained to the patient and consent was obtained. Time out was performed ? OnabotulinumtoxinA was reconstituted with 0.9% NaCl [...] units divided between 2 sites in the clerical adviser muscles, 5 units into 1 site in [...] trapezii in the follow the pain protocol. ?? Note: follow the pain injections supported by Foster Constantino MD, et al in Method of Injection of OnobotulinumtoxinA for Chronic Migraine: A Safe, Well-tolerated, and Effective Treatment Paradigm Based on PReempt Clinical Program. Headache: The Journal of Head and Face Pain. Vol 50, Issue 9. Pp [id number]. Chronic migraine (CM) is a prevalent and disabling neurological disorder. Few prophylactic treatments for CM have been investigated. OnabotulinumtoxinA, which inhibits the release of nociceptive mediators, such as glutamate, substance P, and calcitonin gene-related peptide, has been evaluated in randomized, placebo-controlled studies for the preventive treatment of a variety of headache disorders, including CM. These studies have yielded insight into appropriate patient selection, injection sites, dosages, and technique. Initial approaches used a set of fixed sites for the pericranial injections. However, the treatment approach evolved to include other sites that corresponded to the location of pain and tenderness in the individual patient in addition to the fixed sites. The Phase III REsearch Evaluating Migraine Prophylaxis Therapy (PREEMPT) injection paradigm uses both fixed and uchpxm-dgf-jprx sites, with additional specific sximkb-ltt-uldm sites considered depending on individual symptoms. The [...] any immediate complications. ? Jill French APRN [facility] Jill French APRN PROCEDURE/MINOR SURGICAL ORDERABLES documented in this encounter Visit Diagnoses [...] Units, Intramuscular, ONCE, 1 dose, On Lena 04/05/17 at 1345, Routine Given 04/05/2017 1:28 PM EDT 175 Units documented in this encounter Care Teams Supervisory Cbp Officer Relationship Specialty Start Date End Date Lakshmi Vicente MD [address] [place] [address] PCP - General 07/27/11 04/18/18 documented as of this encounter
--- OUTSIDE RECORDS SUMMARY | 2024-06-09 14:06 | XMS_ITS | Encounter Summary ---
Author Organization [facility] [place] [address] Care Team Providers Care Roller Print Tender Name Role Phone Lakshmi Vicente MD Primary Care Provider [phone] Encounter Details Date Type Department Care Team (Late st Contact Info) Description 09/14/2015 12:00 PM EST Office [place] [address] Harpal Houston MD [facility] [place] [address] Ludmila Cornejo MD [facility] [place] [address] Chronic migraine without aura without status migrainosus, [...] Procedure Notes * Ludmila Cornejo MD - 09/14/2015 11:37 AM [...] each side. Ludmila Cornejo MD Headache Fellow [facility] Neurology documented in this encounter Plan of [...] 1 dose, On Sun09/14/15 at 1200, Routine Given 09/14/2015 11:40 AM EST 7.5 mg lidocaine (XYLOCAINE) 10 mg/mL (1 %) injection 30 mg 30 mg, Subcutaneous, ONCE, 1 dose, On Sun09/14/15 at 1200, Routine Given 09/14/2015 11:40 AM EST 30 mg documented in this encounter Care Teams Roller Print Tender Relationship Specialty Start Date End Date Lakshmi Vicente MD [address] [place] [address] PCP - General 07/27/11 04/18/18 documented as of this encounter
--- OUTSIDE RECORDS SUMMARY | 2024-06-09 14:06 | XMS_ITS | Encounter Summary ---
Author Organization [place] [address] Care Team Providers Care Play Reader Name Role Phone Lakshmi Vicente MD Primary Care Provider [phone] Encounter Details Date Type Department Care Team (Late st Contact Info) Description 01/24/2016 2:00 PM EDT [place] [address] Ludmila Cornejo MD [facility] [place] [address] Harpal Houston MD [facility] [place] [address] Chronic migraine without aura without status migrainosus, [...] kg (240 lb) 01/24/2016 1:36 PM EDT reported Height 156.8 cm (5' 1.75) 01/24/2016 1:36 PM ED T Body Mass Index 44.25 01/24/2016 1:36 PM EDT documented in this encounter Procedure Notes * Ludmila Cornejo MD - 01/24/2016 2:36 PM [...] 1 injection of 5 U in right scientific affairs manager muscle 1 injection of 5 U in left scientific affairs manager muscle 2 injections of 5 U in [...] of 2/10. Ludmila Cornejo MD Headache Fellow [facility] Neurology documented in this encounter Plan of [...] 1 dose, On Sun01/24/16 at 1500, Routine Given 01/24/2016 2:35 PM EDT 200 Units BUpivacaine (PF) (MARCAINE) 0.25 % (2.5 mg/mL) injection 7.5 mg 7.5 mg, Subcutaneous, ONCE, 1 dose, On Sun01/24/16 at 1500, Routine Given 01/24/2016 2:36 PM EDT 7.5 mg lidocaine (XYLOCAINE) 10 mg/mL (1 %) injection 30 mg 30 mg, Subcutaneous, ONCE, 1 dose, On Sun01/24/16 at 1500, Routine Given 01/24/2016 2:36 PM EDT 30 mg documented in this encounter Care Teams Play Reader Relationship Specialty Start Date End Date Lakshmi Vicente MD [address] [place] [address] PCP - General 07/27/11 04/18/18 documented as of this encounter
--- OUTSIDE RECORDS SUMMARY | 2024-06-09 14:06 | XMS_ITS | Encounter Summary ---
Author Organization [facility] [place] [address] Care Team Providers Care Marketing Programs Specialist Name Role Phone Lakshmi Vicente MD Primary Care Provider Reason for Visit * Reason Onset Date Comments Prior Authorization 05/14/2017 zolmatriptan Encounter Details Date Type Department Care Team (Late st Contact Info) Description 05/14/2017 Telephone Neurology at [facility] [place] [address] Jill French, [facility] [place] [address] Prior Authorization (zolmatriptan) Social History Tobacco Use Types Packs/Day Years [...] encounter Miscellaneous Notes * Telephone Encounter - Gladys Giraldo CMA - 05/15/2017 8:07 AM EDT Images from the original note were not included. Called patient she is aware of approval * Telephone Encounter - Gladys Giraldo CMA - 05/14/2017 11:39 AM EDT PA for Zolmitriptan #12 for 30 days pa sent Via fax to [place] medicaid documented in this encounter Plan of Treatment Not on file documented as of this encounter Visit Diagnoses Not on filedocumented in this encounter Care Teams Marketing Programs Specialist Relationship Specialty Start Date End Date Lakshmi Vicente MD [address] [place] [address] PCP - General 07/27/11 04/18/18 documented as of this encounter
--- OUTSIDE RECORDS SUMMARY | 2024-06-09 14:06 | XMS_ITS | Encounter Summary ---
Author Organization [facility] [place] [address] Care Team Providers Care Forest Fire Officer Name Role Phone Lakshmi Vicente MD Primary Care Provider Reason for Visit * Reason Onset Date Comments Prior Authorization 10/18/2016 Zomig 5 mg N S Encounter Details Date Type Department Care Team (Late st Contact Info) Description 10/18/2016 Telephone Neurology at [facility] [place] [address] Jill French APRN [facility] [place] [address] Prior Authorization (Zomig 5 mg NS) Social History Tobacco Use Types Packs/Day Years [...] was left to leave a message was for an Hilario Bailey Left my name and our phone number to call.this is my second attempt to call this patient Called the pharmacy to see if the patient picked up her medication and it was picked up on Oct 19. * Telephone Encounter - Gladys Giraldo CMA - 10/19/2016 9:54 AM EST Images from the original note were not included. Called patient LMOAM to call me back, the name on the message was not the patient, I left my name contact # and Dept and to call our office. * Telephone Encounter - Gladys Giraldo CMA - 10/18/2016 1:16 PM EST Sent a fax to [place] Medicaid for PA * Telephone Encounter - Gladys Giraldo CMA - 10/18/2016 8:46 AM EST Sent PA through cover my Med's for Zomig 5 mg NS documented in this encounter Plan of Treatment Not on file documented as of this encounter Visit Diagnoses Not on filedocumented in this encounter Care Teams Forest Fire Officer Relationship Specialty Start Date End Date Lakshmi Vicente MD [address] [place] [address] PCP - General 07/27/11 04/18/18 documented as of this encounter
--- OUTSIDE RECORDS SUMMARY | 2024-06-09 14:06 | XMS_ITS | Encounter Summary ---
Author Organization [facility] [place] [address] Care Team Providers Care Anthropology Lecturer Name Role Phone Neda Manzanares Primary Care Provider + Reason for Visit * Reason Onset Date Comments Prior Authorization 07/15/2018 Encounter Details Date Type Department Care Team (Late st Contact Info) Description 07/15/2018 [place] [address] Silke Pollack MD [facility] [place] [address] Prior Authorization Social History Tobacco Use Types [...] * Telephone Encounter - Husam Alston - 07/29/2018 12:05 PM EDT Images from the original note were not included. * Telephone Encounter - Husam Alston - 07/29/2018 9:36 AM EDT JOSE request sent to [place] Medicaid through [employer] Do: [id number] * Telephone Encounter - Rosemarie Lock - 07/15/2018 3:09 PM EDT Caller: Mirela If not Pt / Relation to pt: Best time to reach caller: Anytime After 230 pm (if not red arrow message) - Informed caller that if the nurse does not call back by the end of the day they will be called tomorrow AM Best number to reach caller: [phone] Reason for call: Patient states that her Zolmitriptan (zomig) needs a prior authorization. documented in this encounter Plan of Treatment Not on file documented as of this encounter Visit Diagnoses Not on filedocumented in this encounter Care Teams Anthropology Lecturer Relationship Specialty Start Date End Date Neda Manzanares PA [address] [place] [address] PCP - General Orthopaedic Surgery 04/19/18 09/14/18 documented as of this encounter
--- OUTSIDE RECORDS SUMMARY | 2024-06-09 14:06 | XMS_ITS | Encounter Summary ---
Author Organization [facility] [place] [address] Care Team Providers Care Drapery Supervisor Name Role Phone Lakshmi Vicente MD Primary Care Provider [phone] Encounter Details Date Type Department Care Team (Late st Contact Info) Description 10/13/2015 10:00 AM EST Office [place] [address] [facility] [place] [address] [facility] [place] [address] Chronic migraine without aura without status migrainosus, [...] Procedure Notes * Ludmila Cornejo MD - 10/13/2015 9:53 AM [...] each side. Ludmila Cornejo MD Headache Fellow [facility] Neurology documented in this encounter Plan of [...] 1 dose, On Sun10/13/15 at 1015, Routine Given 10/13/2015 9:54 AM EST 7.5 mg lidocaine (XYLOCAINE) 10 mg/mL (1 %) injection 30 mg 30 mg, Subcutaneous, ONCE, 1 dose, On Sun10/13/15 at 1015, Routine Given 10/13/2015 9:54 AM EST 30 mg documented in this encounter Care Teams Drapery Supervisor Relationship Specialty Start Date End Date Lakshmi Vicente MD [address] [place] [address] PCP - General 07/27/11 04/18/18 documented as of this encounter
--- OUTSIDE RECORDS SUMMARY | 2024-06-09 14:06 | XMS_ITS | Encounter Summary ---
Author Organization [facility] [place] [address] Care Team Providers Care Osteopathic Physician Name Role Phone Lakshmi Vicente MD Primary Care Provider [phone] Encounter Details Date Type Department Care Team (Late st Contact Info) Description 11/08/2015 11:30 AM EST [place] [address] Ludmila Cornejo MD [facility] [place] [address] Harpal Houston MD [facility] [place] [address] Chronic migraine without aura without status migrainosus, [...] Procedure Notes * Ludmila Cornejo MD - 11/08/2015 11:49 AM [...] 1 injection of 5 U in right form coverer muscle 1 injection of 5 U in left form coverer muscle 2 injections of 5 U in [...] each side. Ludmila Cornejo MD Headache Fellow [facility] [place] [place] Neurology documented in this encounter Plan of [...] 1 dose, On Sun11/08/15 at 1215, Routine Given 11/08/2015 11:48 AM EST 200 Units BUpivacaine (PF) (MARCAINE) 0.25 % (2.5 mg/mL) injection 7.5 mg 7.5 mg, Subcutaneous, ONCE, 1 dose, On Sun11/08/15 at 1215, Routine Given 11/08/2015 11:48 AM EST 7.5 mg lidocaine (XYLOCAINE) 10 mg/mL (1 %) injection 30 mg 30 mg, Subcutaneous, ONCE, 1 dose, On Sun11/08/15 at 1215, Routine Given 11/08/2015 11:48 AM EST 30 mg documented in this encounter Care Teams Osteopathic Physician Relationship Specialty Start Date End Date Lakshmi Vicente MD [address] [place] [address] PCP - General 07/27/11 04/18/18 documented as of this encounter
--- OUTSIDE RECORDS SUMMARY | 2024-06-09 14:06 | XMS_ITS | Encounter Summary ---
Author Organization [facility] Address [facility] [place] [address] Care Team Providers Care Mold Chipper Name Role Phone Lakshmi Vicente MD Primary Care Provider [phone] Reason for Referral * Consultation (Routine) - Closed Specialty Diagnoses / Procedures Referred By Contac t Referred To Contact Ophthalmology Diagnoses Chronic migraine without aura without status migrainosus, not intractable Elevated intracranial pressure Jill French APRN [facility] [place] [address] Peyton Antonio MD [facility] [place] [address] Referral ID Status Reason Start Date Expiration Date V isits Requested Visits Authorized [id number] Closed Consult, Test & Treat 05/05/2016 05/05/2017 1 1 * Surgical (Routine) - Specialty Diagnoses / Procedures Referred By Contac t Referred To Contact Diagnoses Migraine with aura and without status migrainosus, not intractable Procedures Lumbar Puncture Silke Pollack MD [facility] [place] [address] Referral ID Status Reason Start Date Expiration Date V isits Requested Visits Authorized [id number] Consult, Test & Treat 05/05/2016 05/05/2017 1 1 Reason for Visit * Reason Comments Procedure Encounter Details Date Type Department Care Team (Latest Contact Info) Description 05/05/2016 9:30 AM EDT Procedure [place] [address] Silke Pollack MD [facility] DR NEUROLOGY [place] [address] Migraine with aura and without status migrainosus, not intractable; Chronic migraine without aura without status migrainosus, not intractable; Elevated intracranial pressure Social History Tobacco Use [...] this encounter Progress Notes * Jill French, HOME ADMINISTRATOR - 05/05/2016 9:30 AM EDT Cc: Follow [...] pressure PLAN; MRV ordered Referred to Dr. Narvaez for ophthalmology exam and eval for papilledema Start Diamox SR 500 mg q a.m x 3 days then increase to BID. Follow up here in 10 days as scheduled. documented in this encounter Procedure Notes * Silke Pollack MD - 05/05/2016 9:30 AM EDTAssociated Order(s): LUMBAR PUNCTURE Neurology Procedure Note Date: 05/05/2016 Patient: Mirela Lara : 1980 Procedure: lumbar puncture (diagnostic) Indications: Headache, close opening pressure Risk and benefits were explained to the patient and consent was obtained. Patient consented for the CSF banking study; [facility] # [id number] - 3cc of spinal fluid will be sent to thelab and stored for this purpose. Time out [...] 10 mg by mouth every 6 hours asneeded. ??? prazosin (MINIPRESS) 2 mg Capsule Take 2 mg by mouth nightly. ??? hydrOXYzine (VISTARIL) 25 mg Capsule Take 1 capsule by mouth 2 times daily as needed (headache). (Patient taking differently: Take 25 mg by mouth 2 times daily.) 60 capsule 12 ??? ZOLMitriptan (ZOMIG) 5 mg Letart, Non-Aerosol 1 spray in one nostril. May [...] Sprotte spinal needle was inserted, using an in troducer into the space between L4 and L5. One attempt was made, but the spinal needle was to shortso we converted to a 20 gauge 6 [...] strenuous activity x 24 hrs and to advisestaff if she developed a headache. Blood Loss <1cc Silke Pollack MD [facility] [place] The patient was approached by Dr. Silke Pollack about participating in the CSF Biospecimen and Data Bank, a single institution study at [facility] with Drs. Foster Lynn and Tyler Fagan as lead investigators. After meeting inclusion and exclusion criteria, subjects will provide witnessed informed consent. All questions from the patient regarding this study have been answered. The consent form has [facility]-approval date of 05/28/2015. All study-related procedures were completed after signing the ICF. A copy of the ICF has been provided to the patient. The CSF sample was collected by Dr. Silke Pollack and properly stored and sent to the CSF banking Lab. documented in this encounter Plan of Treatment Scheduled Referrals Name Type Priority Associated Diagnoses Orde r Schedule Referral to Ophthalmology Outpatient Referral Routine Chronic migraine without aura without status migrainosus, not intractable Elevated intracranial pressure Ordered: 05/05/2016 documented as of this encounter Procedures Procedure Name Priority Date/Time Associated Diagnosis Comments LUMBAR PUNCTURE Routine 05/05/2016 10:42 AM EDT Migraine with aura and without status migrainosus, not intractable 4 TOTAL TUBES SENT CSF Routine 05/05/2016 10:15 AM EDT Migraine with aura and without status migrainosus, not intractable Chronic migraine without aura without status migrainosus, not intractable CSF CELL COUNT Routine 05/05/2016 10:15 AM EDT Migraine with aura and without status migrainosus, not intractable Chronic migraine without aura without status migrainosus, not intractable CSF DESC 3 Routine 05/05/2016 10:15 AM EDT Migraine with aura and without status migrainosus, not intractable Chronic migraine without aura without status migrainosus, not intractable CSF DESC 2 Routine 05/05/2016 10:15 AM EDT Migraine with aura and without status migrainosus, not intractable Chronic migraine without aura without status migrainosus, not intractable CSF DESC 1 Routine 05/05/2016 10:15 AM EDT Migraine with aura and without status migrainosus, not intractable Chronic migraine without aura without status migrainosus, not intractable PROTEIN LEVEL CSF Routine 05/05/2016 10: 15 AM EDT Migraine with aura and without status migrainosus, not intractable Chronic migraine without aura without status migrainosus, not intractable GLUCOSE LEVEL CSF Routine 05/05/2016 10: 15 AM EDT Migraine with aura and without status migrainosus, not intractable Chronic migraine without aura without status migrainosus, not intractable documented in this encounter Results * Lumbar Puncture (05/05/2016 10:42 AM EDT) Narrative Silke Pollack MD - 05/05/2016 10:42 AM EDT Silke Pollack MD ? 05/05/2016 10:42 AM Neurology Procedure Note Date: 05/05/2016 Patient: Mirela Lara : ??1980 Procedure: lumbar puncture (diagnostic) Indications: Headache, close opening pressure Risk and benefits were explained to the patient and consent was obtained. Patient consented for the CSF banking study; [facility] # [id number] - 3cc of spinal fluid will be [...] mouth 2 times daily.) 60 capsule 12 ? ? ZOLMitriptan (ZOMIG) 5 mg Letart, Non-Aerosol 1 spray in one nostril. ??May [...] 4 hours as needed. Use with spacer ? No current facility-administered medications for this visit. ?? Allergies Allergen Reactions ? ? Acetaminophen Other (See Comments) ??Vomit, rash, SOB ? ? Tylenol [Benzocaine] Shortness Of Breath ??Rash, vommitting ? ? Gloves, Latex Rash ? ? Tessalon [Benzonatate] Other (See Comments) ??'Impairs cognitive function and messes with my heart rate' ? ? Topamax [Topiramate] ?cognitive dysfuntion Patient was positioned on her left side in a position. ??The skin was prepped with ChloraPrep (2% chlorhexidine solution/70% isopropyl alcohol) and draped in sterile fashion. ??5 cc lidocaine were used to numb the skin and insertion site. ??A 22-g 3.5 Sprotte spinal needle was inserted, using an introducer into the space between L4 and L5. ??One attempt was made, but the spinal needle was to short so we converted to a 20 gauge 6 inch Quincke spinal needle. CSF was obtained and the opening pressure was measured with the patient's legs straightened. Dr. Cruz preformed the procedure with my direct supervision and assistance. Opening pressure ??30.0 cm H2O was obtained Closing pressure ??12.2 cm H2O was obtained Clear CSF was obtained and sent for cell count, protein, glucose Patient was directed to go to 3 to have labs drawn. A total of 32 cc spinal fluid was removed. ??Patient tolerated the procedure well. ??There were no immediate complications observed. ?? Patient was advised to avoid strenuous activity x 24 hrs and to advise staff if she developed a headache. Blood Loss <1cc Silke Pollack MD [facility] [place] The patient was approached by Dr. Silke Pollack about participating in the CSF Biospecimen and Data Bank, a single institution study at [facility] with Drs. Foster Lynn and Tyler Fagan as lead investigators. After meeting inclusion and exclusion criteria, subjects will provide witnessed informed consent. All questions from the patient regarding this study have been answered. The consent form has [facility]-approval date of 05/28/2015. ?? All study-related procedures were completed after signing the ICF. A copy of the ICF has been provided to the patient. The CSF sample was collected by Dr. Silke Pollack and properly stored and sent to the CSF banking Lab. Silke Pollack MD PROCEDURE/MINOR SURG ICAL ORDERABLES * CSF Cell Count (05/05/2016 10:15 AM EDT) Tube # counted 3 [facility] Total Nucleated Cell Count, CSF 0 0 - 5 /[facility] Comment: If Nucleated Cell Count equals zero, No Scan or Differential is performed. If Nucleated Cell Count equals 1-5, Smear is scanned but no results are reported unless abnormalities are seen. If Nucleated Cell Count equals 6 or greater, Differential is reported. Nucleated Cell Count results are correlated with body fluid type and clinical condition. RBC Count CSF 3 /[facility] Cerebrospinal fluid specimen (specimen) 05/05/2016 10:15 AM EDT 05/05/2016 10:35 AM EDT Narrative Resulting Agency Comment Spec In Lab Silke Pollack MD BODY FLUIDS AND STOO LS ORDERABLES [facility] [place] [address] * CSF DESC 3 (05/05/2016 10:15 AM EDT) Tube Num CSF 3 3 [facility] Color, CSF 3 Colorless Colorless [facility] Appearance, CSF 3 Clear Clear [facility] Total Vol, CSF 3 4.0 mL [facility] Cerebrospinal fluid specimen (specimen) 05/05/2016 10:15 AM EDT 05/05/2016 10:35 AM EDT Narrative Resulting Agency Comment Spec In Lab Silke Pollack MD BODY FLUIDS AND STOO LS ORDERABLES Performing Organization Address [facility] Co de Phone Number [facility] [place] [address] * CSF DESC 2 (05/05/2016 10:15 AM EDT) Tube Num CSF #2 2 [facility] Color, CSF 2 Colorless Colorless [facility] Appearance, CSF 2 Clear Clear [facility] Total Vol, CSF 2 6.8 mL [facility] Cerebrospinal fluid specimen (specimen) 05/05/2016 10:15 AM EDT 05/05/2016 10:35 AM EDT Narrative Resulting Agency Comment Spec In Lab Silke Pollack MD BODY FLUIDS AND STOO LS ORDERABLES Performing Organization Address [facility] Co de Phone Number [facility] [place] [address] * CSF DESC 1 (05/05/2016 10:15 AM EDT) Tube Num CSF #1 1 [facility] Color, CSF Colorless Colorless [facility] Appearance, CSF Clear Clear [facility] Total Vol, CSF 7.3 mL [facility] Cerebrospinal fluid specimen (specimen) 05/05/2016 10:15 AM EDT 05/05/2016 10:35 AM EDT Narrative Resulting Agency Comment Spec In Lab Silke Pollack MD BODY FLUIDS AND STOO LS ORDERABLES Performing Organization Address [facility] Co de Phone Number [facility] [place] [address] * Protein Level CSF (05/05/2016 10:15 AM EDT) Protein, CSF 27 15 - 45 mg/dL [facility] Xanthochromia Neg [facility] Cerebrospinal fluid specimen (specimen) 05/05/2016 10:15 AM EDT 05/05/2016 10:35 AM EDT Narrative Resulting Agency Comment Spec In Lab Silke Pollack MD BODY FLUIDS AND STOO LS ORDERABLES Performing Organization Address City/[facility]/ZIP Co de Phone Number [facility] [place] [address] * Glucose Level CSF (05/05/2016 10:15 AM EDT) Glucose, CSF 61 mg/dL [facility] Comment:CSF at equilibrium e quals approximately 60-80% of plasma glucose. Cerebrospinal fluid specimen (specimen) 05/05/2016 10:15 AM EDT 05/05/2016 10:35 AM EDT Narrative Resulting Agency Comment Spec In Lab Silke Pollack MD BODY FLUIDS AND STOO LS ORDERABLES Performing Organization Address City/[facility] Co de Phone Number [facility] [place] [address] documented in this encounter Visit Diagnoses Diagnosis [...] systems documented in this encounter Care Teams Mold Chipper Relationship Specialty Start Date End Date Lakshmi Vicente MD [address] [place] [address] PCP - General 07/27/11 04/18/18 documented as of this encounter
--- OUTSIDE RECORDS SUMMARY | 2024-06-09 14:06 | XMS_ITS | Encounter Summary ---
Author Organization [facility] [place] [address] Care Team Providers Care Vessel Manager Name Role Phone Lakshmi Vicente MD Primary Care Provider [phone] Encounter Details Date Type Department Care Team (Late st Contact Info) Description 05/30/2016 Telephone [place] [id number] Blank Fletcher Social History Tobacco Use Types Packs/Day Years [...] encounter Miscellaneous Notes * Telephone Encounter - Blank Fletcher - 05/30/2016 10:08 AM EDT Spoke with Mirela to see if she is still interested in Bariatric surgery. She said that she is not sure because there is a lot going on health-kirby for her. She said she really needs to have bariatric surgery, but her cranial pressure is lee high. Since she is seen here at [facility] I will let the PHYSICAL TESTING SUPERVISOR know to see how this will effect her potential bariatric surgery. I told mirela that I would be in touch. documented in this encounter Plan of Treatment Not on file documented as of this encounter Visit Diagnoses Not on filedocumented in this encounter Care Teams Vessel Manager Relationship Specialty Start Date End Date Lakshmi Vicente MD [address] [place] [address] PCP - General 07/27/11 04/18/18 documented as of this encounter
--- OUTSIDE RECORDS SUMMARY | 2024-06-09 14:06 | XMS_ITS | Encounter Summary ---
Author Organization [facility] [place] [address] Care Team Providers Care Packaging Supervisor Name Role Phone Lakshmi Vicente MD Primary Care Provider Reason for Visit * High Dollar Medication (Routine) - Specialty Diagnoses / Procedures Referred By Keisha singh Referred To Contact Neurology Diagnoses Chronic migraine without aura without status migrainosus, not intractable Procedures Auth Request for Medication TC ONABOTULINUMTOXINA, 1 UNIT, INJECTION Jill French APRN [facility] [place] [address] [facility] [address] [place] [address] Referral ID Status Reason Start Date Expiration Date V isits Requested Visits Authorized [id number] Consult, Test & Treat 07/20/2016 07/04/2019 13 13 Encounter Details Date Type Department Care Team (Late st Contact Info) Description 01/24/2018 11:00 AM EDT Office [place] [address] Loren Russ PA [facility] [place] [address] Chronic migraine without aura without [...] Procedure Notes * Loren Russ PA - 01/24/2018 11:00 AM [...] 1 injection of 5 U in right home energy consultant muscle 1 injection of 5 U in left home energy consultant muscle 2 injections of 5 U in [...] u Total units discarded: 45 u LOT# [id number] EXP: 06/2020 The patient tolerated the procedure without any immediate complications. Loren Russ PA-C Dept. Of Neurology [facility] or [phone](MS nurse contact number) documented in this encounter Plan of Treatment Not on file documented as of this encounter Procedures Procedure Name Priority Date/Time Associated Diagnosis Comments CHEMODENERVATION, MEDICAL Routine 01/24/2018 11:22 AM EDT documented in this encounter Results * Chemodenervation, medical (01/24/2018 11:22 AM EDT) Narrative Loren Russ PA - 01/24/2018 11:22 AM EDT Loren Russ PA ? 01/24/2018 11:22 AM Procedure: Botox injections (PREEMPT protocol) Indications: Chronic [...] 1 injection of 5 U in right home energy consultant muscle 1 injection of 5 U in left home energy consultant muscle 2 injections of 5 U in [...] u Total units discarded: 45 u LOT# [id number] EXP: 06/2020 The patient tolerated the procedure without any immediate complications. Loren Russ PA-C Dept. Of Neurology [facility] or [phone](MS nurse contact number) Foster Lynn MD PROCEDURE/MINOR [...] dose, On Lena 01/24/18 at 1130, Routine Given 01/24/2018 11:21 AM EDT 155 Units documented in this encounter Care Teams Packaging Supervisor Relationship Specialty Start Date End Date Lakshmi Vicente MD [address] [place] [address] PCP - General 07/27/11 04/18/18 documented as of this encounter
--- OUTSIDE RECORDS SUMMARY | 2024-06-09 14:06 | XMS_ITS | Encounter Summary ---
[place] [address] Care Team Providers Care Yoker Machine Operator Name Role Phone Lakshmi Vicente MD Primary Care Provider [phone] Reason for Visit * Reason Onset Date Comments Prior Authorization 07/14/2015 BOTOX APPROV ED 08/04/15-11/09/15 Encounter Details Date Type Department Care Team (Late st Contact Info) Description 07/14/2015 Telephone [place] [address] Ludmila Cornejo MD [facility] [place] [address] Prior Authorization (BOTOX APPROVED 08/04/15-11/09/15) Social History Tobacco Use Types Packs/Day Years [...] encounter Miscellaneous Notes * Telephone Encounter - Rhonda Castro - 08/10/2015 10:47 AM EDT BOTOX APPROVED 08/04/15-11/09/15 PA #: [id number] 200 UNITS EVERY 3 MONTHS, FOR ONE YEAR, TO EQUAL 4 DOSES. 800 UNITS. * Telephone Encounter - Rhonda Castro - 08/02/2015 11:24 AM EDT INSURANCE ASKING FORE MORE INFO. FAXED. * Telephone Encounter - Rhonda Castro - 07/14/2015 12:17 PM EDT PA FOR BOTOX FAXED TO [place] [employer]. documented in this encounter Plan of Treatment Not on file documented as of this encounter Visit Diagnoses Not on filedocumented in this encounter Care Teams Yoker Machine Operator Relationship Specialty Start Date End Date Lakshmi Vicente MD [address] [place] [address] PCP - General 07/27/11 04/18/18 documented as of this encounter
--- OUTSIDE RECORDS SUMMARY | 2024-06-09 14:06 | XMS_ITS | Encounter Summary ---
Author Organization [facility] Address [facility] [place] [address] Care Team Providers Care Anode Builder Name Role Phone Lakshmi Vicente MD Primary Care Provider [phone] Reason for Visit * Reason Comments Headache * Consultation (Routine) - Closed Specialty Diagnoses / Procedures Referred By Keisha singh Referred To Contact Ophthalmology Diagnoses Chronic migraine without aura without status migrainosus, not intractable Elevated intracranial pressure Jill French [place] [facility] [place] [address] Peyton Antonio MD [facility] [place] [address] Referral ID Status Reason Start Date Expiration Date V isits Requested Visits Authorized [id number] Closed Consult, Test & Treat 05/05/2016 05/05/2017 1 1 Encounter Details Date Type Department Care Team (Late st Contact Info) Description 06/02/2016 3:00 PM EDT Office Visit Ophthalmology at [place] [phone] Peyton Antonio MD [facility] [place] [address] Unspecified visual disturbance (Primary Dx); Visual field defects Social History Tobacco Use Types Packs/Day Years Used Date Smoking Tobacco: Never Smokeless Tobacco: Never Alcohol Use Standard Drinks/Week Comments No 0 (1 standard drink = 0.6 oz pur e alcohol) Sex and Gender Information Value Date Recorded Sex Assigned at Not on file Gender Identity Not on file Sexual Orientation Not on file documented as of this encounter Progress Notes * Peyton Sewell MD - 06/02/2016 3:00 PM EDT On examination today, Mirela Lara exhibited poor vision in the right eye from amblyopia, normal vision in the left. Normal color vision, with no evidence of a relative afferent pupillary defectthat would suggest an underlying optic nerve dysfunction. Static visual tellez were unreliable but overall full with scattered dep pts. The optic nerves are healthy and pink with no edema. OCT normal documented in this encounter Plan of Treatment Not on file documented as of this encounter Procedures Procedure Name Priority Date/Time Associated Diagnosis Comments OCT OPTIC NERVE - OU - BOTH EYES Routine 06/02/2016 5:13 PM EDT Visual field defects AUTOMATED VISUAL FIELD - EXTENDED - OU- BOTH EYES Routine 06/02/2016 5:13 PM EDT Unspecified visual disturbance documented in this encounter Results * OCT OPTIC [id number] EYES (06/02/2016 5:13 PM EDT) Anatomical Region Laterality Modality Other Narrative 06/02/2016 5:13 PM EDT Right Eye Quality was good. Findings include normal observations. Temporal thickness was normal. Superior thickness was normal. Nasal thickness was normal. Inferior thickness was normal. Left Eye Quality was good. Findings include normal observations. Temporal thickness was normal. Superior thickness was normal. Nasal thickness was normal. Inferior thickness was normal. Notes Normal RNFL OU Peyton Antonio MD OPHTHALMOLOGY SE RVICES ORDERABLES * AUTOMATED VISUAL FIELD - EXTENDED - OU- BOTH EYES (06/02/2016 5:13 PM EDT) Anatomical Region Laterality Modality Other Narrative 06/02/2016 5:13 PM EDT Right Eye Threshold was 24-2. Strategy was MEGHANN. Reliability was poor. Findings include normal observations, non-specific defects. Left Eye Threshold was 24-2. Strategy was MEGHANN. Reliability was poor. Findings include normal observations, non-specific defects. Peyton Antonio MD OPHTHALMOLOGY SE RVICES ORDERABLES documented in this encounter Visit Diagnoses Diagnosis Unspecified visual disturbance- Primary Visual field defects Visual field defect, unspecified documented in this encounter Care Teams Anode Builder Relationship Specialty Start Date End Date Lakshmi Vicente MD [address] [place] [address] PCP - General 07/27/11 04/18/18 documented as of this encounter
--- OUTSIDE RECORDS SUMMARY | 2024-06-09 14:06 | XMS_ITS | Encounter Summary ---
Author Organization [facility] Address [facility] [place] [address] Care Team Providers Care Route Cdl Driver Name Role Phone Lakshmi Vicente MD Primary Care Provider [phone] Reason for Visit * High Dollar Medication (Routine) - Specialty Diagnoses / Procedures Referred By Keisha singh Referred To Contact Neurology Diagnoses Chronic migraine without aura without status migrainosus, not intractable Procedures Auth Request for Medication TC ONABOTULINUMTOXINA, 1 UNIT, INJECTION Jill French APRN [facility] [place] [address] [facility] [address] [place] [address] Referral ID Status Reason Start Date Expiration Date V isits Requested Visits Authorized [id number] Consult, Test & Treat 07/20/2016 07/04/2019 13 13 Encounter Details Date Type Department Care Team (Late st Contact Info) Description 07/12/2017 11:30 AM EDT [place] [address] Jair Perez MD [facility] [place] [address] Mikey Villarreal MD [facility] [place] [address] Chronic migraine without aura with status migrainosus, [...] Procedure Notes * Mikey Villarreal MD - 07/12/2017 11:30 AM [...] day) 20 B. Average VIEIRA intensity (0-10) Date Procedure MIDAS 10/17/2016 botox Total 77. Days 90/90. Pain 12/2207/25/2016 botox Total 28. Days 9090. Pain 11/2405/01/2016 botox Total 36. Days 9090. Pain 11/2401/09/2017 botox Total 44. ??Days 9090. ??Pain 12/2204/05/2017 botox Total 49. Days 6090. Pain 11/2407/12/2017 botox Total 20, Days . 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
--- OUTSIDE RECORDS SUMMARY | 2024-06-09 14:06 | XMS_ITS | Encounter Summary ---
Author Organization [facility] [place] [address] Care Team Providers Care Build Master Name Role Phone Lakshmi Vicente MD Primary Care Provider [phone] Encounter Details Date Type Department Care Team (Late st Contact Info) Description 05/31/2016 Telephone [place] [address] Blank Fletcher Social History Tobacco Use Types [...] * Telephone Encounter - Blank Fletcher - 05/31/2016 [...] on filedocumented in this encounter Care Teams Build Master Relationship Specialty Start Date End Date Berrian, Lakshmi M, MD [address] [place] [address] PCP - General 07/27/11 04/18/18 documented as of this encounter
--- OUTSIDE RECORDS SUMMARY | 2024-06-09 14:06 | XMS_ITS | Encounter Summary ---
Author Organization [facility] [place] [address] Care Team Providers Care Transcription Coordinator Name Role Phone Lakshmi Vicente MD Primary Care Provider [phone] Encounter Details Date Type Department Care Team (Late st Contact Info) Description 02/22/2016 10:00 AM EDT Office Visit Neurology at [facility] [place] [address] Jill French, [facility] [place] [address] Migraine with aura and without status migrainosus, [...] 156.8 cm (5' 1.75) 02/22/2016 10:20 AM E DT Body Mass Index 44.25 02/22/2016 10:20 AM EDT documented in this encounter Procedure Notes * Jill French APRN - 02/22/2016 10:21 AM [...] not in a blood vessel. The patient toleratedthe procedure well. Complications: None Blood loss: <1 cc documented in this encounter Plan of Treatment Not on file documented as of this encounter Procedures Procedure Name Priority Date/Time Associated Diagnosis Comments NERVE BLOCK - OCCIPITAL Routine 02/22/2016 10:32 AM EDT Chronic migraine without aura without status migrainosus, not intractable documented in this encounter Visit Diagnoses Diagnosis [...] 1 dose, On Sun02/22/16 at 1100, Routine Given 02/22/2016 10:32 AM EDT 11.2 mg lidocaine (XYLOCAINE) 10 mg/mL (1 %) injection 45 mg 45 mg (4.5 mL), Subcutaneous, ONCE, 1 dose, On Sun02/22/16 at 1100, Routine Given 02/22/2016 10:32 AM EDT 45 mg documented in this encounter Care Teams Transcription Coordinator Relationship Specialty Start Date End Date Lakshmi Vicente MD [address] [place] [address] PCP - General 07/27/11 04/18/18 documented as of this encounter
--- OUTSIDE RECORDS SUMMARY | 2024-06-09 14:06 | XMS_ITS | Encounter Summary ---
Author Organization [facility] [place] [address] Care Team Providers Care Bull Rider Name Role Phone Lakshmi Vicente MD Primary Care Provider [phone] Reason for Visit * Reason Onset Date Comments Prior Authorization 11/26/2017 Encounter Details Date Type Department Care Team (Late st Contact Info) Description 11/26/2017 Telephone Neurology at [facility] [place] [address] Jill French ACCESS DATABASE DEVELOPER [facility] [place] [address] Prior Authorization Social History Tobacco Use Types [...] calls please advise her of the approval * Telephone Encounter - Gladys Giraldo CMA - 12/03/2017 2:45 PM EST Prior Authorization started on Zomig Nasal [place] , 5 MG, #12 for 30 days, Sent and faxed to [place] medicaid * Telephone Encounter - Gladys Giraldo CMA - 11/29/2017 8:36 AM EST PA needed for Zomig Nasal spray 5 mg # 12 for 30 days documented in this encounter Plan of Treatment Not on file documented as of this encounter Visit Diagnoses Not on filedocumented in this encounter Care Teams Bull Rider Relationship Specialty Start Date End Date Lakshmi Vicente MD [address] [place] [address] PCP - General 07/27/11 04/18/18 documented as of this encounter
--- OUTSIDE RECORDS SUMMARY | 2024-06-09 14:06 | XMS_ITS | Encounter Summary ---
Author Organization [facility] Address [facility] [place] [address] Care Team Providers Care Clinical Esthetician Name Role Phone Lakshmi Vicente MD Primary Care Provider [phone] Encounter Details Date Type Department Care Team (Late st Contact Info) Description 06/11/2015 10:45 AM EDT [place] [address] CLINIC, Silke Agarwal MD [facility] [place] [address] Chronic migraine without aura without status migrainosus, [...] Progress Notes * Ludmila Cornejo MD - 06/11/2015 11:14 AM EDT Neurology Clinic Follow-up Patient Name: Mirela Lara Attending: Silke Pollack MD Patient ID: Mirela Lara is a 34 y.o. 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 Active Issues: migraine with and [...] Zomig nasal spray as that requires a preauthorization. She had not been responsive to imitrex in the past. Patient does note that her headaches have improved with ONB and she did not suffer from nausea this month. Her headaches are right frontal and occipital with dull pressure typically but with increased intensity can be throbbing, +photo/phonophobia, +N, V. She states that prior to [...] mouth 2 times daily as needed (headache). 60 capsule 12 ??? celecoxib (CELEBREX) 200 mg [...] with spacer ??? ZOLMitriptan (ZOMIG) 5 mg [place], Non-Aerosol 1 spray in one nostril. May [...] hour(s)). Diagnostic Tests and Imaging: MRI c-spine 4/30: unremarkable MRI brain 12/29/14: unremarkable 01/2015:TSH 1.10, [...] 1 after 2 hours, limit use to 2xper week. Can be taken with or without Vistaril 25mg -Follow-up with Dr. Cornejo in 4 weeks. Ludmila Cornejo MD Headache Fellow [facility] [place] documented in this encounter Procedure Notes * Ludmila Cornejo MD - 06/11/2015 10:45 AM [...] each side. Ludmila Cornejo MD Headache Fellow [facility] [place] documented in this encounter [...] 1 dose, On Sun06/11/15 at 1100, Routine Given 06/11/2015 10:44 AM EDT 7.5 mg lidocaine (XYLOCAINE) 10 mg/mL (1 %) injection 30 mg 30 mg, Subcutaneous, ONCE, 1 dose, On Sun06/11/15 at 1100, Routine Given 06/11/2015 10:44 AM EDT 30 mg documented in this encounter Care Teams Clinical Esthetician Relationship Specialty Start Date End Date Lakshmi Vicente MD [address] [place] [address] PCP - General 07/27/11 04/18/18 documented as of this encounter
--- OUTSIDE RECORDS SUMMARY | 2024-06-09 14:06 | XMS_ITS | Encounter Summary ---
Author Organization [facility] [place] [address] Care Team Providers Care Block Sawyer Name Role Phone Lakshmi Vicente MD Primary Care Provider [phone] Reason for Visit * High Dollar Medication (Routine) - Specialty Diagnoses / Procedures Referred By Keisha singh Referred To Contact Neurology Diagnoses Chronic migraine without aura without status migrainosus, not intractable Procedures Auth Request for Medication TC ONABOTULINUMTOXINA, 1 UNIT, INJECTION Jill French APRN [facility] [place] [address] [facility] [address] [place] [address] Referral ID Status Reason Start Date Expiration Date V isits Requested Visits Authorized [id number] Consult, Test & Treat 07/20/2016 07/04/2019 13 13 Encounter Details Date Type Department Care Team (Late st Contact Info) Description 01/09/2017 2:00 PM EDT Office [place] [address] Jill French [place] [address] Chronic migraine without aura without status migrainosus, not intractable; Migraine with aura and without status migrainosus, not intractable; Trapezius muscle spasm Social History Tobacco Use Types Packs/Day Years [...] cm (5' 1.5) 01/09/2017 1:42 PM EDT reported Body Mass Index 46.66 01/09/2017 1:42 PM EDT documented in this encounter Procedure Notes * Jill French, CASSIA - 01/09/2017 2:00 PM EDTAssociated Order(s): CHEMODENERVATION, MEDICAL Pre-Procedure Diagnose(s): Intractable chronic migraine without aura and without status migrainosus; Trapezius muscle spasm Neurology Procedure note ? Date: [...] is spending only 4-5 days/90 in bed withsevere migraine now, as opposed to 40/90 days [...] units divided between 2 sites in the filament cutter muscles, 5 units into 1 site in [...] in the fo llow the pain protocol. Note: follow the pain injections supported by Foster Constantino MD, et al in Method of Injection of OnobotulinumtoxinA for Chronic Migraine: A Safe, Well- tolerated, and Effective Treatment ParadigmBased on PReempt Clinical Program. Headache: The Journal of Head and Face Pain. Vol 50, Issue 9. [id number]. Chronic migraine (CM) is a prevalent and [...] in addition to the fixed sites. The ase III REsearch Evaluating Migraine Prophylaxis Therapy (PREEMPT) injection paradigm uses both fixed and pjatgw-jii-axbp sites, with additional specific wvezna-lbf-fetd sites considered depending onindividual symptoms. The PREEMPT [...] any immediate complications. ? Jill French APRN [facility] Headache Clinic documented in this encounter Plan of Treatment Not on file documented as of this encounter Procedures Procedure Name Priority Date/Time Associated Diagnosis Comments CHEMODENERVATION, MEDICAL Routine 01/09/2017 2:46 PM EDT documented in this encounter Results * Chemodenervation, medical (01/09/2017 2:46 PM EDT) Narrative Jill French APRN - 01/09/2017 2:46 PM EDT Jill French APRN ? 01/09/2017 [...] have helped a lot with VIEIRA severity: ??She is spending only 4-5 [...] units divided between 2 sites in the filament cutter muscles, 5 units into 1 site in [...] Face Pain. Vol 50, Issue 9. Pp [id number]. Chronic migraine (CM) is a prevalent and [...] (PREEMPT) injection paradigm uses both fixed and vgywbx-yuo-ewwg sites, with additional specific ofnjbg-zui-lnzr sites considered depending on individual symptoms. The [...] any immediate complications. ? Jill French APRN [facility] Headache Clinic Silke Pollack MD PROCEDURE/MINOR SURG ICAL ORDERABLES documented in this encounter Visit Diagnoses Diagnosis Chronic migraine without aura without status migrainosus, not intractable Chronic migraine without aura, without mention of intractable migraine without mention of status migrainosus Migraine with aura and without status migrainosus, not intractable Migraine with aura, without mention of intractable migraine without mention of status migrainosus Trapezius muscle spasm Spasm of muscle documented in this encounter Administered Medications Inactive Administered Medications - up to 3 most recent administrations Medication Order MAR Action Action Date Dose Rate Site botulinum toxin type A (BOTOX) injection 175 Units 175 Units, Intramuscular, ONCE, 1 dose, On Sun01/09/17 at 1500, Routine Given 01/09/2017 2:41 PM EDT 175 Units documented in this encounter Care Teams Block Sawyer Relationship Specialty Start Date End Date Lakshmi Vicente MD [address] [place] [address] PCP - General 07/27/11 04/18/18 documented as of this encounter
--- OUTSIDE RECORDS SUMMARY | 2024-06-09 14:06 | XMS_ITS | Encounter Summary ---
Author Organization [facility] Address [facility] [place] [address] Care Team Providers Care Loans Consultant Name Role Phone Lakshmi Vicente MD Primary Care Provider [phone] Encounter Details Date Type Department Care Team (Late st Contact Info) Description 07/13/2015 9:15 AM EDT [place] [address] Silke Pollack MD [facility] [place] [address] Chronic migraine without aura without status migrainosus, [...] Procedure Notes * Ludmila Cornejo MD - 07/13/2015 9:52 AM [...] each side. Ludmila Cornejo MD Headache Fellow [facility] [place] Neurology documented in this [...] 1 dose, On Sun07/13/15 at 1015, Routine Given 07/13/2015 9:53 AM EDT 7.5 mg lidocaine (XYLOCAINE) 10 mg/mL (1 %) injection 30 mg 30 mg, Subcutaneous, ONCE, 1 dose, On Tu07/13/15 at 1015, Routine Given 07/13/2015 9:53 AM EDT 30 mg documented in this encounter Care Teams Loans Consultant Relationship Specialty Start Date End Date Lakshmi Vicente MD [address] [place] [address] PCP - General 07/27/11 04/18/18 documented as of this encounter
--- OUTSIDE RECORDS SUMMARY | 2024-06-09 14:06 | XMS_ITS | Encounter Summary ---
Author Organization [facility] Address [facility] [place] [address] Care Team Providers Care Police Justice Name Role Phone Lakshmi Vicente MD Primary Care Provider [phone] Reason for Referral * Consultation (Routine) - Closed Specialty Diagnoses / Procedures Referred By Contac t Referred To Contact Pain Management Diagnoses Migraine with aura and without status migrainosus, not intractable Chronic migraine without aura without status migrainosus, not intractable Jill French APRN [facility] [place] [address] [facility] [address] [place] [id number] Referral ID Status Reason Start Date Expiration Date V isits Requested Visits Authorized [id number] Closed Consult, Test & Treat 05/01/2016 05/01/2017 1 1 Reason for Visit * High Dollar Medication (Routine) - Closed Specialty Diagnoses / Procedures Referred By Contac t Referred To Contact Neurology Diagnoses Chronic migraine without aura, not intractable, without status migrainosus . Procedures CHEMODENERVATION, MEDICAL botox Celso, Harpal Helm MD [facility] [place] [address] Referral ID Status Reason Start Date Expiration Date V isits Requested Visits Authorized [id number] Closed Evaluate and Treat 10/13/2015 10/13/2016 4 4 Encounter Details Date Type Department Care Team (Late st Contact Info) Description 05/01/2016 10:40 AM EDT Office Visit Neurology at [facility] [place] [address] Jill French APRN [facility] [place] [address] Migraine with aura and without status migrainosus, [...] Procedure Notes * Jill French, CASSIA - 05/01/2016 10:40 AM EDTAssociated Order(s): CHEMODENERVATION, [...] divided between 2 sites in the window tinter muscles, 5 units into 1 site in the procerus muscle, 40 units divided between 8 sites in the temporalis muscles, 30 units divided between 6 sites in the suboccipital region, 20 units divided between 4 sites in the cervical paraspinal musculature, and 30 units divided between 6 sites in the trapezii. 30 units were alsodivided between 6 sites in the bilateral trapezii in the follow the pain protocol. Total units used= 185. Total injection sites=37. Patient was injected with 185 units and 15 units were wasted/disgarded The patient tolerated the procedure without any immediate complications. Jill French APRN [facility] [place] Headache Clinic documented in this encounter Plan of Treatment Scheduled Referrals Name Type Priority Associated Diagnoses Orde r Schedule Referral to Pain Clinic Outpatient Referral Routine Migraine with aura and without status migrainosus, not intractable Chronic migraine without aura without status migrainosus, not intractable Ordered: 05/01/2016 documented as of this encounter Procedures Procedure Name Priority Date/Time Associated Diagnosis Comments CHEMODENERVATION, MEDICAL Routine 05/01/2016 11:19 AM EDT documented in this encounter Results * Sedimentation rate (05/05/2016 11:10 AM EDT) Sedimentation Rate Automated 10 0 - 20 mm/hr [facility] Blood specimen (specimen) 05/05/2016 11:10 AM EDT 05/05/2016 11:35 AM EDT Narrative Resulting Agency Comment Spec In Lab Silke Pollack MD HEMATOLOGY ORDERABLE S [facility] [place] [address] * (ABNORMAL) Comprehensive metabolic panel (non-fasting) (05/05/2016 11:10 AM EDT) Glucose 108 65 - 199 mg/dL [facility] Comment:Diabetes: >=200 mg/d L plus symptoms Blood Urea Nitrogen 12 8 - 18 mg/dL [facility] Creatinine 0.78 0.70 - 1.20 mg/dL [facility] Comment: Please note that the pediatric reference intervals supplied above were not validated at [facility]. Results from pediatric patients should be interpreted in conjunction to the patient's age, height and muscle mass. Sodium 137 135 - 145 mmol/L [facility] Potassium 4.3 3.5 - 5.0 mmol/L [facility] Comment: Please note: ??Patients with WBC >100,000 may have falsely elevated Potassium levels. ??For accurate Potassium quantification in these patients send serum separator tube (gold top) for subsequent determinations. ??Contact the Clinical Chemistry Laboratory if there are any questions. Chloride 98 98 - 107 mmol/L [facility] Carbon Dioxide 21(L) 22 - 31 mmol/L [facility] Anion Gap 18(H) 5 - 15 mmol/L [facility] Calcium 8.7 8.5 - 10.5 mg/dL [facility] Protein, Total 6.9 6.1 - 8.0 gm/dL [facility] Albumin 4.2 3.2 - 5.2 gm/dL [facility] Aspartate Aminotransferase 15 0 - 30 unit/L [facility] Alanine Aminotransferase 22 0 - 30 unit/L [facility] Alkaline Phosphatase 48 40 - 104 unit/L [facility] Bilirubin, Total <0.2(L) 0.2 - 1.3 mg/dL [facility] Bilirubin, Direct <0.1 0.0 - 0.3 mg/dL [facility] Est Glomerular Filtration Rate >60 >=60 [facility] Comment: This estimated GFR (eGFR) value was calculated using the MDRD equation which has been validated on patients between the ages of 18 and 70. The MDRD should not be used to assess kidney function in patients < 18 years of age or in patients with extremes of body mass, or in patients with acute kidney failure. This value should be multiplied by 1.2 for patients. For further information please copy and paste the following links into your internet browser. [email or web address] Blood specimen (specimen) 05/05/2016 11:10 AM EDT 05/05/2016 11:35 AM EDT Narrative Resulting Agency Comment Spec In Lab Silke Pollack MD CHEMISTRY ORDERABLES Performing Organization Address [facility] Co de Phone Number [facility] [place] [address] * Protein Level CSF (05/05/2016 10:15 AM EDT) Protein, CSF 27 15 - 45 mg/dL [facility] Xanthochromia Neg [facility] Cerebrospinal fluid specimen (specimen) 05/05/2016 10:15 AM EDT 05/05/2016 10:35 AM EDT Narrative Resulting Agency Comment Spec In Lab Silke Pollack MD BODY FLUIDS AND STOO LS ORDERABLES Performing Organization Address [facility]/ZIP Co de Phone Number [facility] [place] [place] [address] * Glucose Level CSF (05/05/2016 10:15 AM EDT) Glucose, CSF 61 mg/dL [facility] Comment:CSF at equilibrium e quals approximately 60-80% of plasma glucose. Cerebrospinal fluid specimen (specimen) 05/05/2016 10:15 AM EDT 05/05/2016 10:35 AM EDT Narrative Resulting Agency Comment Spec In Lab Silke Pollack MD BODY FLUIDS AND STOO LS ORDERABLES [place] [id number] * Chemodenervation, medical (05/01/2016 11:19 AM EDT) Narrative Jill French APRN - 05/01/2016 11:19 AM EDT Jill French APRN ? 05/01/2016 11:19 AM Neurology Procedure note Date: 05/01/2016 Patient: Mirela Lara : ??1980 Procedure: Botox injections (PREEMPT and follow the pain protocols) Indications: chronic migraine Date ??Procedure ?? MIDAS 05/01/2016 botox Total = 36 . ??Days = . ??Pain = 2/10 Risk and benefits were [...] divided between 2 sites in the window tinter muscles, 5 units into 1 site in the procerus muscle, 40 units divided between 8 sites in the temporalis muscles, 30 units divided between 6 sites in the suboccipital region, 20 units divided between 4 sites in the cervical paraspinal musculature, and 30 units divided between 6 sites in the trapezii. ??30 units were also divided between 6 sites in the bilateral trapezii in the follow the pain protocol. Total units used= 185. Total injection sites=37. Patient was injected with 185 units and 15 units were wasted/disgarded The patient tolerated the procedure without any immediate complications. Jill French APRN [facility] Headache Clinic Silke Pollack MD PROCEDURE/MINOR SURG [...] 200 Units, Intramuscular, ONCE, 1 dose, On Sun05/01/16 at 1130, Routine Given 05/01/2016 11:10 AM EDT 200 Units documented in this encounter Care Teams Police Justice Relationship Specialty Start Date End Date Lakshmi Vicente MD [address] [place] [address] PCP - General 07/27/11 04/18/18 documented as of this encounter
--- OUTSIDE RECORDS SUMMARY | 2024-06-09 14:06 | XMS_ITS | Encounter Summary ---
Author Organization [facility] [place] [address] Care Team Providers Care Banquet Manager Name Role Phone Lakshmi Vicente MD Primary Care Provider [phone] Reason for Visit * High Dollar Medication (Routine) - Closed Specialty Diagnoses / Procedures Referred By Keisha singh Referred To Contact Neurology Procedures TC ONABOTULINUMTOXINA, 1 UNIT, INJECTION Jill French TRESTLEMAN [facility] [place] [address] [facility] [address] [place] [address] Referral ID Status Reason Start Date Expiration Date V isits Requested Visits Authorized [id number] Closed Evaluate and Treat 07/20/2016 07/20/2017 4 4 Encounter Details Date Type Department Care Team (Late st Contact Info) Description 07/25/2016 2:00 PM EDT [place] [address] Jill French [facility] [place] [address] Chronic migraine without aura without status [...] Sign Reading Time Taken Comments Blood Pressure 128/85 07/25/2016 2:09 PM EDT Pulse 94 07/25/2016 2:09 PM EDT Temperature - - Respiratory Rate - - Oxygen Saturation - - Inhaled Oxygen Concentration - - Weight - - Height 157.5 cm (5' 2) 07/25/2016 2:09 PM EDT Body Mass Index - - documented in this encounter Progress Notes * Jill French APRN - 07/25/2016 2:00 PM EDT CC: Follow up chronic migraine, chronic daily headache and IIH. Here today for botox. Interval History: Mirela started diamox after her 05/05/2016 LP showed an OP of 30, and is now taking diamox 500 mg SR BID. She tells me that her headaches have significantly improved on diamox, still daily but the severity is greatly decreased, I hardly notice them. Had neuro-ophth exam 06/02/[address] Sewell, which showed no papilledema. ROS: Intractable daily headache, improved in intensity [...] Chronic daily headache Intractable chronic migraine IIH PLAN: botox today, see procedure note D/c naproxen - do not take this medication with celebrex No other medication changes Call here if any concerns, otherwise follow up here in 12 weeks for botox. More than 10 minutes of this 15 minute visit were spent face to face counseling the patient and making a therapeutic plan, with additional time spent performing the procedure. documented in this encounter Procedure Notes * Jill French APRN - 07/25/2016 2:00 PM EDTAssociated Order(s): CHEMODENERVATION, MEDICAL Pre-Procedure Diagnose(s): Chronic migraine without aura without status migrainosus, not intractable Neurology Procedure note Date: 07/25/2016 Patient: Mirela Lara : 1980 Procedure: Botox injections (PREEMPT protocol) Indications: chronic migraine Date Procedure MIDAS 07/25/2016 botox Total 28. Days . Pain 11/2405/01/2016 botox Total 36. Days . Pain 11/24 Risk and benefits were explained to the [...] units divided between 2 sites in the operations research director muscles, 5 units into 1 site in the procerus muscle, 40 units divided between 8 sites in the temporalis muscles, 30 units divided between 6 sites in the suboccipital region, 20 units divided between 4 sites in the cervical paraspinal musculature, and 30 units divided between 6 sites in the trapezii. Total units used= 155. Total injection sites=31. Patient was injected with 155 units and 45 units were wasted/disgarded The patient tolerated the procedure without any immediate complications. Jill French APRN [facility] documented in this encounter Plan of Treatment Not on file documented as of this encounter Procedures Procedure Name Priority Date/Time Associated Diagnosis Comments CHEMODENERVATION, MEDICAL Routine 07/25/2016 2:52 PM EDT documented in this encounter Results * Chemodenervation, medical (07/25/2016 2:52 PM EDT) Narrative Jill French APRN - 07/25/2016 2:52 PM EDT Jill French APRN ? 07/25/2016 ??2:52 PM Neurology Procedure note Date: 07/25/2016 Patient: Mirela Lara : ??1980 Procedure: Botox injections (PREEMPT protocol) Indications: chronic migraine Date ??Procedure ?? MIDAS 07/25/2016 botox Total 28. ??Days . ??Pain 11/2405/01/2016 botox Total 36. ??Days . ??Pain 11/24 Risk and benefits were explained to the [...] units divided between 2 sites in the operations research director muscles, 5 units into 1 site in the procerus muscle, 40 units divided between 8 sites in the temporalis muscles, 30 units divided between 6 sites in the suboccipital region, 20 units divided between 4 sites in the cervical paraspinal musculature, and 30 units divided between 6 sites in the trapezii. Total units used= 155. Total injection sites=31. Patient was injected with 155 units and 45 units were wasted/disgarded The patient tolerated the procedure without any immediate complications. Jill French APRN [facility] Jair Perez MD PROCEDURE/MINOR SURG ICAL ORDERABLES documented in this encounter Visit Diagnoses Diagnosis Chronic migraine without aura without status migrainosus, not intractable Chronic migraine without aura, without mention of intractable migraine without mention of status migrainosus Elevated intracranial pressure Other symptoms involving nervous and musculoskeletal systems documented in this encounter Administered Medications Inactive Administered Medications - up to 3 most recent administrations Medication Order MAR Action Action Date Dose Rate Site botulinum toxin type A (BOTOX) injection 200 Units 200 Units, Intramuscular, ONCE, 1 dose, On Sun07/25/16 at 1445, Routine Given 07/25/2016 2:48 PM EDT 200 Units documented in this encounter Care Teams Banquet Manager Relationship Specialty Start Date End Date Lakshmi Vicente MD [address] [place] [address] PCP - General 07/27/11 04/18/18 documented as of this encounter
--- OUTSIDE RECORDS SUMMARY | 2024-06-09 14:06 | XMS_ITS | Encounter Summary ---
Author Organization [facility] Address [facility] [place] [address] Care Team Providers Care Emblem Fuser Tender Name Role Phone Lakshmi Vicente MD Primary Care Provider [phone] Reason for Visit * Reason Comments Left Knee Pain Encounter Details Date Type Department Care Team (Latest Contact Info) Description 10/07/2015 10:30 AM EST Office [place] [address] Jeremy Rosado MD [facility] [place]OPA[place] [address] Primary osteoarthritis of left knee (Primary Dx) Social History Tobacco Use Types [...] - - Weight 112.8 kg (248 lb 11. 2 oz) 10/07/2015 10:41 AM EST fully clothed Height 157.5 cm (5' 2) 10/07/2015 10:4 1 AM EST verbal Body Mass Index 45.49 10/07/2015 10:41 AM EST documented in this encounter Progress Notes * Jeremy Rosado MD - 10/17/2015 7:57 PM EST I saw and evaluated the patient. I was integral in formulating the plan as outlined. JEREMY ROSADO MD * Prem Deutsch - 10/07/2015 12:00 PM EST ORTHOPEDIC SURGERY [...] PER ED-H. SOCIAL HISTORY: She lives in [facility]. She has never smoked and she [...] the left knee. ASSESSMENT AND PLAN: Ms. Lara is a 34-year-old female presenting to us [...] Visit Diagnoses Diagnosis Primary osteoarthritis of left knee- Primary Primary localized osteoarthrosis, lower leg documented in this encounter Care Teams Emblem Fuser Tender Relationship Specialty Start Date End Date Lakshmi Vicente MD [address] [place] [address] PCP - General 07/27/11 04/18/18 documented as of this encounter
--- OUTSIDE RECORDS SUMMARY | 2024-06-09 14:06 | XMS_ITS | Encounter Summary ---
[place] [address] Care Team Providers Care Solid Propellant Processor Name Role Phone Lakshmi Vicente MD Primary Care Provider [phone] Reason for Visit * Reason Onset Date Comments Prior Authorization 02/28/2016 Encounter Details Date Type Department Care Team (Late st Contact Info) Description 02/28/2016 [place] [id number] Shavon Weber LPN Prior Authorization Social History [...] Fax: Authorizing Rep: Authorization Number (if applicable): [id number] Notified: Patient ( x ) Pharmacy ( ) * Telephone Encounter - Shavon Weber LPN - 02/28/2016 4:31 PM EDT Raul faxed to [place] [employer] for mathieu clyde @ [phone] documented in this encounter Plan of Treatment Not on file documented as of this encounter Visit Diagnoses Not on filedocumented in this encounter Care Teams Solid Propellant Processor Relationship Specialty Start Date End Date Lakshmi Vicente MD [address] [place] [address] PCP - General 07/27/11 04/18/18 documented as of this encounter
--- OUTSIDE RECORDS SUMMARY | 2024-06-09 14:06 | XMS_ITS | Encounter Summary ---
Author Organization [facility] [place] [address] Care Team Providers Care Dress Draper Name Role Phone Neda Manzanares Primary Care Provider + Reason for Visit * Reason Onset Date Comments Medication Refill 04/22/2018 Encounter Details Date Type Department Care Team (Late st Contact Info) Description 04/22/2018 Refill Neurology at [facility] [place] [address] Jill French, [facility] [place] [address] Migraine with aura and without status migrainosus, [...] med refill Medication ZOLMitriptan (ZOMIG) 5 mg [place], Non-Aerosol [[id number]] ??ZOLMitriptan (ZOMIG) 5 mg [place], Non-Aerosol [[id number]] Order Details? Dose, Route, Frequency: As Directed [...] --? Ordering Provider: Jill French APRNDEA #: [id number]: [id number]?? Authorizing Provider: Jill French APRNDEA #: [id number]: [id number]?? Ordering User: Jill French APRN? Diagnosis Association: Migraine with aura and without status migrainosus, not intractable (G43.109)?Original Order: ZOLMitriptan (ZOMIG) 5 mg [place], Non-Aerosol [[id number]]? Pharmacy: [facility] - [address] #: --?? Pharmacy Comments: --? Quantity Remaining: -- documented in this encounter Plan of Treatment Not on file documented as of this encounter Visit Diagnoses Diagnosis Migraine with aura and without status migrainosus, not intractable Migraine with aura, without mention of intractable migraine without mention of status migrainosus documented in this encounter Care Teams Dress Draper Relationship Specialty Start Date End Date Neda Manzanares PA [address] [place] [id number] PCP - General Orthopaedic Surgery 04/19/18 09/14/18 documented as of this encounter
--- OUTSIDE RECORDS SUMMARY | 2024-06-09 14:06 | XMS_ITS | Encounter Summary ---
Author Organization [facility] [place] [address] Care Team Providers Care Leak Detector Name Role Phone Lakshmi Vicente MD Primary Care Provider [phone] Reason for Visit * Reason Onset Date Comments Other 03/21/2016 ? ONB appointmen t today Encounter Details Date Type Department Care Team (Late st Contact Info) Description 03/21/2016 Telephone Neurology at [facility] [place] [address] Jill French APRN [facility] [place] [address] Other (? ONB appointment today ) Social History Tobacco Use Types Packs/Day Years [...] on 03/30/16. She would like this appointment. Sentmessage to Luke to add her to schedule. * Telephone Encounter - Jill French APRN - 03/21/2016 12:36 PM EDT 11:40 on 03/30/16 * Telephone Encounter - Qiana Bowens RN - 03/21/2016 11:07 AM EDT Called patient back and she states she does not have a fever. She is not on antibiotics. She is taking prednisone, Nasonex, and Flovent. She has viral pneumonia and does not feel well. She wonders ifshe can come in some time next week for ONBs if she stays home from her appointment today. [place] an appointment available on Sunday but her work schedule is not flexible on Mondays or Wednesdays. She states her schedule is wide-open any other day next week. I let her know I would have to check with Jill to see if she can see her for a procedure only ONB next week. * Telephone Encounter - Luke Kyle - 03/21/2016 10:53 AM EDT Patient calling to see if it is still ok for her to come in for ONB's. Patient states that she is just getting over having Pneumonia, and is still taking steroids for this. Please call back within 15minutes, in order for patient to make it to appointment today. documented in this encounter Plan of Treatment Not on file documented as of this encounter Visit Diagnoses Not on filedocumented in this encounter Care Teams Leak Detector Relationship Specialty Start Date End Date Lakshmi Vicente MD [address] [place] [address] PCP - General 07/27/11 04/18/18 documented as of this encounter
--- OUTSIDE RECORDS SUMMARY | 2024-06-09 14:07 | XMS_ITS | Encounter Summary ---
[place] [address] Care Team Providers Care Methods And Procedures Analyst Name Role Phone Lakshmi Vicente MD Primary Care Provider [phone] Encounter Details Date Type Department Care Team (Late st Contact Info) Description 12/07/2014 Orders [place] [address] Lakshmi Duenas Social History Tobacco Use Types Packs/Day Years [...] on filedocumented in this encounter Care Teams Methods And Procedures Analyst Relationship Specialty Start Date End Date Lakshmi Vicente MD [address] [place] [address] PCP - General 07/27/11 04/18/18 documented as of this encounter
--- OUTSIDE RECORDS SUMMARY | 2024-06-09 14:07 | XMS_ITS | Encounter Summary ---
Author Organization [facility] Address [facility] [place] [address] Care Team Providers Care Shell Mold Bonder Name Role Phone Lakshmi Vicente MD Primary Care Provider [phone] Reason for Visit * Reason Onset Date Comments Eye Problem 07/01/2013 pt to have recur rent corneal erosion, sent from dr kelly office. Patient did not show for 06/23/13 appt, lft message to call to set up another appt [place] Encounter Details Date Type Department Care Team (Late st Contact Info) Description 07/01/2013 [place] [phone] Jani Taylor MD [facility] [place] [address] Eye Problem (pt to have recurrent corneal erosion, sent from dr kelly office. Patient did not show for 06/23/13 appt, lft message to call to set up another appt [place]) Social History Tobacco Use Types Packs/Day Years Used Date Smoking Tobacco: Never Sex and Gender Information Value Date Recorded Sex Assigned at Not on file Gender Identity Not on file Sexual Orientation Not on file documented as of this encounter Plan of Treatment Not on file documented as of this encounter Visit Diagnoses Not on filedocumented in this encounter Care Teams Shell Mold Bonder Relationship Specialty Start Date End Date Lakshmi Vicente MD [address] [place] [address] PCP - General 07/27/11 04/18/18 documented as of this encounter
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
--- OUTSIDE RECORDS SUMMARY | 2024-06-09 14:07 | XMS_ITS | Encounter Summary ---
Author Organization [facility] [place] [address] Care Team Providers Care Process Control Programmer Name Role Phone Lakshmi Vicente MD Primary Care Provider [phone] Reason for Visit * Reason Comments Follow-up s/p Anterior stromal puncture OD - done 08/01/2013 Encounter Details Date Type Department Care Team (Late st Contact Info) Description 08/08/2013 10:00 AM EDT [place] [address] Jani Taylor MD [facility] [place] [address] Recurrent corneal erosion (Primary Dx) Discharge Disposition: Home Social History Tobacco Use Types Packs/Day Years Used Date Smoking Tobacco: Never Alcohol Use Standard Drinks/Week Comments No 0 (1 standard drink = 0.6 oz pur e alcohol) Sex and Gender Information Value Date Recorded Sex Assigned at Not on file Gender Identity Not on file Sexual Orientation Not on file documented as of this encounter Progress Notes * Jani Taylor MD - 08/08/2013 10:53 AM EDT Assessment/Plan: Mirela Lara is a 32 y.o. female with the following ophthalmic issues: 1. 1 week s/p ASP for corneal erosions OD Doing well Continue BCL Decrease Polytrim to 2/0 Follow up 3-4 weeks documented in this encounter Plan of Treatment Not on file documented as of this encounter Visit Diagnoses Diagnosis Recurrent corneal erosion- Primary Recurrent erosion of cornea documented in this encounter Care Teams Process Control Programmer Relationship Specialty Start Date End Date Lakshmi Vicente MD [address] [place] [address] PCP - General 07/27/11 04/18/18 documented as of this encounter
--- OUTSIDE RECORDS SUMMARY | 2024-06-09 14:07 | XMS_ITS | Encounter Summary ---
[place] [address] Care Team Providers Care Drying Machine Back Tender Name Role Phone Lakshmi Vicente MD Primary Care Provider [phone] Encounter Details Date Type Department Care Team (Late st Contact Info) Description 01/26/2015 [place] [id number] Mariya Ba Social History Tobacco Use Types Packs/Day Years [...] on filedocumented in this encounter Care Teams Drying Machine Back Tender Relationship Specialty Start Date End Date Lakshmi Vicente MD [address] [place] [address] PCP - General 07/27/11 04/18/18 documented as of this encounter
--- OUTSIDE RECORDS SUMMARY | 2024-06-09 14:07 | XMS_ITS | Encounter Summary ---
Author Organization [facility] [place] [address] Care Team Providers Care Drywall Applicator Name Role Phone Lakshmi Vicente MD Primary Care Provider [phone] Encounter Details Date Type Department Care Team (Late st Contact Info) Description 07/29/2013 Abstract [place] [address] Jani Taylor MD [facility] [place] [address] Social History Tobacco Use Types Packs/Day Years [...] on filedocumented in this encounter Care Teams Drywall Applicator Relationship Specialty Start Date End Date Lakshmi Vicente MD [address] [place] [address] PCP - General 07/27/11 04/18/18 documented as of this encounter
--- OUTSIDE RECORDS SUMMARY | 2024-06-09 14:07 | XMS_ITS | Encounter Summary ---
Author Organization [facility] [place] [address] Care Team Providers Care Rough Rounder Machine Name Role Phone Lakshmi Vicente MD Primary Care Provider [phone] Encounter Details Date Type Department Care Team (Latest Contact Info) Description 12/29/2014 8:27 AM EDT - 12/29/2014 11:59 PM EDT [place] [address] CLINIC, Foster Pal MD [facility] [place] [address] Chronic migraine without aura, with intractable migraine, so stated, without mention of status migrainosus Discharge Disposition: Home Social History Tobacco Use [...] Sign Reading Time Taken Comments Blood Pressure 140/60 12/29/2014 11:00 AM EDT Pulse 80 12/29/2014 11:00 AM EDT Temperature 36.4 ??C (97.6 ??F) 12/29/2014 10:30 AM E DT Respiratory Rate 16 12/29/2014 11:00 AM EDT Oxygen Saturation 100% 12/29/2014 11:00 AM EDT Inhaled Oxygen Concentration - - Weight - - Height - - Body Mass Index - - documented in this encounter Discharge Instructions * Discharge Instructions* Qiana García RN - 12/29/2014 10:32 AM EDT 1. You have received medication before and/or during your procedure, which affects judgment and reaction time. 2. Do not drive, operate machinery, drink alchololic beverages, or make important decisions for 24 hours. 3. Be careful on stairs, as you may be unsteady on your feet. 4. You may eat a regular diet as tolerated. 5. Do not smoke if you are alone. 6. IV site- slight redness or tenderness is normal, you can use warm compresses. If tenderness and redness increases or foul drainage occours, please contact your M.D. documented in this encounter Medications at Time of Discharge Medication Sig Dispensed Refills Start Date End Date venlafaxine (EFFEXOR-XR) 150 mg Capsule, Sust. Release [...] 4 hours as needed. Use with spacer Cholecalciferol, Vitamin D3, 50,000 unit Capsule Take 1 capsule by mouth daily. 01/26/2015 cetirizine (ZYRTEC) 10 mg Tablet Take 10 mg by mouth daily. 01/26/2015 tiZANidine (ZANAFLEX) 4 mg Tablet Take 4 mg by mouth as needed. 01/26/2015 rizatriptan (MAXALT-TALK SHOW HOST) 10 mg Tablet, Rapid Dissolve Take 10 mg by mouth as needed for Migraine. May repeat in 2 hours if needed 05/13/2015 fluticasone (FLOVENT) 220 mcg/Actuation inhaler Inhale 2 puffs into the lungs 2 times daily. 01/26/2015 propranolol (INDERAL) 40 mg tablet Take 40 mg by mouth 3 times daily. 01/26/2015 ibuprofen (ADVIL;MOTRIN) 800 mg tablet Take 800 mg by mouth every 6 hours as needed. 01/26/2015 documented as of this encounter Progress Notes * Samantha Jimenes MD - 12/29/2014 9:00 AM EDT Pre-MRI sedation Note: Indication: Claustrophobia S: Patient had severe anxiety and claustrophobia during previous MRI. She states she has had fentanyl and versed without previous reaction to these medications. She was informed of the risks of sedation medications. She expresses understanding and wishes to proceed. O: Filed Vitals: 12/29/14 0800 BP: 131/73 Pulse: 85 Temp: 36.3 ??C (97.4 ??F) Resp: 14 PE: CTAB RRR BS+ soft nontender ASA score: 2 Mallampati score: III A/P: Proceed with MRI under moderate sedation * Silvana Kc RN - 12/28/2014 2:51 PM EDT [facility] Name: REGINALDO MAZARIEGOS Date of : 1980 AGE 34 y.o. Address: [address] [address] (home) Mobile: No relevant phone numbers on file. Referring Provider: Foster Lynn REASON FOR VISIT: MRI w/ IV sedate Question Answer Comment Where will study be performed? [facility] Reason for exam and clinical history: chronic headaches- severe- Is the patient ? No Allergies Allergen Reactions ??? Latex Rash ??? Acetaminophen Other (See Comments) Vomit, rash, SOB ??? Gloves, Latex ??? Tessalon [Benzonatate] Other (See Comments) 'Impairs cognitive function and messes with my heart rate' ??? Topamax [Topiramate] cognitive dysfuntion ??? Tylenol [Benzocaine] Rash, vommitting Pertinent PMH: Patient Active Problem List Diagnosis Code ??? Sacroiliac dysfunction 724.6 ??? 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 Cornea lesion excision 08/01/2013 Ant stromal puncture OD - DMM Date/Procedure Med's given/comments 12/29/14 MRI IV sedate Fentanyl 50 mcg IV, Versed 1 mg IV Laboratory Results: No results found for this basename: inr No components found with this basename: PT/PTT No results found for this basename: creatinine No results found for this basename: k No results found for this basename: PLATELET Medications: Prior to Admission medications Medication Sig Start Date End Date Taking? Authorizing Provider Cholecalciferol, Vitamin D3, 50,000 unit Capsule Take 1 capsule by mouth daily. Yes Provider, Historical venlafaxine (EFFEXOR-XR) 150 mg Capsule, Sust. Release 24 hr Take 300 mg by mouth daily. Yes Provider, Historical lamoTRIgine (LAMICTAL) 150 mg Tablet Take 150 mg by mouth every morning. Yes Provider, Historical lamoTRIgine (LAMICTAL) 100 mg Tablet Take 100 mg by mouth every evening. Yes Provider, Historical cetirizine (ZYRTEC) 10 mg Tablet Take 10 mg by mouth daily. Yes Provider, Historical metFORMIN (GLUCOPHAGE) 850 mg Tablet Take 850 mg by mouth 2 times daily (with meals). Yes Provider,Historical tiZANidine (ZANAFLEX) 4 mg Tablet Take 4 mg by mouth as needed. Yes Provider, Historical rizatriptan (MAXALT-TALK SHOW HOST) 10 mg Tablet, Rapid Dissolve Take 10 mg by mouth as needed for Migraine. May repeat in 2 hours if needed Yes Provider, Historical propranolol (INDERAL) 40 mg tablet Take 40 mg by mouth 3 times daily. Yes Provider, Historical montelukast (SINGULAIR) 10 mg tablet Take 10 mg by mouth nightly. Yes Provider, Historical Echinacea 400 mg Cap Take by mouth 2 times daily. Yes Provider, Historical MULTIVITAMIN (DAILY VITAMIN ORAL) Take by mouth daily. Yes Provider, Historical albuterol (PROVENTIL HFA;VENTOLIN HFA) 90 mcg/Actuation inhaler Inhale 2 puffs into the lungs every4 hours as needed. Use with spacer Yes Provider, Historical fluticasone (FLOVENT) 220 mcg/Actuation inhaler Inhale 2 puffs into the lungs 2 times daily. Provider, Historical ibuprofen (ADVIL;MOTRIN) 800 mg tablet Take 800 mg by mouth every 6 hours as needed. Provider, Historical ++++ FOR OUTPATIENT SCAN'S: I have informed this patient that they require a emergency detail driver to be present and in the building to drive them home after this procedure. In the absence of a emergency detail driver, IR will not be able to perform this procedure and will need to reschedule. Pt verbalized understanding of these i nstructions during the pre-procedure education via phone. (initials) documented in this encounter Plan of Treatment Not on file documented as of this encounter Procedures Procedure Name Priority Date/Time Associated Diagnosis Comments MRI BRAIN WO CONTRAST Routine 12/29/2014 10:20 AM EDT Chronic migraine without aura, with intractable migraine, so stated, without mention of status migrainosus documented in this encounter Results * MRI brain WO contrast (12/29/2014 10:20 AM EDT) Anatomical Region Laterality Modality Head Magnetic Resonan ce 12/29/2014 10:2 0 AM EDT Impressions 12/29/2014 11:14 AM EDT IMPRESSION: No intracranial pathology. This report was reviewed by Woody Rubio MD at 12/29/2014 11:09 AM Film and interpretation reviewed by the attending Narrative 12/29/2014 11:14 AM EDT EXAMINATION: MR Brain without Contrast CLINICAL HISTORY: chronic headaches- severe- TECHNIQUE: MRI of the brain was performed without the use of intravenous contrast COMPARISON: None FINDINGS: The ventricles are normal in size and contour. No areas of acute diffusion restriction. There are prominent perivascular spaces in the bilateral basal ganglia. No mass, mass effect, or midline shift. Normal appearance of the castillo-white differentiation. Normal appearance of the midline structures, posterior fossa, and the craniocervical junction. No aggressive bone marrow process is identified. The paranasal sinuses are well aerated. Procedure Note Woody Hitchcock MD - 12/29/2014 EXAMINATION: MR Brain without Contrast CLINICAL HISTORY: chronic headaches- severe- TECHNIQUE: MRI of the brain was performed without the use of intravenous contrast COMPARISON: None FINDINGS: The ventricles are normal in size and contour. No areas of acutediffusion restriction. There are prominent perivascular spaces in the bilateralbasal ganglia. No mass, mass effect, or midline shift. Normal appearance ofthe castillo-white differentiation. Normal appearance of the midline structures, posterior fossa, and the craniocervical junction. No aggressive bonemarrow process is identified. The paranasal sinuses are well aerated. IMPRESSION IMPRESSION: No intracranial pathology. This report was reviewed by Woody Rubio MD at 12/29/2014 11:09 AM Film and interpretation reviewed by the attending Foster Lynn MD IMG MRI ORDERABLES documented in this encounter Visit Diagnoses Diagnosis Chronic migraine without aura, with intractable migraine, so stated, without mention of status migrainosus documented in this encounter Administered Medications Inactive Administered Medications - up to 3 most recent administrations Medication Order MAR Action Action Date Dose Rate Site fentaNYL 50mcg/mL injection 25 mcg, Intravenous, EVERY 5 MIN PRN, 12 doses, Starting on Sun12/29/14 at 0859, Until Sun12/30/14 at 0216, Pain, or anxiety, 25 mcg IV every 5 minutes to a maximum of 300 mcg PRN for pain or anxiety., Routine Given 12/29/2014 9:56 AM EDT 50 mcg midazolam (PF) (VERSED) 1 mg/mL injection 0.5 mg 0.5 mg, Intravenous, EVERY 5 MIN PRN, 10 doses, Starting on Sun12/29/14 at 0859, Until Sun12/30/14 at 0216, Anxiety, If patient's anxiety remains uncontrolled, may titrate to Moderate Sedation per [facility] Moderate Sedation Policy: 0.5mg IV every 5 minutes to a maximum of 5 mg., Routine Given 12/29/2014 9:56 AM EDT 1 mg midazolam (PF) (VERSED) 1 mg/mL injection 1 dose, Starting on Sun12/29/14 at 0913, Until Sun12/29/14 at 0956, SILVANA KC: cabinet override documented in this encounter Care Teams Rough Rounder Machine Relationship Specialty Start Date End Date Lakshmi Vicente MD [address] [place] [address] PCP - General 07/27/11 04/18/18 documented as of this encounter
--- OUTSIDE RECORDS SUMMARY | 2024-06-09 14:07 | XMS_ITS | Encounter Summary ---
Author Organization [facility] [place] [address] Care Team Providers Care Seafood Harvester Name Role Phone Sylwia Espana APRN Primary Care Provider [phone] Encounter Details Date Type Department Care Team (Late st Contact Info) Description 07/07/2011 Orders [place] [address] [address] [place] [address] Social History Tobacco Use Types Packs/Day Years Used Date Smoking Tobacco: Never Sex and Gender Information Value Date Recorded Sex Assigned at Not on file Gender Identity Not on file Sexual Orientation Not on file documented as of this encounter Plan of Treatment Not on file documented as of this encounter Procedures Procedure Name Priority Date/Time Associated Diagnosis Comments FILM LIBRARY STORAGE ONLY PAIN CLINIC C ARM Routine 07/07/2011 11:15 AM EDT documented in this encounter Results * FILM LIBRARY-STORAGE ONLY PAIN CLINIC C-ARM (07/07/2011 11:15 AM EDT) 07/07/2011 11:1 5 AM EDT Narrative SHANNON - 02/19/2014 12:11 PM EDT This is a non-reportable exam. Procedure Note Alvin Pelaez - 02/19/2014 This is a non-reportable exam. Slime Rosado DO IMG FILM LIBRARY ORD ERABLES RAD [address] [facility] [place] [address] documented in this encounter Visit Diagnoses Not on filedocumented in this encounter Care Teams Seafood Harvester Relationship Specialty Start Date End Date Sylwia Espana APRN PCP - General 09/06/10 07/26/11 documented as of this encounter
--- OUTSIDE RECORDS SUMMARY | 2024-06-09 14:07 | XMS_ITS | Encounter Summary ---
Author Organization [facility] Address [facility] [place] [address] Care Team Providers Care Land Lease Information Clerk Name Role Phone Lakshmi Vicente MD Primary Care Provider [phone] Reason for Visit * Reason Comments Eye Problem Recurrent corneal er osion,1 mon f/u Encounter Details Date Type Department Care Team (Late st Contact Info) Description 09/08/2013 10:30 AM EST Follow-[place] [address] Jani Taylor MD [facility] [place] [address] Recurrent erosion of cornea (Primary Dx) Discharge Disposition: Home Social History [...] Progress Notes * Jani Taylor MD - 09/08/2013 11:42 AM EST Assessment/Plan: Mirela Lara is a 32 y.o. female with the following ophthalmic issues: 1. Recurrent traumatic corneal erosions OD - stabilized s/p ASP 2. 1 month s/p ASP OD - looks good, CL out Comment: Looks good. Stop Polytrim Resume Derian 128 oint hs/0 ATs Follow up prn. Continuing care with Dr. Samuel ([facility], [place], [place]) documented in this encounter Plan of Treatment Not on file documented as of this encounter Visit Diagnoses Diagnosis Recurrent erosion of cornea- Primary documented in this encounter Care Teams Land Lease Information Clerk Relationship Specialty Start Date End Date Lakshmi Vicente MD [address] [place] [address] PCP - General 07/27/11 04/18/18 documented as of this encounter
--- OUTSIDE RECORDS SUMMARY | 2024-06-09 14:07 | XMS_ITS | Encounter Summary ---
Author Organization [facility] Address [facility] [place] [address] Care Team Providers Care Personnel Clerk Name Role Phone Sylwia Espana APRN Primary Care Provider [phone] Encounter Details Date Type Department Care Team (Late st Contact Info) Description 07/07/2011 11:15 AM EDT - 07/07/2011 11:59 PM EDT Hospital Encounter XRay at [address] [place] [address] Social History Tobacco Use Types Packs/Day Years Used Date Smoking Tobacco: Never Sex and Gender Information Value Date Recorded Sex Assigned at Not on file Gender Identity Not on file Sexual Orientation Not on file documented as of this encounter Medications at Time of Discharge Medication Sig Dispensed Refills Start Date End Date montelukast (SINGULAIR) 10 mg tablet Take 10 mg by mouth nightly. Echinacea 400 mg Cap Take 400 mg by mouth 2 times daily. MULTIVITAMIN (DAILY VITAMIN ORAL) Take 1 tablet by mouth daily. albuterol (PROVENTIL HFA;VENTOLIN HFA) 90 mcg/Actuation inhaler Inhale 2 puffs into the lungs every 4 hours as needed. Use with spacer buPROPion (WELLBUTRIN XL) 300 mg 24 hr tablet Take 300 mg by mouth every morning. 07/29/2013 fluticasone (FLOVENT) 220 mcg/Actuation inhaler Inhale 2 puffs into the lungs 2 times daily. 01/26/2015 propranolol (INDERAL) 40 mg tablet Take 40 mg by mouth 3 times daily. 01/26/2015 ibuprofen (ADVIL;MOTRIN) 800 mg tablet Take 800 mg by mouth every 6 hours as needed. 01/26/2015 documented as of this encounter Plan of Treatment Not on file documented as of this encounter Visit Diagnoses Not on filedocumented in this encounter Care Teams Personnel Clerk Relationship Specialty Start Date End Date Sylwia Espana APRN PCP - General 09/06/10 07/26/11 documented as of this encounter
--- OUTSIDE RECORDS SUMMARY | 2024-06-09 14:07 | XMS_ITS | Encounter Summary ---
Author Organization [facility] Address [facility] [place] [address] Care Team Providers Care Ase Master Mechanic Name Role Phone Lakshmi Vicente MD Primary Care Provider [phone] Encounter Details Date Type Department Care Team (Late st Contact Info) Description 12/07/2014 9:15 AM EST Office [place] [address] Foster Lynn MD [facility] [place] [address] Chronic migraine without aura, with intractable migraine, [...] documented in this encounter Progress Notes * Foster Lynn MD - 12/07/2014 10:26 AM EST [phone] 50 minutes Lakshmi Vicente Dear , Thank you for asking [facility] to see your patient, Mirela Lara, a 34 y.o. mother of two. She was seen today in Urgent Clinic where general neurology patients are seen for urgent care. Shecame to the appointment accompanied by her . The patient has had severe headaches for many years worsening in the past 4 years. She describes the headaches as occurring almost every day, and frequently being so severe that she needs to lie downand she gets nauseated. There are no worrisome symptoms or signs in this patient suggesting mass or other neurologically worrisome process. Many medications have been tried, and she is currently on: Lamictal, Rizatriptan, Propranolo, and Effexor. PMH-positive for severe obesity (BMI of 46.8), diabetes, sacro-iliac pain managed by pain management here at [facility]. A screening exam was negative for a [...] for referring this very nice lady to [facility]. Sincerely, MD Ventura Bahena Professor of Neurology Department of Neurology [facility] [place] [address] At least 35 minutes of this 50 minute face to face visit were spent in discussion of the topics outlined in the note above including diagnosis, therapy, and management issues. documented in this encounter Plan of Treatment Not on file documented as of this encounter Results * MRI brain WO [...] status migrainosus Chronic migraine without aura, with intractable migraine, so stated, without mention of status migrainosus documented in this encounter Care Teams Ase Master Mechanic Relationship Specialty Start Date End Date Lakshmi Vicente MD [address] [place] [address] PCP - General 07/27/11 04/18/18 documented as of this encounter
--- OUTSIDE RECORDS SUMMARY | 2024-06-09 14:07 | XMS_ITS | Encounter Summary ---
Author [facility] [place] [address] Care Team Providers Care Solid Waste Facility Operator Name Role Phone Lakshmi Vicente MD Primary Care Provider [phone] Reason for Visit * Reason Onset Date Comments Other 04/02/2015 Encounter Details Date Type Department Care Team (Late st Contact Info) Description 04/02/2015 [place] [address] Soo Titus APRN [facility] [place] [address] Other Social History Tobacco Use Types Packs/Day [...] encounter Miscellaneous Notes * Telephone Encounter - Ranjana Wilkinson RN - 04/14/2015 3:45 PM EDT Left message on patient voicemail to inform her of the appointment. Also left my phone number for her to return my call with any questions. * Telephone Encounter - Soo Titus APRN - 04/14/2015 3:32 PM EDT Tomorrow at 11a. ONB * Telephone Encounter - Ranjana Wilkinson RN - 04/14/2015 2:29 PM EDT Spoke with patient today. She states that she has been having severe headaches, nausea, vomiting, blurry vision, pressure behid right eye and ear, distorted hearing in right ear. Patient states that these symptoms started to return near the end of February as her ONB was wearing off. She last had an ONBon 01/26/15. She had an appointment 03/04/15 that she had to reschedule and she thought this had beendone for 04/06/15 and realized last week that this was in fact made for 05/06/15. She states that shehas been taking all of the medications available to her including Maxalt a couple times a week andHyrdoxyzine 3 times per day every day and they are not touching the pain. She states that all of these symptoms are usually alleviated by ONB and she would like to be able to come in for one as soon as possible. I did explain that the schedule is very full at this time, but that I would see if there was anything that could be done. * Telephone Encounter - Ranjana Wilkinson RN - 04/05/2015 9:06 AM EDT Return call placed to patient to discuss her concerns. Left message on voicemail, await return call. * Telephone Encounter - Millicent Prieto - 04/02/2015 4:43 PM EDT Patient is calling in to state that she is supposed to be scheduled for 04/06 NOT the 05/06 for ONB. Patient is stating that she cannot wait that long. [facility] does not have any openings prior to April so she would like to speak with a nurse in regards to the headaches she is having and seeing if she can be seen sooner or if there is anything else that can be done Please call and advise. documented in this encounter Plan of Treatment Not on file documented as of this encounter Visit Diagnoses Not on filedocumented in this encounter Care Teams Solid Waste Facility Operator Relationship Specialty Start Date End Date Lakshmi Vicente MD [address] [place] [address] PCP - General 07/27/11 04/18/18 documented as of this encounter
--- OUTSIDE RECORDS SUMMARY | 2024-06-09 14:07 | XMS_ITS | Encounter Summary ---
[place] [address] Care Team Providers Care Craft Recruiter Name Role Phone Lakshmi Vicente MD Primary Care Provider [phone] Encounter Details Date Type Department Care Team (Late st Contact Info) Description 03/19/2014 - 03/19/2014 11:59 PM EDT Hospital Encounter [place] [id number] [address] Yvette Temporary Pain Discharge Disposition: Home Social History Tobacco Use [...] 4 hours as needed. Use with spacer fluticasone (FLOVENT) 220 mcg/Actuation inhaler Inhale 2 [...] Associated Diagnosis Comments FILM LIBRARY STORAGE ONLY DX KNEE Routine 03/19/2014 12:00 AM EDT Pain documented in this encounter Results * Film Library- Storage only DX Knee (03/19/2014 12:00 AM EDT) Narrative [facility] - 10/01/2015 5:09 PM EST See PACS for result report. Dr Lara [facility] FILM LIBRARY ORD ERABLES [place], [place] documented in this encounter Visit Diagnoses Diagnosis Pain Generalized pain documented in this encounter Care Teams Craft Recruiter Relationship Specialty Start Date End Date Lakshmi Vicente MD [address] [place] [address] PCP - General 07/27/11 04/18/18 documented as of this encounter
--- OUTSIDE RECORDS SUMMARY | 2024-06-09 14:07 | XMS_ITS | Encounter Summary ---
[place] [address] Care Team Providers Care Sustainable Agriculture Faculty Name Role Phone Lakshmi Vicente MD Primary Care Provider [phone] Encounter Details Date Type Department Care Team (Late st Contact Info) Description 01/28/2015 - 01/28/2015 11:59 PM EDT Hospital Encounter [place] [id number] [address] Yvette Temporary Pain Discharge Disposition: Home [...] Refills Start Date End Date Cholecalciferol, Vitamin D3, (VITAMIN D-3) 5,000 unit [...] headaches). 90 tablet 3 01/26/2015 05/13/2015 rizatriptan (MAXALT-ATTORNEY LAW CLERK) 10 mg Tablet, Rapid Dissolve Take 10 mg by mouth as needed for Migraine. May repeat in 2 hours if needed 05/13/2015 documented as of this encounter Plan of Treatment Not on file documented as of this encounter Procedures Procedure Name Priority Date/Time Associated Diagnosis Comments FILM LIBRARY STORAGE ONLY MR KNEE Routine 01/28/2015 12:00 AM EDT Pain documented in this encounter Results * Film Library- Storage only MR Knee (01/28/2015 12:00 AM EDT) Narrative [facility] - 10/01/2015 5:10 PM EST See PACS for result report. Dr Lara [facility] FILM LIBRARY ORD ERABLES [place], [place] documented in this encounter Visit Diagnoses Diagnosis Pain Generalized pain documented in this encounter Care Teams Sustainable Agriculture Faculty Relationship Specialty Start Date End Date Lakshmi Vicente MD [address] [place] [address] PCP - General 07/27/11 04/18/18 documented as of this encounter
--- OUTSIDE RECORDS SUMMARY | 2024-06-09 14:07 | XMS_ITS | Encounter Summary ---
Author [place] [address] Care Team Providers Care Smelting Engineer Name Role Phone Sylwia Espana APRN Primary Care Provider [phone] Reason for Referral * Physical Therapy (Routine) - Closed Specialty Diagnoses / Procedures Referred By Contac t Referred To Contact Physical Therapy Diagnoses Sacroiliac dysfunction Ritu Lovett [facility] [address] [facility] [place] [address] Referral ID Status Reason Start Date Expiration Date V isits Requested Visits Authorized [id number] Closed Evaluate and Treat 06/22/2011 12/19/2011 1 1 * Consultation (Routine) - Closed by system - unspecified Specialty Diagnoses / Procedures Referred By Contac t Referred To Contact Pain Management Diagnoses Sacroiliac dysfunction Ritu Lovett [facility] [place] [address] Referral ID Status Reason Start Date Expiration Date Visits Requested Visits Authorized [id number] Closed by system - unspecified Consult Only 06/22/2011 12/19/2011 1 1 Reason for Visit * Reason Comments Low Back Pain With Radicular Pain down r ight leg;weakness Mid Back Pain Encounter Details Date Type Department Care Team (Late st Contact Info) Description 06/22/2011 9:20 AM EDT Office [place] [address] Ritu Lovett APRN [facility] [place] [address] Sacroiliac dysfunction (Primary Dx) Discharge Disposition: Home Social History [...] documented in this encounter Progress Notes * Ritu Lovett, CASSIA - 06/22/2011 10:23 AM EDT Subjective: Mirela [...] sensation of catching in her back which isalleviated by moving her right leg around. Nothing [...] to asthma, and depression without suicidality for dewey otto she's been treated. Medications and allergies were updated. Objective: Patient is a 30-year-old female with a stated height of 5 feet 2 inches and stated weight 191.7 pounds. Her shoulders and knees appear level [...] weeks after that appointment we will also coordinatea physical therapy appointment with her sons appointment or with her followup appointment. I've answered all her questions all review her imaging her next appointment. Greater than 50% of this 45 minute visit was spent in [id number] discussion of present symptoms and future plan of care. documented in this encounter Plan of Treatment Scheduled Referrals Name Type Priority Associated Diagnoses Orde r Schedule REFERRAL TO PAIN CLINIC Outpatient Referral Routine Sacroiliac dysfunction Ordered: 06/22/2011 REFERRAL TO PHYSICAL THERAPY Outpatient Referral Routine Sacroiliac dysfunction Ordered: 06/22/2011 documented as of this encounter Visit Diagnoses Diagnosis Sacroiliac dysfunction- Primary Disorders of sacrum documented in this encounter Care Teams Smelting Engineer Relationship Specialty Start Date End Date Sylwia Espana APRN PCP - General 09/06/10 07/26/11 documented as of this encounter
--- OUTSIDE RECORDS SUMMARY | 2024-06-09 14:07 | XMS_ITS | Encounter Summary ---
Author Organization [facility] [place] [address] Care Team Providers Care Bricklayer Supervisor Name Role Phone Lakshmi Vicente MD Primary Care Provider [phone] Reason for Visit * Reason Comments Eye Problem reoccurence of corne al erosion-OD x 3-4 years Encounter Details Date Type Department Care Team (Late st Contact Info) Description 08/01/2013 1:15 PM EDT Office [place] [address] Jani Taylor MD [facility] [place] [address] Recurrent erosion of cornea (Primary Dx); Oculocutaneous albinism; Hyperopia Discharge Disposition: Home Social History Tobacco Use [...] Progress Notes * Jani Taylor MD - 08/01/2013 2:14 PM EDT Assessment/Plan: Mirela Lara is a 32 y.o. 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 NIDDM 3. Chronic pain 4. Oculocutaneous albinism 5. Hyperopia Comment: Per the referring notes, he last erosion OD was inferior to the pupil, where I see irregular corneal epithelium today. Discussed ASP treatment, R/B/Alt, option of waiting, pain, chance of continued erosions, need for further treatment, poor vision, infection, other problems. Questions answered. MS. Lara expresses understanding, requests ASP OD. Pre-op Diagnosis: Recurrent corneal erosions, OD Post-op Diagnosis: Same Procedure: Anterior stromal puncture, OD Anesthesia: Topical Surgeon: Jani Taylor MD Complications: None Procedure: The R eye was marked. Informed consent obtained. Exam mikayla, patient at slit lamp. Topical proparacaine drops. Topical betadine drops. Using a sterile 27G needle, the corneal stroma was treated with multiple punctures in the inferior cornea. Bandage contact lens (Acuvue Advance/8.7/14.0/-0.50) placed. Prescription for Percocet tabs offered. Patient sent home with drops and instructions.Follow-up visit scheduled. 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
--- OUTSIDE RECORDS SUMMARY | 2024-06-09 14:07 | XMS_ITS | Encounter Summary ---
Author Organization [facility] Address [facility] [place] [address] Care Team Providers Care Roastmaster Name Role Phone Lakshmi Vicente MD Primary Care Provider [phone] Encounter Details Date Type Department Care Team (Latest Contact Info) Description 02/11/2015 8:40 AM EDT - 02/11/2015 11:59 PM EDT Hospital [place] [address] CLINIC, Harpal Headley MD [facility] [address] Neck pain on right side; Numbness and tingling of right thumb Discharge Disposition: Home Social History Tobacco Use [...] headaches). 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 May repeat in 2 hours if needed 05/13/2015 documented as of this encounter Progress Notes * Sylwia Adam RN - 02/08/2015 2:46 PM EDT VIR MRI PRE-SEDATION ASSESSMENT NOTE NAME: Mirela Lara AGE: 34 y.o. : 1980 Female [phone] (home) No relevant phone numbers on file. [...] I am willing to try the valium this time. It worked for my knee. CAN YOU [...] ( x ) You must have a truck driver's offsider present when you check in. This patient has been informed that they require a truck driver's offsider to drive them home after this procedure. In the absence of a truck driver's offsider, IR will not be able to sedate for your scan. Pt verbalized understanding of these instructions during the pre-procedure education via phone. Yes Name of truck driver's offsider:_Adam Phone [phone]___[phone] Date/Procedure Med's given comments 12/29/14 MRI IV sedate Fentanyl 50 mcg IV, Versed 1 mg IV yes 02/04/15 MRI C Spine wo Cancelled per edh 02/11/15 MRI c-spine w/o Valium 10 m g po yes PT STATED TO COMMODITY MANAGER THAT THE SEDATION WAS EFFECTIVE FOR SCAN: Y N COMMENTS: documented in this encounter Plan of Treatment Not on file documented as of this encounter Procedures Procedure Name Priority Date/Time Associated Diagnosis Comments MRI CERVICAL SPINE WO CONTRAST Routine 02/11/2015 10:00 AM EDT Neck pain on right side Numbness and tingling of right thumb documented in this encounter Results * MRI cervical spine WO contrast (02/11/2015 10:00 AM EDT) Anatomical Region Laterality Modality C-spine Magnetic Resonan ce 02/11/2015 10:0 0 AM EDT Impressions 02/11/2015 12:06 PM EDT IMPRESSION: No significant abnormalities. Narrative 02/11/2015 12:06 PM EDT EXAMINATION: MR Beverly MERINO Jose CLINICAL HISTORY: neck pain with right upper extremity numbness TECHNIQUE: Cervical spine MRI without contrast. Routine radiculopathy protocol. COMPARISON: MRI brain 12/29/2014. FINDINGS: Alignment is normal. The disc spaces and vertebral body heights are well-maintained. The cervical cord is of normal size and signal intensity. No significant neural foraminal narrowing. No aggressive marrow lesions. Procedure Note Brien Villaneuva MD - 02/11/2015 EXAMINATION: MR Beverly MERINO Jose CLINICAL HISTORY: neck pain with right [...] Rate Site diaZEPam (VALIUM) tablet 5 mg 5 mg, Oral, EVERY 30 MIN PRN, 2 doses, Starting on Lena 02/11/15 at 0805, Until Lena 02/11/15 at 0927, Anxiety, Angio/IR (Day of Procedure), Routine Given 02/11/2015 9:27 AM EDT 5 mg Given 02/11/2015 8:55 AM EDT 5 mg documented in this encounter Care Teams Roastmaster Relationship Specialty Start Date End Date Lakshmi Vicente MD [address] [place] [address] PCP - General 07/27/11 04/18/18 documented as of this encounter
--- OUTSIDE RECORDS SUMMARY | 2024-06-09 14:07 | XMS_ITS | Encounter Summary ---
Author Organization [facility] [place] [address] Care Team Providers Care Targeteer Name Role Phone Lakshmi Vicente MD Primary Care Provider Encounter Details Date Type Department Care Team (Late st Contact Info) Description 07/17/2011 Abstract [place] [address] Ritu Lovett, [facility] [place] [address] Social History Tobacco Use Types Packs/Day Years Used Date Smoking Tobacco: Never Sex and Gender Information Value Date Recorded Sex Assigned at Not on file Gender Identity Not on file Sexual Orientation Not on file documented as of this encounter Plan of Treatment Not on file documented as of this encounter Visit Diagnoses Not on filedocumented in this encounter Care Teams Targeteer Relationship Specialty Start Date End Date Lakshmi Vicente MD [address] [facility] [place] [address] PCP - General 07/27/11 04/18/18 documented as of this encounter
--- OUTSIDE RECORDS SUMMARY | 2024-06-09 14:07 | XMS_ITS | Encounter Summary ---
Author Organization [facility] [place] [address] Care Team Providers Care Bottom Ironer Name Role Phone Sylwia Guadarrama CASSIA Primary Care Provider [phone] Reason for Visit * Reason Comments Right Hip Pain Encounter Details Date Type Department Care Team (Late st Contact Info) Description 07/07/2011 10:45 AM EDT Office [place] [address] Slime Rosado DO [facility] [place] [address] Sacroiliac dysfunction (Primary Dx) Discharge Disposition: Home Social History Tobacco Use Types Packs/Day Years Used Date Smoking Tobacco: Never Sex and Gender Information Value Date Recorded Sex Assigned at Not on file Gender Identity Not on file Sexual Orientation Not on file documented as of this encounter Last Filed Vital Signs Vital Sign Reading Time Taken Comments Blood Pressure 127/73 07/07/2011 11:15 AM EDT Pulse 76 07/07/2011 11:15 AM EDT Temperature - - Respiratory Rate - - Oxygen Saturation 100% 07/07/2011 11:15 AM EDT Inhaled Oxygen Concentration - - Weight - - Height - - Body Mass Index - - documented in this encounter Patient Instructions * Patient Instructions* Dottie Luna RN - 07/07/2011 11:18 AM EDT Pain Management Center Discharge Instructions: You were seen by Dr. Slime Rosado DO who performed Right SI joint injection. [x] You may resume your normal activities: tomorrow. You may shower today. DO NOT tub bathe, use whirlpools, hot tubs or pool therapy for 2 days. RemoveBand-Aid(s) later today/tomorrow. Do not drive until tomorrow. Use caution walking/climbing stairs as you may be unsteady on your feet. You may use your usual medications, including pain medications, as directed, unless otherwise instructed. You may use an ice pack as needed for the first 24 hours, on for 20 minutes then off for 20 minutes. Do not apply heat today. Attempt to empty your bladder 4-6 hours after your procedure. [x] If you have diabetes, monitor your blood sugars frequently. If your blood sugar increases and is of concern, contact your Primary Care Provider. You received the following medications: Lidocaine and Omnipaque (contrast dye), Triamcinolone 40mg. During regular business hours, please phone the Pain Management Center at for appointments or with any questions or if the following or other troubling symptoms develop: 1) Prolonged dizziness or weakness (more than 1 day). 2) Localized swelling, redness or drainage at the injection site(s). 3) Temperature of 101 degrees that lasts for more than 4 hours. After 5 PM or on weekends, call and ask for Pain Clinic provider on-call. If you are unable to reach the Pain Management Center and have a complication, please call your Primary Care Provider or proceed to your local emergency department. Special instructions: Dottie Luna RN documented in this encounter Progress Notes * Slime Rosado DO - 07/09/2011 9:31 AM EDT I was the attending physician supervising the resident in the above care and I was present with theresident for the entire procedure. Slime Rosado DO [facility] [place] [address] Dept: [phone] * Charles Jean - 07/07/2011 11:26 AM EDT INTRA-ARTICULAR SI JOINT INJECTION Date of Service: 07/07/2011 Patient: Mirela Lara Provider: CHARLES JEAN MD Mirela Lara has been referred to the Pain Management Center for intra- articular SI joint injection. COMMENTS: Pt with R sided sacroiliac dysfunction referred for SI joint steroid injection w/block. Mirela Lara was interviewed and the medical record reviewed. There were no medical, pharmacologic, radiographic or other structural contraindications to attempting fluoroscopically guided intra-articular SI joint injection. Risks and expected side effects as well as potential benefit of the procedure were reviewed with Mirela Lara, and she voiced concerns addressed. The printed consent form was signed and witnessed. Standard time-out procedure was performed. Mirela Lara was placed in the prone position on the fluoroscopy table and automated blood pressure cuff and pulse oximeter applied. The skin entry point for approaching right SI joints was identified under the most advantageous fluoroscopic view and marked. Following thorough Chlorhexadine preparation of the skin and draping and 1% lidocaine infiltration of the skin entry point and subcutaneous tissues, a 22 gauge spinal needle was placed under fluoroscopic guidance into right SI joint. Intra-articular placement was confirmed by a clear arthrogram resulting from the injection of 0.25ml Omnipaque 240, 1ml 1% lidocaine, and 40mg kenalog were injected intra-articularily with an initial reproduction of a significant component of the usual pain. Mirela Lara's vital signs were stable throughout the procedure and were as recorded in the docflowsheet by the nursing staff. If given, dosages of intravenous drugs for anxiolysis and analgesiawere documented in MAR. Follow up plans and appointments were discussed with the Ms. Lara. Post procedure instruction wasgiven as documented in nursing documentation and having met discharge criteria, she was discharged from the Pain Management Center. COMMENTS: Achieved great relief. Prior to procedure pain rated as 4-5/10. 0/10 soon after injection. CC: SYLWIA GUADARRAMA APRN @[email or web address]@ * Dottie Luna RN - 07/07/2011 10:52 AM EDT Pre-Procedure Screening Questions: 1. Status: No 2. 3. Patient states they have a electric pile driver operator to transport after procedure? Yes 4. Patient taking antibiotics at present? No 5. NPO per Pain Management Center protocol? No 6. 7. Patient diabetic: Yes _x_ managed with oral medications 8. Patient routinely taking anticoagulants ? No Date stopped Current INR Patient Vital Signs documented in Doc Flowsheets associated with this encounter. Patient Discharge Instructions were reviewed with patient and copy provided to patient. documented in this encounter Procedure Notes * Charles Jean - 07/07/2011 11:24 AM EDTAssociated Order(s): SI JOINT INJECTION Pre-Procedure Diagnose(s): Sacroiliac dysfunction INTRA-ARTICULAR SI JOINT INJECTION Date of Service: 07/07/2011 Patient: Mirela Lara Provider: CHARLES JEAN MD Mirela Lara has been referred to the Pain Management Center for intra- articular SI joint injection. COMMENTS: Pt with R sided sacroiliac dysfunction referred for SI joint steroid injection w/block. Mirela Lara was interviewed and the medical record reviewed. There were no medical, pharmacologic, radiographic or other structural contraindications to attempting fluoroscopically guided intra-articular SI joint injection. Risks and expected side effects as well as potential benefit of the procedure were reviewed with Mirela Lara, and she voiced concerns addressed. The printed consent form was signed and witnessed. Standard time-out procedure was performed. Mirela Lara was placed in the prone position on the fluoroscopy table and automated blood pressure cuff and pulse oximeter applied. The skin entry point for approaching right SI joints was identified under the most advantageous fluoroscopic view and marked. Following thorough Chlorhexadine preparation of the skin and draping and 1% lidocaine infiltration of the skin entry point and subcutaneous tissues, a 22 gauge spinal needle was placed under fluoroscopic guidance into right SI joint. Intra-articular placement was confirmed by a clear arthrogram resulting from the injection of 0.25ml Omnipaque 240, 1ml 1% lidocaine, and 40mg kenalog were injected intra-articularily with an initial reproduction of a significant component of the usual pain. Mirela Lara's vital signs were stable throughout the procedure and were as recorded in the docflowsheet by the nursing staff. If given, dosages of intravenous drugs for anxiolysis and analgesiawere documented in MAR. Follow up plans and appointments were discussed with the Ms. Lara. Post procedure instruction wasgiven as documented in nursing documentation and having met discharge criteria, she was discharged from the Pain Management Center. COMMENTS: Achieved great relief. Prior to procedure pain rated as 4-5/10. 0/10 soon after injection. CC: SYLWIA GUADARRAMA APRN @[email or web address]@ documented in this encounter Miscellaneous Notes * Miscellaneous - Bradly, Bobbin Washer - 07/18/2011 6:54 AM EDT documented in this encounter Plan of Treatment Not on file documented as of this encounter Results * SI JOINT INJECTION (07/07/2011 11:26 AM EDT) Slime Rosado DO PROCEDURE/MINOR SURG ICAL ORDERABLES documented in this encounter Visit Diagnoses Diagnosis Sacroiliac dysfunction- Primary Disorders of sacrum documented in this encounter Administered Medications Inactive Administered Medications - up to 3 most recent administrations Medication Order MAR Action Action Date Dose Rate Site iohexol (OMNIPAQUE) injection 1 mL 1 mL, Other, ONCE PRN, 1 dose, Starting on Sun07/07/11 at 1119, Until Sun07/07/11 at 1120, Per Protocol, Routine Given 07/07/2011 11:20 AM EDT 1 mL lidocaine (PF) (XYLOCAINE) 10 mg/mL (1 %) injection 30 mg 30 mg, Subcutaneous, ONCE, 1 dose, On Sun07/07/11 at 1145, Routine Given 07/07/2011 11:45 AM EDT 30 mg triamcinolone acetonide (KENALOG-40) injection 40 mg 40 mg, Intramuscular, ONCE, 1 dose, On Sun07/07/11 at 1145, Routine Given 07/07/2011 11:45 AM EDT 40 mg documented in this encounter Care Teams Bottom Ironer Relationship Specialty Start Date End Date Sylwia Guadarrama APRN PCP - General 09/06/10 07/26/11 documented as of this encounter
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
[2024-06-09] MEDS: MORPHine 10 MG/ML VIAL 2 MG IVP (14:41)
--- NOTE | 2024-06-09 15:01 | DI.RAD_ITS ---
Exam(s) XR KNEE RT 3V AP,LAT,JEFFREY EXAM: XR KNEE RT 3V AP,LAT,JEFFREY CLINICAL HISTORY: weakness pain. TECHNIQUE: 2D digital imaging was performed. Three views. COMPARISON: No exams were available for comparison FINDINGS: BONES: No acute fracture is present. No bony destructive lesion is seen. JOINTS: Iqgv-ek-qartvexa medial femoral tibial joint space narrowing. Periarticular spurring through out. No joint effusion is seen. SOFT TISSUE: Normal. IMPRESSION: Degenerative changes greatest of the medial femoral tibial compartment. DATA REPOSITORY: RADIATION DOSE DELIVERED:
[2024-06-09 15:28] VITALS: BP 156/79; PULSE 74; RESP 16; O2SAT 97
[2024-06-09] MEDS: diazePAM 10 MG/2 ML SYR 2.5 MG IVP (15:56)
[2024-06-09 16:27] LABS: Bilirubin Negative (Negative); Blood Trace-intact (Negative); Clarity Clear (Clear); Glucose Negative (Negative); Ketones Negative (Negative); Leukocyte Esterase Negative (Negative); Nitrite Negative (Negative); Specific Gravity >= 1.030 (1.005-1.025); Urobilinogen 0.2 mg/dL (Up to 0.2); pH 5.5 (5-8)
--- NOTE | 2024-06-09 16:45 | DI.CT_ITS ---
Exam(s) CT LUMBAR SPINE WO EXAM: CT LUMBAR SPINE WO CLINICAL HISTORY: back pain, acute in onset, radiation down right le. TECHNIQUE: Imaging Protocol: Axial computed tomography images with coronal and sagittal reformatted images were created and reviewed COMPARISON: CR XR LUMBAR SPINE COMPLETE from 05/03/2022 FINDINGS: Bones: There are 4 lumbar type vertebral bodies. There is sacralization of L5. The vertebral body heights are well maintained. Alignment is satisfactory. No fracture is seen. T12-L1: No disc herniations or bulges are present. L1-2: No disc herniations or bulges are present. L2-3: No disc herniations or bulges are present. L3-4: No disc herniations or bulges are present. L4-5: No disc herniations or bulges are present. L5-S1: There is mild loss of disc height and vacuum phenomenon. There are small endplate osteophyte s and degenerative changes which are eccentric toward the left. There is mild disc bulging. There i s left neural foraminal narrowing. No significant central stenosis is visible. The visualized SI joints and sacrum are well maintained. Soft Tissues: The paraspinal soft tissues are unremarkable. IMPRESSION: Degenerative disc changes at L5-S1 with left neural foraminal narrowing. Remaining levels are unrema rkable. RADIATION DOSE DELIVERED: Total DLP DATA REPOSITORY: All CT scans at this facility are submitted to the National Radiology Data Registry (NRDR) Dose Index Registry (DIR) with the [employer] (ACR). RADIATION OPTIMIZATION: All CT scans at this facility use at least one of these dose optimization te chniques: automated exposure control; mA and/or kV adjustment per patient size (includes targeted exa ms where dose is matched to clinical indication); or iterative reconstruction.
[2024-06-09 16:47] LABS: Bacteria Many HPF (Negative); C & S Indicated? No/Sq. Contamination; Casts Negative LPF (Negative); Crystals Negative HPF (Negative); Epithelial Cells Many HPF (Negative); Mucus Negative (Negative); WBC 0-2 HPF (0-5)
[2024-06-09] MEDS: MORPHine 4 MG/ML SYR (16:52)
[2024-06-09 18:43] VITALS: BP 148/86; PULSE 83; RESP 18; TEMP 36.7; O2SAT 96
== END 2024-06-09 18:46 | disposition home or self-care (01) ==
PROVIDERS: Nurse Practitioner Family; Emergency Provider Physician Assistant; PCP Family Medicine
DX: M51.17 Intervertebral disc disorders with radiculopathy, lumbosacral region; K21.9 Gastro-esophageal reflux disease without esophagitis; E11.9 Type 2 diabetes mellitus without complications
CPT/HCPCS: 29505; 36415; 73562; 80053; 82962; 96374; 96375; 99285; 72131; 81003; 81015; 83735; 85025; 99284; J2270; J3360

== ENCOUNTER 2024-07-01 17:04 | Outpatient (CLI) | payer MEDICAID, SELFPAY ==
--- NOTE | 2024-07-01 | DI.US_ITS ---
Exam(s) US LOWER EXTREMITY VENOUS RT EXAM: US LOWER EXTREMITY VENOUS RT CLINICAL HISTORY: PAIN RT LEG M79.604 R/O DVT SUDDEN ONSET RT LEG PAIN, POSITIVE HOMANS SIGN TECHNIQUE: Grayscale, color, and doppler imaging of the deep venous system of the right lower extrem ity was performed. COMPARISON: US ABD PELVIS TRANSVAG from 05/22/2014 FINDINGS: There is no evidence of intraluminal thrombus and there is normal compression and augmentation demons trated within the common femoral vein, femoral vein, and popliteal vein. In the ipsilateral calf the interrogated veins also exhibit normal compression/ augmentation properti es. The ipsilateral saphenofemoral junction is patent. Normal appearing lymph node noted in the right groin. IMPRESSION: 1. No evidence of DVT in the right lower extremity. DATA REPOSITORY:
== END 2024-07-01 17:24 ==
LOC: DI 07-02 17:04
PROVIDERS: PCP Student in an Organized Health Care Education/Training Program; Visit Provider Student in an Organized Health Care Education/Training Program
DX: M79.604 Pain in right leg (principal)
CPT/HCPCS: 93971

== ENCOUNTER 2024-07-01 22:26 | Outpatient (REF) | payer MEDICAID, SELFPAY ==
[2024-07-01 19:53] LABS: HCT 39.9 % (36.0-46.0); HGB 13.1 g/dL (11.2-15.7); MCH 27.9 pg (27.0-33.0); MCHC 32.8 % (32.0-36.0); MCV 85 fL (80-95); MPV 9.9 fL (8.0-11.0); Platelet Count 416 10^3/uL (130-400); RDW 12.2 % (11.7-14.6); RDW-SD 37.3 fL; WBC 8.29 10^3/uL (4.4-10.8)
[2024-07-01 21:50] LABS: Microalb ug/mg Crea 6.6 ug/mg Cr
--- OUTSIDE RECORDS SUMMARY | 2024-07-01 22:28 | XMS_ITS | Encounter Summary ---
[facility] [place] [place] [address] Care Team Providers Care Dietitian Consultant Name Role Phone Harper Andrade [employer] SAL[employer]SULT[employer] Primary Care Provider [phone] Reason for Visit * Reason Onset Date Comments Other 10/17/2018 Encounter Details Date Type Department Care Team (Late st Contact Info) Description 10/17/2018 [place] [address] Jeaneth Ozuna, [employer] SALES CONSULTANT [facility] [place] [address] Other Social History Tobacco Use Types Packs/Day [...] called Mirela at a new phone number [phone]. Voice mailbox has not been set up [...] Saleh - 10/17/2018 11:19 AM EST Clinical Preemption Message Caller: self If not Pt / Relation to pt: Call back Number:[phone] Best time to reach caller: any Reason [...] on filedocumented in this encounter Care Teams Dietitian Consultant Relationship Specialty Start Date End Date Harper Andrade APRN PCP - General Family Medicine 12/17/18 12/22/20 documented as of this encounter
--- OUTSIDE RECORDS SUMMARY | 2024-07-01 22:28 | XMS_ITS | Encounter Summary ---
Author Organization [facility] [place] [address] Care Team Providers Care Bag End Sewer Name Role Phone Lakshmi Vicente MD Primary Care Provider [phone] Reason for Visit * Reason Onset Date Comments Medication Refill 12/05/2017 Encounter Details Date Type Department Care Team (Late st Contact Info) Description 12/05/2017 Refill Neurology at [place] [address] Jill French [place] [address] Migraine with aura and without status migrainosus, [...] hypertension documented in this encounter Care Teams Bag End Sewer Relationship Specialty Start Date End Date Lakshmi Vicente MD [address] [place] [address] PCP - General 07/27/11 04/18/18 documented as of this encounter
--- OUTSIDE RECORDS SUMMARY | 2024-07-01 22:28 | XMS_ITS | Encounter Summary ---
Author Organization [facility] Address [address] [place] [id number] Care Team Providers Care Senior Electrical Engineer Name Role Phone Unavailable Primary Care Provider Unavailabl e Encounter Details Date Type Department Care Team (Late st Contact Info) Description 06/08/2023 Lab Requisition [facility] Pathology & Laboratory Medicine - [facility] [address] [place] [address] Outr Resulting Lab, Provider Social History Tobacco [...] C Antibody Negative Negative 06/11/2023 10:[address] [facility] Blood VENOUS BLOOD / Unknown 06/07/2023 17:00 EDT 06/08/2023 18:03 EDT Provider Outr Resulting Lab CHEMISTRY & BLOOD GAS ORDERABLES [facility] [address] [place] [address] documented in this encounter Visit Diagnoses Not on filedocumented in this encounter
--- OUTSIDE RECORDS SUMMARY | 2024-07-01 22:28 | XMS_ITS | Encounter Summary ---
Author Organization [facility] [place] [address] Care Team Providers Care Manager Employee Benefits Name Role Phone Neda Manzanares Primary Care Provider + Reason for Visit * Reason Onset Date Comments Medication Refill 04/22/2018 Encounter Details Date Type Department Care Team (Late st Contact Info) Description 04/22/2018 Refill Neurology at [facility] [place] [address] Jill French, CASSIA [facility] [place] [address] Migraine with aura and without status migrainosus, [...] med refill Medication ZOLMitriptan (ZOMIG) 5 mg [place], Non-Aerosol [[id number]] ??ZOLMitriptan (ZOMIG) 5 mg [place], Non-Aerosol [[id number]] Order Details? Dose, Route, Frequency: As Directed [...] --? Ordering Provider: Jill French APRNDEA #: [id number]: [id number]?? Authorizing Provider: iJll French APRNDEA #: [id number]: [id number]?? Ordering User: Jill French APRN? Diagnosis Association: Migraine with aura and without status migrainosus, not intractable (G43.109)?Original Order: ZOLMitriptan (ZOMIG) 5 mg [place], Non-Aerosol [[id number]]? Pharmacy: [facility] - [address] #: --?? Pharmacy Comments: --? Quantity Remaining: -- documented in this encounter Plan of Treatment Not on file documented as of this encounter Visit Diagnoses Diagnosis Migraine with aura and without status migrainosus, not intractable Migraine with aura, without mention of intractable migraine without mention of status migrainosus documented in this encounter Care Teams Manager Employee Benefits Relationship Specialty Start Date End Date Neda Manzanares PA [address] [place] [id number] PCP - General Orthopaedic Surgery 04/19/18 09/14/18 documented as of this encounter
--- OUTSIDE RECORDS SUMMARY | 2024-07-01 22:28 | XMS_ITS | Encounter Summary ---
[place] [address] Care Team Providers Care Manager Information Name Role Phone Harper Andrade Solange ANTONY Primary Care Provider [phone] Encounter Details Date Type Department Care Team (Late st Contact Info) Description 03/25/2019 [place] [address] None None Social History Tobacco Use Types [...] on filedocumented in this encounter Care Teams Manager Information Relationship Specialty Start Date End Date Harper Andrade APRN PCP - General Family Medicine 12/17/18 12/22/20 documented as of this encounter
--- OUTSIDE RECORDS SUMMARY | 2024-07-01 22:28 | XMS_ITS | Encounter Summary ---
[facility] [place] [address] Care Team Providers Care Fabricating Machine Operator Name Role Phone Lakshmi Vicente MD Primary Care Provider [phone] Reason for Visit * High Dollar Medication (Routine) - Specialty Diagnoses / Procedures Referred By Keisha singh Referred To Contact Neurology Diagnoses Chronic migraine without aura without status migrainosus, not intractable Procedures Auth Request for Medication TC ONABOTULINUMTOXINA, 1 UNIT, INJECTION Jill French APRN [facility] [place] [address] [facility] [address] [place] [address] Referral ID Status Reason Start Date Expiration Date V isits Requested Visits Authorized [id number] Consult, Test & Treat 07/20/2016 07/04/2019 13 13 Encounter Details Date Type Department Care Team (Late st Contact Info) Description 01/18/2018 3:00 PM EDT Office [place] [address] Jill French [facility] [place] [address] PATIENT NOT SEEN Social History Tobacco Use [...] SEEN documented in this encounter Care Teams Fabricating Machine Operator Relationship Specialty Start Date End Date Lakshmi Vicente MD [address] [place] [address] PCP - General 07/27/11 04/18/18 documented as of this encounter
--- OUTSIDE RECORDS SUMMARY | 2024-07-01 22:28 | XMS_ITS | Encounter Summary ---
Author Organization [facility] Address [facility] [place] [address] Care Team Providers Care Supervisor Alum Plant Name Role Phone RigobertoHarper calderón CASSIA Primary Care Provider [phone] Encounter Details Date Type Department Care Team (Late st Contact Info) Description 03/24/2019 Notes Only Care Management [facility] [place] [address] Anna Parker Social History Tobacco [...] scheduled appointments How did patient get to [facility] [place] [place] today: Friends brought her to ED last evening. Plan for return home: Pt stated she has tried to get rides from friends and has not been able to secure a ride. Insurance: [place] Medicaid. Assessment: Reviewed pt situation-pt stated she has no funds or options to get to . [place]. Plan: We called [facility] [phone]. They will call us back to provide the time they will be able to provide a ride. 5:00pm Main Entrance Private small car. Will pick her up-she will be sharing a ride. I advised the pt-she expressed understanding and appreciation. Staff: Estefani Parker [id number] documented in this encounter Plan of Treatment Not on file documented as of this encounter Visit Diagnoses Not on filedocumented in this encounter Care Teams Supervisor Alum Plant Relationship Specialty Start Date End Date Harper Andrade, CASSIA PCP - General Family Medicine 12/17/18 12/22/20 documented as of this encounter
--- OUTSIDE RECORDS SUMMARY | 2024-07-01 22:28 | XMS_ITS | Encounter Summary ---
Author [facility] [place] [address] Care Team Providers Care Ticket Sorter Name Role Phone Neda Manzanares Primary Care Provider + Reason for Visit * Reason Onset Date Comments Other 07/18/2018 Encounter Details Date Type Department Care Team (Late st Contact Info) Description 07/18/2018 Telephone [place] [address] Silke Pollack MD [facility] [place] [address] Other Social History Tobacco Use Types Packs/Day [...] Vanessa - 07/18/2018 8:06 AM EDT Clinical Patient Transition Specialist Message Caller: Patient If not Pt / Relation to pt: Caller callback number: Patient is at the waiting area and does not have a phone Best time to reach caller: anytime Reason for call:Headache/Migraine Is VIERIA still present: YES Is this the worst [...] on filedocumented in this encounter Care Teams Ticket Sorter Relationship Specialty Start Date End Date Neda Manzanares PA [address] [place] [id number] PCP - General Orthopaedic Surgery 04/19/18 09/14/18 documented as of this encounter
--- OUTSIDE RECORDS SUMMARY | 2024-07-01 22:28 | XMS_ITS | Encounter Summary ---
Author Organization [facility] [place] [address] Care Team Providers Care Combination Presser Name Role Phone Olivia Best MD Primary Care Provider [phone] Encounter Details Date Type Department Care Team (Late st Contact Info) Description 05/12/2021 Telephone Ophthalmology at [facility] [place] [address] Tamiko Lozoya, [place] [address] Social History Tobacco Use Types Packs/Day Years [...] on filedocumented in this encounter Care Teams Combination Presser Relationship Specialty Start Date End Date Olivia Best MD [address] [place] [address] PCP - General Family Medicine 12/23/20 documented as of this encounter
--- OUTSIDE RECORDS SUMMARY | 2024-07-01 22:28 | XMS_ITS | Encounter Summary ---
Author Organization [facility] Address [facility] [place] [address] Care Team Providers Care Fibrous Wallboard Inspector Name Role Phone Unavailable Primary Care Provider Unavailabl e Reason for Visit * Reason Onset Date Comments Medication Refill 10/17/2018 Encounter Details Date Type Department Care Team (Late st Contact Info) Description 10/17/2018 [place] [address] Silke Pollack MD [facility] [place] [place] [address] Migraine with aura and without status migrainosus, [...]
--- OUTSIDE RECORDS SUMMARY | 2024-07-01 22:28 | XMS_ITS | Encounter Summary ---
Author Organization [facility] Address [facility] [place] [address] Care Team Providers Care Generation Technologist Name Role Phone RigobertoHarper calderón Solange ANTONY Primary Care Provider [phone] Reason for Visit * Reason Comments Botox Injection Migraine * High Dollar Medication (Routine) - Specialty Diagnoses / Procedures Referred By Keisha singh Referred To Contact Neurology Diagnoses Chronic migraine without aura without status migrainosus, not intractable Procedures Auth Request for Medication TC ONABOTULINUMTOXINA, 1 UNIT, INJECTION Jill French APRN [facility] [place] [address] [facility] [address] [place] [address] Referral ID Status Reason Start Date Expiration Date V isits Requested Visits Authorized [id number] Consult, Test & Treat 07/20/2016 07/04/2019 13 13 Encounter Details Date Type Department Care Team (Late st Contact Info) Description 12/17/2018 2:40 PM EST [place] [address] Silke Pollack MD [facility] [place] [address] Chronic migraine without aura, with [...] units divided between 2 sites in the dial screw assembler muscles, 5 units into 1 site in [...] on the PREEMPT clinical program. Headache 50(9): 5676-7981. Salome Jensen, et al. (2010). OnabotulinumtoxinA for treatment of chronic migraine: results from the double-blind, randomized, placebo-controlled phase of the PREEMPT 2 trial. Cephalalgia 30(7): 804-814. Silke Pollack MD [facility] Neurology Migraine Disability Assessment # of days [...] units divided between 2 sites in the dial screw assembler muscles, 5 units into 1 site in [...] on the PREEMPT clinical program. Headache 50(9): 7186-8864. Salome Jensen, et al. (2010). OnabotulinumtoxinA for treatment of chronic migraine: results from the double-blind, randomized, placebo-controlled phase of the PREEMPT 2 trial. Cephalalgia 30(7): 804-814. Silke Pollack MD [facility] Neurology Migraine Disability Assessment # of days [...] Units documented in this encounter Care Teams Generation Technologist Relationship Specialty Start Date End Date Harper Andrade APRN PCP - General Family Medicine 12/17/18 12/22/20 documented as of this encounter
--- OUTSIDE RECORDS SUMMARY | 2024-07-01 22:28 | XMS_ITS | Encounter Summary ---
Author Organization [facility] [place] [address] Care Team Providers Care Faculty Instructor Name Role Phone Neda Manzanares Primary Care Provider + Encounter Details Date Type Department Care Team (Late st Contact Info) Description 07/18/2018 9:00 AM EDT Office [place] [address] Jeaneth Ozuna APRN [facility] [place] [place] [address] Chronic migraine without aura with status migrainosus, [...] Blood loss: <1 cc FELIX Garcia APRN [facility] documented in this encounter [...] None Blood loss: <1 cc Jeaneth Ozuna, AUTOMOTIVE SERVICE CONSULTANT-BC, SPECIFICATIONS WRITER [facility] Jeaneth Ozuna SPECIFICATIONS WRITER NEUROLOGY ORDERABL ES documented in this [...] mg documented in this encounter Care Teams Faculty Instructor Relationship Specialty Start Date End Date Neda Manzanares PA [address] [place] [address] PCP - General Orthopaedic Surgery 04/19/18 09/14/18 documented as of this encounter
--- OUTSIDE RECORDS SUMMARY | 2024-07-01 22:28 | XMS_ITS | Encounter Summary ---
Author Organization [facility] [place] [address] Care Team Providers Care Latex Foam Worker Name Role Phone Unavailable Primary Care Provider Unavailabl e Reason for Visit * High Dollar Medication (Routine) - Specialty Diagnoses / Procedures Referred By Contac t Referred To Contact Neurology Diagnoses Chronic migraine without aura without status migrainosus, not intractable Procedures Auth Request for Medication TC ONABOTULINUMTOXINA, 1 UNIT, INJECTION Jill French APRN [facility] [place] [address] [facility] [address] [place] [address] Referral ID Status Reason Start Date Expiration Date V isits Requested Visits Authorized [id number] Consult, Test & Treat 07/20/2016 07/04/2019 13 13 Encounter Details Date Type Department Care Team (Late st Contact Info) Description 09/23/2018 3:30 PM EST [place] [address] Jair Perez MD [facility] [place] [address] Chronic migraine without aura, with intractable [...] Jair Perez MD Treatment # 12 Lot #:[id number] Exp: Jan 2021 Dilution: 1:4 Diluent: Normal Saline Indication: Chronic Intractable Migraine without status migrainosus Injection SItes Muscle Fixed Site/Fixed Dose [employer] Testing Group Leader 10 Units divided in 2 sites Procerus [...]
--- OUTSIDE RECORDS SUMMARY | 2024-07-01 22:28 | XMS_ITS | Referral Summary ---
Author Organization [facility] Address [address] [place] [address] Care Team Providers Care Radiosonde Specialist Name Role Phone Unavailable Primary Care Provider [...] C Antibody Negative Negative 06/11/2023 10:36 EDT [facility] Blood VENOUS BLOOD / Unknown 06/07/2023 17:00 EDT 06/08/2023 18:03 EDT Provider Outr Resulting Lab CHEMISTRY & BLOOD GAS ORDERABLES [facility] [address] [place] [address] from Last 3 Months or Most Recently Relevant to Health Maintenance
--- OUTSIDE RECORDS SUMMARY | 2024-07-01 22:28 | XMS_ITS | Encounter Summary ---
Author Organization [facility] [place] [address] Care Team Providers Care Gun Perforator Name Role Phone Neda Manzanares Primary Care Provider + Reason for Visit * Reason Onset Date Comments Prior Authorization 07/15/2018 Encounter Details Date Type Department Care Team (Late st Contact Info) Description 07/15/2018 Telephone [place] [address] Silke Pollack MD [facility] [place] [address] Prior Authorization Social History Tobacco Use Types [...] 9:36 AM EDT JOSE request sent to [place] Medicaid through [employer] Do: [id number] * Telephone Encounter - Rosemarie [...] tomorrow AM Best number to reach caller: [phone] Reason for call: Patient states that her Zolmitriptan (zomig) needs a prior authorization. documented in this encounter Plan of Treatment Not on file documented as of this encounter Visit Diagnoses Not on filedocumented in this encounter Care Teams Gun Perforator Relationship Specialty Start Date End Date Neda Manzanares PA [address] [place] [address] PCP - General Orthopaedic Surgery 04/19/18 09/14/18 documented as of this encounter
--- OUTSIDE RECORDS SUMMARY | 2024-07-01 22:28 | XMS_ITS | Encounter Summary ---
Author Organization [facility] [place] [address] Care Team Providers Care State Highway Police Officer Name Role Phone Olivia Best MD Primary Care Provider [phone] Reason for Referral * Consultation (Routine) - Closed Specialty Diagnoses / Procedures Referred By Keisha t Referred To Contact Dermatology Diagnoses Oculocutaneous albinism Woody Ryan MD [address] [place] [address] [place] [address] [facility] [address] [place] [address] Referral ID Status Reason Start Date Expiration Date V isits Requested Visits Authorized [id number] Closed Consult, Test & Treat PCP Updated and/or Approved 05/11/2022 05/11/2023 6 6 Encounter Details Date Type Department Care Team (Latest Contact Info) Description 05/11/2022 Transcribe Orders eDH Incoming Referrals [phone] Woody Ryan MD [address] [place] [address] [address] [place], [place] [id number] Oculocutaneous albinism Social History Tobacco Use Types [...] metabolism documented in this encounter Care Teams State Highway Police Officer Relationship Specialty Start Date End Date Olivia Best MD [address] [place] [address] PCP - General Family Medicine 12/23/20 documented as of this encounter
--- OUTSIDE RECORDS SUMMARY | 2024-07-01 22:28 | XMS_ITS | Clinical Summary ---
Author Organization [facility] Address [address] [place] [address] Care Team Providers Care Survey Associate Name Role Phone Unavailable Primary Care Provider [...] C Antibody Negative Negative 06/11/2023 10:36 EDT [facility] Blood VENOUS BLOOD / Unknown 06/07/2023 17:00 EDT 06/08/2023 18:03 EDT Provider Outr Resulting Lab CHEMISTRY & BLOOD GAS ORDERABLES [facility] [address] [place] [address] from Last 3 Months or Most Recently Relevant to Health Maintenance
--- OUTSIDE RECORDS SUMMARY | 2024-07-01 22:28 | XMS_ITS | Encounter Summary ---
Author Organization [facility] Address [facility] [place] [address] Care Team Providers Care Continuous Improvement Analyst Name Role Phone Lakshmi Vicente MD Primary Care Provider [phone] Reason for Visit * Reason Onset Date Comments Other 12/05/2017 Encounter Details Date Type Department Care Team (Late st Contact Info) Description 12/05/2017 [place] [address] Silke Pollack MD [facility] [place] [address] Other Social History Tobacco Use Types Packs/Day [...] the day Best number to reach caller: [phone] Reason for call: Erick called stating that the patient's insurance is requesting a prescription for 90 days of the acetazolamide. She is asking for a new prescription with a 90 day supply requested. Please send new prescription to [facility] pharmacy documented in this encounter Plan of Treatment Not on file documented as of this encounter Visit Diagnoses Diagnosis IIH (idiopathic intracranial hypertension) Benign intracranial hypertension documented in this encounter Care Teams Continuous Improvement Analyst Relationship Specialty Start Date End Date Lakshmi Vicente MD [address] [place] [address] PCP - General 07/27/11 04/18/18 documented as of this encounter
--- OUTSIDE RECORDS SUMMARY | 2024-07-01 22:28 | XMS_ITS | Encounter Summary ---
Author Organization [facility] Address [facility] [place] [address] Care Team Providers Care Packer And Carry Out Name Role Phone RigobertoHarper calderón Solange ANTONY Primary Care Provider [phone] Reason for Visit * High Dollar Medication (Routine) - Specialty Diagnoses / Procedures Referred By Keisha singh Referred To Contact Neurology Diagnoses Chronic migraine without aura without status migrainosus, not intractable Procedures Auth Request for Medication TC ONABOTULINUMTOXINA, 1 UNIT, INJECTION Jill French APRN [facility] [place] [address] [facility] [address] [place] [address] Referral ID Status Reason Start Date Expiration Date V isits Requested Visits Authorized [id number] Consult, Test & Treat 07/20/2016 07/04/2019 13 13 Encounter Details Date Type Department Care Team (Late st Contact Info) Description 03/24/2019 10:20 AM EDT [place] [address] Jair Perez MD [facility] [place] [address] Chronic migraine without aura, with intractable [...] Based on the PREEMPT Clinical Program. Headache 2010;50:0025-0702. A total of 195 units was used [...] Jair Perez MD Treatment # 14 Lot #:[id number] Exp: Jul 2021 Injection SItes Muscle Fixed Site/Fixed Dose L R Follow the pain # units Chief Design Engineer 10 Units divided in 2 sites Procerus [...] migrainosus documented in this encounter Care Teams Packer And Carry Out Relationship Specialty Start Date End Date Harper Andrade, DENTAL LABORATORY TECHNICIAN PCP - General Family Medicine 12/17/18 12/22/20 documented as of this encounter
--- OUTSIDE RECORDS SUMMARY | 2024-07-01 22:28 | XMS_ITS | Clinical Summary ---
Author Organization [facility] Address [facility] [place] [address] Care Team Providers Care Java Lead Developer Name Role Phone Olivia Best MD Primary Care Provider [phone] Allergies Active Allergy Reactions Criticality Noted Date [...] daily. 01/16/2018 Active ZOLMitriptan (ZOMIG) 5 mg [place], Non-AerosolIndicatio ns:Migraine with aura and without status [...] Covid-19 Vaccine ( - 2022-2 4 season) 2024 Influenza (Flu) vaccine (1 o f 1 [...] EDT) Glucose 95 65 - 199 mg/dL [facility] Comment:Diabetes: >=200 mg/d L plus symptoms Blood Urea Nitrogen 5(L) 8 - 18 mg/dL [facility] Creatinine 0.96 0.70 - 1.20 mg/dL [facility] Sodium 138 135 - 145 mmol/L [facility] Potassium 3.0(Criti sesar) 3.5 - 5.0 mmol/L [facility] Comment: Results rechecked. Called by: DIANA, Read back by: Augustina tan, Date/Time:03/24/19 00:57. Please note: ??Patients with WBC >100,000 may have falsely elevated Potassium levels. ??For accurate Potassium quantification in these patients send serum separator tube (gold top) for subsequent determinations. ??Contact the Clinical Chemistry Laboratory if there are any questions. Chloride 101 98 - 107 mmol/L [facility] Carbon Dioxide 24 22 - 31 mmol/L [facility] Anion Gap 13 5 - 15 mmol/L [facility] Calcium 9.7 8.5 - 10.5 mg/dL [facility] Est Glomerular Filtration Rate 74 >=60 mL/min/1. 73 m?? [facility] Comment: The eGFR was calculated using the CKD-EPI equation. As with all creatinine based estimates of kidney function, eGFR values calculated with the CKD-EPI equation are not accurate in patients with acute kidney failure, extremes of body mass or the acutely ill. http://[employer]/[facility] CITYnk[facility] eGFR 86 >=60 mL/min/1. 73 m?? [facility] Comment: The eGFR was calculated using the CKD-EPI equation. As with all creatinine based estimates of kidney function, eGFR values calculated with the CKD-EPI equation are not accurate in patients with acute kidney failure, extremes of body mass or the acutely ill. http://[employer]/[facility] CITY[facility] Blood specimen (specimen) 03/23/2019 11:59 PM EDT 03/24/2019 12:18 AM EDT Narrative Resulting Agency Comment Spec In Lab Prem Ryder MD CHEMISTRY ORDERABL ES [facility] [place] [id number] from Last 3 Months or Most Recently Relevant to Health Maintenance Care Teams Java Lead Developer Relationship Specialty Start Date End Date Olivia Best MD [address] [place] [address] PCP - General Family Medicine 12/23/20
--- OUTSIDE RECORDS SUMMARY | 2024-07-01 22:28 | XMS_ITS | Encounter Summary ---
Author Organization [facility] [place] [address] Care Team Providers Care Secondary Social Studies Teacher Name Role Phone Lakshmi Vicente MD Primary Care Provider [phone] Reason for Visit * High Dollar Medication (Routine) - Specialty Diagnoses / Procedures Referred By Keisha singh Referred To Contact Neurology Diagnoses Chronic migraine without aura without status migrainosus, not intractable Procedures Auth Request for Medication TC ONABOTULINUMTOXINA, 1 UNIT, INJECTION Jill French APRN [facility] [place] [address] [facility] [address] [place] [address] Referral ID Status Reason Start Date Expiration Date V isits Requested Visits Authorized [id number] Consult, Test & Treat 07/20/2016 07/04/2019 13 13 Encounter Details Date Type Department Care Team (Late st Contact Info) Description 04/18/2018 12:30 PM EDT [place] [address] Loren Russ PA [facility] [place] [address] Chronic migraine without aura without [...] 1 injection of 5 U in right dietetics teacher muscle 1 injection of 5 U in left dietetics teacher muscle 2 injections of 5 U in [...] u Total units discarded: 45 u LOT# [id number] EXP: 10/2020 The patient tolerated the procedure without any immediate complications. Loren Rsus PA-C [facility] or [phone](MS nurse contact number) documented in this encounter [...] 1 injection of 5 U in right dietetics teacher muscle 1 injection of 5 U in left dietetics teacher muscle 2 injections of 5 U in [...] u Total units discarded: 45 u LOT# [id number] EXP: 10/2020 The patient tolerated the procedure without any immediate complications. Loren Russ PA-C [facility] or [phone](MS nurse contact number) Foster Lynn MD PROCEDURE/MINOR [...] Units documented in this encounter Care Teams Secondary Social Studies Teacher Relationship Specialty Start Date End Date Lakshmi Vicente MD [address] [place] [address] PCP - General 07/27/11 04/18/18 documented as of this encounter
--- OUTSIDE RECORDS SUMMARY | 2024-07-01 22:28 | XMS_ITS | Encounter Summary ---
Author Organization [facility] Address [address] [place] [address] Care Team Providers Care Bituminous Distributor Operator Name Role Phone Unavailable Primary Care Provider Unavailabl e Encounter Details Date Type Department Care Team (Late st Contact Info) Description 06/08/2023 Lab Requisition [facility] Pathology & Laboratory Medicine - [facility] [address] [place] [address] Woody Ryan MD [address] [place], [place] [id number] Encounter for other general examination Social History [...] types, PCR Negative Negative 06/14/2023 15:05 EDT [facility] Comment:No E6 or E7 mRNA is detected from HPV types 16,18,31,33,35,39,45,51,52,56,58,59,66, and 68 by pizza hut team member mediated amplification. Pap Test CERVIX UTERI STRUCTURE / Unknown 06/07/2023 17:15 EDT 06/13/2023 12:45 EDT Woody Ryan MD MICROBIOLOGY - GENER AL ORDERABLES Performing Organization Address City/[facility]/ZIP Co de Phone Number [facility] [address] [place] [address] * PAP TEST (06/07/2023 17:15 EDT) Specimens A. Cervix and/or Endocervix , ThinPrep Imaging System with Manual Evaluation 06/14/2023 15:05 EDT [facility] Specimen Adequacy Satisfactory for Evaluation - transformation zone component present 06/14/2023 15:05 EDT [facility] General Categorization Negative for intraepithelial lesion or malignancy 06/14/2023 15:05 T [facility] Attestation . 06/14/2023 15:05 [facility] at 1505 Clinical History See below 06/14/20 15:05 T [facility] HPV The result for the Human Papillomavirus (HPV) Detection-High Risk Types is Negative. No E6 or E7 mRNA is detected from HPV types 16,18,31,33,35,39 ,45,51,52,56,58,5 9,66, and 68 by [employer] hut team member mediated amplification.Brianna ting was performed on specimen [id number] and was resulted on 06/14/2023 1505 EDT by BEATRIZ, LAB INSTRUMENT RESULTS IN 06/14/2023 15:05 EDT [facility] Performing Lab [facility] 06/14/2023 15:05 EDT [facility] Scanned Images 06/14/2023 15:05 EDT [facility] Pap Test CERVIX UTERI STRUCTURE / Unknown 06/07/2023 17:15 EDT 06/08/2023 11:37 EDT Woody Ryan MD PATHOLOGY ORDERABLES Performing Organization Address City/[facility]/ZIP Co de Phone Number [facility] [address] [place] [address] documented in this encounter Visit Diagnoses Diagnosis Encounter for other general examination documented in this encounter
--- OUTSIDE RECORDS SUMMARY | 2024-07-01 22:28 | XMS_ITS | Encounter Summary ---
Author Organization [facility] [place] [address] Care Team Providers Care Hair Machine Operator Name Role Phone Lakshmi Vicente MD Primary Care Provider [phone] Reason for Visit * Reason Onset Date Comments Medication Refill 02/11/2018 Encounter Details Date Type Department Care Team (Late st Contact Info) Description 02/11/2018 Refill Neurology at [facility] [place] [address] Jill French, CASSIA [facility] [place] [address] Migraine with aura and without status migrainosus, [...] med refills Medication ZOLMitriptan (ZOMIG) 5 mg [place], Non-Aerosol [[id number]] ??ZOLMitriptan (ZOMIG) 5 mg [place], Non-Aerosol [[id number]] Order Details? Dose, Route, Frequency: As Directed [...] --? Ordering Provider: Jill French APRNDEA #: [id number]: [id number]?? Authorizing Provider: Jill French APRNDEA #: [id number]: [id number]?? Ordering User: Jill French APRN? Diagnosis Association: Migraine with aura and without status migrainosus, not intractable (G43.109)?Original Order: ZOLMitriptan (ZOMIG) 5 mg [place], Non-Aerosol [[id number]]? Pharmacy: [facility] [address] #: --?? Pharmacy Comments: --? Quantity Remaining: --Quantity Filled: --? documented in this encounter Plan of Treatment Not on file documented as of this encounter Visit Diagnoses Diagnosis Migraine with aura and without status migrainosus, not intractable Migraine with aura, without mention of intractable migraine without mention of status migrainosus documented in this encounter Care Teams Hair Machine Operator Relationship Specialty Start Date End Date Lakshmi Vicente MD [address] [place] [address] PCP - General 07/27/11 04/18/18 documented as of this encounter
--- OUTSIDE RECORDS SUMMARY | 2024-07-01 22:28 | XMS_ITS | Encounter Summary ---
Author Organization [facility] [place] [address] Care Team Providers Care Bath Mixer Name Role Phone Unavailable Primary Care Provider Unavailabl e Reason for Visit * Reason Onset Date Comments Medication Refill 09/18/2018 Encounter Details Date Type Department Care Team (Late st Contact Info) Description 09/18/2018 [place] [address] Jeaneth Ozuna, DIRECTOR OF QUALITY CONTROL [facility] [place] [address] Migraine with aura and without status migrainosus, [...]
--- OUTSIDE RECORDS SUMMARY | 2024-07-01 22:28 | XMS_ITS | Encounter Summary ---
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 Needs new glasses. Follow up: [address] Sewell to re-establish care. Eyeglass Final Rx Eyeglass Final Rx Sphere Cylinder [facility] [place] Right [phone] 20/30+1 [...] systems documented in this encounter Care Teams Glue Bone Drier Relationship Specialty Start Date End Date Harper Andrade APRN PCP - General Family Medicine 12/17/18 12/22/20 documented as of this encounter
--- OUTSIDE RECORDS SUMMARY | 2024-07-01 22:28 | XMS_ITS | Encounter Summary ---
Author Organization [facility] [place] [address] Care Team Providers Care Financial Services Counselor Name Role Phone Neda Manzanares Primary Care Provider + Reason for Visit * Reason Onset Date Comments Medication Refill 07/12/2018 Encounter Details Date Type Department Care Team (Late st Contact Info) Description 07/12/2018 [place] [address] Silke Pollack MD [facility] [place] [address] IIH (idiopathic intracranial hypertension); Migraine with aura [...] migrainosus documented in this encounter Care Teams Financial Services Counselor Relationship Specialty Start Date End Date Neda Manzanares PA [address] [place] [address] PCP - General Orthopaedic Surgery 04/19/18 09/14/18 documented as of this encounter
--- OUTSIDE RECORDS SUMMARY | 2024-07-01 22:28 | XMS_ITS | Encounter Summary ---
Author Organization [facility] [place] [address] Care Team Providers Care Industrial Arts Teacher Name Role Phone Lakshmi Vicente MD Primary Care Provider [phone] Reason for Visit * Reason Onset Date Comments Prior Authorization 11/26/2017 Encounter Details Date Type Department Care Team (Late st Contact Info) Description 11/26/2017 Telephone Neurology at [facility] [place] [address] Jill French LANDING GEAR MECHANIC [facility] [address] Prior Authorization Social History Tobacco Use Types [...] EST Prior Authorization started on Zomig Nasal [place] , 5 MG, #12 for 30 days, Sent and faxed to [place] medicaid * Telephone Encounter - Gladys Giraldo CMA - 11/29/2017 8:36 AM EST PA needed for Zomig Nasal spray 5 mg # 12 for 30 days documented in this encounter Plan of Treatment Not on file documented as of this encounter Visit Diagnoses Not on filedocumented in this encounter Care Teams Industrial Arts Teacher Relationship Specialty Start Date End Date Lakshmi Vicente MD [address] [place] [address] PCP - General 07/27/11 04/18/18 documented as of this encounter
--- OUTSIDE RECORDS SUMMARY | 2024-07-01 22:28 | XMS_ITS | Encounter Summary ---
Author Organization [facility]ly [facility], 1929[facility] [place] [address] Care Team Providers Care Technician Assistant Name Role Phone Lakshmi Vicente MD Primary Care Provider [phone] Reason for Visit * High Dollar Medication (Routine) - Specialty Diagnoses / Procedures Referred By Keisha singh Referred To Contact Neurology Diagnoses Chronic migraine without aura without status migrainosus, not intractable Procedures Auth Request for Medication TC ONABOTULINUMTOXINA, 1 UNIT, INJECTION Jill French APRN [facility] [place] [address] [facility] [address] [place] [address] Referral ID Status Reason Start Date Expiration Date V isits Requested Visits Authorized [id number] Consult, Test & Treat 07/20/2016 07/04/2019 13 13 Encounter Details Date Type Department Care Team (Late st Contact Info) Description 01/24/2018 11:00 AM EDT Office [place] [address] Loren Russ PA [facility] [place] [place] [address] Chronic migraine without aura without [...] 1 injection of 5 U in right civil preparedness coordinator muscle 1 injection of 5 U in left civil preparedness coordinator muscle 2 injections of 5 U in [...] u Total units discarded: 45 u LOT# [id number] EXP: 06/2020 The patient tolerated the procedure without any immediate complications. Loren Russ PA-C Dept. Of Neurology [facility] or [phone](MS nurse contact number) documented in this encounter [...] 1 injection of 5 U in right civil preparedness coordinator muscle 1 injection of 5 U in left civil preparedness coordinator muscle 2 injections of 5 U in [...] u Total units discarded: 45 u LOT# [id number] EXP: 06/2020 The patient tolerated the procedure without any immediate complications. Loren Russ PA-C Dept. Of Neurology [facility] or [phone](MS nurse contact number) Foster Lynn MD PROCEDURE/MINOR [...] Units documented in this encounter Care Teams Technician Assistant Relationship Specialty Start Date End Date Lakshmi Vicente MD [address] [place] [address] PCP - General 07/27/11 04/18/18 documented as of this encounter
--- OUTSIDE RECORDS SUMMARY | 2024-07-01 22:28 | XMS_ITS | Encounter Summary ---
Author [facility] [place] [address] Care Team Providers Care Postal Mail Carrier Name Role Phone Harper Andrade MANAGER CLINICAL RESEARCH Primary Care Provider [phone] Reason for Visit * Reason Onset Date Comments Prior Authorization 02/11/2019 Zomig spray Encounter Details Date Type Department Care Team (Late st Contact Info) Description 02/11/2019 [place]phone [place] [address] Silke Pollack MD [facility] [place] [address] Prior Authorization (Zomig spray) Social History Tobacco [...] on filedocumented in this encounter Care Teams Postal Mail Carrier Relationship Specialty Start Date End Date Harper Andrade APRN PCP - General Family Medicine 12/17/18 12/22/20 documented as of this encounter
--- OUTSIDE RECORDS SUMMARY | 2024-07-01 22:28 | XMS_ITS | Encounter Summary ---
Author Organization [facility] [place] [address] Care Team Providers Care Qc Scientist Name Role Phone Harper Andrade APRN Primary Care Provider [phone] Reason for Visit * Reason Onset Date Comments Medication Refill 01/22/2019 Encounter Details Date Type Department Care Team (Late st Contact Info) Description 01/22/2019 Refill Neurology at [facility] [place] [address] Jair Perez MD [facility] [place] [address] IIH (idiopathic intracranial hypertension) Social History Tobacco [...] hypertension documented in this encounter Care Teams Qc Scientist Relationship Specialty Start Date End Date Harper Andrade APRN PCP - General Family Medicine 12/17/18 12/22/20 documented as of this encounter
--- OUTSIDE RECORDS SUMMARY | 2024-07-01 22:28 | XMS_ITS | Encounter Summary ---
Author Organization [facility] [place] [address] Care Team Providers Care Admissions Representative Name Role Phone Harper Andrade APRN Primary Care Provider [phone] Reason for Visit * Reason Comments Other diverse complaints s ee note Encounter Details Date Type Department Care Team (Late st Contact Info) Description 03/23/2019 11:02 PM EDT - 03/24/2019 9:49 AM EDT [place] [address] Prem Ryder MD [facility] [place] [address] Cecilio Clifton MD [facility] [place] [address] Fatigue, unspecified type; Malaise Discharge Disposition: Home [...] be sent through Care Everywhere. * Fatigue ([place]) documented in this encounter Medications at Time of Discharge Medication Sig Dispensed Refills Start Date End Date acetaZOLAMIDE (DIAMOX) 500 mg Capsule, Sustained ReleaseIndications:IIH (idiopathic intracranial hypertension) Take 1 capsule by mouth 2 times daily. 60 capsule 1 01/22/2019 ZOLMitriptan (ZOMIG) 5 mg [place], Non-AerosolIndications: Migraine with aura and without status [...] to leave. Dr. Ryder aware. * Augustina Tna RN - 03/24/2019 12:20 AM EDT Pt [...] bilaterally. Strength 5 out of 5 in personal insurance advisor strength, biceps, triceps, ankle flexion extension. Skin: [...] Glucose, POC 87 65 - 199 mg/dL [facility] Comment: Supplemental ranges: <140 mg/dL before meals <180 mg/dL all other times of the day Blood specimen (specimen) 03/24/2019 2:25 AM EDT 03/24/2019 2:25 AM EDT Prem Ryder MD POINT OF CARE TEST ORDERABLES Performing Organization Address City/State/[facility] Co de Phone Number [facility] [place] [address] * POCT Glucose (03/24/2019 1:01 AM EDT) Glucose, POC 81 65 - 199 mg/dL [facility] Comment: Supplemental ranges: <140 mg/dL before meals <180 mg/dL all other times of the day Blood specimen (specimen) 03/24/2019 1:01 AM EDT 03/24/2019 1:01 AM EDT Prem Ryder MD POINT OF CARE TEST ORDERABLES [facility] [place] [address] * (ABNORMAL) BLOOD GAS 2 VENOUS (03/24/2019 12:40 AM EDT) pH, Venous 7.39 7.32 - 7.42 [facility] PCO2, Venous 41 41 - 51 mmHg [facility] PO2, Venous 40 25 - 40 mmHg [facility] Bicarbonate, Venous 24.0 mmol/L [facility] Base Excess, Venous -1.0 mmol/L [facility] Hgb Blood Gas 13.8 11.7 - 15.5 gm/dL [facility] Oxyhemoglobin, Venous 72.9 % [facility] Carboxyhemoglob in, Venous 0.4 % [facility] Comment: Nonsmokers: 0.5-1.5% COHB Smokers: Variable, but usually less than 10% Toxic: 20-30% COHB Lethal: Greater than 60% COHB Methemoglobin, Venous 0.3 <=1.5 % [facility] Na Whole Blood 140 135 - 145 mmol/L [facility] K Whole Blood 2.8(Critic al) 3.5 - 5.0 mmol/L [facility] Comment: Noted by instrument setter. Please note: Patients with WBC >100,000 may have falsely elevated Potassium levels. Contact the Clinical Chemistry Laboratory if there are any questions. ICa Whole Blood 1.23 1.15 - 1.33 mmol/L [facility] Comment: Note: ??Total bilirubin higher than 20 mg/dL may lead to falsely low ionized calcium. CL Whole Blood 99 98 - 107 mmol/L [facility] Gluc Whole Bld 91 65 - 199 mg/dL [facility] Comment:Diabetes: >=200 mg/d L plus symptoms Lactate WB 1.2 0.5 - 2.2 mmol/L [facility] Blood Gas Source Venous [facility] Blood specimen (specimen) 03/24/2019 12:40 AM EDT 03/24/2019 12:40 AM EDT Prem Ryder MD POINT OF CARE TEST ORDERABLES Performing Organization Address City/[facility]/ZIP Co de Phone Number [facility] [place] [address] * EKG 12 Lead (03/24/2019 12:29 AM EDT) Ventricular rate 115 BPM MUSE SYSTEM Atrial Rate 115 BPM MUSE SYSTEM P-R Interval 142 ms MUSE SYSTEM QRS Duration 88 ms MUSE SYSTEM Q-T Interval 360 ms MUSE SYSTEM QTC Calculated (Bezet) 498 ms MUSE SYSTEM Calculated P [place] 46 degrees MUSE SYSTEM Calculated R [place] 18 degrees MUSE SYSTEM Calculated T [place] 15 degrees MUSE SYSTEM INTERPRETATION Sinus tachycardia Abnormal ECG No previous ECGs available Confirmed by MD Neyda, Antonio Kirkpatrick ([id number]) on 03/24/2019 8:08:21 AM MUSE SYSTEM 03/24/2019 12:2 9 AM EDT 03/24/2019 8:08 AM EDT Prem Ryder MD ECG ORDERABLES Performing Organization Address City/[facility]/ZIP Co de Phone Number MUSE SYSTEM * [...] report, please contact the number below. ? Narrative 03/24/2019 1:25 AM [...] this report, please contact the number below. Prem Ryder MD IMG DX ORDERABLES * Stout Tube Hold (03/23/2019 11:59 PM EDT) Stout Hold Sample in lab. [facility] Blood specimen (specimen) Venous Draw / Unknown 03/23/2019 11:59 PM EDT 03/24/2019 12:19 AM EDT Eugene Zhu MD CHEMISTRY ORDERABLES [facility] [place] [address] * Gold Tube HOLD (03/23/2019 11:59 PM EDT) [facility] Gold Hold Sample in lab. [facility] Blood specimen (specimen) Venous Draw / Unknown 03/23/2019 11:59 PM EDT 03/24/2019 12:19 AM EDT Eugene Zhu MD CHEMISTRY ORDERABLES [facility] [place] [address] * (ABNORMAL) Differential, Automated (03/23/2019 11:59 PM EDT) Neutrophil % 60.5 % [facility] Neutrophil Absolute 7.76(H) 1.70 - 6.10 x10(3)/mc L [facility] Lymph % 27.6 % [facility] Lymphocytes Abs 3.5(H) 0.9 - 3.2 x10(3)/mc L [facility] Monocyte % 10.1 % [facility] Monocyte Abs 1.3(H) 0.3 - 0.9 x10(3)/mc L [facility] Eos % 0.6 % [facility] Eosinophils Abs 0.1 0.0 - 0.4 x10(3)/mc L [facility] Basophil % 0.6 % [facility] Baso Absolute 0.1 0.0 - 0.1 x10(3)/ L [facility] Immature Gran % 0.60 % [facility] Comment: Immature granulocytes(IG's)percentage and absolute count will include metamyelocytes, myelocytes, and promyelocytes. Blood smears from CBCs yielding IG's will be scanned manually for concordance. If this scan disagrees with the automated IG or if promyelocytes are noted, a manual differential will be performed. Immature Gran Absolute 0.08(H) 0.00 - 0.04 x10(3)/ L [facility] Blood specimen (specimen) 03/23/2019 11:59 PM EDT 03/24/2019 12:18 AM EDT Narrative Resulting Agency Comment Spec In Lab Eugene Zhu MD HEMATOLOGY ORDERABLE S Performing Organization Address City/State/[facility] Co de Phone Number [facility] [place] [address] * (ABNORMAL) Hemogram (03/23/2019 11:59 PM EDT) White Blood Cell 12.8(H) 4.0 - 9.5 x10(3)/ L [facility] Red Blood Cell 4.77 4.00 - 5.21 x10(6)/[facility] Hemoglobin 13.5 11.7 - 15.5 gm/dL [facility] Hematocrit 41.5 35.7 - 45.8 % [facility] Mean Cell Volume 87.0 82.6 - 94.4 fL [facility] Mean Cell Hemoglobin 28.3 27.1 - 32.0 pg [facility] Mean Cell Hemoglobin Concentration 32.5 31.7 - 35.0 gm/dL [facility] Platelet 397(H) 145 - 357 x10(3)/ L [facility] RDW Standard Deviation 39.0 37.0 - 46.0 fL [facility] RDW coefficient of variation 12.4 11.5 - 14.1 % [facility] Mean Platelet Volume 10.3 7.6 - 12.9 fL [facility] NRBC% auto 0.0 % [facility] NRBC Absolute 0.000 0.000 - 0.000 x10(3)/mc L [facility] Blood specimen (specimen) 03/23/2019 11:59 PM EDT 03/24/2019 12:18 AM EDT Narrative Resulting Agency Comment Spec In Lab Eugene Zhu MD HEMATOLOGY ORDERABLE S Performing Organization Address [facility] de Phone Number [facility] [place] [address] * (ABNORMAL) Beta Hydroxybutyrate (03/23/2019 11:59 PM EDT) Beta-hydroxybu turate 2.14(H) 0.00 - 0.30 mmol/L [facility] Comment: Reference range: ??0.00-0.30 mmo1/L, based on an overnight fast. ??Children may be higher. Blood specimen (specimen) 03/23/2019 11:59 PM EDT 03/24/2019 12:18 AM EDT Narrative Resulting Agency Comment Spec In Lab Prem Ryder MD CHEMISTRY ORDERABL ES Performing Organization Address [facility] Co de Phone Number [facility] [place] [address] * TSH (03/23/2019 11:59 PM EDT) Thyroid Stimulating Hormone 0.88 0.27 - 4.20 mcIU/mL [facility] Blood specimen (specimen) 03/23/2019 11:59 PM EDT 03/24/2019 12:18 AM EDT Narrative Resulting Agency Comment Spec In Lab Prem Ryder MD CHEMISTRY ORDERABL ES Performing Organization Address [facility] Co de Phone Number [facility] [place] [address] * APTT (03/23/2019 11:59 PM EDT) Partial Thromboplastin Time 37 25 - 37 sec [facility] Comment: The PTT is NOT appropriate for heparin monitoring. Use the Anti-Xa level for heparin monitoring (HEP UFH) or LMWH monitoring (HEP LMW). A PTT less than 37 seconds generally indicates adequate hemostasis. Blood specimen (specimen) 03/23/2019 11:59 PM EDT 03/24/2019 12:18 AM EDT Narrative Resulting Agency Comment Spec In Lab Prem Ryder MD HEMATOLOGY ORDERAB LES Performing Organization Address [facility] Co de Phone Number [facility] [place] [address] * (ABNORMAL) Prothrombin Time (03/23/2019 11:59 PM EDT) Prothrombin Time 13.5(H) 9.4 - 12.5 sec [facility] International Normalization Ratio 1.2 [facility] Comment: An INR <2.0 indicates [...] MD HEMATOLOGY ORDERAB LES Performing Organization Address [facility] Co de Phone Number [facility] [place] [address] * Lipase (03/23/2019 11:59 PM EDT) Lipase 50 0 - 60 unit/L [facility] Blood specimen (specimen) 03/23/2019 11:59 PM EDT 03/24/2019 12:18 AM EDT Narrative Resulting Agency Comment Spec In Lab Prem Ryder MD CHEMISTRY ORDERABL ES Performing Organization Address [facility] de Phone Number [facility] [place] [address] * (ABNORMAL) Hepatic Function Panel (03/23/2019 11:59 PM EDT) [facility] Protein, Total 7.1 6.1 - 8.0 gm/dL [facility] Albumin 4.5 3.2 - 5.2 gm/dL [facility] Aspartate Aminotransferase 45(H) 0 - 30 unit/L [facility] Alanine Aminotransferase 59(H) 0 - 30 unit/L [facility] Alkaline Phosphatase 54 40 - 104 unit/L [facility] Bilirubin, Total 0.5 0.2 - 1.3 mg/dL [facility] Bilirubin, Direct 0.1 0.0 - 0.3 mg/dL [facility] Blood specimen (specimen) 03/23/2019 11:59 PM EDT 03/24/2019 12:18 AM EDT Narrative Resulting Agency Comment Spec In Lab Prem Ryder MD CHEMISTRY ORDERABL ES Performing Organization Address [facility] Co de Phone Number [facility] [place] [address] * (ABNORMAL) Basic Metabolic Panel (non-fasting) (03/23/2019 11:59 PM EDT) [facility] Glucose 95 65 - 199 mg/dL [facility] Comment:Diabetes: >=200 mg/d L plus symptoms Blood Urea Nitrogen 5(L) 8 - 18 mg/dL [facility] Creatinine 0.96 0.70 - 1.20 mg/dL [facility] Sodium 138 135 - 145 mmol/L [facility] Potassium 3.0(Criti sesar) 3.5 - 5.0 mmol/L [facility] Comment: Results rechecked. Called by: DIANA, Read back by: Augustina tan, Date/Time:03/24/19 00:57. Please note: ??Patients with WBC >100,000 may have falsely elevated Potassium levels. ??For accurate Potassium quantification in these patients send serum separator tube (gold top) for subsequent determinations. ??Contact the Clinical Chemistry Laboratory if there are any questions. Chloride 101 98 - 107 mmol/L [facility] Carbon Dioxide 24 22 - 31 mmol/L [facility] Anion Gap 13 5 - 15 mmol/L [facility] Calcium 9.7 8.5 - 10.5 mg/dL [facility] Est Glomerular Filtration Rate 74 >=60 mL/min/1. 73 m?? [facility] Comment: The eGFR was calculated using the CKD-EPI equation. As with all creatinine based estimates of kidney function, eGFR values calculated with the CKD-EPI equation are not accurate in patients with acute kidney failure, extremes of body mass or the acutely ill. [email or web address] eGFR 86 >=60 mL/min/1. 73 m?? [facility] Comment: The eGFR was calculated using the CKD-EPI equation. As with all creatinine based estimates of kidney function, eGFR values calculated with the CKD-EPI equation are not accurate in patients with acute kidney failure, extremes of body mass or the acutely ill. [email or web address] Blood specimen (specimen) 03/23/2019 11:59 PM EDT 03/24/2019 12:18 AM EDT Narrative Resulting Agency Comment Spec In Lab Prem Ryder MD CHEMISTRY ORDERABL ES [facility] [place] [address] documented in this encounter Visit Diagnoses Diagnosis [...] RN) documented in this encounter Care Teams Admissions Representative Relationship Specialty Start Date End Date Harper Andrade APRN PCP - General Family Medicine 12/17/18 12/22/20 documented as of this encounter
--- OUTSIDE RECORDS SUMMARY | 2024-07-01 22:29 | XMS_ITS | Encounter Summary ---
Author Organization [facility] Address [facility] [place] [address] Care Team Providers Care Marine Architect Name Role Phone Lakshmi Vicente MD Primary Care Provider [phone] Encounter Details Date Type Department Care Team (Late st Contact Info) Description 01/28/2015 - 01/28/2015 11:59 PM EDT Hospital Encounter Radiology Library at [facility] [place] [address] [facility] Disposition: Home Social History [...] headaches). 90 tablet 3 01/26/2015 05/13/2015 rizatriptan ([facility] RN) 10 mg Tablet, Rapid Dissolve Take 10 [...] MR Knee (01/28/2015 12:00 AM EDT) Narrative [facility] - 10/01/2015 5:10 PM EST See PACS for result report. Dr L[facility] FILM LIBRARY ORD ERABLES [place], [place] documented in this encounter Visit Diagnoses Diagnosis Pain Generalized pain documented in this encounter Care Teams Marine Architect Relationship Specialty Start Date End Date Lakshmi Vicente MD [address] [place] [address] PCP - General 07/27/11 04/18/18 documented as of this encounter
--- OUTSIDE RECORDS SUMMARY | 2024-07-01 22:29 | XMS_ITS | Encounter Summary ---
Author Organization [facility] [place] [address] Care Team Providers Care Ethylene Compressor Operator Name Role Phone Lakshmi Vicente MD Primary Care Provider Encounter Details Date Type Department Care Team (Late st Contact Info) Description 01/03/2016 2:00 PM EDT [place] [address] Ludmila Cornejo MD [facility] [place] [address] Sikle Pollack MD [facility] [place] [address] Chronic migraine without aura without status migrainosus, [...] Ludmila Cornejo MD Headache Fellow [facility] documented in this encounter Plan of [...] mg documented in this encounter Care Teams Ethylene Compressor Operator Relationship Specialty Start Date End Date Lakshmi Vicente MD [address] [place] [address] PCP - General 07/27/11 04/18/18 documented as of this encounter
--- OUTSIDE RECORDS SUMMARY | 2024-07-01 22:29 | XMS_ITS | Encounter Summary ---
Author Organization [facility] Address [facility] [place] [address] Care Team Providers Care Ic Design Manager Name Role Phone Lakshmi Vicente MD Primary Care Provider [phone] Reason for Visit * Reason Comments Botox Injection * High Dollar Medication (Routine) - Specialty Diagnoses / Procedures Referred By Keisha singh Referred To Contact Neurology Diagnoses Chronic migraine without aura without status migrainosus, not intractable Procedures Auth Request for Medication TC ONABOTULINUMTOXINA, 1 UNIT, INJECTION Jill French APRN [facility] [place] [address] [facility] [place] [facility] [address] [place] [address] Referral ID Status Reason Start Date Expiration Date V isits Requested Visits Authorized [id number] Consult, Test & Treat 07/20/2016 07/04/2019 13 13 Encounter Details Date Type Department Care Team (Late st Contact Info) Description 10/04/2017 11:30 AM EST Office [place] [address] Jair Perez MD [facility] [place] [address] Mikey Villarreal MD [facility] [place] [address] Chronic migraine without aura without status [...] been due to barometric pressure changes. Lot #:[id number] Exp: 04/2020 The risks, benefits and anticipated [...] as follows: Muscle Fixed Site/Fixed Dose L/R Bander 10 Units divided in 2 sites 5/5 [...] weeks. Mikey Villarreal MD Headache Medicine Fellow [facility] Department of Neurology 10/04/2017 documented in this [...] Units documented in this encounter Care Teams Ic Design Manager Relationship Specialty Start Date End Date Lakshmi Vicente MD [address] [place] [address] PCP - General 07/27/11 04/18/18 documented as of this encounter
--- OUTSIDE RECORDS SUMMARY | 2024-07-01 22:29 | XMS_ITS | Encounter Summary ---
Author [place] [address] Care Team Providers Care Pusher Operator Name Role Phone Lakshmi Vicente MD Primary Care Provider [phone] Encounter Details Date Type Department Care Team (Late st Contact Info) Description 01/26/2015 [place] [id number] Mariya Ba Social History Tobacco Use Types [...] on filedocumented in this encounter Care Teams Pusher Operator Relationship Specialty Start Date End Date Lakshmi Vicente MD [address] [place] [address] PCP - General 07/27/11 04/18/18 documented as of this encounter
--- OUTSIDE RECORDS SUMMARY | 2024-07-01 22:29 | XMS_ITS | Encounter Summary ---
Author Organization [facility] Address [facility] [place] [address] Care Team Providers Care Agriculture Mechanic Name Role Phone Lakshmi Vicente MD Primary Care Provider [phone] Encounter Details Date Type Department Care Team (Late st Contact Info) Description 07/13/2015 9:15 AM EDT [place] [address] Silke Pollack MD [facility] [place] [address] Chronic migraine without aura without status migrainosus, [...] mg documented in this encounter Care Teams Agriculture Mechanic Relationship Specialty Start Date End Date Lakshmi Vicente MD [address] [place] [address] PCP - General 07/27/11 04/18/18 documented as of this encounter
--- OUTSIDE RECORDS SUMMARY | 2024-07-01 22:29 | XMS_ITS | Encounter Summary ---
[place] [address] Care Team Providers Care Charge Out Clerk Name Role Phone Lakshmi Vicente MD Primary Care Provider [phone] Encounter Details Date Type Department Care Team (Late st Contact Info) Description 12/07/2014 [place] [phone] Lakshmi Duenas Social History Tobacco Use Types [...] on filedocumented in this encounter Care Teams Charge Out Clerk Relationship Specialty Start Date End Date Lakshmi Vicente MD [address] [place] [address] PCP - General 07/27/11 04/18/18 documented as of this encounter
--- OUTSIDE RECORDS SUMMARY | 2024-07-01 22:29 | XMS_ITS | Encounter Summary ---
[place] [address] Care Team Providers Care Reserve Operator Name Role Phone Lakshmi Vicente MD Primary Care Provider [phone] Reason for Visit * Reason Onset Date Comments Prior Authorization 07/14/2015 BOTOX APPROV ED 08/04/15-11/09/15 Encounter Details Date Type Department Care Team (Late st Contact Info) Description 07/14/2015 [place] [address] [facility] [place] [address] Prior Authorization (BOTOX APPROVED 08/04/15-11/09/15) Social History [...] AM EDT BOTOX APPROVED 08/04/15-11/09/15 PA #: [id number] 200 UNITS EVERY 3 MONTHS, FOR ONE YEAR, TO EQUAL 4 DOSES. 800 UNITS. * Telephone Encounter - Rhonda Castro - 08/02/2015 11:24 AM EDT INSURANCE ASKING FORE MORE INFO. FAXED. * Telephone Encounter - Rhonda Castro - 07/14/2015 12:17 PM EDT PA FOR BOTOX FAXED TO [place] [employer]. documented in this encounter Plan of Treatment Not on file documented as of this encounter Visit Diagnoses Not on filedocumented in this encounter Care Teams Reserve Operator Relationship Specialty Start Date End Date Lakshmi Vicente MD [address] [place] [address] PCP - General 07/27/11 04/18/18 documented as of this encounter
--- OUTSIDE RECORDS SUMMARY | 2024-07-01 22:29 | XMS_ITS | Encounter Summary ---
Author Organization [facility] Address [facility] [place] [address] Care Team Providers Care Group Work Program Aide Name Role Phone Lakshmi Vicente MD Primary Care Provider [phone] Encounter Details Date Type Department Care Team (Late st Contact Info) Description 03/19/2014 - 03/19/2014 11:59 PM EDT Hospital Encounter Radiology Library at [facility] [place] [address] [facility] Disposition: Home Social History [...] DX Knee (03/19/2014 12:00 AM EDT) Narrative [facility] - 10/01/2015 5:09 PM EST See PACS for result report. Dr Lara [facility] FILM LIBRARY ORD ERABLES [place], [place] documented in this encounter Visit Diagnoses Diagnosis Pain Generalized pain documented in this encounter Care Teams Group Work Program Aide Relationship Specialty Start Date End Date Lakshmi Vicente MD [address] [place] [address] PCP - General 07/27/11 04/18/18 documented as of this encounter
--- OUTSIDE RECORDS SUMMARY | 2024-07-01 22:29 | XMS_ITS | Encounter Summary ---
Author Organization [facility] Address [facility] [place] [address] Care Team Providers Care Meat Blender Name Role Phone Lakshmi Vicente MD Primary Care Provider [phone] Reason for Referral * Consultation (Routine) - Closed Specialty Diagnoses / Procedures Referred By Contac t Referred To Contact Ophthalmology Diagnoses Chronic migraine without aura without status migrainosus, not intractable Elevated intracranial pressure Jill French APRN [facility] [place] [address] Peyton Antonio MD [facility] [place] [address] Referral ID Status Reason Start Date Expiration Date V isits Requested Visits Authorized [id number] Closed Consult, Test & Treat 05/05/2016 05/05/2017 1 1 * Surgical (Routine) - Specialty Diagnoses / Procedures Referred By Contac t Referred To Contact Diagnoses Migraine with aura and without status migrainosus, not intractable Procedures Lumbar Puncture Silke Pollack MD [facility] [place] [address] Referral ID Status Reason Start Date Expiration Date V isits Requested Visits Authorized [id number] Consult, Test & Treat 05/05/2016 05/05/2017 1 1 Reason for Visit * Reason Comments Procedure Encounter Details Date Type Department Care Team (Latest Contact Info) Description 05/05/2016 9:30 AM EDT [place] [address] Silke Pollack MD [facility] [place] [address] Migraine with aura and without status migrainosus, [...] this encounter Progress Notes * Jill French, SOFTWARE ARCHITECT - 05/05/2016 9:30 AM EDT Cc: Follow [...] Patient consented for the CSF banking study; [facility] # [id number] - 3cc of spinal fluid will be [...] capsule 12 ??? ZOLMitriptan (ZOMIG) 5 mg [place], Non-Aerosol 1 spray in one nostril. May [...] headache. Blood Loss <1cc Silke Pollack MD [facility] [place] The patient was approached by Dr. Silke Pollack about participating in the CSF Biospecimen and Data Bank, a single institution study at [facility] with Drs. Foster Lynn and Tyler Fagan as lead investigators. After meeting inclusion and exclusion criteria, subjects will provide witnessed informed consent. All questions from the patient regarding this study have been answered. The consent form has [facility]-approval date of 05/28/2015. All study-related procedures [...] Patient consented for the CSF banking study; [facility] # [id number] - 3cc of spinal fluid will be [...] 12 ? ? ZOLMitriptan (ZOMIG) 5 mg [place], Non-Aerosol 1 spray in one nostril. ??May [...] headache. Blood Loss <1cc Silke Pollack MD [facility] [place] The patient was approached by Dr. Silke Pollack about participating in the CSF Biospecimen and Data Bank, a single institution study at [facility] with Drs. Foster Lynn and Tyler Fagan as lead investigators. After meeting inclusion and exclusion criteria, subjects will provide witnessed informed consent. All questions from the patient regarding this study have been answered. The consent form has [facility]-approval date of 05/28/2015. ?? All study-related procedures were completed after signing the ICF. A copy of the ICF has been provided to the patient. The CSF sample was collected by Dr. Silke Pollack and properly stored and sent to the CSF banking Lab. Silke Pollack MD PROCEDURE/MINOR SURG ICAL ORDERABLES * CSF Cell Count (05/05/2016 10:15 AM EDT) Tube # counted 3 [facility] Total Nucleated Cell Count, CSF 0 0 - 5 /[facility] Comment: If Nucleated Cell Count equals zero, No Scan or Differential is performed. If Nucleated Cell Count equals 1-5, Smear is scanned but no results are reported unless abnormalities are seen. If Nucleated Cell Count equals 6 or greater, Differential is reported. Nucleated Cell Count results are correlated with body fluid type and clinical condition. RBC Count CSF 3 /[facility] Cerebrospinal fluid specimen (specimen) 05/05/2016 10:15 AM EDT 05/05/2016 10:35 AM EDT Narrative Resulting Agency Comment Spec In Lab Silke Pollack MD BODY FLUIDS AND STOO LS ORDERABLES [facility] [place] [address] * CSF DESC 3 (05/05/2016 10:15 AM EDT) Tube Num CSF 3 3 [facility] Color, CSF 3 Colorless Colorless [facility] Appearance, CSF 3 Clear Clear [facility] Total Vol, CSF 3 4.0 mL [facility] Cerebrospinal fluid specimen (specimen) 05/05/2016 10:15 AM EDT 05/05/2016 10:35 AM EDT Narrative Resulting Agency Comment Spec In Lab Silke Pollack MD BODY FLUIDS AND STOO LS ORDERABLES Performing Organization Address [facility] Co de Phone Number [facility] [place] [address] * CSF DESC 2 (05/05/2016 10:15 AM EDT) Tube Num CSF #2 2 [facility] Color, CSF 2 Colorless Colorless [facility] Appearance, CSF 2 Clear Clear [facility] Total Vol, CSF 2 6.8 mL [facility] Cerebrospinal fluid specimen (specimen) 05/05/2016 10:15 AM EDT 05/05/2016 10:35 AM EDT Narrative Resulting Agency Comment Spec In Lab Silke Pollack MD BODY FLUIDS AND STOO LS ORDERABLES Performing Organization Address [facility] Co de Phone Number [facility] [place] [address] * CSF DESC 1 (05/05/2016 10:15 AM EDT) Tube Num CSF #1 1 [facility] Color, CSF Colorless Colorless [facility] Appearance, CSF Clear Clear [facility] Total Vol, CSF 7.3 mL [facility] Cerebrospinal fluid specimen (specimen) 05/05/2016 10:15 AM EDT 05/05/2016 10:35 AM EDT Narrative Resulting Agency Comment Spec In Lab Silke Pollack MD BODY FLUIDS AND STOO LS ORDERABLES Performing Organization Address City/[facility] Co de Phone Number [facility] [place] [address] * Protein Level CSF (05/05/2016 10:15 AM EDT) Protein, CSF 27 15 - 45 mg/dL [facility] Xanthochromia Neg [facility] Cerebrospinal fluid specimen (specimen) 05/05/2016 10:15 AM EDT 05/05/2016 10:35 AM EDT Narrative Resulting Agency Comment Spec In Lab Silke Polalck MD BODY FLUIDS AND STOO LS ORDERABLES Performing Organization Address City/[facility]/ZIP Co de Phone Number [facility] [place] [address] * Glucose Level CSF (05/05/2016 10:15 AM EDT) Glucose, CSF 61 mg/dL [facility] Comment:CSF at equilibrium e quals approximately 60-80% of plasma glucose. Cerebrospinal fluid specimen (specimen) 05/05/2016 10:15 AM EDT 05/05/2016 10:35 AM EDT Narrative Resulting Agency Comment Spec In Lab Silke Pollack MD BODY FLUIDS AND STOO LS ORDERABLES Performing Organization Address City/[facility] Co de Phone Number [facility] [place] [address] documented in this encounter Visit Diagnoses Diagnosis [...] systems documented in this encounter Care Teams Meat Blender Relationship Specialty Start Date End Date Lakshmi Vicente MD [address] [place] [address] PCP - General 07/27/11 04/18/18 documented as of this encounter
--- OUTSIDE RECORDS SUMMARY | 2024-07-01 22:29 | XMS_ITS | Encounter Summary ---
Author Organization [facility] [place] [address] Care Team Providers Care Tour Production Supervisor Name Role Phone Lakshmi Vicente MD Primary Care Provider [phone] Encounter Details Date Type Department Care Team (Late st Contact Info) Description 01/24/2016 2:00 PM EDT Office Visit [place] [address] Ludmila Cornejo MD [facility] [place] [address] Harpal Houston MD [facility] [place] [address] Chronic migraine without aura without status migrainosus, [...] 1 injection of 5 U in right field training manager muscle 1 injection of 5 U in left field training manager muscle 2 injections of 5 U [...] of 2/10. Ludmila Cornejo MD Headache Fellow [facility] [place] documented in this encounter [...] mg documented in this encounter Care Teams Tour Production Supervisor Relationship Specialty Start Date End Date Lakshmi Vicente MD [address] [place] [address] PCP - General 07/27/11 04/18/18 documented as of this encounter
--- OUTSIDE RECORDS SUMMARY | 2024-07-01 22:29 | XMS_ITS | Encounter Summary ---
Author Organization [facility] [place] [address] Care Team Providers Care New Car Inspector Name Role Phone Lakshmi Vicente MD Primary Care Provider [phone] Encounter Details Date Type Department Care Team (Late st Contact Info) Description 10/13/2015 10:00 AM EST Office [place] [address] Ludmila Cornejo MD [facility] [place] [address] Silke Pollack MD [facility] [place] [address] Chronic migraine without aura without status migrainosus, [...] Cornejo MD Headache Fellow [facility] documented in this encounter Plan of [...] mg documented in this encounter Care Teams New Car Inspector Relationship Specialty Start Date End Date Lakshmi Vicente MD [address] [place] [address] PCP - General 07/27/11 04/18/18 documented as of this encounter
--- OUTSIDE RECORDS SUMMARY | 2024-07-01 22:29 | XMS_ITS | Encounter Summary ---
Author Organization [facility] Address [facility] [place] [address] Care Team Providers Care Weight Checker Name Role Phone Lakshmi Vicente MD Primary Care Provider [phone] Reason for Visit * Reason Comments Headache * Consultation (Routine) - Closed Specialty Diagnoses / Procedures Referred By Keisha singh Referred To Contact Ophthalmology Diagnoses Chronic migraine without aura without status migrainosus, not intractable Elevated intracranial pressure Jill French APRN [facility] [place] [address] Peyton Antonio MD [facility] [place] [address] Referral ID Status Reason Start Date Expiration Date V isits Requested Visits Authorized [id number] Closed Consult, Test & Treat 05/05/2016 05/05/2017 1 1 Encounter Details Date Type Department Care Team (Late st Contact Info) Description 06/02/2016 3:00 PM EDT Office Visit Ophthalmology at [place] [phone] Peyton Antonio MD [facility] [place] [address] Unspecified visual disturbance (Primary Dx); Visual field [...] in this encounter Results * OCT OPTIC [id number] EYES (06/02/2016 5:13 PM EDT) Anatomical Region [...] unspecified documented in this encounter Care Teams Weight Checker Relationship Specialty Start Date End Date Lakshmi Vicente MD [address] [place] [address] PCP - General 07/27/11 04/18/18 documented as of this encounter
--- OUTSIDE RECORDS SUMMARY | 2024-07-01 22:29 | XMS_ITS | Encounter Summary ---
Author Organization [facility] [place] [address] Care Team Providers Care Manager Corporate Marketing Name Role Phone Lakshmi Vicente MD Primary Care Provider [phone] Encounter Details Date Type Department Care Team (Late st Contact Info) Description 05/30/2016 Telephone [place] [address] Blank Fletcher Social History Tobacco Use Types [...] high. Since she is seen here at [facility] I will let the DIRECTOR FAMILY know to see how this will effect her potential bariatric surgery. I told mirela that I would be in touch. documented in this encounter Plan of Treatment Not on file documented as of this encounter Visit Diagnoses Not on filedocumented in this encounter Care Teams Manager Corporate Marketing Relationship Specialty Start Date End Date Lakshmi Vicente MD [address] [place] [address] PCP - General 07/27/11 04/18/18 documented as of this encounter
--- OUTSIDE RECORDS SUMMARY | 2024-07-01 22:29 | XMS_ITS | Encounter Summary ---
Author Organization [facility] [place] [address] Care Team Providers Care Skin Care Therapist Name Role Phone Lakshmi Vicente MD Primary Care Provider [phone] Reason for Visit * Reason Comments Migraine Encounter Details Date Type Department Care Team (Late st Contact Info) Description 05/13/2015 12:45 PM EDT Follow-[place] [address] CLINIC, Silke Agarwal MD [facility] [address] Migraine with aura and without status migrainosus, [...] 2:40 PM EDT Office Number: (Luke - Band Singer) Clinic nurse number (for most issues) ([place]) [...] 2 times daily (with meals). ??? rizatriptan (MAXALT-DEMOLITION WORKER) 10 mg Tablet, Rapid Dissolve Take 10 [...] 4 weeks. Ludmila Cornejo MD Headache Fellow [facility] * Silke Pollack MD - 05/13/2015 2:08 PM EDT Neurology Attending Note Silke Pollack MD (Pg [phone]) I certify that I have seen and [...] mg documented in this encounter Care Teams Skin Care Therapist Relationship Specialty Start Date End Date Lakshmi Vicente MD [address] [place] [address] PCP - General 07/27/11 04/18/18 documented as of this encounter
--- OUTSIDE RECORDS SUMMARY | 2024-07-01 22:29 | XMS_ITS | Encounter Summary ---
Author Organization [facility] [place] [address] Care Team Providers Care Commercial Relationship Manager Name Role Phone Lakshmi Vicente MD Primary Care Provider [phone] Reason for Visit * Reason Onset Date Comments Other 03/21/2016 ? ONB appointmen t today Encounter Details Date Type Department Care Team (Late st Contact Info) Description 03/21/2016 Telephone Neurology at [facility] [place] [address] Jill French APR[place] [facility] [place] [address] Other (? ONB appointment today ) Social [...] on filedocumented in this encounter Care Teams Commercial Relationship Manager Relationship Specialty Start Date End Date Lakshmi Vicente MD [address] [place] [address] PCP - General 07/27/11 04/18/18 documented as of this encounter
--- OUTSIDE RECORDS SUMMARY | 2024-07-01 22:29 | XMS_ITS | Encounter Summary ---
Author Organization [facility] [place] [address] Care Team Providers Care Hop Weigher Name Role Phone Lakshmi Vicente MD Primary Care Provider [phone] Reason for Visit * Reason Onset Date Comments Prior Authorization 05/14/2017 zolmatriptan Encounter Details Date Type Department Care Team (Late st Contact Info) Description 05/14/2017 Telephone Neurology at [facility] [place] [address] Jill French, [facility] [place] [address] Prior Authorization (zolmatriptan) Social History Tobacco Use [...] on filedocumented in this encounter Care Teams Hop Weigher Relationship Specialty Start Date End Date Lakshmi Vicente MD [address] [place] [address] PCP - General 07/27/11 04/18/18 documented as of this encounter
--- OUTSIDE RECORDS SUMMARY | 2024-07-01 22:29 | XMS_ITS | Encounter Summary ---
Author Organization [facility] [place] [address] Care Team Providers Care Sales And Catering Coordinator Name Role Phone Lakshmi Vicente MD Primary Care Provider [phone] Encounter Details Date Type Department Care Team (Late st Contact Info) Description 11/08/2015 11:30 AM EST Office [place] [address] Ludmila Cornejo MD [facility] [place] [address] Harpal Houston MD [facility] [place] [address] Chronic migraine without aura without status migrainosus, [...] 1 injection of 5 U in right livestock nutritionist muscle 1 injection of 5 U in left livestock nutritionist muscle 2 injections of 5 U in [...] side. Ludmila Cornejo MD Headache Fellow [facility] Neurology documented in this [...] mg documented in this encounter Care Teams Sales And Catering Coordinator Relationship Specialty Start Date End Date Lakshmi Vicente MD [address] [place] [address] PCP - General 07/27/11 04/18/18 documented as of this encounter
--- OUTSIDE RECORDS SUMMARY | 2024-07-01 22:29 | XMS_ITS | Encounter Summary ---
Author Organization [facility] [place] [address] Care Team Providers Care Cell Tender Name Role Phone Lakshmi Vicente MD Primary Care Provider Encounter Details Date Type Department Care Team (Late st Contact Info) Description 03/30/2016 11:40 AM EDT Office Visit Neurology at [facility] [place] [address] Jill French POLYGRAPH TECHNICIAN [facility] [place] [address] Chronic migraine without aura without status migrainosus, [...] mg documented in this encounter Care Teams Cell Tender Relationship Specialty Start Date End Date Lakshmi Vicente MD [address] [place] [address] PCP - General 07/27/11 04/18/18 documented as of this encounter
--- OUTSIDE RECORDS SUMMARY | 2024-07-01 22:29 | XMS_ITS | Encounter Summary ---
Author Organization [facility] [place] [address] Care Team Providers Care Contract Technical Writer Name Role Phone Lakshmi Vicente MD Primary Care Provider [phone] Encounter Details Date Type Department Care Team (Late st Contact Info) Description 09/14/2015 12:00 PM EST [place] [address] Harpal Houston MD [facility] [place] [address] Ludmila Cornejo MD [facility] [place] [address] Chronic migraine without aura without status migrainosus, [...] each side. Ludmila Cornejo MD Headache Fellow [facility] Neurology documented in this [...] mg documented in this encounter Care Teams Contract Technical Writer Relationship Specialty Start Date End Date Lakshmi Vicente MD [address] [place] [address] PCP - General 07/27/11 04/18/18 documented as of this encounter
--- OUTSIDE RECORDS SUMMARY | 2024-07-01 22:29 | XMS_ITS | Encounter Summary ---
Author Organization Formerly [facility] Address [facility] [place] [address] Care Team Providers Care Centrifugal Extractor Operator Name Role Phone Lakshmi Vicente MD Primary Care Provider [phone] Encounter Details Date Type Department Care Team (Latest Contact Info) Description 02/11/2015 8:40 AM EDT - 02/11/2015 11:59 PM EDT [place] [address] CLINIC, Harpal Headley MD [facility] [place] [address] Neck pain on right side; Numbness and [...] headaches). 90 tablet 3 01/26/2015 05/13/2015 rizatriptan (MAXALT-TOBY MAKER) 10 mg Tablet, Rapid Dissolve Take 10 mg by mouth as needed for Migraine. May repeat in 2 hours if needed 05/13/2015 documented as of this encounter Progress Notes * Sylwia Adam RN - 02/08/2015 2:46 PM EDT VIR MRI PRE-SEDATION ASSESSMENT NOTE NAME: Mirela Lara AGE: 34 y.o. : 1980 Female [phone] (home) No relevant phone numbers on file. [...] ( x ) You must have a hazardous materials tanker driver present when you check in. This patient has been informed that they require a hazardous materials tanker driver to drive them home after this procedure. In the absence of a hazardous materials tanker driver, IR will not be able to sedate for your scan. Pt verbalized understanding of these instructions during the pre-procedure education via phone. Yes Name of hazardous materials tanker driver:_Adam Phone [phone] Date/Procedure Med's given comments 12/29/14 MRI IV sedate Fentanyl 50 mcg IV, Versed 1 mg IV yes 02/04/15 MRI C Spine wo Cancelled per edh 02/11/15 MRI c-spine w/o Valium 10 m g po yes PT STATED TO RETENTION MANAGER THAT THE SEDATION WAS EFFECTIVE FOR [...] Brien Villanueva MD - 02/11/2015 EXAMINATION: MR Beverly MERINO [...] mg documented in this encounter Care Teams Centrifugal Extractor Operator Relationship Specialty Start Date End Date Lakshmi Vicente MD [address] [place] [address] PCP - General 07/27/11 04/18/18 documented as of this encounter
--- OUTSIDE RECORDS SUMMARY | 2024-07-01 22:29 | XMS_ITS | Encounter Summary ---
Author Organization [facility] [place] [address] Care Team Providers Care Comic Book Designer Name Role Phone Lakshmi Vicente MD Primary Care Provider [phone] Encounter Details Date Type Department Care Team (Late st Contact Info) Description 05/31/2016 Telephone [place] [address] Blank Fletcher Social History Tobacco Use Types [...] on filedocumented in this encounter Care Teams Comic Book Designer Relationship Specialty Start Date End Date Berrian, Lakshmi M, MD [address] [place] [address] PCP - General 07/27/11 04/18/18 documented as of this encounter
--- OUTSIDE RECORDS SUMMARY | 2024-07-01 22:29 | XMS_ITS | Encounter Summary ---
Author Organization [facility] [place] [address] Care Team Providers Care Medicare Compliance Auditor Name Role Phone Lakshmi Vicente MD Primary Care Provider [phone] Encounter Details Date Type Department Care Team (Late st Contact Info) Description 02/22/2016 10:00 AM EDT Office Visit Neurology at [facility] [place] [address] Jill French, [facility] [place] [address] Migraine with aura and without status migrainosus, [...] mg documented in this encounter Care Teams Medicare Compliance Auditor Relationship Specialty Start Date End Date Lakshmi Vicente MD [address] [place] [address] PCP - General 07/27/11 04/18/18 documented as of this encounter
--- OUTSIDE RECORDS SUMMARY | 2024-07-01 22:29 | XMS_ITS | Encounter Summary ---
Author Organization [facility] [place] [address] Care Team Providers Care Agricultural And Forestry Supervisor Name Role Phone Lakshmi Vicente MD Primary Care Provider [phone] Reason for Visit * Reason Comments Allergic Reaction Encounter Details Date Type Department Care Team (Late st Contact Info) Description 04/30/2015 2:24 PM EDT - 04/30/2015 7:14 PM EDT [place] [address] Devika Andino MD [facility] [place] [address] Allergic reaction, initial encounter Discharge Disposition: Home [...] sent through Care Everywhere. * ALLERGIC REACTION ([place]) documented in this encounter Medications at Time [...] headaches). 90 tablet 3 01/26/2015 05/13/2015 rizatriptan (MAXALT-MYSQL DATABASE DEVELOPER) 10 mg Tablet, Rapid Dissolve Take 10 [...] bay for critical PT. Care assumed by charge master analyst * Carlos Laughlin MD - 04/30/2015 3:02 [...] and equal bilaterally. Pt is on the harness builder showing a NSR. PT given call light [...] MD CHEMISTRY ORDERABLE S Performing Organization Address [facility] de Phone Number MARISA DA SILVA [...] 1506, STAT 1526 (Given - Provid er: Floyd Truong RN) methylPREDNISolone sodium succinate (PF) (solu-MEDROL) injection 125 mg (COMPLETED) 125 mg, Intravenous, ONCE, 1 dose, On Sun04/30/15 at 1506 1526 (Given - Provid er: Floyd Truong RN) documented in this encounter Care Teams Agricultural And Forestry Supervisor Relationship Specialty Start Date End Date Lakshmi Vicente MD [address] [place] [address] PCP - General 07/27/11 04/18/18 documented as of this encounter
--- OUTSIDE RECORDS SUMMARY | 2024-07-01 22:29 | XMS_ITS | Encounter Summary ---
Author Organization Formerly [facility] [place] [address] Care Team Providers Care Log Hauler Name Role Phone Lakshmi Vicente MD Primary Care Provider [phone] Reason for Visit * High Dollar Medication (Routine) - Specialty Diagnoses / Procedures Referred By Keisha singh Referred To Contact Neurology Diagnoses Chronic migraine without aura without status migrainosus, not intractable Procedures Auth Request for Medication TC ONABOTULINUMTOXINA, 1 UNIT, INJECTION Jill French APRN [facility] [place] [address] [facility] Neurology [address] [place] [address] Referral ID Status Reason Start Date Expiration Date V isits Requested Visits Authorized [id number] Consult, Test & Treat 07/20/2016 07/04/2019 13 13 Encounter Details Date Type Department Care Team (Late st Contact Info) Description 10/17/2016 11:00 AM EST [place] [address] Jill French [facility] [place] [address] Chronic migraine without aura without status migrainosus, [...] this encounter Progress Notes * Jill French, CHIEF CLINICAL OFFICER - 10/17/2016 11:00 AM EST CC: Follow [...] units divided between 2 sites in the supervisor paper coating muscles, 5 units into 1 site in [...] any immediate complications. ? Jill French APRN [facility] Headache Clinic documented in this encounter Plan [...] units divided between 2 sites in the supervisor paper coating muscles, 5 units into 1 site in [...] any immediate complications. ? Jill French APRN [facility] Headache Clinic Silke Pollack MD PROCEDURE/MINOR SURG [...] Units documented in this encounter Care Teams Log Hauler Relationship Specialty Start Date End Date Lakshmi Vicente MD [address] [place] [address] PCP - General 07/27/11 04/18/18 documented as of this encounter
--- OUTSIDE RECORDS SUMMARY | 2024-07-01 22:29 | XMS_ITS | Encounter Summary ---
Author Organization [facility] [place] [address] Care Team Providers Care Welder Apprentice Arc Name Role Phone Lakshmi Vicente MD Primary Care Provider Reason for Visit * High Dollar Medication (Routine) - Specialty Diagnoses / Procedures Referred By Keisha singh Referred To Contact Neurology Diagnoses Chronic migraine without aura without status migrainosus, not intractable Procedures Auth Request for Medication TC ONABOTULINUMTOXINA, 1 UNIT, INJECTION Jill French APRN [facility] [place] [place] [address] [facility] Neurology [address] [place] [address] Referral ID Status Reason Start Date Expiration Date V isits Requested Visits Authorized [id number] Consult, Test & Treat 07/20/2016 07/04/2019 13 13 Encounter Details Date Type Department Care Team (Late st Contact Info) Description 04/05/2017 1:30 PM EDT [place] [address] Jill French [facility] [place] [address] Chronic migraine without aura without status migrainosus, [...] units divided between 2 sites in the solder deposit operator muscles, 5 units into 1 site in [...] and Face Pain. Vol 50, Issue 9. [id number]. Chronic migraine (CM) is a prevalent and [...] in addition to the fixed sites. [facility] III REsearch Evaluating Migraine Prophylaxis Therapy (PREEMPT) injection paradigm uses both fixed and wccjya-yeg-isdh sites, with additional specific pgvibf-voy-umxy sites considered depending onindividual symptoms. The PREEMPT [...] any immediate complications. ? Jill French APRN [facility] Headache Clinic documented in this encounter Plan [...] units divided between 2 sites in the solder deposit operator muscles, 5 units into 1 site in [...] Face Pain. Vol 50, Issue 9. [id number]. Chronic migraine (CM) is a prevalent and [...] (PREEMPT) injection paradigm uses both fixed and mcesss-wmz-ncah sites, with additional specific sdhzwp-woa-gtjv sites considered depending on individual symptoms. The [...] any immediate complications. ? Jill French APRN [facility] Headache Clinic Jill French APRN PROCEDURE/MINOR SURGICAL [...] Units documented in this encounter Care Teams Welder Apprentice Arc Relationship Specialty Start Date End Date Lakshmi Vicente MD [address] [place] [address] PCP - General 07/27/11 04/18/18 documented as of this encounter
--- OUTSIDE RECORDS SUMMARY | 2024-07-01 22:29 | XMS_ITS | Encounter Summary ---
Author Organization [facility] Address [facility] [place] [address] Care Team Providers Care Cnc Machine Setter Name Role Phone Lakshmi Vicente MD Primary Care Provider [phone] Reason for Visit * High Dollar Medication (Routine) - Specialty Diagnoses / Procedures Referred By Keisha singh Referred To Contact Neurology Diagnoses Chronic migraine without aura without status migrainosus, not intractable Procedures Auth Request for Medication TC ONABOTULINUMTOXINA, 1 UNIT, INJECTION Jill French APRN [facility] [place] [address] [facility] Neurology [address] [place] [address] Referral ID Status Reason Start Date Expiration Date V isits Requested Visits Authorized [id number] Consult, Test & Treat 07/20/2016 07/04/2019 13 13 Encounter Details Date Type Department Care Team (Late st Contact Info) Description 07/12/2017 11:30 AM EDT Office [place] [address] Jair Perez MD [facility] [place] [address] Mikey Villarreal MD [facility] [place] [address] Chronic migraine without aura with status [...] Pain Botox effective: Yes (extremely effective) Lot #:[id number] Exp: 01/2020 The risks, benefits and anticipated [...] as follows: Muscle Fixed Site/Fixed Dose L/R Addiction Therapist 10 Units divided in 2 sites 5/5 [...] 09/20/17 Mikey Villarreal MD Headache Medicine Fellow [facility] Department of Neurology 07/12/2017 documented in this [...] Units documented in this encounter Care Teams Cnc Machine Setter Relationship Specialty Start Date End Date Lakshmi Vicente MD [address] [place] [address] PCP - General 07/27/11 04/18/18 documented as of this encounter
--- OUTSIDE RECORDS SUMMARY | 2024-07-01 22:29 | XMS_ITS | Encounter Summary ---
Author Organization [facility] Address [facility] [place] [address] Care Team Providers Care Associate Professor Of Education Name Role Phone Lakshmi Vicente MD Primary Care Provider [phone] Reason for Referral * Consultation (Routine) - Closed Specialty Diagnoses / Procedures Referred By Contac t Referred To Contact Pain Management Diagnoses Migraine with aura and without status migrainosus, not intractable Chronic migraine without aura without status migrainosus, not intractable Jill French APRN [facility] [place] [address] [facility] [address] [place] [address] Referral ID Status Reason Start Date Expiration Date V isits Requested Visits Authorized [id number] Closed Consult, Test & Treat 05/01/2016 05/01/2017 1 1 Reason for Visit * High Dollar Medication (Routine) - Closed Specialty Diagnoses / Procedures Referred By Contac t Referred To Contact Neurology Diagnoses Chronic migraine without aura, not intractable, without status migrainosus . Procedures CHEMODENERVATION, MEDICAL botox Celso, Harpal Helm MD [facility] [place] [address] Referral ID Status Reason Start Date Expiration Date V isits Requested Visits Authorized [id number] Closed Evaluate and Treat 10/13/2015 10/13/2016 4 4 Encounter Details Date Type Department Care Team (Late st Contact Info) Description 05/01/2016 10:40 AM EDT Office Visit Neurology at [facility] [place] [address] Jill French APRN [facility] [place] [address] Migraine with aura and without status migrainosus, [...] units divided between 2 sites in the machine gunner muscles, 5 units into 1 site in [...] without any immediate complications. Jill French APRN [facility] Headache Clinic documented in this [...] Rate Automated 10 0 - 20 mm/hr [facility] Blood specimen (specimen) 05/05/2016 11:10 AM EDT 05/05/2016 11:35 AM EDT Narrative Resulting Agency Comment Spec In Lab Silke Pollack MD HEMATOLOGY ORDERABLE S [facility] [place] [address] * (ABNORMAL) Comprehensive metabolic panel (non-fasting) (05/05/2016 11:10 AM EDT) Glucose 108 65 - 199 mg/dL [facility] Comment:Diabetes: >=200 mg/d L plus symptoms Blood Urea Nitrogen 12 8 - 18 mg/dL [facility] Creatinine 0.78 0.70 - 1.20 mg/dL [facility] Comment: Please note that the pediatric reference intervals supplied above were not validated at [facility]. Results from pediatric patients should be interpreted in conjunction to the patient's age, height and muscle mass. Sodium 137 135 - 145 mmol/L [facility] Potassium 4.3 3.5 - 5.0 mmol/L [facility] Comment: Please note: ??Patients with WBC >100,000 may have falsely elevated Potassium levels. ??For accurate Potassium quantification in these patients send serum separator tube (gold top) for subsequent determinations. ??Contact the Clinical Chemistry Laboratory if there are any questions. Chloride 98 98 - 107 mmol/L [facility] Carbon Dioxide 21(L) 22 - 31 mmol/L [facility] Anion Gap 18(H) 5 - 15 mmol/L [facility] Calcium 8.7 8.5 - 10.5 mg/dL [facility] Protein, Total 6.9 6.1 - 8.0 gm/dL [facility] Albumin 4.2 3.2 - 5.2 gm/dL [facility] Aspartate Aminotransferase 15 0 - 30 unit/L [facility] Alanine Aminotransferase 22 0 - 30 unit/L [facility] Alkaline Phosphatase 48 40 - 104 unit/L [facility] Bilirubin, Total <0.2(L) 0.2 - 1.3 mg/dL [facility] Bilirubin, Direct <0.1 0.0 - 0.3 mg/dL [facility] Est Glomerular Filtration Rate >60 >=60 [facility] Comment: This estimated GFR [...] the following links into your internet browser. [email or web address] Blood specimen (specimen) 05/05/2016 11:10 AM EDT 05/05/2016 11:35 AM EDT Narrative Resulting Agency Comment Spec In Lab Silke Pollack MD CHEMISTRY ORDERABLES Performing Organization Address [facility] Co de Phone Number [facility] [place] [address] * Protein Level CSF (05/05/2016 10:15 AM EDT) Protein, CSF 27 15 - 45 mg/dL [facility] Xanthochromia Neg [facility] Cerebrospinal fluid specimen (specimen) 05/05/2016 10:15 AM EDT 05/05/2016 10:35 AM EDT Narrative Resulting Agency Comment Spec In Lab Silke Pollack MD BODY FLUIDS AND STOO LS ORDERABLES Performing Organization Address [facility]/ZIP Co de Phone Number [facility] [place] [address] * Glucose Level CSF (05/05/2016 10:15 AM EDT) Glucose, CSF 61 mg/dL [facility] Comment:CSF at equilibrium e quals approximately 60-80% of plasma glucose. Cerebrospinal fluid specimen (specimen) 05/05/2016 10:15 AM EDT 05/05/2016 10:35 AM EDT Narrative Resulting Agency Comment Spec In Lab Silke Pollack MD BODY FLUIDS AND STOO LS ORDERABLES [place] [id number] * Chemodenervation, medical (05/01/2016 11:19 AM EDT) [...] units divided between 2 sites in the machine gunner muscles, 5 units into 1 site in [...] without any immediate complications. Jill French APRN [facility] Headache Clinic Silke Pollack MD [...] Units documented in this encounter Care Teams Associate Professor Of Education Relationship Specialty Start Date End Date Lakshmi Vicente MD [address] [place] [address] PCP - General 07/27/11 04/18/18 documented as of this encounter
--- OUTSIDE RECORDS SUMMARY | 2024-07-01 22:29 | XMS_ITS | Encounter Summary ---
Author Organization [facility] [place] [address] Care Team Providers Care Pediatric Oncology Nurse Name Role Phone Lakshmi Vicente MD Primary Care Provider [phone] Reason for Visit * High Dollar Medication (Routine) - Closed Specialty Diagnoses / Procedures Referred By Keisha singh Referred To Contact Neurology Procedures TC ONABOTULINUMTOXINA, 1 UNIT, INJECTION Jill French DENTAL CLAIMS PROCESSOR [place] [address] [facility] [address] [place] [address] Referral ID Status Reason Start Date Expiration Date V isits Requested Visits Authorized [id number] Closed Evaluate and Treat 07/20/2016 07/20/2017 4 4 Encounter Details Date Type Department Care Team (Late st Contact Info) Description 07/25/2016 2:00 PM EDT [place] [address] Jill French [facility] [place] [address] Chronic migraine without aura without status [...] in this encounter Progress Notes * Jill Frenhc APRN - 07/25/2016 2:00 PM EDT CC: [...] units divided between 2 sites in the cement mason muscles, 5 units into 1 site in [...] without any immediate complications. Jill French APRN [facility] Headache Clinic documented [...] units divided between 2 sites in the cement mason muscles, 5 units into 1 site in [...] without any immediate complications. Jill French APRN [facility] Headache Clinic aJir Perez MD PROCEDURE/MINOR SURG ICAL ORDERABLES documented [...] Units documented in this encounter Care Teams Pediatric Oncology Nurse Relationship Specialty Start Date End Date Lakshmi Vicente MD [address] [place] [address] PCP - General 07/27/11 04/18/18 documented as of this encounter
--- OUTSIDE RECORDS SUMMARY | 2024-07-01 22:29 | XMS_ITS | Encounter Summary ---
Author Organization [place] [address] Care Team Providers Care River Guide Name Role Phone Lakshmi Vicente MD Primary Care Provider [phone] Encounter Details Date Type Department Care Team (Late st Contact Info) Description 06/11/2015 10:45 AM EDT [place] [address] CLINIC, Silke Agarwal MD [facility] [place] [address] Chronic migraine without aura without status migrainosus, [...] with spacer ??? ZOLMitriptan (ZOMIG) 5 mg [place], Non-Aerosol 1 spray in one nostril. May [...] 4 weeks. Ludmila Cornejo MD Headache Fellow [facility] Neurology documented in this encounter Procedure Notes [...] each side. Ludmila Cornejo MD Headache Fellow [facility] Neurology documented in this encounter Plan of [...] mg documented in this encounter Care Teams River Guide Relationship Specialty Start Date End Date Lakshmi Vicente MD [address] [place] [address] PCP - General 07/27/11 04/18/18 documented as of this encounter
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
--- OUTSIDE RECORDS SUMMARY | 2024-07-01 22:29 | XMS_ITS | Encounter Summary ---
Author [facility] [place] [address] Care Team Providers Care Accounts Payable Bookkeeper Name Role Phone Lakshmi Vicente MD Primary Care Provider [phone] Reason for Visit * Reason Onset Date Comments Other 04/02/2015 Encounter Details Date Type Department Care Team (Late st Contact Info) Description 04/02/2015 [place] [address] Soo Titus APRN [facility] [place] [address] Other Social History Tobacco Use Types Packs/Day [...] stating that she cannot wait that long. [facility] does not have any openings prior to [...] on filedocumented in this encounter Care Teams Accounts Payable Bookkeeper Relationship Specialty Start Date End Date Lakshmi Vicente MD [address] [place] [address] PCP - General 07/27/11 04/18/18 documented as of this encounter
--- OUTSIDE RECORDS SUMMARY | 2024-07-01 22:29 | XMS_ITS | Encounter Summary ---
Author Organization [facility] [place] [address] Care Team Providers Care Medical Laboratory Assistant Name Role Phone Lakshmi Vicente MD Primary Care Provider [phone] Reason for Referral * High Dollar Medication (Routine) - Specialty Diagnoses / Procedures Referred By Keisha singh Referred To Contact Neurology Diagnoses Chronic migraine without aura without status migrainosus, not intractable Procedures Auth Request for Medication TC ONABOTULINUMTOXINA, 1 UNIT, INJECTION Jill French [place] [facility] [place] [address] [facility] [address] [place] [id number] Referral ID Status Reason Start Date Expiration Date V isits Requested Visits Authorized [id number] Consult, Test & Treat 07/20/2016 07/04/2019 13 13 Encounter Details Date Type Department Care Team (Late st Contact Info) Description 09/26/2016 [place] [address] Jill French QUALITY ASSURANCE TECH [facility] [place] [address] Chronic migraine without aura without status migrainosus, [...] migrainosus documented in this encounter Care Teams Medical Laboratory Assistant Relationship Specialty Start Date End Date Lakshmi Vicente MD [address] [place] [address] PCP - General 07/27/11 04/18/18 documented as of this encounter
--- OUTSIDE RECORDS SUMMARY | 2024-07-01 22:29 | XMS_ITS | Encounter Summary ---
[place] [address] Care Team Providers Care Poacher Operator Name Role Phone Lakshmi Vicente MD Primary Care Provider [phone] Reason for Visit * Reason Onset Date Comments Prior Authorization 02/28/2016 Encounter Details Date Type Department Care Team (Late st Contact Info) Description 02/28/2016 [place] [address] Shavon Weber LPN Prior Authorization Social History [...] Fax: Authorizing Rep: Authorization Number (if applicable): [id number] Notified: Patient ( x ) Pharmacy ( ) * Telephone Encounter - Shavon Weber LPN - 02/28/2016 4:31 PM EDT Raul faxed to [place] [employer] for mathieu clyde @ [phone] documented in this encounter Plan of Treatment Not on file documented as of this encounter Visit Diagnoses Not on filedocumented in this encounter Care Teams Poacher Operator Relationship Specialty Start Date End Date Lakshmi Vicente MD [address] [place] [address] PCP - General 07/27/11 04/18/18 documented as of this encounter
--- OUTSIDE RECORDS SUMMARY | 2024-07-01 22:29 | XMS_ITS | Encounter Summary ---
Author Organization [facility] Address [facility] [place] [address] Care Team Providers Care Multimedia Artist Name Role Phone Lakshmi Vicente MD Primary Care Provider [phone] Encounter Details Date Type Department Care Team (Late st Contact Info) Description 12/07/2015 2:00 PM EST [place] [address] Ludmila Cornejo MD [facility] [place] [address] Harpal Houston MD [facility] [place] [address] Chronic migraine without aura without status migrainosus, [...] each side. Ludmila Cornejo MD Headache Fellow [facility] Neurology documented in [...] mg documented in this encounter Care Teams Multimedia Artist Relationship Specialty Start Date End Date Lakshmi Vicente MD [address] [place] [address] PCP - General 07/27/11 04/18/18 documented as of this encounter
--- OUTSIDE RECORDS SUMMARY | 2024-07-01 22:29 | XMS_ITS | Encounter Summary ---
Author Organization [facility] Address [facility] [place] [address] Care Team Providers Care Locks Tender Name Role Phone Lakshmi Vicente MD Primary Care Provider [phone] Encounter Details Date Type Department Care Team (Late st Contact Info) Description 10/11/2015 Telephone [place] [address] Mirela Massey, RD [facility] [place] [address] Social History Tobacco Use Types Packs/Day Years [...] still interested in pursuing bariatric [place] [facility] She came to the introductory meeting on [...] on filedocumented in this encounter Care Teams Locks Tender Relationship Specialty Start Date End Date Lakshmi Vicente MD [address] [place] [address] PCP - General 07/27/11 04/18/18 documented as of this encounter
--- OUTSIDE RECORDS SUMMARY | 2024-07-01 22:29 | XMS_ITS | Encounter Summary ---
Author Organization [facility] Address [facility] [place] [address] Care Team Providers Care Plate Molder Name Role Phone Lakshmi Vicente MD Primary Care Provider [phone] Reason for Visit * Reason Onset Date Comments Appointment 10/01/2015 Encounter Details Date Type Department Care Team (Late st Contact Info) Description 10/01/2015 [place] [address] Jeremy Rosado MD [facility] DR [place] [address] Appointment Social History Tobacco Use Types Packs/Day [...] with states Mirela images were taken at [facility]. Will request report/images aresent. documented in this encounter Plan of Treatment Not on file documented as of this encounter Visit Diagnoses Not on filedocumented in this encounter Care Teams Plate Molder Relationship Specialty Start Date End Date Lakshmi Vicente MD [address] [place] [address] PCP - General 07/27/11 04/18/18 documented as of this encounter
--- OUTSIDE RECORDS SUMMARY | 2024-07-01 22:29 | XMS_ITS | Encounter Summary ---
[place] [address] Care Team Providers Care Customer Service Representative Teacher Name Role Phone Lakshmi Vicente MD Primary Care Provider [phone] Reason for Visit * Reason Onset Date Comments Prior Authorization 06/14/2015 Encounter Details Date Type Department Care Team (Late st Contact Info) Description 06/14/2015 Telephone [place] [address] Shavon Weber LPN Prior Authorization Social History [...] Phone: Fax: Authorizing Rep: Authorization Number (if applicable):[id number] Notified: Patient ( x ) Pharmacy ( [...] on filedocumented in this encounter Care Teams Customer Service Representative Teacher Relationship Specialty Start Date End Date Lakshmi Vicente MD [address] [place] [address] PCP - General 07/27/11 04/18/18 documented as of this encounter
--- OUTSIDE RECORDS SUMMARY | 2024-07-01 22:29 | XMS_ITS | Encounter Summary ---
Author Organization [facility] [place] [address] Care Team Providers Care Belt Picker Name Role Phone Lakshmi Vicente MD Primary Care Provider Encounter Details Date Type Department Care Team (Late st Contact Info) Description 08/10/2015 4:00 PM EDT [place] [address] Harpal Houston MD [facility] [place] [address] Ludmila Cornejo MD [facility] [place] [address] Chronic migraine without aura without status migrainosus, [...] EDT Neurology Clinic Follow-up Patient Name: Mirela Lraa Attending: Harpal Houston MD Patient ID: Mirela [...] capsule 12 ??? ZOLMitriptan (ZOMIG) 5 mg [place], Non-Aerosol 1 spray in one nostril. May [...] Botox administration. Ludmila Cornejo MD Headache Fellow [facility] Neurology documented in this [...] 1 injection of 5 U in right jack tamp operator muscle 1 injection of 5 U in left jack tamp operator muscle 2 injections of 5 U [...] each side. Ludmila Cornejo MD Headache Fellow [facility] Neurology documented in this [...] mg documented in this encounter Care Teams Belt Picker Relationship Specialty Start Date End Date Lakshmi Vicente MD [address] [place] [address] PCP - General 07/27/11 04/18/18 documented as of this encounter
--- OUTSIDE RECORDS SUMMARY | 2024-07-01 22:29 | XMS_ITS | Encounter Summary ---
Author Organization [facility] [place] [address] Care Team Providers Care Cutter Grinder Name Role Phone Lakshmi Vicente MD Primary Care Provider [phone] Encounter Details Date Type Department Care Team (Latest Contact Info) Description 12/29/2014 8:27 AM EDT - 12/29/2014 11:59 PM EDT Hospital [place] [address] CLINIC, Foster Pal MD [facility] [place] [address] Chronic migraine without aura, with intractable migraine, [...] mg by mouth as needed. 01/26/2015 rizatriptan (MAXALT-AUTO AIR CONDITIONING APPRENTICE) 10 mg Tablet, Rapid Dissolve Take [...] of : 1980 AGE 34 y.o. Address: [address] [address] (home) Mobile: No relevant phone numbers on [...] mouth as needed. Yes Provider, Historical rizatriptan (MAXALT-AUTO AIR CONDITIONING APPRENTICE) 10 mg Tablet, Rapid Dissolve Take [...] informed this patient that they require a stock driver to be present and in the building to drive them home after this procedure. In the absence of a stock driver, IR will not be able to [...] uncontrolled, may titrate to Moderate Sedation per [facility] Moderate Sedation Policy: 0.5mg IV every 5 minutes to a maximum of 5 mg., Routine Given 12/29/2014 9:56 AM EDT 1 mg midazolam (PF) (VERSED) 1 mg/mL injection 1 dose, Starting on Sun12/29/14 at 0913, Until Sun12/29/14 at 0956, SILVANA KC: cabinet override documented in this encounter Care Teams Cutter Grinder Relationship Specialty Start Date End Date Lakshmi Vicente MD [address] [place] [address] PCP - General 07/27/11 04/18/18 documented as of this encounter
--- OUTSIDE RECORDS SUMMARY | 2024-07-01 22:29 | XMS_ITS | Encounter Summary ---
Author Organization [facility] Address [facility] [place] [address] Care Team Providers Care Tar And Ammonia Pump Operator Name Role Phone Lakshmi Vicente MD Primary Care Provider [phone] Encounter Details Date Type Department Care Team (Late st Contact Info) Description 12/07/2014 9:15 AM EST [place] [address] Foster Lynn MD [facility] [place] [address] Chronic migraine without aura, with intractable migraine, [...] Lynn MD - 12/07/2014 10:26 AM EST 7318-3035 50 minutes Lakshmi Vicente Dear , Thank you for asking [facility] Neurology to see your patient, Mirela Lara, [...] pain managed by pain management here at [facility]. A screening exam was negative for a [...] for referring this very nice lady to [facility]. Sincerely, MD Ventura Bahena Professor of Neurology Department of Neurology [facility] [place] [address] At least 35 minutes of this 50 [...] migrainosus documented in this encounter Care Teams Tar And Ammonia Pump Operator Relationship Specialty Start Date End Date Lakshmi Vicente MD [address] [place] [address] PCP - General 07/27/11 04/18/18 documented as of this encounter
--- OUTSIDE RECORDS SUMMARY | 2024-07-01 22:29 | XMS_ITS | Encounter Summary ---
Author Organization [facility] Address [facility] [place] [address] Care Team Providers Care Gallery Or Museum Guide Name Role Phone Lakshmi Vicente MD Primary Care Provider [phone] Reason for Visit * Reason Comments Left Knee Pain Encounter Details Date Type Department Care Team (Latest Contact Info) Description 10/07/2015 10:30 AM EST [place] [address] Jeremy Rosado MD [facility] [place] [address] Primary osteoarthritis of left knee (Primary Dx) [...] with the gastric bypass center here at [facility] and is planning to have a gastric bypass done. She denies fevers, chills, shortness of breath, chest pain, nausea and vomiting. Past medical and surgical history were reviewed and updated in eD-H. ALLERGIES: PER ED-H. SOCIAL HISTORY: She lives in [facility]. She has never smoked and she [...] leg documented in this encounter Care Teams Gallery Or Museum Guide Relationship Specialty Start Date End Date Lakshmi Vicente MD [address] [place] [address] PCP - General 07/27/11 04/18/18 documented as of this encounter
--- OUTSIDE RECORDS SUMMARY | 2024-07-01 22:29 | XMS_ITS | Encounter Summary ---
Author Organization [facility] [place] [address] Care Team Providers Care Freight Representative Name Role Phone Lakshmi Vicente MD Primary Care Provider [phone] Reason for Visit * Reason Onset Date Comments Prior Authorization 10/18/2016 Zomig 5 mg N S Encounter Details Date Type Department Care Team (Late st Contact Info) Description 10/18/2016 Telephone Neurology at [facility] [place] [address] [facility] [address] Prior Authorization (Zomig 5 mg NS) Social [...] on filedocumented in this encounter Care Teams Freight Representative Relationship Specialty Start Date End Date Lakshmi Vicente MD [address] [place] [address] PCP - General 07/27/11 04/18/18 documented as of this encounter
--- OUTSIDE RECORDS SUMMARY | 2024-07-01 22:29 | XMS_ITS | Encounter Summary ---
Author Organization [facility] [place] [address] Care Team Providers Care Technician Biological Health Name Role Phone Lakshmi Vicente MD Primary Care Provider [phone] Reason for Visit * High Dollar Medication (Routine) - Specialty Diagnoses / Procedures Referred By Keisha singh Referred To Contact Neurology Diagnoses Chronic migraine without aura without status migrainosus, not intractable Procedures Auth Request for Medication TC ONABOTULINUMTOXINA, 1 UNIT, INJECTION Jill French APRN [facility] [place] [address] [facility] [address] [place] [address] Referral ID Status Reason Start Date Expiration Date V isits Requested Visits Authorized [id number] Consult, Test & Treat 07/20/2016 07/04/2019 13 13 Encounter Details Date Type Department Care Team (Late st Contact Info) Description 01/09/2017 2:00 PM EDT Office [place] [address] Jill French [place] [address] Chronic migraine without aura without status migrainosus, [...] units divided between 2 sites in the reservations clerk muscles, 5 units into 1 site in [...] and Face Pain. Vol 50, Issue 9. [id number]. Chronic migraine (CM) is a prevalent and [...] (PREEMPT) injection paradigm uses both fixed and qkgzyu-ljm-rngw sites, with additional specific tmvhmy-nxl-idym sites considered depending onindividual symptoms. The PREEMPT [...] any immediate complications. ? Jill French APRN [facility] Head[facility] documented in this encounter Plan [...] units divided between 2 sites in the reservations clerk muscles, 5 units into 1 site in [...] Face Pain. Vol 50, Issue 9. Pp [id number]. Chronic migraine (CM) is a prevalent and [...] (PREEMPT) injection paradigm uses both fixed and ijfpuy-noh-nier sites, with additional specific ypnyzz-ghw-ytqb sites considered depending on individual symptoms. The [...] any immediate complications. ? Jill French APRN [facility] Head[facility] Silke Pollack MD PROCEDURE/MINOR SURG [...] documented in this encounter Care Teams Technician Biological Health Relationship Specialty Start Date End Date Lakshmi Vicente MD [address] [place] [address] PCP - General 07/27/11 04/18/18 documented as of this encounter
--- OUTSIDE RECORDS SUMMARY | 2024-07-01 22:30 | XMS_ITS | Encounter Summary ---
Author Organization [facility] [address] Care Team Providers Care Datastage Architect Name Role Phone Lakshmi Vicente MD Primary Care Provider [phone] Reason for Visit * Reason Comments Eye Problem reoccurence of corne al erosion-OD x 3-4 years Encounter Details Date Type Department Care Team (Late st Contact Info) Description 08/01/2013 1:15 PM EDT Office [place] [address] Jani Taylor MD [facility] [place] [address] Recurrent erosion of cornea (Primary Dx); Oculocutaneous [...] Hypermetropia documented in this encounter Care Teams Datastage Architect Relationship Specialty Start Date End Date Lakshmi Vicente MD [address] [place] [address] PCP - General 07/27/11 04/18/18 documented as of this encounter
--- OUTSIDE RECORDS SUMMARY | 2024-07-01 22:30 | XMS_ITS | Continuity of Care Document ---
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 Available Not Available Not Available cyclobenza myron 10 mg tablet Take 1 tablet 3 times a day by oral route. 2023 active Not Available Not Available Not Avai lable lamotrigin e 150 mg tablet Take 1 by mouth daily 09/23 completed Not Available Not Available Not Available silver sulfadiazi ne 1 % topical cream Apply liberall y to skin once a day 07/01 completed Not Available Not Available Not Available metformin 500 mg tablet active Not Available Not Available Not Available prednisone 10 mg tablet Take with food as directed 07/26 completed 20mg a day for 4 days, 15 mg for 5 days, 10mg for 5 days and the 5 mg for 5 days. Not Available Not Available Not Available venlafaxin e ER 75 mg capsule,ex tended release 24 hr Take 1 capsule by mouth once a day Use along with 150 mg tab 07/01 completed Not Available Not Available Not Available Dilaudid 2 mg tablet 1 q6h 04/26 completed Not Available Not Available Not Available ropinirole 1 mg tablet Take 1 tablet by mouth every night 2023 active Not Available Not Available Not Avai lable albuterol sulfate 2.5 mg/3 mL (0.083 %) solution for nebulizati on Inhale 1 ampul every four to six hours as needed 05/23 completed Not Available Not Available Not Available trazodone 50 mg tablet 3TAB at bedtime 01/05 completed Not Available Not Available Not Available Maxalt-SOFTWARE APPLICATIONS DEVELOPER 10 mg disintegra ting tablet 1 TAB .prn 02/25 completed Not Available Not Available Not Available ibuprofen 800 mg tablet Take 1 tab daily as needed 12/21 completed Not Available Not Available Not Available Lidocaine Viscous 2 % mucosal solution 20ml q3h 11/12 completed Not Available Not Available Not Available acetazolam yeni ER 500 mg capsule,ex tended release Take 1 capsule by mouth twice a day 04/26 completed Not Available Not Available Not Available tizanidine 4 mg tablet 1 TAB THREE TIMES DAILY 09/23 completed Not Available Not Available Not Available Flonase 50 mcg/DOSE nasal inhaler 2 SPRAY daily 12/10 completed Not Available Not Available Not Available Medrol (Chaim) 4 mg tablets in a dose pack 1 TAB DIRECTED 08/20 completed Not Available Not Available Not Available Zomig 2.5 mg tablet on at onset of headache s [address] Cornejo at [facility] Not Available Not Available Not Available metformin 850 mg tablet Take 1 tablet by mouth twice daily. 2014 active Not Available Not Available Not Avai lable Maxalt 10 mg tablet 1 tab at onset of headache , May repeat in 2-4 hours if no relief. No more than 2 pills/24 hours and no more than 3xweek. 08/02 completed Not Available Not Available Not Available Diflucan 150 mg tablet 1 NOW 03/24 completed Not Available Not Available Not Available venlafaxin e ER 150 mg capsule,ex tended release 24 hr Take 2 capsules every day by oral route. 2023 active Not Available Not Available Not Avai lable Wellbutrin SR 150 mg tablet, 12 hr sustained- release take one tab daily 09/23 completed Not Available Not Available Not Available codeine sulfate 15 mg tablet 1 tab every six hours 01/18 completed Not Available Not Available Not Available Amerge 1 mg tablet tab as directed 02/25 completed Not Available Not Available Not Available Zyrtec 10 mg tablet 1 TAB daily 03/03 completed Not Available Not Available Not Available propranolo l 60 mg tablet 1 tab twice daily 2015 active Not Available Not Available Not Avai lable omeprazole 40 mg capsule,de layed release Take 1 tablet by mouth once a day 2023 active Not Available Not Available Not Avai lable tramadol 50 mg tablet 1-2TAB four times daily 07/27 completed Not Available Not Available Not Available lamotrigin e 25 mg tablet 2 tabs daily 01/18 completed Not Available Not Available Not Available propranolo l 40 mg tablet Take 1 tablet by mouth three times a day and an extra dose 2023 active Not Available Not Available Not Avai lable Celebrex 100 mg capsule 1CAP twice daily 10/19 completed Not Available Not Available Not Available magnesium oxide 400 mg (241.3 mg magnesium) tablet 1 tablet once a day 05/23 completed Not Available Not Available Not Available Imodium A-D 2 mg tablet 05/12 completed Not Available Not Available Not Available trazodone 100 mg tablet 2 tabs at bedtime 09/23 completed Not Available Not Available Not Available ranitidine 75 mg tablet Take 1 tab by mouth daily before bed 2018 active Not Available Not Available Not Avai lable Compazine 5 mg tablet 1 TAB four times daily 12/20 completed Not Available Not Available Not Available trazodone 150 mg tablet Take 1 tablet by mouth every night 09/05 completed Not Available Not Available Not Available fluoxetine 20 mg tablet 1 TAB daily 11/12 completed Not Available Not Available Not Available metformin 1,000 mg tablet Take 1 tab by mouth twice daily 2014 active Not Available Not Available Not Avai lable nitrofuran toin macrocryst al 100 mg capsule Take 1 tab by mouth twice daily 03/01 completed Not Available Not Available Not Available ropinirole 0.5 mg tablet 1 by mouth every night 05/23 completed Not Available Not Available Not Available ranitidine 150 mg tablet take 1 tablet QHS 09/23 completed Not Available Not Available Not Available Robaxin-75 0 750 mg tablet 1 TAB Q6H 12/22 completed Not Available Not Available Not Available Flovent 220 mcg/actuat ion aerosol inhaler 2 PUFFS BID 05/03 completed Not Available Not Available Not Available promethazi ne 25 mg tablet take one tab po TID prn nausea 09/23 completed Not Available Not Available Not Available diclofenac potassium 50 mg tablet Take 1 tab by mouth twice daily 12/21 completed Not Available Not Available Not Available mometasone 50 mcg/actuat ion nasal spray Sylva 2 spray into both nostrils once a day 05/26 completed Not Available Not Available Not Available montelukas t 10 mg tablet Take 1 tablet every day by oral route. active Not Available Not Available No t Available hydroxyzin e HCl 25 mg tablet Take 1 tablet by mouth twice a day 2023 active Not Available Not Available Not Avai lable ergocalcif funmi (vitamin D2) 1,250 mcg (50,000 unit) capsule Take 1 by mouth daily 08/06 completed Not Available Not Available Not Available Imitrex 100 mg tablet 1TAB daily 01/05 completed Not Available Not Available Not Available propranolo l ER 120 mg capsule,24 hr,extende d release Take 1 capsule by mouth twice a day to prevent migraine s 05/26 completed Not Available Not Available Not Available Requip 0.25 mg tablet Take 1 tab by mouth daily at bedtime 2015 active Not Available Not Available Not Avai lable albuterol sulfate HFA 90 mcg/actuat ion aerosol inhaler INHALE TWO PUFFS BY MOUTH EVERY 4 TO 6 HOURS NEEDED FOR COUGH, WHEEZE, OR FOR SHORTNES S OF BREATH 2023 active Not Available Not Available Not Avai lable ketoconazo le 2 % topical cream apply bid 12/12 completed Not Available Not Available Not Available fluticason e propionate 50 mcg/actuat ion nasal spray,susp ension Sylva 2 spray into both nostrils every morning 11/30 completed Not Available Not Available Not Available lamotrigin e 100 mg tablet take one tab PO daily 09/23 completed Not Available Not Available Not Available loratadine 10 mg tablet Take 1 tablet by mouth once a day as needed 2023 active Not Available Not Available Not Avai lable prazosin 2 mg capsule 1-2 tab q HS 09/23 completed Not Available Not Available Not Available naproxen 500 mg tablet Take 1 tablet by mouth twice a day as needed for pain 05/26 completed Not Available Not Available Not Available oxycodone 5 mg tablet 1 tab by mouth every 6 hours as needed 10/18 completed Not Available Not Available Not Available Augmentin 875 mg tablet 1 TAB BID 02/18 completed Not Available Not Available Not Available Bactrim DS 800 mg-160 mg tablet 1 TAB twice daily 11/17 completed Not Available Not Available Not Available Flonase 50 mcg/Actuat ion nasl susp 1 spray into both nostrils once a day 2022 active Not Available Not Available Not Avai lable celecoxib 400 mg capsule Take 1 capsule by mouth twice a day as needed for pain do not take naproxen 2023 active Not Available Not Available Not Avai lable Alcohol Prep Pads Use twice a day 2023 active Not Available Not Available Not Avai lable Flovent HFA 110 mcg/actuat ion aerosol inhaler Inhale 2 puffs by mouth twice daily 04/10 completed Not Available Not Available Not Available Zanaflex 4 mg capsule Take 1 tablet by mouth three times daily. 06/07 completed Not Available Not Available Not Available Nystatin (Topical) APPLY TID 09/25 completed Not Available Not Available Not Available Nebulizer Use as needed 2019 active Not Available Not Available Not Avai lable multivitam in 1 tablet by mouth once a day 2020 active Not Available Not Available Not Avai lable Albuterol Sulfate HFA 2INH q4h 2012 active Not Available Not Available Not Avai lable oxycodone 10 mg tablet Take 1 tab by mouth daily PRN severe knee pain 02/07 completed Not Available Not Available Not Available venlafaxin e ER 37.5 mg tablet,ext ended release 24 hr Week 1: take 1 tablet daily. If tolerati ng symptoms can increase as follows. Week 2: take 2 tablets daily. Week 3: take 3 tablets daily. Week 4: take 4 tablets daily. 05/24 completed Not Available Not Available Not Available Naprelan CR 750 mg tab,extend ed release 24 hr mphase at on set of headache 10/30 completed Not Available Not Available Not Available EpiPen 2-Chaim 0.3 mg/0.3 mL injection, auto-injec tor Inject 0.3 ml intramus cularly as directed as needed For signs of severe allergic reaction , then call 911. Repeat in 15 minutes if needed 2022 active Not Available Not Available Not Avai lable Zomig 2.5 mg nasal spray Sylva 1 spray into one nostril once a day prn headache , may repeat x 1 after [address] Cornejo at [facility] Not Available Not Available Not Available Narcan 4 mg/actuati on nasal spray administ er 1 syringe full in nostril as needed for excessiv e sedation 09/23 completed Not Available Not Available Not Available magnesium 400 mg (as magnesium oxide) tablet Take 1 tablet by mouth once a day 06/01 completed Not Available Not Available Not Available Voltaren Arthritis Pain 1 % topical gel APPLY 2 GRAMS TO THE AFFECTED AREA(S) BY TOPICAL ROUTE 4 TIMES PER DAY 2023 active Not Available Not Available Not Avai lable Vitals Date Recorded Body height Body mass index (BMI) Body weight Body temperature Oxygen saturation Oxygen saturation in Arterial blood by Pulse oximetry Heart rate Systolic blood pressure Diastolic blood pressure Provider Name and Address Organization Details Last Updated DateTime 4 154.94 cm 51.4 kg/m2 983957. 12 g 97 [degF] 95 % 95 % 91 /min 148 mm[Hg] 98 mm[Hg] CIPRIANO FREGOSO [facility] 13:04:56 Social History None recorded. Functional Status None recorded. Mental Status None recorded. Family History Nothing Reported Notes:*Problem: Mother: Julian e DM MS Obesity Bipolar Father: Alive HTN, CA- colorectal, ETOH abuse Sisters: None Brothers: None Children: 1 son 1 daughter. son is severely autisitic and violent. Family History of: Hypertension: Yes Hyperlipidemia: Yes Coronary heart disease: Yes Diabetes mellitus: Yes Breast cancer: No Colorectal cancer: No Prostate cancer: No Alcoholism: Yes Mental illness: Yes Other: No Medical History No medical history recorded. Gynecological HistoryNo gynecological history recorded. Obstetrics History GPAL:G 0 P 0 0 0 0 Immunizations Vaccine Type Date Status Provider Name and Address Organization Details Recorded Time Influenza, split virus, trivalent, PF 07/01/[address], [place], [address] 07/01/2024 15:31:16 Tdap 10/18/2015 completed Not Available [facility] 04:55:48 Td(adult) unspecified formulation 11/16/2005 completed Not Available [facility] 08/24/2023 04:55:50 Influenza, split virus, trivalent, preservative 08/02/2015 completed Not Available [facility] 08/24/2023 04:55:50 Influenza, split virus, trivalent, preservative 09/04/2016 completed Not Available [facility] 08/24/2023 04:55:51 Influenza, split virus, quadrivalent, preservative 07/10/2017 completed Not Available [facility] 08/24/2023 04:55:52 Influenza, split virus, quadrivalent, preservative 09/19/2018 completed Not Available [facility] 08/24/2023 04:55:53 pneumococcal polysaccharide PPV23 06/29/2012 completed Not Available [facility] 2022 04:55:55 Past Encounters Encounter ID Performer Location Encounter Start Date Encounter Closed Date Diagnosis/Indication Diagnosis SNOMED-CT Code Diagnosis ICD10 Code [id number] [address] [facility] [address] [place] [address] 07/01/2024 12:10:50 07/01/2024 14:52:03 Benign intracranial hypertension 37416407 G93.2 Weakness o f right lower limb 8299345282 49029 M62.81 Lumbosacra l radiculopathy 6829060 M54.17 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 Notes Date Note Type Note Provider Name and Address Organization Details Recorded Time 07/01/2024 text/html HPI Notes: Pt, 43-F, here to establish care. She was last seen 05/[address] Ryan. Pt. just seen in ED 06/09/2024 for right leg weakness and w/complaint of right knee pain. CT scan showed L5-S1 disc herniation. xray of left knee showed, [id number] medial femoral tibial joint space narrowing. Periarticular spurring throughout. No joint effusion is seen. per [facility] radiology. She was referred to orthopedics. No clinical note from their office. Pt. reports knee is still bothersome. Her back is feeling slightly better. Pt. states the knee pain came on in the middle of the night. Didn't recall that she had any particular increase in activity or other. Gives it 5/10 pain today. Pt. does report tenderness at posterior knee as well. Also pain with dorsiflexion of her toes. She does not recall having a rash or tick bite this summer, but states she has spent time outside. HTN: BP 148/98. She is out of meds/propranolol which she really takes for VIEIRA, but can also help her BP. ICH: Pt. managing headaches with propranolol and hydroxyzine. She also has had Zomig Intranasal for VIERIA as well, started by Dr. Cornejo at [facility]. Diabetes: No meds on list, hga1c review shows consistent pre-diabetic levels around 5.5% on average over many checks, not in > 1-year though. Psych: Pt. w/out phone to contact on many prior pt. cases pt. could not be reached. Pt. had requested medication in pt. case last year for higher dose of venlafaxine than she was on. Pt. problem list comments reflect past history of childhood trauma, significant psych history, PTSD. Nicotine Dependence: Restless legs: On Ropinerole. Obesity: Pt. has been around 240 lbs since 2010 per chart review. GERD: On chronic PPI therapy. History of gastric ulcer. History of IBS [address], [place], [address], [facility], [facility]. 07/01/2024 15:37:23 OBGyn Episode No OBEpisode recorded.
--- OUTSIDE RECORDS SUMMARY | 2024-07-01 22:30 | XMS_ITS | Encounter Summary ---
Author Organization [facility] Address [facility] [place] [address] Care Team Providers Care Reporting Analyst Name Role Phone Lakshmi Vicente MD Primary Care Provider [phone] Reason for Visit * Reason Comments Eye Problem Recurrent corneal er osion,1 mon f/u Encounter Details Date Type Department Care Team (Late st Contact Info) Description 09/08/2013 10:30 AM EST [place] [address] Jani Taylor MD [facility] [address] [place] [address] Recurrent erosion of cornea (Primary Dx) Discharge [...] Continuing care with Dr. Samuel ([facility], [place], [place]) documented in this encounter Plan of Treatment Not on file documented as of this encounter Visit Diagnoses Diagnosis Recurrent erosion of cornea- Primary documented in this encounter Care Teams Reporting Analyst Relationship Specialty Start Date End Date Lakshmi Vicente MD [address] [place] [address] PCP - General 07/27/11 04/18/18 documented as of this encounter
--- OUTSIDE RECORDS SUMMARY | 2024-07-01 22:30 | XMS_ITS | Encounter Summary ---
Author Organization [facility] [place] [address] Care Team Providers Care Lamp Decorator Name Role Phone Sylwia Guadarrama CASSIA Primary Care Provider [phone] Reason for Visit * Reason Comments Right Hip Pain Encounter Details Date Type Department Care Team (Late st Contact Info) Description 07/07/2011 10:45 AM EDT Office Visit [place] [address] Slime Rosado DO [facility] [place] [place] [address] Sacroiliac dysfunction (Primary Dx) Discharge Disposition: Home [...] the entire procedure. Slime Rosado DO [facility] [place] [address] Dept: [phone] * Charles Jean - 07/07/2011 11:26 AM [...] 2. 3. Patient states they have a helper driver to transport after procedure? Yes 4. Patient [...] encounter Miscellaneous Notes * Miscellaneous - Bradly, Liquid Chlorine Operator - 07/18/2011 6:54 AM EDT documented in [...] mg documented in this encounter Care Teams Lamp Decorator Relationship Specialty Start Date End Date Sylwia Guadarrama APRN PCP - General 09/06/10 07/26/11 documented as of this encounter
--- OUTSIDE RECORDS SUMMARY | 2024-07-01 22:30 | XMS_ITS | Encounter Summary ---
Author Organization [facility] Address [facility] [place] [address] Care Team Providers Care Jigmaker Name Role Phone Lakshmi Vicente MD Primary Care Provider [phone] Reason for Visit * Reason Onset Date Comments Eye Problem 07/01/2013 pt to have recur rent corneal erosion, sent from dr kelly office. Patient did not show for 06/23/13 appt, lft message to call to set up another appt [place] Encounter Details Date Type Department Care Team (Late st Contact Info) Description 07/01/2013 [place] [address] Jani Taylor MD [facility] [place] [address] Eye Problem (pt to have recurrent corneal [...] on filedocumented in this encounter Care Teams Jigmaker Relationship Specialty Start Date End Date Lakshmi Vicente MD [address] [place] [address] PCP - General 07/27/11 04/18/18 documented as of this encounter
--- OUTSIDE RECORDS SUMMARY | 2024-07-01 22:30 | XMS_ITS | Encounter Summary ---
Author Organization [facility] [place] [address] Care Team Providers Care Ring Packer Name Role Phone Lakshmi Vicente MD Primary Care Provider [phone] Encounter Details Date Type Department Care Team (Late st Contact Info) Description 07/29/2013 Abstract [place] [address] Jani Taylor MD [facility] [place] [address] Social History Tobacco Use Types Packs/Day Years [...] on filedocumented in this encounter Care Teams Ring Packer Relationship Specialty Start Date End Date Lakshmi Vicente MD [address] [place] [address] PCP - General 07/27/11 04/18/18 documented as of this encounter
--- OUTSIDE RECORDS SUMMARY | 2024-07-01 22:30 | XMS_ITS | Encounter Summary ---
[place] [address] Care Team Providers Care Hvac Sheet Metal Installer Helper Name Role Phone Sylwia Espana APRN Primary Care Provider [phone] Reason for Referral * Physical Therapy (Routine) - Closed Specialty Diagnoses / Procedures Referred By Contac t Referred To Contact Physical Therapy Diagnoses Sacroiliac dysfunction Ritu Lovett [facility] [place] [address] [facility] [place] [address] Referral ID Status Reason Start Date Expiration Date V isits Requested Visits Authorized [id number] Closed Evaluate and Treat 06/22/2011 12/19/2011 1 1 * Consultation (Routine) - Closed by system - unspecified Specialty Diagnoses / Procedures Referred By Contac t Referred To Contact Pain Management Diagnoses Sacroiliac dysfunction Ritu Lovett [facility] [place] [address] Referral ID Status Reason Start Date Expiration Date Visits Requested Visits Authorized [id number] Closed by system - unspecified Consult Only 06/22/2011 12/19/2011 1 1 Reason for Visit * Reason Comments Low Back Pain With Radicular Pain down r ight leg;weakness Mid Back Pain Encounter Details Date Type Department Care Team (Late st Contact Info) Description 06/22/2011 9:20 AM EDT Office [place] [address] Ritu Lovett APRN [facility] [address] [place] [address] Sacroiliac dysfunction (Primary Dx) Discharge Disposition: Home [...] this 45 minute visit was spent in [id number] discussion of present symptoms and future plan [...] sacrum documented in this encounter Care Teams Hvac Sheet Metal Installer Helper Relationship Specialty Start Date End Date Sylwia Espana APRN PCP - General 09/06/10 07/26/11 documented as of this encounter
--- OUTSIDE RECORDS SUMMARY | 2024-07-01 22:30 | XMS_ITS | Encounter Summary ---
Author Organization [facility] [place] [address] Care Team Providers Care Marketing Production Manager Name Role Phone Sylwia Espana APRN Primary Care Provider Encounter Details Date Type Department Care Team (Late st Contact Info) Description 07/07/2011 Orders [place] [address] [facility] [place] [address] Social History Tobacco Use Types Packs/Day Years [...] DO IMG FILM LIBRARY ORD ERABLES RAD [address] [place] [address] documented in this encounter Visit Diagnoses Not on filedocumented in this encounter Care Teams Marketing Production Manager Relationship Specialty Start Date End Date Sylwia Espana APRN PCP - General 09/06/10 07/26/11 documented as of this encounter
--- OUTSIDE RECORDS SUMMARY | 2024-07-01 22:30 | XMS_ITS | Encounter Summary ---
Author Organization [facility] [place] [address] Care Team Providers Care Health Aide Name Role Phone Lakshmi Vicente MD Primary Care Provider [phone] Reason for Visit * Reason Comments Follow-up s/p Anterior stromal puncture OD - done 08/01/2013 Encounter Details Date Type Department Care Team (Late st Contact Info) Description 08/08/2013 10:00 AM EDT Follow-Up [place] [address] Jani Taylor MD [facility] [place] [address] Recurrent corneal erosion (Primary Dx) Discharge Disposition: [...] cornea documented in this encounter Care Teams Health Aide Relationship Specialty Start Date End Date Lakshmi Vicente MD [address] [place] [address] PCP - General 07/27/11 04/18/18 documented as of this encounter
--- OUTSIDE RECORDS SUMMARY | 2024-07-01 22:30 | XMS_ITS | Encounter Summary ---
Author Organization [facility] [place] [address] Care Team Providers Care Moveman Name Role Phone Lakshmi Vicente MD Primary Care Provider [phone] Encounter Details Date Type Department Care Team (Late st Contact Info) Description 07/17/2011 [facility] [place] [address] Ritu Lovett, [facility] [address] Social History Tobacco Use Types Packs/Day Years Used Date Smoking Tobacco: Never Sex and Gender Information Value Date Recorded Sex Assigned at Not on file Gender Identity Not on file Sexual Orientation Not on file documented as of this encounter Plan of Treatment Not on file documented as of this encounter Visit Diagnoses Not on filedocumented in this encounter Care Teams Moveman Relationship Specialty Start Date End Date Lakshmi Vicente MD [address] [facility] [place] [address] PCP - General 07/27/11 04/18/18 documented as of this encounter
--- OUTSIDE RECORDS SUMMARY | 2024-07-01 22:30 | XMS_ITS | Encounter Summary ---
Author Organization [facility] Address [facility] [place] [address] Care Team Providers Care Surface To Air Weapons Officer Name Role Phone Sylwia Espana APRN Primary Care Provider [phone] Encounter Details Date Type Department Care Team (Late st Contact Info) Description 07/07/2011 11:15 AM EDT - 07/07/2011 11:59 PM EDT Hospital Encounter XRay at [address] [place] [address] Social History Tobacco Use Types Packs/Day Years [...] on filedocumented in this encounter Care Teams Surface To Air Weapons Officer Relationship Specialty Start Date End Date Sylwia Espana APRN PCP - General 09/06/10 07/26/11 documented as of this encounter
[2024-07-03 11:24] LABS: Lyme Ab w Rflx to Lyme Confirm Positive (Negative)
[2024-07-03 12:59] LABS: Lyme IgG Ab Positive (Negative); Lyme IgM Ab Positive (Negative)
== END 2024-07-01 22:27 | disposition home or self-care (01) ==
LOC: NCHCN 22:26
PROVIDERS: PCP Student in an Organized Health Care Education/Training Program; Visit Provider Student in an Organized Health Care Education/Training Program
DX: M62.81 Muscle weakness (generalized) (principal); E11.9 Type 2 diabetes mellitus without complications; R82.89 Other abnormal findings on cytological and histological examination of urine
CPT/HCPCS: 85027; 86617; 82040; 82043; 82570; 86618

== ENCOUNTER 2024-12-30 15:52 | Outpatient (REF) | payer SELFPAY ==
[2024-12-30 20:25] LABS: Abs Immature Grans 0.07 10^3/uL (0.0-0.06); Absolute Basophil Count 0.08 10^3/uL (0.0-0.2); Absolute Eosinophil Count 0.21 10^3/uL (0.0-0.7); Absolute Lymphocyte Count 2.57 10^3/uL (1.2-3.4); Absolute Monocyte Count 0.94 10^3/uL (0.1-0.8); Absolute Neutrophil Count 6.52 10^3/uL (1.2-6.7); Basophils % 0.8 %; HCT 41.3 % (36.0-46.0); HGB 13.4 g/dL (11.2-15.7); Immature Grans % 0.7 %; Lymphocytes % 24.7 %; MCHC 32.4 % (32.0-36.0); MCV 86 fL (80-95); MPV 10.3 fL (8.0-11.0); Neutrophils % 62.8 %; Platelet Count 341 10^3/uL (130-400); RBC 4.78 10^6/uL (3.93-5.22); RDW 12.5 % (11.7-14.6); RDW-SD 39.6 fL; WBC 10.39 10^3/uL (4.4-10.8)
[2024-12-30 21:05] LABS: Magnesium 1.8 mg/dL (1.8-2.4); Vitamin B12 348 pg/mL (193-986)
== END 2024-12-30 15:53 | disposition home or self-care (01) ==
LOC: NCHCN 15:52
PROVIDERS: PCP Student in an Organized Health Care Education/Training Program; Visit Provider Student in an Organized Health Care Education/Training Program
DX: K21.9 Gastro-esophageal reflux disease without esophagitis (principal); Z86.2 Personal history of diseases of the blood and blood-forming organs and certain disorders involving the immune mechanism
CPT/HCPCS: 82607; 83735; 85025

== ENCOUNTER 2025-02-11 00:41 | Outpatient (CLI) | payer MEDICAID, SELFPAY ==
--- NOTE | 2025-02-11 11:23 | DI.MAMMO_ITS ---
Exam(s) MAMMO SCREENING EXAM: MAMMO SCREENING CLINICAL HISTORY: Z12.39 Screening, Strong FA HX breast CA TECHNIQUE: Mammograms were interpreted according to the usual protocol including computer analysis w [employer] CAD system, tomosynthesis and C-view imaging. COMPARISON: None. Baseline examination. FINDINGS: The breasts are composed of heterogeneously dense fibroglandular densities, Breast Density category C . No suspicious masses or suspicious microcalcifications are seen. No skin thickening or abnormal axillary lymph nodes are seen. IMPRESSION: BI-RADS Category 1, Negative mammogram. Yearly screening mammography is recommended. Breast Density Category C, heterogeneously Dense. The mammogram demonstrates the patient's breast tissue is dense. Dense breast tissue is very common a nd is not abnormal but dense breast tissue can make it harder to find cancer on a mammogram. Also, de nse breast tissue may increase breast cancer risk. This information about the result of the mammogram report was provided to the patient to raise their awareness. Use this report when you speak with the patient about their risks for breast cancer, which includes their family history. At that time, you may recommend additional screening tests (Ultrasound or MRI) as they might be useful based on their r isk. A negative radiographic report should not delay biopsy if a dominant or clinically suspicious mass is present. Up to ten percent of cancers are not identified on mammography. A negative report may reinforce clinical impression. Adenosis and dense breasts may obscure an underlying neoplasm. False positive reports average 6 to 10%.
== END 2025-02-11 01:01 ==
PROVIDERS: PCP Student in an Organized Health Care Education/Training Program; Visit Provider Student in an Organized Health Care Education/Training Program
DX: Z12.31 Encounter for screening mammogram for malignant neoplasm of breast (principal); R92.333 Mammographic heterogeneous density, bilateral breasts
CPT/HCPCS: 77063; 77067

== ENCOUNTER 2025-07-22 10:40 | Outpatient (CLI) | payer MEDICAID, SELFPAY ==
[2025-07-22 11:41] LABS: Abs Immature Grans 0.03 10^3/uL (0.0-0.06); HCT 37.0 % (36.0-46.0); HGB 12.1 g/dL (11.2-15.7); Immature Grans % 0.4 %; MCH 27.6 pg (27.0-33.0); MCHC 32.7 % (32.0-36.0); MCV 84 fL (80-95); MPV 9.7 fL (8.0-11.0); Platelet Count 251 10^3/uL (130-400); RBC 4.39 10^6/uL (3.93-5.22); RDW 12.8 % (11.7-14.6); RDW-SD 39.0 fL; WBC 6.88 10^3/uL (4.4-10.8)
[2025-07-22 12:03] LABS: Microalb ug/mg Crea 15.3 ug/mg Cr
[2025-07-22 12:33] LABS: ALT 31 U/L (14-59); AST 17 U/L (15-37); Albumin 3.3 g/dL (3.4-5.0); Alkaline Phosphatase 52 U/L (46-116); Anion Gap 10.5 mmol/L (3-11); BUN 11 mg/dL (7-18); Bilirubin, Total 0.2 mg/dL (0.2-1.0); CO2 27.5 mmol/L (21.0-32.0); Calcium 8.7 mg/dL (8.5-10.1); Chloride 102 mmol/L (98-107); Estimated GFR 92.54 (mL/min/1.73m2); Glucose 109 mg/dL (74-106); Potassium 4.0 mmol/L (3.5-5.1); Sodium 140 mmol/L (136-145); TSH (W/Ref FT4) 4.01 uIU/mL (0.36-3.74); Total Protein 7.1 g/dL (6.4-8.2); Vitamin B12 469 pg/mL (193-986)
== END 2025-07-22 10:41 | disposition home or self-care (01) ==
LOC: LBO 10:43
PROVIDERS: PCP Student in an Organized Health Care Education/Training Program; Visit Provider Student in an Organized Health Care Education/Training Program
DX: K21.9 Gastro-esophageal reflux disease without esophagitis (principal); I10 Essential (primary) hypertension
CPT/HCPCS: 36415; 80053; 82043; 82570; 82607; 84439; 84443; 85025

== ENCOUNTER 2025-07-22 11:02 | Emergency (ER) | payer MEDICAID, SELFPAY ==
[2025-07-22 11:16] VITALS: BP 159/102; PULSE 107; RESP 17; TEMP 36.7; O2SAT 95
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
== END 2025-07-22 11:46 | disposition home or self-care (01) ==
LOC: ER 11:57
PROVIDERS: Emergency Provider Registered Nurse Emergency; PCP Student in an Organized Health Care Education/Training Program
DX: I10 Essential (primary) hypertension (principal)
CPT/HCPCS: 99282; 99281